=== PATIENT | male | born 1945 | race Caucasian/White ===

== ENCOUNTER → 2019-02-21 | Outpatient (CLI) | payer SELFPAY ==
[2019-02-21 19:28] LABS: BASOPHILS ABSOLUTE AUTO 0.03 K/mm3 (0.00-0.23); BASOPHILS PERCENT AUTO 1 % (0-2); EOSINOPHILS ABSOLUTE AUTO 0.25 K/mm3 (0.00-0.68); EOSINOPHILS PERCENT AUTO 5 % (0-6); Hematocrit 38.3 % (37.0-53.0); Hemoglobin 12.7 g/dL (13.5-17.5); IMMATURE GRAN ABSOLUTE AUTO 0.01 K/mm3 (0.00-0.10); IMMATURE GRAN PERCENT AUTO 0 % (0-1); LYMPHOCYTES ABSOLUTE AUTO 1.13 K/mm3 (0.84-5.20); LYMPHOCYTES PERCENT AUTO 22 % (21-46); MONOCYTES ABSOLUTE AUTO 0.31 K/mm3 (0.16-1.47); MONOCYTES PERCENT AUTO 6 % (4-13); Mean Corpuscular HGB 29.7 pg (26.0-34.0); Mean Corpuscular HGB Conc 33.2 g/dL (31.5-36.5); Mean Corpuscular Volume 90 fL (80-100); Mean Platelet Volume 10.7 fL (9.1-12.4); NEUTROPHILS ABSOLUTE AUTO 3.31 K/mm3 (1.96-9.15); NEUTROPHILS PERCENT AUTO 66 % (41-73); Platelet Count 112 K/mm3 (150-400); RDW Coefficient Variation 13.9 % (11.7-14.2); RDW Standard Deviation 45.8 fL (35.1-46.3); Red Blood Cell Count 4.27 M/mm3 (4.30-5.90); White Blood Cell Count 5.04 K/mm3 (4.00-11.30)
[2019-02-21 20:48] LABS: Alanine Aminotransfer (ALT/SGP 25 U/L (12-78); Albumin/Globulin Ratio 1.2 (0.8-1.8); Alk Phos 70 U/L (50-136); Anion Gap 4 mmol/L (6-16); Aspartate Aminotrans (AST/SGOT 14 U/L (12-37); Bilirubin, Total 0.9 mg/dL (0.1-1.0); Blood Urea Nitrogen 18 mg/dL (8-24); Bun/Creatinine Ratio 19.6 (12.0-20.0); CHOL/HDL RATIO 3.1; CO2, Blood 26 mmol/L (21-32); Calcium, Blood 9.1 mg/dL (8.5-10.1); Chloride, Blood 110 mmol/L (98-108); Cholesterol 78 mg/dL (50-200); Creatinine, Blood 0.92 mg/dL (0.60-1.20); Globulin, Blood 3.2 g/dL (2.2-4.0); Glomerular Filtration Rate >60 (60-); Glucose, Blood 160 mg/dL (70-99); HDL Cholesterol 25 mg/dL (>39); LDL/HDL RATIO 0.9; Low Density Lipoprotein Chol 22 mg/dL (0-110); Potassium, Blood 4.2 mmol/L (3.5-5.5); Sodium, Blood 140 mmol/L (136-145); Total Protein, Blood 7.2 g/dL (6.4-8.2); Triglycerides 153 mg/dL (30-160); Very Low Density Lipoprot Chol 30 mg/dL (6-32)
== END | disposition home or self-care (01) ==
LOC: LAB 18:39 → LAB SHORT 18:39
PROVIDERS: Nurse Practitioner Family
DX: E11.9 Type 2 diabetes mellitus without complications (principal); E78.5 Hyperlipidemia, unspecified
CPT/HCPCS: 80053; 80061; 85025

== ENCOUNTER → 2019-04-02 | Outpatient (CLI) | payer SELFPAY ==
[2019-04-02 19:27] LABS: BASOPHILS ABSOLUTE AUTO 0.06 K/mm3 (0.00-0.23); BASOPHILS PERCENT AUTO 1 % (0-2); EOSINOPHILS ABSOLUTE AUTO 0.44 K/mm3 (0.00-0.68); EOSINOPHILS PERCENT AUTO 6 % (0-6); Hematocrit 42.3 % (37.0-53.0); Hemoglobin 14.3 g/dL (13.5-17.5); IMMATURE GRAN ABSOLUTE AUTO 0.03 K/mm3 (0.00-0.10); IMMATURE GRAN PERCENT AUTO 0 % (0-1); LYMPHOCYTES PERCENT AUTO 23 % (21-46); MONOCYTES ABSOLUTE AUTO 0.47 K/mm3 (0.16-1.47); MONOCYTES PERCENT AUTO 6 % (4-13); Mean Corpuscular HGB 29.5 pg (26.0-34.0); Mean Corpuscular HGB Conc 33.8 g/dL (31.5-36.5); Mean Corpuscular Volume 87 fL (80-100); Mean Platelet Volume 10.1 fL (9.1-12.4); NEUTROPHILS ABSOLUTE AUTO 4.74 K/mm3 (1.96-9.15); NEUTROPHILS PERCENT AUTO 64 % (41-73); Platelet Count 106 K/mm3 (150-400); RDW Coefficient Variation 12.8 % (11.7-14.2); RDW Standard Deviation 40.3 fL (35.1-46.3); Red Blood Cell Count 4.84 M/mm3 (4.30-5.90); White Blood Cell Count 7.44 K/mm3 (4.00-11.30)
[2019-04-02 19:46] LABS: CHOL/HDL RATIO 5.4; Cholesterol 141 mg/dL (50-200); HDL Cholesterol 26 mg/dL (>39); LDL/HDL RATIO 1.6; Low Density Lipoprotein Chol 41 mg/dL (0-110); Triglycerides 372 mg/dL (30-160); Very Low Density Lipoprot Chol 74 mg/dL (6-32)
== END | disposition home or self-care (01) ==
LOC: LAB SHORT 18:01 → LAB 18:01
PROVIDERS: Nurse Practitioner Family
DX: E78.00 Pure hypercholesterolemia, unspecified (principal)
CPT/HCPCS: 80061; 85025

== ENCOUNTER → 2019-05-29 | Outpatient (CLI) | payer MEDICARE ==
[2019-05-29 17:17] LABS: Source, Urine Clean Catch
[2019-05-29 18:07] LABS: Bilirubin, Urine Neg (Neg); Blood, Urine 5+ (Neg); Glucose Qualitative, Urine Neg (Neg); Ketones, Urine 1+ (Neg); Leukocyte Esterase, Urine Neg (Neg); Nitrite, Urine Neg (Neg); Protein, Urine 2+ (Neg); Specific Gravity, Urine 1.015 (1.003-1.022); Urobilinogen, Urine NORM (Normal)
[2019-05-29 18:27] LABS: BASOPHILS ABSOLUTE AUTO 0.07 K/mm3 (0.00-0.23); BASOPHILS PERCENT AUTO 1 % (0-2); EOSINOPHILS ABSOLUTE AUTO 0.55 K/mm3 (0.00-0.68); EOSINOPHILS PERCENT AUTO 8 % (0-6); Hematocrit 39.4 % (37.0-53.0); Hemoglobin 13.5 g/dL (13.5-17.5); IMMATURE GRAN ABSOLUTE AUTO 0.02 K/mm3 (0.00-0.10); IMMATURE GRAN PERCENT AUTO 0 % (0-1); LYMPHOCYTES ABSOLUTE AUTO 1.31 K/mm3 (0.84-5.20); LYMPHOCYTES PERCENT AUTO 19 % (21-46); MONOCYTES ABSOLUTE AUTO 0.56 K/mm3 (0.16-1.47); MONOCYTES PERCENT AUTO 8 % (4-13); Mean Corpuscular HGB 29.5 pg (26.0-34.0); Mean Corpuscular HGB Conc 34.3 g/dL (31.5-36.5); Mean Corpuscular Volume 86 fL (80-100); Mean Platelet Volume 10.2 fL (9.1-12.4); NEUTROPHILS PERCENT AUTO 64 % (41-73); Platelet Count 123 K/mm3 (150-400); RDW Coefficient Variation 13.9 % (11.7-14.2); RDW Standard Deviation 43.1 fL (35.1-46.3); Red Blood Cell Count 4.58 M/mm3 (4.30-5.90); White Blood Cell Count 6.91 K/mm3 (4.00-11.30)
[2019-05-29 18:39] LABS: Appearance, Urine Clear (Clear); Color, Urine Yellow (P-Yellow)
[2019-05-29 18:40] LABS: Bacteria Mod /hpf; Squamous Epithelial Cells Rare /hpf (Few)
[2019-05-29 18:42] LABS: LDL Direct Measurement 61 mg/dL (0-130)
[2019-05-29 18:44] LABS: Microalb/Creat Ratio UR, Rand 137.879 mg/g (0.000-30.000)
[2019-05-29 19:46] LABS: Alanine Aminotransfer (ALT/SGP 24 U/L (12-78); Albumin/Globulin Ratio 1.1 (0.8-1.8); Alk Phos 69 U/L (50-136); Anion Gap 5 mmol/L (6-16); Aspartate Aminotrans (AST/SGOT 12 U/L (12-37); Bilirubin, Total 0.3 mg/dL (0.1-1.0); Blood Urea Nitrogen 22 mg/dL (8-24); Bun/Creatinine Ratio 22.8 (12.0-20.0); CHOL/HDL RATIO 5.4; CO2, Blood 26 mmol/L (21-32); Chloride, Blood 109 mmol/L (98-108); Cholesterol 124 mg/dL (50-200); Creatinine, Blood 0.96 mg/dL (0.60-1.20); Globulin, Blood 3.6 g/dL (2.2-4.0); Glomerular Filtration Rate >60 (60-); Glucose, Blood 160 mg/dL (70-99); HDL Cholesterol 23 mg/dL (>39); LDL/HDL RATIO 1.8; Low Density Lipoprotein Chol 42 mg/dL (0-110); Potassium, Blood 4.1 mmol/L (3.5-5.5); Sodium, Blood 140 mmol/L (136-145); Total Protein, Blood 7.6 g/dL (6.4-8.2); Triglycerides 294 mg/dL (30-160); Very Low Density Lipoprot Chol 58 mg/dL (6-32)
== END | disposition home or self-care (01) ==
LOC: LAB SHORT 16:56 → LAB 16:56
PROVIDERS: Nurse Practitioner Family
DX: E11.9 Type 2 diabetes mellitus without complications (principal); E78.00 Pure hypercholesterolemia, unspecified
CPT/HCPCS: 80053; 80061; 81001; 82043; 82570; 83036; 83721; 85025; 87086

== ENCOUNTER 2019-10-25 18:48 | Emergency (ER) | payer MEDICARE ==
[~2019-10-25] VITALS: Ht 180.3 cm; Wt 83.9 kg
[2019-10-25] MEDS ORDERED: Lisinopril2.5 MG (18:59)
[2019-10-25] MEDS ORDERED: TAMS.4ER (18:59)
[2019-10-25] MEDS ORDERED: Norco 5-325 Ta1 EACH (18:59)
[2019-10-25] MEDS ORDERED: ATOR20 (18:59)
[2019-10-25 20:41] LABS: BASOPHILS ABSOLUTE AUTO 0.04 K/mm3 (0.00-0.23); BASOPHILS PERCENT AUTO 1 % (0-2); EOSINOPHILS ABSOLUTE AUTO 0.19 K/mm3 (0.00-0.68); EOSINOPHILS PERCENT AUTO 3 % (0-6); Hemoglobin 7.9 g/dL (13.5-17.5); IMMATURE GRAN ABSOLUTE AUTO 0.04 K/mm3 (0.00-0.10); IMMATURE GRAN PERCENT AUTO 1 % (0-1); LYMPHOCYTES ABSOLUTE AUTO 1.09 K/mm3 (0.84-5.20); LYMPHOCYTES PERCENT AUTO 16 % (21-46); MONOCYTES ABSOLUTE AUTO 0.44 K/mm3 (0.16-1.47); MONOCYTES PERCENT AUTO 7 % (4-13); Mean Corpuscular HGB 28.6 pg (26.0-34.0); Mean Corpuscular HGB Conc 31.6 g/dL (31.5-36.5); Mean Corpuscular Volume 91 fL (80-100); Mean Platelet Volume 9.7 fL (9.1-12.4); NEUTROPHILS ABSOLUTE AUTO 4.94 K/mm3 (1.96-9.15); NEUTROPHILS PERCENT AUTO 73 % (41-73); Platelet Count 133 K/mm3 (150-400); RDW Coefficient Variation 17.8 % (11.7-14.2); RDW Standard Deviation 56.9 fL (35.1-46.3); Red Blood Cell Count 2.76 M/mm3 (4.30-5.90); White Blood Cell Count 6.74 K/mm3 (4.00-11.30)
[2019-10-25 20:57] LABS: Albumin, Blood 3.5 g/dL (3.4-5.0); Albumin/Globulin Ratio 0.9 (0.8-1.8); Bilirubin, Total 0.2 mg/dL (0.1-1.0); Bun/Creatinine Ratio 20.9 (12.0-20.0); Calcium, Blood 7.9 mg/dL (8.5-10.1); Creatinine, Blood 1.34 mg/dL (0.60-1.20); Globulin, Blood 3.7 g/dL (2.2-4.0); Potassium, Blood 4.2 mmol/L (3.5-5.5); Total Protein, Blood 7.2 g/dL (6.4-8.2)
[2019-10-25] MEDS ORDERED: ASCO500 PO (21:13)
[2019-10-25] MEDS ORDERED: IRON18 MG PO (21:13)
[2019-10-25 21:28] LABS: Source, Urine Voided
[2019-10-25 21:39] LABS: Appearance, Urine Turbid (Clear); Bilirubin, Urine Neg (Neg); Blood, Urine 5+ (Neg); Color, Urine Red (P-Yellow); Glucose Qualitative, Urine Neg (Neg); Ketones, Urine Neg (Neg); Leukocyte Esterase, Urine 2+ (Neg); Nitrite, Urine Neg (Neg); Protein, Urine 4+ (Neg); Urobilinogen, Urine NORM (Normal)
[2019-10-25 21:40] LABS: Bacteria Rare /hpf; Red Blood Cells, Urine TNTC /hpf (0-2); Squamous Epithelial Cells Not Seen /hpf (Few)
[2019-10-25 22:10] LABS: Troponin I 1.98 ng/mL (0.000-0.040)
== END 2019-10-26 01:05 | disposition short-term general hospital (02) ==
LOC: ER 18:48
PROVIDERS: Student in an Organized Health Care Education/Training Program
DX: D64.9 Anemia, unspecified (principal); R31.9 Hematuria, unspecified; R79.89 Other specified abnormal findings of blood chemistry; Z79.899 Other long term (current) drug therapy; Z87.891 Personal history of nicotine dependence
CPT/HCPCS: 36415; 36430; 76770; 80053; 81001; 84484; 85025; 86850; 86900; 86901; 86923; 87086; 93005; 93010; 99284-25; J7030; P9016; U0002

== ENCOUNTER → 2019-10-25 | Outpatient (CLI) | payer MEDICARE ==
[~2019-10-25] MED LIST: ASCO500 PO; ATOR20; IRON18 MG PO; Lisinopril2.5 MG; Norco 5-325 Ta1 EACH; TAMS.4ER
[2019-10-25 16:46] LABS: BASOPHILS ABSOLUTE AUTO 0.04 K/mm3 (0.00-0.23); BASOPHILS PERCENT AUTO 1 % (0-2); EOSINOPHILS ABSOLUTE AUTO 0.16 K/mm3 (0.00-0.68); EOSINOPHILS PERCENT AUTO 3 % (0-6); Hematocrit 23.5 % (37.0-53.0); Hemoglobin 7.4 g/dL (13.5-17.5); IMMATURE GRAN ABSOLUTE AUTO 0.02 K/mm3 (0.00-0.10); IMMATURE GRAN PERCENT AUTO 0 % (0-1); LYMPHOCYTES ABSOLUTE AUTO 0.97 K/mm3 (0.84-5.20); LYMPHOCYTES PERCENT AUTO 17 % (21-46); MONOCYTES ABSOLUTE AUTO 0.29 K/mm3 (0.16-1.47); MONOCYTES PERCENT AUTO 5 % (4-13); Mean Corpuscular HGB 28.2 pg (26.0-34.0); Mean Corpuscular HGB Conc 31.5 g/dL (31.5-36.5); Mean Corpuscular Volume 90 fL (80-100); Mean Platelet Volume 10.6 fL (9.1-12.4); NEUTROPHILS ABSOLUTE AUTO 4.34 K/mm3 (1.96-9.15); NEUTROPHILS PERCENT AUTO 75 % (41-73); Platelet Count 132 K/mm3 (150-400); RDW Coefficient Variation 17.3 % (11.7-14.2); RDW Standard Deviation 54.2 fL (35.1-46.3); Red Blood Cell Count 2.62 M/mm3 (4.30-5.90); White Blood Cell Count 5.82 K/mm3 (4.00-11.30)
== END ==
LOC: LAB SHORT 16:16 → LAB 16:16
PROVIDERS: Nurse Practitioner Family
DX: R42 Dizziness and giddiness (principal); R31.9 Hematuria, unspecified
CPT/HCPCS: 85025; 87086

== ENCOUNTER → 2019-11-26 | Outpatient (CLI) | payer MEDICARE ==
[~2019-11-26] MED LIST changes: +ACET325 PO; +AMPI250 PO; +AMPI500 PO; +ASPI81CH PO; +ATOR10 PO; -ATOR20; +Aspir 8181 MG PO; +Ativan1 MG PO; +FINA5 PO; +HYOS.125 PO; +IRON PO; -Lisinopril2.5 MG; +Lisinopril2.5 MG PO; +METF500 PO; +METO25ER PO; +Norco 5-325 Ta1 EACH PO; +OXYB5ER PO; +Percocet 5-3251 EACH PO; +Pyridium100 MG PO; -TAMS.4ER; +TAMS.4ER PO; +ZOFRAN4 MG; +ZOFRAN8 MG PO
[2019-11-26 16:35] LABS: Source, Urine Clean Catch
[2019-11-26 17:26] LABS: BASOPHILS ABSOLUTE AUTO 0.05 K/mm3 (0.00-0.23); BASOPHILS PERCENT AUTO 1 % (0-2); EOSINOPHILS ABSOLUTE AUTO 0.29 K/mm3 (0.00-0.68); EOSINOPHILS PERCENT AUTO 4 % (0-6); Hematocrit 30.9 % (37.0-53.0); Hemoglobin 9.3 g/dL (13.5-17.5); IMMATURE GRAN ABSOLUTE AUTO 0.03 K/mm3 (0.00-0.10); IMMATURE GRAN PERCENT AUTO 0 % (0-1); LYMPHOCYTES ABSOLUTE AUTO 0.84 K/mm3 (0.84-5.20); LYMPHOCYTES PERCENT AUTO 12 % (21-46); MONOCYTES ABSOLUTE AUTO 0.32 K/mm3 (0.16-1.47); MONOCYTES PERCENT AUTO 5 % (4-13); Mean Corpuscular HGB Conc 30.1 g/dL (31.5-36.5); Mean Corpuscular Volume 90 fL (80-100); Mean Platelet Volume 10.3 fL (9.1-12.4); NEUTROPHILS ABSOLUTE AUTO 5.46 K/mm3 (1.96-9.15); NEUTROPHILS PERCENT AUTO 78 % (41-73); Platelet Count 161 K/mm3 (150-400); RDW Coefficient Variation 14.9 % (11.7-14.2); RDW Standard Deviation 49.1 fL (35.1-46.3); Red Blood Cell Count 3.44 M/mm3 (4.30-5.90); White Blood Cell Count 6.99 K/mm3 (4.00-11.30)
[2019-11-26 17:28] LABS: Bilirubin, Urine Neg (Neg); Blood, Urine 5+ (Neg); Glucose Qualitative, Urine Neg (Neg); Ketones, Urine 1+ (Neg); Leukocyte Esterase, Urine 2+ (Neg); Nitrite, Urine Neg (Neg); Protein, Urine 4+ (Neg); Specific Gravity, Urine 1.015 (1.003-1.022); Urobilinogen, Urine NORM (Normal)
[2019-11-26 17:42] LABS: Alanine Aminotransfer (ALT/SGP 12 U/L (12-78); Albumin, Blood 3.6 g/dL (3.4-5.0); Alk Phos 72 U/L (50-136); Anion Gap 5 mmol/L (6-16); Aspartate Aminotrans (AST/SGOT 11 U/L (12-37); Bilirubin, Total 0.2 mg/dL (0.1-1.0); Blood Urea Nitrogen 29 mg/dL (8-24); Bun/Creatinine Ratio 25.7 (12.0-20.0); CO2, Blood 23 mmol/L (21-32); Calcium, Blood 8.3 mg/dL (8.5-10.1); Chloride, Blood 114 mmol/L (98-108); Creatinine, Blood 1.13 mg/dL (0.60-1.20); Globulin, Blood 3.5 g/dL (2.2-4.0); Glomerular Filtration Rate >60 (60-); Glucose, Blood 228 mg/dL (70-99); Sodium, Blood 142 mmol/L (136-145); Total Protein, Blood 7.1 g/dL (6.4-8.2)
[2019-11-26 18:02] LABS: Appearance, Urine Turbid (Clear); Color, Urine Red (P-Yellow)
[2019-11-26 18:03] LABS: Bacteria Many /hpf; Mucus Mod (0-Heavy); Red Blood Cells, Urine TNTC /hpf (0-2); Squamous Epithelial Cells Few /hpf (Few); White Blood Cells, Urine 50-100 /hpf (0-5)
== END ==
LOC: LAB SHORT 16:30 → LAB 16:30
PROVIDERS: Nurse Practitioner Family
DX: D50.0 Iron deficiency anemia secondary to blood loss (chronic) (principal); N17.9 Acute kidney failure, unspecified; E11.9 Type 2 diabetes mellitus without complications; R31.9 Hematuria, unspecified
CPT/HCPCS: 80053; 81001; 83036; 85025; 87086

== ENCOUNTER 2019-12-31 13:16 | Observation (INO) | payer OTHER, MEDICARE ==
[~2019-12-31] VITALS: Ht 180.3 cm; Wt 81.7 kg
[~2019-12-31 13:16] MED LIST changes: -ACET325 PO; -AMPI250 PO; -AMPI500 PO
[2019-12-31 14:41] LABS: Source, Urine Catheter
[2019-12-31 14:45] LABS: Bilirubin, Urine Neg (Neg); Blood, Urine 3+ (Neg); Glucose Qualitative, Urine Neg (Neg); Ketones, Urine Neg (Neg); Leukocyte Esterase, Urine 3+ (Neg); Nitrite, Urine Pos (Neg); Protein, Urine 3+ (Neg); Urobilinogen, Urine 1+ (Normal)
[2019-12-31 14:57] LABS: Appearance, Urine Cloudy (Clear); Color, Urine Amber (P-Yellow)
[2019-12-31 14:59] LABS: Bacteria Many /hpf; Squamous Epithelial Cells Few /hpf (Few); White Blood Cells, Urine TNTC /hpf (0-5)
[2019-12-31 16:10] LABS: Source, Urine Catheter
[2019-12-31 16:12] LABS: Bilirubin, Urine Neg (Neg); Blood, Urine 3+ (Neg); Glucose Qualitative, Urine Neg (Neg); Ketones, Urine Neg (Neg); Leukocyte Esterase, Urine 3+ (Neg); Nitrite, Urine Pos (Neg); Protein, Urine 3+ (Neg); Urobilinogen, Urine NORM (Normal)
[2019-12-31 16:18] LABS: Appearance, Urine Hazy (Clear); Color, Urine Yellow (P-Yellow)
[2019-12-31 16:19] LABS: Bacteria Many /hpf; Squamous Epithelial Cells Not Seen /hpf (Few); White Blood Cells, Urine TNTC /hpf (0-5)
[2019-12-31 17:31] LABS: Hematocrit 30.3 % (37.0-53.0); Hemoglobin 9.4 g/dL (13.5-17.5); Mean Corpuscular HGB 26.3 pg (26.0-34.0); Mean Corpuscular Volume 85 fL (80-100); Mean Platelet Volume 11.6 fL (9.1-12.4); RDW Coefficient Variation 13.8 % (11.7-14.2); Red Blood Cell Count 3.57 M/mm3 (4.30-5.90); White Blood Cell Count 1.12 K/mm3 (4.00-11.30)
[2019-12-31 17:35] LABS: Platelet Count 38 K/mm3 (150-400)
[2019-12-31 17:39] LABS: Albumin, Blood 3.6 g/dL (3.4-5.0); Anion Gap 8 mmol/L (6-16); Blood Urea Nitrogen 39 mg/dL (8-24); Bun/Creatinine Ratio 22.3 (12.0-20.0); CO2, Blood 22 mmol/L (21-32); Calcium, Blood 8.9 mg/dL (8.5-10.1); Chloride, Blood 106 mmol/L (98-108); Creatinine, Blood 1.75 mg/dL (0.60-1.20); Glomerular Filtration Rate 40 (60-); Glucose, Blood 178 mg/dL (70-99); Phosphorus, Blood 3.2 mg/dL (2.5-4.9); Potassium, Blood 4.5 mmol/L (3.5-5.5); Sodium, Blood 136 mmol/L (136-145)
[2019-12-31 17:54] LABS: BASOPHILS PERCENT MAN 0 % (0-2); EOSINOPHILS ABSOLUTE MAN 0.03 K/mm3 (0.00-0.68); EOSINOPHILS PERCENT MAN 3 % (0-6); LYMPHOCYTES ABSOLUTE MAN 0.53 K/mm3 (0.84-5.20); LYMPHOCYTES PERCENT MAN 48 % (21-46); MONOCYTES ABSOLUTE MAN 0.01 K/mm3 (0.16-1.47); MONOCYTES PERCENT MAN 1 % (4-13); NEUTROPHILS ABSOLUTE MAN 0.53 K/mm3 (1.96-9.15); SEG NEUTROPHILS PERCENT MAN 48 % (41-73); TOTAL CELLS COUNTED 100
--- NOTE | 2019-12-31 17:59 | NUR ---
Pt returned to ER. Severe abdominal pain and groin pain. Abdomen firm and taught, Minimal output from burgos. states he was bleeding and clotting before treatment. pt has flank pain. Narctic helped but not for long. Review with phsycian. increase pain medes acute abdomen work up and possible urology care and reanl consult to r/o peritonitis or obstruction. pt pale and guarding and grunting no bleeding noted passing lots of gas. no pain noted to legs. pt taking narcotics ant home and ditropan.
[2019-12-31 18:33] LABS: Albumin, Blood 3.6 g/dL (3.4-5.0); Albumin/Globulin Ratio 0.9 (0.8-1.8); Bilirubin, Direct 0.1 mg/dL (0.0-0.3); Bilirubin, Indirect 0.2 mg/dL (0.1-0.7); Bilirubin, Total 0.3 mg/dL (0.1-1.0); Globulin, Blood 4.2 g/dL (2.2-4.0); Total Protein, Blood 7.8 g/dL (6.4-8.2)
[2019-12-31] MEDS ORDERED: AMPI500 PO (18:55)
[2020-01-01 04:55] LABS: BASOPHILS PERCENT AUTO 0 % (0-2); Hematocrit 26.4 % (37.0-53.0); Hemoglobin 8.5 g/dL (13.5-17.5); Mean Corpuscular HGB 27.2 pg (26.0-34.0); Mean Corpuscular HGB Conc 32.2 g/dL (31.5-36.5); Mean Corpuscular Volume 85 fL (80-100); Mean Platelet Volume 9.1 fL (9.1-12.4); RDW Coefficient Variation 13.7 % (11.7-14.2); RDW Standard Deviation 42.3 fL (35.1-46.3); Red Blood Cell Count 3.12 M/mm3 (4.30-5.90); White Blood Cell Count 1.01 K/mm3 (4.00-11.30)
[2020-01-01 04:59] LABS: EOSINOPHILS ABSOLUTE AUTO 0.01 K/mm3 (0.00-0.68); EOSINOPHILS PERCENT AUTO 1 % (0-6); IMMATURE GRAN PERCENT AUTO 0 % (0-1); LYMPHOCYTES ABSOLUTE AUTO 0.24 K/mm3 (0.84-5.20); LYMPHOCYTES PERCENT AUTO 24 % (21-46); MONOCYTES ABSOLUTE AUTO 0.02 K/mm3 (0.16-1.47); MONOCYTES PERCENT AUTO 2 % (4-13); NEUTROPHILS ABSOLUTE AUTO 0.74 K/mm3 (1.96-9.15); NEUTROPHILS PERCENT AUTO 73 % (41-73)
[2020-01-01 05:00] LABS: Platelet Count 24 K/mm3 (150-400)
[2020-01-01 05:11] LABS: Albumin, Blood 2.8 g/dL (3.4-5.0); Albumin/Globulin Ratio 0.8 (0.8-1.8); Bilirubin, Total 0.3 mg/dL (0.1-1.0); Bun/Creatinine Ratio 17.9 (12.0-20.0); Calcium, Blood 8.1 mg/dL (8.5-10.1); Creatinine, Blood 1.79 mg/dL (0.60-1.20); Globulin, Blood 3.6 g/dL (2.2-4.0); Potassium, Blood 4.2 mmol/L (3.5-5.5); Total Protein, Blood 6.4 g/dL (6.4-8.2)
--- NOTE | 2020-01-01 05:45 | NUR ---
SHIFT SUMMARY- PT. NEW ADMIT FROM ED WITH RECENT DX OF BLADDER CA. A&O, FORGETFUL. PT. PLEASANT AND COOPERATIVE WITH CARE. PAINFUL DURING THE NIGHT. C/O LOWER ABD PAIN/BLADDER SPASMS. MEDICATED WITH PAIN MEDS PER EMAR AND PYRIDIUM WITH GOOD EFFECT. PT. SLEPT ON/OFF DURING THE NIGHT, NO APPARENT DISTRESS NOTED. BORJA CATHETER IN PLACE, APPEARANCE OF URINE WENT FROM ORANGE TO BRIGHT RED. HOSPITALIST DR. LEOS NOTIFIED, RECEIVED ORDER TO PERFORM BLADDER IRRIGATIONS AND CONT TO MONITOR. @0500- BLADDER IRRIATION DONE THIS AM, PT. TOLERATED WELL. SMALL AMOUNT OF CLOTS REMOVED. PT. REPOSITIONED IN BED FOR COMFORT. DENIED ANY NEEDS. IV FLUIDS INFUSING. CALL LIGHT WITHIN REACH, SIDE RAILS UPX2, AND BED ALARM ON FOR SAFETY. WILL CONT TO MONITOR.
[2020-01-01] MEDS ORDERED: ACET325 PO ×2 (08:32→08:33)
[2020-01-01] MEDS ORDERED: AMPI250 PO (08:33)
[2020-01-01] MEDS ORDERED: Percocet 5-3251 EACH PO (08:35)
--- NOTE | 2020-01-01 09:37 | NUR ---
Met with briefly before discharge. Pt to meet with oncology today will follow as outpatient.
--- NOTE | 2020-01-01 10:47 | NUR ---
DISCHARGE SUMMARY PT A&Ox3; CALM AND COOPERATIVE WITH CARE. PT UP IN ROOM WITH 1 PERSON ASSIST. PT REPORTS BLADDER SPASMS; CRAMPING AND SHARP PAINS; MEDICATED PER EMAR. PT DENIES CHEST PAIN, SOB, [place], DIZZINESS, AND NUMB/TINGLING. BORJA IN PLACE AND DRAINING ORANGE/RED WITH SMALL CLOTS; BORJA IRRIGATED PER ORDERS AND INPATIENT BAG REPLACED WITH LEG BAG FOR DISCHARGE. VSS. NO OTHER ACUTE CHANGES NOTED. PT EDUCATED ON DISCHARGE INSTRUCTIONS, FOLLOW UP APPOINTMENTS AND MEDICATIONS. PRESCRIPTIONS CALLED INTO [facility] PER PT REQUEST. PT LEFT ROOM VIA WHEELCHAIR AT 0915. PLANS TO GO STRIAGHT TO DR LUCIA OFFICE FOR APPOINTMENT.
[2020-01-06] MEDS ORDERED: AMOX500 (01:45)
[2020-01-06] MEDS ORDERED: Norco 5-325 Ta1 EACH PO (01:46)
== END 2020-01-01 09:15 | disposition home or self-care (01) ==
LOC: ER 13:16 → MEDS 13:17 → ER 18:00 → MEDS 20:18
PROVIDERS: Emergency Medicine; ADMIT Internal Medicine
DX: R10.30 Lower abdominal pain, unspecified (principal); N32.89 Other specified disorders of bladder; C67.9 Malignant neoplasm of bladder, unspecified; N39.0 Urinary tract infection, site not specified; G89.29 Other chronic pain; M54.9 Dorsalgia, unspecified; I10 Essential (primary) hypertension; Z79.82 Long term (current) use of aspirin; Z79.899 Other long term (current) drug therapy; Z87.891 Personal history of nicotine dependence
CPT/HCPCS: 36415; 51702; 51798; 74176; 80053; 80069; 80076; 81001; 82248; 82947; 83735; 85025; 87077; 87086; 87186; 96365-59; 96375-59; 96376-59; 99284-25; A9270-GY; J0696; J1170; J7030

== ENCOUNTER 2020-05-12 11:34 | Emergency (ER) | payer MEDICARE, OTHER ==
[~2020-05-12] VITALS: Ht 180.3 cm; Wt 76.2 kg
[~2020-05-12 11:34] MED LIST changes: +ACET325 PO; +AMOX500; +AMPI250 PO; +AMPI500 PO
[2020-05-12 12:18] LABS: BASOPHILS ABSOLUTE AUTO 0.03 K/mm3 (0.00-0.23); BASOPHILS PERCENT AUTO 0 % (0-2); EOSINOPHILS ABSOLUTE AUTO 0.04 K/mm3 (0.00-0.68); EOSINOPHILS PERCENT AUTO 0 % (0-6); Hematocrit 31.8 % (37.0-53.0); Hemoglobin 10.3 g/dL (13.5-17.5); IMMATURE GRAN ABSOLUTE AUTO 0.05 K/mm3 (0.00-0.10); IMMATURE GRAN PERCENT AUTO 1 % (0-1); LYMPHOCYTES ABSOLUTE AUTO 0.74 K/mm3 (0.84-5.20); LYMPHOCYTES PERCENT AUTO 7 % (21-46); MONOCYTES ABSOLUTE AUTO 0.92 K/mm3 (0.16-1.47); MONOCYTES PERCENT AUTO 9 % (4-13); Mean Corpuscular HGB 27.8 pg (26.0-34.0); Mean Corpuscular HGB Conc 32.4 g/dL (31.5-36.5); Mean Corpuscular Volume 86 fL (80-100); Mean Platelet Volume 9.5 fL (9.1-12.4); NEUTROPHILS ABSOLUTE AUTO 8.25 K/mm3 (1.96-9.15); NEUTROPHILS PERCENT AUTO 82 % (41-73); Platelet Count 140 K/mm3 (150-400); RDW Coefficient Variation 14.4 % (11.7-14.2); RDW Standard Deviation 45.4 fL (35.1-46.3); Red Blood Cell Count 3.71 M/mm3 (4.30-5.90); White Blood Cell Count 10.03 K/mm3 (4.00-11.30)
[2020-05-12 12:34] LABS: Albumin, Blood 3.2 g/dL (3.4-5.0); Albumin/Globulin Ratio 0.7 (0.8-1.8); Bilirubin, Total 0.4 mg/dL (0.1-1.0); Calcium, Blood 8.8 mg/dL (8.5-10.1); Creatinine, Blood 1.46 mg/dL (0.60-1.20); Globulin, Blood 4.8 g/dL (2.2-4.0); Potassium, Blood 4.6 mmol/L (3.5-5.5)
[2020-05-12 14:17] LABS: Source, Urine Clean Catch
[2020-05-12 14:21] LABS: Appearance, Urine Cloudy (Clear); Bilirubin, Urine Neg (Neg); Blood, Urine 5+ (Neg); Color, Urine Yellow (P-Yellow); Glucose Qualitative, Urine Neg (Neg); Ketones, Urine Neg (Neg); Leukocyte Esterase, Urine 3+ (Neg); Nitrite, Urine Neg (Neg); Protein, Urine 3+ (Neg); Urobilinogen, Urine NORM (Normal)
[2020-05-12 14:31] LABS: Red Blood Cells, Urine TNTC /hpf (0-2); White Blood Cells, Urine TNTC /hpf (0-5)
[2020-05-12 14:32] LABS: Bacteria Many /hpf; Squamous Epithelial Cells Not Seen /hpf (Few); Transitional Epithelial Cells Few /hpf (0-Rare)
[2020-05-12] MEDS ORDERED: CEPH500 PO (14:54)
== END 2020-05-12 15:26 | disposition home or self-care (01) ==
LOC: ER 11:34
PROVIDERS: Emergency Medicine
DX: N39.0 Urinary tract infection, site not specified (principal); Z87.891 Personal history of nicotine dependence
CPT/HCPCS: 71045; 80053; 81001; 85025; 87077; 87086; 87186; 99285-25; A9270

== ENCOUNTER 2020-05-24 05:11 | Emergency (ER) | payer MEDICARE, OTHER ==
[~2020-05-24] VITALS: Ht 180.3 cm; Wt 74.4 kg
[~2020-05-24 05:11] MED LIST changes: +CEPH500 PO; +HYDACE10B PO
[2020-05-24 06:08] LABS: BASOPHILS ABSOLUTE AUTO 0.03 K/mm3 (0.00-0.23); BASOPHILS PERCENT AUTO 0 % (0-2); EOSINOPHILS ABSOLUTE AUTO 0.33 K/mm3 (0.00-0.68); EOSINOPHILS PERCENT AUTO 3 % (0-6); Hematocrit 30.8 % (37.0-53.0); Hemoglobin 9.7 g/dL (13.5-17.5); IMMATURE GRAN ABSOLUTE AUTO 0.06 K/mm3 (0.00-0.10); IMMATURE GRAN PERCENT AUTO 1 % (0-1); LYMPHOCYTES ABSOLUTE AUTO 0.68 K/mm3 (0.84-5.20); LYMPHOCYTES PERCENT AUTO 6 % (21-46); MONOCYTES ABSOLUTE AUTO 0.59 K/mm3 (0.16-1.47); MONOCYTES PERCENT AUTO 6 % (4-13); Mean Corpuscular HGB 26.9 pg (26.0-34.0); Mean Corpuscular HGB Conc 31.5 g/dL (31.5-36.5); Mean Corpuscular Volume 85 fL (80-100); Mean Platelet Volume 8.8 fL (9.1-12.4); NEUTROPHILS ABSOLUTE AUTO 9.07 K/mm3 (1.96-9.15); NEUTROPHILS PERCENT AUTO 84 % (41-73); Platelet Count 163 K/mm3 (150-400); RDW Coefficient Variation 14.2 % (11.7-14.2); RDW Standard Deviation 44.4 fL (35.1-46.3); Red Blood Cell Count 3.61 M/mm3 (4.30-5.90); White Blood Cell Count 10.76 K/mm3 (4.00-11.30)
[2020-05-24 06:25] LABS: Albumin, Blood 3.1 g/dL (3.4-5.0); Albumin/Globulin Ratio 0.7 (0.8-1.8); Bilirubin, Total 0.3 mg/dL (0.1-1.0); Bun/Creatinine Ratio 26.1 (12.0-20.0); Calcium, Blood 8.8 mg/dL (8.5-10.1); Creatinine, Blood 1.53 mg/dL (0.60-1.20); Globulin, Blood 4.5 g/dL (2.2-4.0); Potassium, Blood 5.6 mmol/L (3.5-5.5); Total Protein, Blood 7.6 g/dL (6.4-8.2)
[2020-05-24 06:43] LABS: Source, Urine Urostomy Bag
[2020-05-24 06:50] LABS: Bilirubin, Urine Neg (Neg); Blood, Urine 5+ (Neg); Glucose Qualitative, Urine Neg (Neg); Ketones, Urine Neg (Neg); Leukocyte Esterase, Urine 3+ (Neg); Nitrite, Urine Neg (Neg); Protein, Urine 3+ (Neg); Specific Gravity, Urine 1.015 (1.003-1.022); Urobilinogen, Urine NORM (Normal)
[2020-05-24 06:58] LABS: Appearance, Urine Turbid (Clear); Color, Urine Pale Yellow (P-Yellow)
[2020-05-24 07:00] LABS: Bacteria Many /hpf; Squamous Epithelial Cells Not Seen /hpf (Few); White Blood Cells, Urine TNTC /hpf (0-5)
[2020-05-24] MEDS ORDERED: CEFP200 PO (07:24)
[2020-07-22] MEDS ORDERED: ATOR40TA PO (14:07)
[2020-07-22] MEDS ORDERED: HYOS.125 SL (14:08)
[2020-07-22] MEDS ORDERED: TAMS.4ER PO (14:08)
[2020-07-22] MEDS ORDERED: Oxybutynin Chlo10 MG PO (14:08)
== END 2020-05-24 07:50 | disposition home or self-care (01) ==
LOC: ER 05:11
PROVIDERS: Emergency Medicine
DX: R10.9 Unspecified abdominal pain (principal); Z90.6 Acquired absence of other parts of urinary tract; Z85.51 Personal history of malignant neoplasm of bladder; Z79.82 Long term (current) use of aspirin; Z79.899 Other long term (current) drug therapy; Z87.891 Personal history of nicotine dependence; Z87.442 Personal history of urinary calculi
CPT/HCPCS: 36415; 74176; 80053; 81001; 83690; 85025; 87077; 87086; 87186; 96374; 96375; 99284-25; J2405; J3010

== ENCOUNTER 2020-05-30 17:31 | Inpatient (IN) | payer MEDICARE, OTHER ==
[~2020-05-30] VITALS: Ht 180.3 cm; Wt 73.0 kg
[~2020-05-30 17:31] MED LIST changes: +CEFP200 PO
[2020-05-30 18:13] LABS: BASOPHILS ABSOLUTE AUTO 0.04 K/mm3 (0.00-0.23); BASOPHILS PERCENT AUTO 1 % (0-2); EOSINOPHILS ABSOLUTE AUTO 0.57 K/mm3 (0.00-0.68); EOSINOPHILS PERCENT AUTO 9 % (0-6); Hematocrit 34.1 % (37.0-53.0); Hemoglobin 10.2 g/dL (13.5-17.5); IMMATURE GRAN ABSOLUTE AUTO 0.05 K/mm3 (0.00-0.10); IMMATURE GRAN PERCENT AUTO 1 % (0-1); LYMPHOCYTES ABSOLUTE AUTO 1.19 K/mm3 (0.84-5.20); LYMPHOCYTES PERCENT AUTO 19 % (21-46); MONOCYTES ABSOLUTE AUTO 0.43 K/mm3 (0.16-1.47); MONOCYTES PERCENT AUTO 7 % (4-13); Mean Corpuscular HGB 27.1 pg (26.0-34.0); Mean Corpuscular HGB Conc 29.9 g/dL (31.5-36.5); Mean Corpuscular Volume 91 fL (80-100); Mean Platelet Volume 9.8 fL (9.1-12.4); NEUTROPHILS ABSOLUTE AUTO 4.12 K/mm3 (1.96-9.15); NEUTROPHILS PERCENT AUTO 64 % (41-73); Platelet Count 162 K/mm3 (150-400); RDW Coefficient Variation 14.3 % (11.7-14.2); RDW Standard Deviation 47.9 fL (35.1-46.3); Red Blood Cell Count 3.77 M/mm3 (4.30-5.90)
[2020-05-30 18:37] LABS: Albumin, Blood 2.9 g/dL (3.4-5.0); Albumin/Globulin Ratio 0.5 (0.8-1.8); Bilirubin, Total 0.2 mg/dL (0.1-1.0); Bun/Creatinine Ratio 46.9 (12.0-20.0); Calcium, Blood 9.3 mg/dL (8.5-10.1); Creatinine, Blood 1.45 mg/dL (0.60-1.20); Globulin, Blood 5.3 g/dL (2.2-4.0); Total Protein, Blood 8.2 g/dL (6.4-8.2)
[2020-05-30 18:55] LABS: Source, Urine Urostomy Bag
[2020-05-30 18:57] LABS: Appearance, Urine Clear (Clear); Bilirubin, Urine Neg (Neg); Blood, Urine 5+ (Neg); Color, Urine Yellow (P-Yellow); Glucose Qualitative, Urine Neg (Neg); Ketones, Urine Neg (Neg); Leukocyte Esterase, Urine 3+ (Neg); Nitrite, Urine Neg (Neg); Protein, Urine Neg (Neg); Urobilinogen, Urine NORM (Normal); pH, Urine 6.5 (5.0-8.0)
[2020-05-30 19:04] LABS: Bacteria Few /hpf; Red Blood Cells, Urine 25-50 /hpf (0-2); Squamous Epithelial Cells Not Seen /hpf (Few); White Blood Cells, Urine 25-50 /hpf (0-5)
[2020-05-30 19:05] LABS: Renal Epithelial Rare /hpf (0-Rare); Transitional Epithelial Cells Rare /hpf (0-Rare)
[2020-05-30 19:06] LABS: Oval Fat Bodies Rare /lpf
[2020-05-30 21:31] LABS: Influenza A, PCR NEGATIVE (NEGATIVE); Influenza B, PCR NEGATIVE (NEGATIVE); Resp Syncytial Virus, PCR NEGATIVE (NEGATIVE); SARS-Cov-2 (COVID-19) PCR, MMC NEGATIVE (NEGATIVE)
--- NOTE | 2020-05-30 23:02 | NUR ---
Admission: Patient was recieved via stretcher. Able to ambulate from stretcher to bed, SBA. Patient is oriented to room and call suazo. Reporting chronic back pain and requesting [place], not ordered at this time. Call placed to .
[2020-05-31 05:03] LABS: Hematocrit 29.9 % (37.0-53.0); Hemoglobin 9.1 g/dL (13.5-17.5)
[2020-05-31 05:21] LABS: Magnesium, Blood 1.7 mg/dL (1.6-2.4)
[2020-05-31 05:30] LABS: Albumin, Blood 2.5 g/dL (3.4-5.0); Anion Gap 6 mmol/L (6-16); Blood Urea Nitrogen 64 mg/dL (8-24); Bun/Creatinine Ratio 40.5 (12.0-20.0); CO2, Blood 20 mmol/L (21-32); Chloride, Blood 115 mmol/L (98-108); Creatinine, Blood 1.58 mg/dL (0.60-1.20); Glomerular Filtration Rate 45 (60-); Glucose, Blood 125 mg/dL (70-99); Phosphorus, Blood 4.4 mg/dL (2.5-4.9); Potassium, Blood 6.9 mmol/L (3.5-5.5); Sodium, Blood 141 mmol/L (136-145)
--- NOTE | 2020-05-31 05:50 | NUR ---
Critical potassium: Potassium is 6.9. Dr Meeks is notified and orders are obtained, see orders. No chnage is patient condition. Telemetry is NSR in the 70's.
--- NOTE | 2020-05-31 08:03 | NUR ---
SHIFT SUMMARY: PATIENT WAS GIVEN NORCO 2 TAB FOR CHRONIC BACK PAIN WITH GOOD EFFECT. TOLERATING CARDIAC DIET WELL. UP TO THE BATHROOM WITH SBA OF 1. PATIENT IS SLIGHTLY UNSTEADY. UROSTOMY HAS GOOD OUTPUT AMND PATIENT HAS HAD MULTIPLE LOOSE BM'S, LACTOLOSE WAS GIVEN IN ER.
[2020-05-31 14:32] LABS: Bun/Creatinine Ratio 41.9 (12.0-20.0); Calcium, Blood 9.2 mg/dL (8.5-10.1); Creatinine, Blood 1.48 mg/dL (0.60-1.20); Potassium, Blood 5.6 mmol/L (3.5-5.5)
--- NOTE | 2020-05-31 19:17 | NUR ---
SHIFT SUMMARY PT A/O X4; PLEASANT AND COOPERATIVE WITH CARE. ON ROOM AIR AND TELE. ADMITTED FOR HYPERKALEMIA WITH POTASSIUM LEVEL TRENDING DOWN. MEDICATED X1 FOR BACK PAIN. UROSTOMY CHANGED TODAY. 24 HOUR URINE COLLECTION IN PLACE. VSS; WILL REPORT TO OR NURSE MANAGER RN.
[2020-06-01 04:45] LABS: Hematocrit 29.6 % (37.0-53.0); Hemoglobin 9.2 g/dL (13.5-17.5)
[2020-06-01 05:09] LABS: CPK Creatine Kinase 22 U/L (39-308); Magnesium, Blood 1.5 mg/dL (1.6-2.4); Uric Acid, Blood 7.7 mg/dL (3.5-7.2)
[2020-06-01 05:12] LABS: Alanine Aminotransfer (ALT/SGP 29 U/L (12-78); Albumin, Blood 2.7 g/dL (3.4-5.0); Albumin/Globulin Ratio 0.6 (0.8-1.8); Alk Phos 79 U/L (50-136); Anion Gap 6 mmol/L (6-16); Aspartate Aminotrans (AST/SGOT 16 U/L (12-37); Bilirubin, Direct <0.1 mg/dL (0.0-0.3); Bilirubin, Indirect Unable to Calculate mg/dL (0.1-0.7); Bilirubin, Total 0.2 mg/dL (0.1-1.0); Blood Urea Nitrogen 59 mg/dL (8-24); CO2, Blood 22 mmol/L (21-32); Calcium, Blood 9.1 mg/dL (8.5-10.1); Chloride, Blood 109 mmol/L (98-108); Creatinine, Blood 1.44 mg/dL (0.60-1.20); Globulin, Blood 4.9 g/dL (2.2-4.0); Glomerular Filtration Rate 51 (60-); Glucose, Blood 145 mg/dL (70-99); Phosphorus, Blood 4.4 mg/dL (2.5-4.9); Potassium, Blood 6.2 mmol/L (3.5-5.5); Sodium, Blood 137 mmol/L (136-145); Total Protein, Blood 7.6 g/dL (6.4-8.2)
--- NOTE | 2020-06-01 06:20 | NUR ---
CRITICAL LAB: POTASSIUM IS CRITICAL AT 6.2. DR WOODS IS NOTIFIED AND ORDERS ARE OBTAINED, SEE ORDERS.
--- NOTE | 2020-06-01 06:33 | NUR ---
SHIFT SUMMARY: PATIENT HAS PERSISTANT NAUSEA. EMESIS OF 200 MLS OF BROWN FLUID WITH UNDIGESTED FOOD? NG PUT 500 ML OUT THIS SHIFT. REGLAN, ZOFRAN AND PHENERGAN ARE ALTERNATED WITH FAIT EFFECT PATIENT REPORTS ABD. DISCOMFORT BUT DENIES NEED OF PAIN MEDICATION. BS ARE PRESENT, NO BM OR FLATUS THIS SHIFT.
--- NOTE | 2020-06-01 06:46 | NUR ---
SHIFT SUMMARY: PATIENT IS A&OX4, REPORTING CHRONIC BACK PAIN INTERMITTENTLY. NORCO WAS GIVEN X1 WITH GOOD EFFCT. UROSTOMY IS PUTTING OUT LARGE AMOUNTS OF CLOUDY YELLOW URINE. PATIENT IS MOSTLY INDEPENDANT WITH APPLIANCE AND USED A BORJA DRAINAGE BAG DURING SLEEP. CRITICAL POTASSIUM OF 6.[address] WOODS. ORDERS WERE RECIEVED, SEE ORDERS, AND MEDICATIONS WERE GIVEN. PATIENT WILL HAVE A RECHECK OF POTASSIUM LEVEL AT 11:00. DR WOODS ORDERS THE RESULTS BE CALLED TO HIM BY 1200 PM.
[2020-06-01 11:21] LABS: Prostate Specific Antigen 0.055 ng/mL (0.000-4.000)
[2020-06-01 15:46] LABS: Bun/Creatinine Ratio 43.6 (12.0-20.0); Calcium, Blood 9.2 mg/dL (8.5-10.1); Creatinine, Blood 1.33 mg/dL (0.60-1.20); Potassium, Blood 5.1 mmol/L (3.5-5.5)
--- NOTE | 2020-06-01 19:46 | NUR ---
SHIFT SUMMARY PT A/O X4; PLEASANT AND COOPERATIVE WITH CARE. CRITICAL K+ THIS AM. K+ WNL UPON REDRAW. DR WOODS NOTIFIED. MEDICATED FOR PAIN X2 THIS SHIFT. PT SBA/IND IN THE ROOM. UROSTOMY BAG IN PLACE AND DRAINING YELLOW URINE. VSS; REPORT GIVEN TO WOOL WASHER RN.
[2020-06-02 05:13] LABS: BASOPHILS ABSOLUTE AUTO 0.04 K/mm3 (0.00-0.23); BASOPHILS PERCENT AUTO 1 % (0-2); EOSINOPHILS ABSOLUTE AUTO 0.56 K/mm3 (0.00-0.68); EOSINOPHILS PERCENT AUTO 10 % (0-6); Hematocrit 26.7 % (37.0-53.0); Hemoglobin 8.4 g/dL (13.5-17.5); IMMATURE GRAN ABSOLUTE AUTO 0.07 K/mm3 (0.00-0.10); IMMATURE GRAN PERCENT AUTO 1 % (0-1); LYMPHOCYTES ABSOLUTE AUTO 1.04 K/mm3 (0.84-5.20); LYMPHOCYTES PERCENT AUTO 19 % (21-46); MONOCYTES PERCENT AUTO 9 % (4-13); Mean Corpuscular HGB 27.5 pg (26.0-34.0); Mean Corpuscular HGB Conc 31.5 g/dL (31.5-36.5); Mean Corpuscular Volume 87 fL (80-100); Mean Platelet Volume 9.8 fL (9.1-12.4); NEUTROPHILS ABSOLUTE AUTO 3.18 K/mm3 (1.96-9.15); NEUTROPHILS PERCENT AUTO 59 % (41-73); Platelet Count 135 K/mm3 (150-400); RDW Coefficient Variation 13.9 % (11.7-14.2); RDW Standard Deviation 43.8 fL (35.1-46.3); Red Blood Cell Count 3.06 M/mm3 (4.30-5.90); White Blood Cell Count 5.39 K/mm3 (4.00-11.30)
[2020-06-02 05:33] LABS: Albumin, Blood 2.4 g/dL (3.4-5.0); Albumin/Globulin Ratio 0.5 (0.8-1.8); Bilirubin, Total 0.3 mg/dL (0.1-1.0); Bun/Creatinine Ratio 38.5 (12.0-20.0); Calcium, Blood 8.6 mg/dL (8.5-10.1); Creatinine, Blood 1.35 mg/dL (0.60-1.20); Globulin, Blood 4.5 g/dL (2.2-4.0); Magnesium, Blood 1.8 mg/dL (1.6-2.4); Phosphorus, Blood 3.9 mg/dL (2.5-4.9); Potassium, Blood 5.3 mmol/L (3.5-5.5); Total Protein, Blood 6.9 g/dL (6.4-8.2)
--- NOTE | 2020-06-02 05:56 | NUR ---
SHIFT SUMMARY: PATIENT IS A7OX4, REPORTING CHRONIC BACK PAIN 7-10, PRN NORCO, 2 TABS PRN IS EFFECTIVE. IVF OF D5 WITH BICARB IS INFUSING AT 50 ML/HR. UROSTOMY PUTS OUT A LARGE AMOUNT OF CLOUDY YELLOW URINE. POTASSIUM THIS AM IS 5.3, WNL.
[2020-06-02] MEDS ORDERED: COLACE100 MG PO (11:35)
[2020-06-02] MEDS ORDERED: LEVO750 PO (11:36)
[2020-06-02] MEDS ORDERED: SENN187 PO (11:40)
[2020-06-02] MEDS ORDERED: LOKELMA PO (11:45)
[2020-06-02] MEDS ORDERED: VISBIOME 112.51 EACH PO (11:47)
--- NOTE | 2020-06-02 14:02 | NUR ---
PT DISCHARGED FROM THE UNIT. IV REMOVED. DISCHARGE INSTRUCTIONS REVIEWED. MEDICATIONS FAXED TO [facility]. THEY DID NOT CARRY [place], SPOKE WITH DR. WOODS, HE INSTRUCTED ME TO HAVE THE PT STOP BY HIS OFFICE FOR SAMPLES. PT LEFT UNIT VIA WHEEL CHAIR. HIS WILL DRIVE HIM HOME
[2020-06-03 15:12] LABS: A/G RATIO 0.7 (0.7-1.7); ALBUMIN 2.7 g/dL (2.9-4.4); ALPHA-1-GLOBULIN 0.4 g/dL (0.0-0.4); ALPHA-2-GLOBULIN 1.3 g/dL (0.4-1.0); BETA GLOBULIN 0.9 g/dL (0.7-1.3); GAMMA GLOBULIN 1.3 g/dL (0.4-1.8); GLOBULIN, TOTAL 3.9 g/dL (2.2-3.9); IMMUNOGLOBULIN A, QN, SERUM 252 mg/dL (61-437); IMMUNOGLOBULIN G, QN, SERUM 1152 mg/dL (603-1613); IMMUNOGLOBULIN M, QN, SERUM 185 mg/dL (15-143); M-SPIKE Not Observed g/dL (Not Observed); PROTEIN, TOTAL, SERUM 6.6 g/dL (6.0-8.5)
[2020-06-04 08:10] LABS: ANTIGLOMERULAR BM AB 3 units (0-20)
[2020-06-04 11:11] LABS: M-SPIKE, % Not Observed % (Not Observed); PROTEIN,TOTAL,URINE 11.5 mg/dL (Not Estab.)
[2020-06-04 13:11] LABS: ANA DIRECT Negative (Negative); ANTIMYELOPEROXIDASE (MPO) ABS <9.0 U/mL (0.0-9.0); ANTIPROTEINASE 3 (PR-3) ABS <3.5 U/mL (0.0-3.5); ATYPICAL PANCA <1:20 titer (Neg:<1:20); CYTOPLASMIC (C-ANCA) <1:20 titer (Neg:<1:20); PERINUCLEAR (P-ANCA) <1:20 titer (Neg:<1:20)
[2020-07-22] MEDS ORDERED: ATOR40TA PO (14:07)
[2020-07-22] MEDS ORDERED: TAMS.4ER PO (14:08)
[2020-07-22] MEDS ORDERED: HYOS.125 SL (14:08)
[2020-07-22] MEDS ORDERED: Oxybutynin Chlo10 MG PO (14:08)
== END 2020-06-02 13:44 | disposition home or self-care (01) | DRG 690 ==
LOC: ER 17:31 → MEDS 17:32 → ENPENDDIS 06-02 11:02 → MEDS 06-02 13:44
PROVIDERS: Emergency Medicine; Internal Medicine Nephrology; Student in an Organized Health Care Education/Training Program; ADMIT Family Medicine
DX: N39.0 Urinary tract infection, site not specified (principal); N17.9 Acute kidney failure, unspecified; E87.2 Acidosis; E87.5 Hyperkalemia; N18.31 Chronic kidney disease, stage 3a; D63.1 Anemia in chronic kidney disease; E86.9 Volume depletion, unspecified; E88.09 Other disorders of plasma-protein metabolism, not elsewhere classified; Z20.822 Contact with and (suspected) exposure to COVID-19; B96.5 Pseudomonas (aeruginosa) (mallei) (pseudomallei) as the cause of diseases classified elsewhere; B95.2 Enterococcus as the cause of diseases classified elsewhere; G89.29 Other chronic pain; M54.5 Low back pain; Z93.6 Other artificial openings of urinary tract status; Z85.51 Personal history of malignant neoplasm of bladder; Z92.21 Personal history of antineoplastic chemotherapy; Z90.5 Acquired absence of kidney; Z87.891 Personal history of nicotine dependence; Z79.82 Long term (current) use of aspirin
CPT/HCPCS: 0241U; 36415; 74176; 76770; 80048; 80053; 80069; 81001; 81050; 82248; 82550; 82784; 82947; 83516; 83520; 83735; 84100; 84132; 84156; 84165; 84166; 84550; 85014; 85018; 85025; 86256; 86334; 86335; 87077; 87086; 87186; 93005; 93010; 96361; 96365; 96374; 96375; 99284-25; A9270; G0103; G0378; J0610; J0696; J0881; J1650; J1815; J1940; J3475; J7030; J7070

== ENCOUNTER 2020-06-27 17:27 | Emergency (ER) | payer MEDICARE, OTHER ==
[~2020-06-27] VITALS: Ht 180.3 cm; Wt 72.6 kg
[~2020-06-27 17:27] MED LIST changes: +COLACE100 MG PO; +LEVO750 PO; +LOKELMA PO; +SENN187 PO; +VISBIOME 112.51 EACH PO
[2020-07-22] MEDS ORDERED: ATOR40TA PO (14:07)
[2020-07-22] MEDS ORDERED: TAMS.4ER PO (14:08)
[2020-07-22] MEDS ORDERED: Oxybutynin Chlo10 MG PO (14:08)
[2020-07-22] MEDS ORDERED: HYOS.125 SL (14:08)
== END 2020-06-27 19:36 | disposition left against medical advice (07) ==
LOC: ER 17:27
DX: Z53.21 Procedure and treatment not carried out due to patient leaving prior to being seen by health care provider (principal)

== ENCOUNTER 2020-07-23 12:05 | Day surgery (SDC) | payer OTHER, MEDICARE ==
[~2020-07-23 12:05] MED LIST changes: +ATOR40TA PO; +HYOS.125 SL; +Oxybutynin Chlo10 MG PO
--- NOTE | 2020-07-23 14:53 | NUR ---
PATIENT RETURNED TO [facility] RO[facility] A&O. TOLERATED PROCEDURE WELL. DENIES PAIN. NEPHROSTOMY TUBE IN PLACE. BAG TO RIGHT ABDOMIN INTACT.
[2020-07-23] MEDS ORDERED: BICALUTAMIDE50 M1 PO (15:27)
[2020-07-23] MEDS ORDERED: CEPH250A PO (15:27)
--- NOTE | 2020-07-23 15:52 | NUR ---
OSTOMY BAG WITH RED TINGED DRAINAGE. DENIES DISCOMFORT. NEPH TUBE INTACT.
--- NOTE | 2020-07-23 17:25 | NUR ---
NEPH TUBE SITE WITH DRESSING D&I. INSTRUCTIONS GIVEN ON STOP COCK IF NEEDED TO OPEN IT. OSTOMY HAS FILLED ALMOST 1/2 FULL WITH RED TINGED URINE. PATIENT DRESSED BY SELF AND UP TO REST ROOM. IV SITE DCED WITH CATHETER INTACT. DENIES ANY DISCOMFORT. VERBALIZED UNDERSTANDING OF DISCHARGE INSTRUCTIONS AND PRECAUTIONS. PATIENT WILL CALL DR CLARK OFFICE TOMORROW. PATIENT TRANSFERRED VIA WHELL CHAIR TO CAR. DRIVING. NO FURTHER QUESTIONS.
== END 2020-07-23 22:46 | disposition home or self-care (01) ==
LOC: MHTC 12:05
DX: N13.9 Obstructive and reflux uropathy, unspecified (principal); Z93.6 Other artificial openings of urinary tract status; Z90.5 Acquired absence of kidney; I12.9 Hypertensive chronic kidney disease with stage 1 through stage 4 chronic kidney disease, or unspecified chronic kidney disease; E11.22 Type 2 diabetes mellitus with diabetic chronic kidney disease; N18.4 Chronic kidney disease, stage 4 (severe); I25.10 Atherosclerotic heart disease of native coronary artery without angina pectoris; E78.5 Hyperlipidemia, unspecified; N17.9 Acute kidney failure, unspecified; E88.09 Other disorders of plasma-protein metabolism, not elsewhere classified; Z86.73 Personal history of transient ischemic attack (TIA), and cerebral infarction without residual deficits; Z79.4 Long term (current) use of insulin; Z87.891 Personal history of nicotine dependence
CPT/HCPCS: 50693; 99152; 99153; C1729; C1769; C1887; C2617; J2250; J3010; J7030; J7040; Q9967

== ENCOUNTER 2020-07-25 09:36 | Emergency (ER) | payer MEDICARE, OTHER ==
[~2020-07-25] VITALS: Ht 180.3 cm; Wt 71.2 kg
[~2020-07-25 09:36] MED LIST changes: +BICALUTAMIDE50 M1 PO; +CEPH250A PO
[2020-07-25] MEDS ORDERED: LEVFLO500 PO (10:14)
[2020-07-25 11:06] LABS: BASOPHILS ABSOLUTE AUTO 0.02 K/mm3 (0.00-0.23); BASOPHILS PERCENT AUTO 0 % (0-2); EOSINOPHILS ABSOLUTE AUTO 0.04 K/mm3 (0.00-0.68); EOSINOPHILS PERCENT AUTO 1 % (0-6); Hematocrit 29.7 % (37.0-53.0); Hemoglobin 9.6 g/dL (13.5-17.5); IMMATURE GRAN ABSOLUTE AUTO 0.08 K/mm3 (0.00-0.10); IMMATURE GRAN PERCENT AUTO 1 % (0-1); LYMPHOCYTES ABSOLUTE AUTO 0.17 K/mm3 (0.84-5.20); LYMPHOCYTES PERCENT AUTO 2 % (21-46); MONOCYTES ABSOLUTE AUTO 0.51 K/mm3 (0.16-1.47); MONOCYTES PERCENT AUTO 6 % (4-13); Mean Corpuscular HGB 27.1 pg (26.0-34.0); Mean Corpuscular HGB Conc 32.3 g/dL (31.5-36.5); Mean Corpuscular Volume 84 fL (80-100); Mean Platelet Volume 9.3 fL (9.1-12.4); NEUTROPHILS ABSOLUTE AUTO 7.48 K/mm3 (1.96-9.15); NEUTROPHILS PERCENT AUTO 90 % (41-73); Platelet Count 85 K/mm3 (150-400); RDW Coefficient Variation 15.9 % (11.7-14.2); RDW Standard Deviation 48.5 fL (35.1-46.3); Red Blood Cell Count 3.54 M/mm3 (4.30-5.90)
[2020-07-25 11:10] LABS: Bun/Creatinine Ratio 24.4 (12.0-20.0); Calcium, Blood 8.8 mg/dL (8.5-10.1); Creatinine, Blood 2.21 mg/dL (0.60-1.20); Potassium, Blood 4.5 mmol/L (3.5-5.5)
== END 2020-07-25 14:14 | disposition home or self-care (01) ==
LOC: ER 09:36
PROVIDERS: Emergency Medicine
DX: N99.528 Other complication of incontinent external stoma of urinary tract (principal); Z79.01 Long term (current) use of anticoagulants; Z79.899 Other long term (current) drug therapy; Z87.891 Personal history of nicotine dependence
CPT/HCPCS: 36415; 76770; 80048; 85025; 99283-25; A9270; J7030

== ENCOUNTER 2020-07-30 16:33 | Emergency (ER) | payer OTHER, MEDICARE ==
[~2020-07-30] VITALS: Ht 180.3 cm; Wt 69.8 kg
[~2020-07-30 16:33] MED LIST changes: +LEVFLO500 PO
[2020-07-30 20:10] LABS: Calcium, Ionized (POC) 1.26 mmol/L (1.10-1.46); Chloride (POC) 109 mmol/L (98-108); Creatinine (POC) 1.7 mg/dL (0.8-1.3); Glucose (ISTAT POC) 109 mg/dL (70-99); Hemoglobin (POC) 10.9 g/dL (13.5-17.5); Potassium (POC) 4.2 mmol/L (3.5-5.5); Sodium (POC) 140 mmol/L (135-148); Total CO2 (POC) 20 mmol/L (21-32)
[2020-07-30 21:56] LABS: Influenza A, PCR NEGATIVE (NEGATIVE); Influenza B, PCR NEGATIVE (NEGATIVE); Resp Syncytial Virus, PCR NEGATIVE (NEGATIVE); SARS-Cov-2 (COVID-19) PCR, MMC NEGATIVE (NEGATIVE)
== END 2020-07-30 21:15 | disposition home or self-care (01) ==
LOC: ER 16:33
PROVIDERS: Emergency Medicine
DX: T83.123A Displacement of other urinary stents, initial encounter (principal); N13.4 Hydroureter; N13.30 Unspecified hydronephrosis; Z20.822 Contact with and (suspected) exposure to COVID-19; Z79.899 Other long term (current) drug therapy
CPT/HCPCS: 0241U; 76770; 80047; 85014; 99283-25

== ENCOUNTER 2020-08-08 22:27 | Emergency (ER) | payer OTHER, MEDICARE ==
[~2020-08-08] VITALS: Ht 180.3 cm; Wt 71.7 kg
[2020-08-08] MEDS ORDERED: HYDACE10B PO (22:53)
[2020-08-08] MEDS ORDERED: Keflex250 MG PO (22:57)
[2020-08-08] MEDS ORDERED: SODBIC650 PO (22:58)
== END 2020-08-09 00:20 | disposition short-term general hospital (02) ==
LOC: ER 22:27
DX: N28.89 Other specified disorders of kidney and ureter (principal); Z79.899 Other long term (current) drug therapy; Z87.442 Personal history of urinary calculi; Z87.891 Personal history of nicotine dependence
CPT/HCPCS: 99284

== ENCOUNTER 2020-08-14 04:18 | Emergency (ER) | payer OTHER, MEDICARE ==
[~2020-08-14] VITALS: Ht 180.3 cm; Wt 68.0 kg
[~2020-08-14 04:18] MED LIST changes: +Keflex250 MG PO; +SODBIC650 PO
== END 2020-08-14 05:16 | disposition home or self-care (01) ==
LOC: ER 04:18
DX: T83.092A Other mechanical complication of nephrostomy catheter, initial encounter (principal); Z79.899 Other long term (current) drug therapy; Z87.442 Personal history of urinary calculi; Z87.891 Personal history of nicotine dependence
CPT/HCPCS: 99282

== ENCOUNTER 2021-01-05 10:21 | Inpatient (IN) | payer OTHER, MEDICARE ==
[~2021-01-05] VITALS: Ht 180.3 cm; Wt 76.1 kg
[~2021-01-05 10:21] MED LIST changes: -ATOR40TA PO; -METO25ER PO
[2021-01-05 10:57] LABS: BASOPHILS ABSOLUTE AUTO 0.09 K/mm3 (0.00-0.23); BASOPHILS PERCENT AUTO 1 % (0-2); EOSINOPHILS ABSOLUTE AUTO 0.72 K/mm3 (0.00-0.68); EOSINOPHILS PERCENT AUTO 5 % (0-6); Hematocrit 22.5 % (37.0-53.0); Hemoglobin 6.6 g/dL (13.5-17.5); IMMATURE GRAN ABSOLUTE AUTO 0.49 K/mm3 (0.00-0.10); IMMATURE GRAN PERCENT AUTO 4 % (0-1); LYMPHOCYTES ABSOLUTE AUTO 1.65 K/mm3 (0.84-5.20); LYMPHOCYTES PERCENT AUTO 12 % (21-46); MONOCYTES ABSOLUTE AUTO 1.13 K/mm3 (0.16-1.47); MONOCYTES PERCENT AUTO 9 % (4-13); Mean Corpuscular HGB Conc 29.3 g/dL (31.5-36.5); Mean Corpuscular Volume 95 fL (80-100); Mean Platelet Volume 10.5 fL (9.1-12.4); NEUTROPHILS ABSOLUTE AUTO 9.26 K/mm3 (1.96-9.15); NEUTROPHILS PERCENT AUTO 69 % (41-73); NRBC ABSOLUTE 0.03 K/mm3 (0.00-0.02); NRBC Auto 0.2 /100 WBC (0.0-0.2); Platelet Count 184 K/mm3 (150-400); RDW Coefficient Variation 25.5 % (11.7-14.2); RDW Standard Deviation 84.2 fL (35.1-46.3); Red Blood Cell Count 2.36 M/mm3 (4.30-5.90); White Blood Cell Count 13.34 K/mm3 (4.00-11.30)
[2021-01-05 11:30] LABS: Albumin, Blood 3.5 g/dL (3.4-5.0); Bilirubin, Total 0.3 mg/dL (0.1-1.0); Bun/Creatinine Ratio 26.7 (12.0-20.0); Calcium, Blood 8.6 mg/dL (8.5-10.1); Creatinine, Blood 1.91 mg/dL (0.60-1.20); Globulin, Blood 3.5 g/dL (2.2-4.0); Potassium, Blood 4.4 mmol/L (3.5-5.5)
[2021-01-05 11:33] LABS: Troponin I 0.849 ng/mL (0.000-0.040)
[2021-01-05] MEDS ORDERED: MEGESTROL PO (13:16)
[2021-01-05] MEDS ORDERED: Aspir 8181 MG PO (13:29)
[2021-01-05] MEDS ORDERED: MORP30ER PO (13:35)
[2021-01-05] MEDS ORDERED: ATOR10 PO (13:53)
[2021-01-05] MEDS ORDERED: METO25ER PO (13:55)
[2021-01-05 16:14] LABS: SARS-Cov-2 (COVID-19) PCR, MMC NEGATIVE (NEGATIVE)
[2021-01-05 20:13] LABS: Hematocrit 18.9 % (37.0-53.0)
[2021-01-05 20:16] LABS: Hemoglobin 5.8 g/dL (13.5-17.5)
--- NOTE | 2021-01-05 20:35 | NUR ---
CRITICAL LAB 5.8 PATIENT RECEIVED 1 PRBC IN ER. H/H RECHECKED AND FOUND TO BE ABOVE. DR. PADILLA NOTIFED, WILL BE ADMINISTERING 2ND U PRBC TONIGHT AND RECHECK H/H IN ONE HOUR AFTER TRANSFUSION COMPLETE. RN TO GIVE ADDITIONAL 1 U PRBC IF LOWER THAN 7.0.
[2021-01-06 02:55] LABS: Hematocrit 20.8 % (37.0-53.0); Hemoglobin 6.6 g/dL (13.5-17.5)
--- NOTE | 2021-01-06 08:33 | NUR ---
Shift Summary New ED admit, patient arrived at 1845 via rney. Weak, required 1p mod assist to transfer from [facility] to bed. Patient received a total of 3 units PRBC (1 in ER and 2 on Medical). AM labs delayed to 0900 d/t last PRBC still infusing. Tele: Accelerated Junctional Rhythm with PAC's PVC's @ 70. Talkative, calls appropriately, A/Ox3.
[2021-01-06 09:49] LABS: BASOPHILS ABSOLUTE AUTO 0.02 K/mm3 (0.00-0.23); BASOPHILS PERCENT AUTO 0 % (0-2); EOSINOPHILS ABSOLUTE AUTO 0.32 K/mm3 (0.00-0.68); EOSINOPHILS PERCENT AUTO 6 % (0-6); Hematocrit 25.9 % (37.0-53.0); IMMATURE GRAN ABSOLUTE AUTO 0.14 K/mm3 (0.00-0.10); IMMATURE GRAN PERCENT AUTO 3 % (0-1); LYMPHOCYTES ABSOLUTE AUTO 0.57 K/mm3 (0.84-5.20); LYMPHOCYTES PERCENT AUTO 11 % (21-46); MONOCYTES ABSOLUTE AUTO 0.33 K/mm3 (0.16-1.47); MONOCYTES PERCENT AUTO 7 % (4-13); Mean Corpuscular HGB 28.2 pg (26.0-34.0); Mean Corpuscular HGB Conc 30.9 g/dL (31.5-36.5); Mean Corpuscular Volume 91 fL (80-100); Mean Platelet Volume 9.4 fL (9.1-12.4); NEUTROPHILS PERCENT AUTO 73 % (41-73); Platelet Count 81 K/mm3 (150-400); RDW Coefficient Variation 20.8 % (11.7-14.2); RDW Standard Deviation 65.5 fL (35.1-46.3); Red Blood Cell Count 2.84 M/mm3 (4.30-5.90); White Blood Cell Count 5.08 K/mm3 (4.00-11.30)
[2021-01-06 10:03] LABS: International Normalized Ratio 1.11; Prothrombin Time Results 11.9 Sec (9.7-11.5)
[2021-01-06 10:10] LABS: Albumin, Blood 2.9 g/dL (3.4-5.0); Bilirubin, Total 0.4 mg/dL (0.1-1.0); Bun/Creatinine Ratio 29.7 (12.0-20.0); Creatinine, Blood 1.55 mg/dL (0.60-1.20); Magnesium, Blood 1.7 mg/dL (1.6-2.4); Potassium, Blood 4.2 mmol/L (3.5-5.5); Total Protein, Blood 5.9 g/dL (6.4-8.2)
--- NOTE | 2021-01-06 19:30 | NUR ---
ASSUMED CARE RECEIVED REPORT FROM SUNIL PASTRANA. PT RESTING, IN NAD. BLOOD TRANSFUSION COMPLETE. NO ACUTE NEEDS ASSESSED AT THIS TIME. CALL LIGHT IN REACH.
--- NOTE | 2021-01-06 20:12 | NUR ---
PT ALERT AND ORIENNTED X4, RESTING IN BED AFTER DINNER AND PM CHUCKING MACHINE SET UP OPERATOR TOOL. PT MAKES NO COMPLAINTS OF CHEST PAIN AT THIS TIME. R HIP PAIN TREATED PER EMAR. STOOL SAMPLE STILL NEEDED AND PT TO BE NPO THIS EVENING. EDUCATION ASSISTANT AWARE.
[2021-01-06 20:38] LABS: Hematocrit 28.5 % (37.0-53.0); Hemoglobin 9.3 g/dL (13.5-17.5)
[2021-01-06 21:19] LABS: Percent Saturation 27.9 % (20.0-50.0)
[2021-01-07 05:02] LABS: Hematocrit 28.1 % (37.0-53.0); Mean Corpuscular HGB 28.8 pg (26.0-34.0); Mean Corpuscular Volume 90 fL (80-100); Mean Platelet Volume 9.6 fL (9.1-12.4); Platelet Count 77 K/mm3 (150-400); RDW Coefficient Variation 20.6 % (11.7-14.2); RDW Standard Deviation 63.3 fL (35.1-46.3); Red Blood Cell Count 3.13 M/mm3 (4.30-5.90); White Blood Cell Count 5.41 K/mm3 (4.00-11.30)
--- NOTE | 2021-01-07 07:15 | NUR ---
SHIFT SUMMARY PT RESTING, IN NAD. VS REVIEWED,WNL. NO ACUTE CONCERNS TO REPORT OVERNIGHT, APPEARED TO SLEEP WELL. GOOD URINE OUTPUT NOTED TO UROSTOMIES, PT DOES REPORT PAIN SURROUNDING THE SITE; MEDICATED PER EMAR WITH GOOD EFFECT. NO OTHER ACUTE CHANGES NOTED. CALL LIGHT, POSSESSIONS IN REACH, BED IN LOW AND LOCKED POSITION. IVF INFUSING ORDERED. REPORT GIVEN TO SUNIL PASTRANA.
--- NOTE | 2021-01-07 13:38 | NUR ---
INTO SDS ADMISSION TO UNIT STARTED VSS IV LEAKING NEED TO LRE START
--- NOTE | 2021-01-07 13:55 | NUR ---
WATCH PLACE IN ZIP LOCK BAG WITH NAME ON IT
--- NOTE | 2021-01-07 15:56 | NUR ---
01/07/21 1556 Darren Gutierrez See Anesthesia record PER DR COBIAN. O2 VIA N/C INTACT THROUGHOUT SEDATION/PROCEDURE. MONITOR INTACT WITH CONTINUOUS PULSE OXIMETRY AND INTERMITTENT BP. History, Chart, Medications and Allergies reviewed before start of procedure. Patient to ENDO 1. 3-LEAD EKG REVIEWED WITH PHYSICIAN PRIOR TO START OF PROCEDURE. Bite Block Placed.
--- NOTE | 2021-01-07 20:03 | NUR ---
PT REMAINS ALERT AND ORIENTED X4 MAKING NO COMPLAINTS AT THIS TIME. RENAL DIET IN THE MORNING ORDERED. 1 ASSIST WITH WALKER. WILL CONTINUE TO MONITOR.
[2021-01-08 04:59] LABS: Hematocrit 28.2 % (37.0-53.0); Mean Corpuscular HGB 28.9 pg (26.0-34.0); Mean Corpuscular HGB Conc 31.9 g/dL (31.5-36.5); Mean Corpuscular Volume 91 fL (80-100); Platelet Count 81 K/mm3 (150-400); RDW Coefficient Variation 20.4 % (11.7-14.2); RDW Standard Deviation 64.6 fL (35.1-46.3); Red Blood Cell Count 3.11 M/mm3 (4.30-5.90); White Blood Cell Count 4.42 K/mm3 (4.00-11.30)
[2021-01-08 05:21] LABS: Albumin, Blood 2.8 g/dL (3.4-5.0); Anion Gap 8 mmol/L (6-16); Blood Urea Nitrogen 38 mg/dL (8-24); Bun/Creatinine Ratio 24.2 (12.0-20.0); CO2, Blood 20 mmol/L (21-32); Calcium, Blood 8.3 mg/dL (8.5-10.1); Chloride, Blood 114 mmol/L (98-108); Creatinine, Blood 1.57 mg/dL (0.60-1.20); Glomerular Filtration Rate 43 (60-); Glucose, Blood 102 mg/dL (70-99); Potassium, Blood 4.9 mmol/L (3.5-5.5); Sodium, Blood 142 mmol/L (136-145)
--- NOTE | 2021-01-08 06:56 | NUR ---
SHIFT SUMMARY A/O, ABLE TO MAKE NEEDS KNOWN. COOPERATIVE WITH CARE. CALLS AND ANSWERS QUESTIONS APPROPRIATELY. C/O PAIN/DISCOMFORT TO LOWER ABDOMEN AND R FLANK RATED 8-9/10; MEDICATED PER EMAR. APPEARED TO REST MUCH OF THE NIGHT. NO ACUTE CHANGES NOTED. BED REMAINS IN LOWEST POSITION. CALL LIGHT AND BELONGINGS WITHIN REACH. REPORT GIVEN TO ONCOMING RN.
--- NOTE | 2021-01-08 09:29 | NUR ---
DR. GAMBINO REQUESTS ORDER FOR R SIDE ULTRASOUND OF NEPHROSTOMY SITE, UA, CHANGE DRESSING/BAG TO NEPHROSTOMY.
--- NOTE | 2021-01-08 11:51 | NUR ---
NEPHROSTOMY BAG AND DRESSING CHANGE COMPLETED. WAITING FOR ENOUGH URINE TO SEND SAMPLE.
[2021-01-08] MEDS ORDERED: ATOR80 PO (12:22)
[2021-01-08] MEDS ORDERED: NITR.4SL SL (12:23)
[2021-01-08] MEDS ORDERED: Isosorbide Mono30 MG PO (12:23)
[2021-01-08] MEDS ORDERED: OMEP20ER PO (12:24)
[2021-01-08] MEDS ORDERED: Lopressor 25 mg25 MG PO (12:27)
[2021-01-08 13:41] LABS: Source, Urine Urostomy Bag
[2021-01-08 13:49] LABS: Appearance, Urine Cloudy (Clear); Bilirubin, Urine Neg (Neg); Blood, Urine 4+ (Neg); Color, Urine Yellow (P-Yellow); Glucose Qualitative, Urine Neg (Neg); Ketones, Urine Neg (Neg); Leukocyte Esterase, Urine 3+ (Neg); Nitrite, Urine Pos (Neg); Protein, Urine 3+ (Neg); Specific Gravity, Urine 1.015 (1.003-1.022); Urobilinogen, Urine NORM (Normal)
[2021-01-08 14:03] LABS: Bacteria Mod /hpf; Squamous Epithelial Cells Rare /hpf (Few); White Blood Cells, Urine TNTC /hpf (0-5)
--- NOTE | 2021-01-08 14:50 | NUR ---
DISCHAGE SUMMARY PT DISCHARGED TO HOME. IV DC'D AND BELINGINGS RETURNED. DISCHARGE INSTRUCTIONS DISCUSSED WITH PATIENT BY CHARGE NURSE. ALL QUESTIONS ANSWERED. PT AGREES TO FOLLOW UP WITH PCP AND MID WIFE WITHIN 2 WEEKS.
[2021-01-15] MEDS ORDERED: ATORVASTATIN CA80 M1 PO (20:53)
== END 2021-01-08 14:18 | disposition home health service (06) | DRG 377 ==
LOC: ER 10:21 → ERHOLD 13:36 → MEDS 13:36
PROVIDERS: Emergency Medicine; Family Medicine; Internal Medicine; Internal Medicine Gastroenterology; Nurse Practitioner Acute Care; Student in an Organized Health Care Education/Training Program; ADMIT Family Medicine
PROC: 0DJ08ZZ Inspection of Upper Intestinal Tract, Via Natural or Artificial Opening Endoscopic (ICD-10-PCS; 2021-01-07)
PROC: 30233N1 Transfusion of Nonautologous Red Blood Cells into Peripheral Vein, Percutaneous Approach (ICD-10-PCS; principal; 2021-01-07 08:45)
DX: K25.4 Chronic or unspecified gastric ulcer with hemorrhage (principal); I21.A1 Myocardial infarction type 2; D62 Acute posthemorrhagic anemia; C78.00 Secondary malignant neoplasm of unspecified lung; C78.7 Secondary malignant neoplasm of liver and intrahepatic bile duct; K29.81 Duodenitis with bleeding; Z20.822 Contact with and (suspected) exposure to COVID-19; M54.5 Low back pain; D63.1 Anemia in chronic kidney disease; I35.0 Nonrheumatic aortic (valve) stenosis; N18.30 Chronic kidney disease, stage 3 unspecified; C67.9 Malignant neoplasm of bladder, unspecified; D69.6 Thrombocytopenia, unspecified; G89.4 Chronic pain syndrome; Z87.442 Personal history of urinary calculi; Z79.2 Long term (current) use of antibiotics; Z79.899 Other long term (current) drug therapy; Z90.79 Acquired absence of other genital organ(s); Z90.49 Acquired absence of other specified parts of digestive tract; Z98.890 Other specified postprocedural states; Z79.82 Long term (current) use of aspirin
CPT/HCPCS: 36415; 36430; 70450; 71046; 76705; 80053; 80069; 81001; 82607; 82728; 82746; 83036; 83540; 83550; 83735; 84484; 85014; 85018; 85025; 85027; 85610; 86850; 86900; 86901; 86923; 87077; 87086; 87186; 93005; 93010; 93308; 93321; 97116; 97161; 97166; 97535; 99285-25; A9270; C9113; J2704; J7030; J7050; P9016; U0004

== ENCOUNTER → 2021-01-13 | Outpatient (CLI) | payer OTHER, MEDICARE ==
[~2021-01-13] MED LIST changes: +ATOR80 PO; +ISOSORBIDE MONO30 MG PO; +Isosorbide Mono30 MG PO; +MEGESTROL PO; +METO25 PO; +METO25ER PO; +MIRALAX17 GM PO; +MORP30ER PO; +NITR.4SL SL; +Norco 5-325 MG PO; +OMEP20ER PO
== END | disposition home or self-care (01) ==
LOC: LAB SHORT 12:00 → LAB 12:00
DX: N30.91 Cystitis, unspecified with hematuria (principal)
CPT/HCPCS: 87077; 87086; 87186

== ENCOUNTER 2021-01-15 17:06 | Observation (INO) | payer OTHER, MEDICARE ==
[~2021-01-15] VITALS: Ht 180.3 cm; Wt 73.0 kg
[~2021-01-15 17:06] MED LIST changes: -ISOSORBIDE MONO30 MG PO; -MIRALAX17 GM PO; -Norco 5-325 MG PO
--- NOTE | 2021-01-15 17:32 | NUR ---
PATIENT ARRIVED TO [facility] ROOM VIA WHEEL CHAIR. DR MATUTE HERE TO DISCUSS PROCEDURE WITH PATIENT.
[2021-01-15 17:42] LABS: BASOPHILS ABSOLUTE AUTO 0.04 K/mm3 (0.00-0.23); BASOPHILS PERCENT AUTO 1 % (0-2); EOSINOPHILS ABSOLUTE AUTO 0.34 K/mm3 (0.00-0.68); EOSINOPHILS PERCENT AUTO 6 % (0-6); Hematocrit 19.9 % (37.0-53.0); Hemoglobin 6.3 g/dL (13.5-17.5); IMMATURE GRAN PERCENT AUTO 4 % (0-1); LYMPHOCYTES ABSOLUTE AUTO 0.64 K/mm3 (0.84-5.20); LYMPHOCYTES PERCENT AUTO 11 % (21-46); MONOCYTES PERCENT AUTO 9 % (4-13); Mean Corpuscular HGB 28.8 pg (26.0-34.0); Mean Corpuscular HGB Conc 31.7 g/dL (31.5-36.5); Mean Corpuscular Volume 91 fL (80-100); Mean Platelet Volume 10.4 fL (9.1-12.4); NEUTROPHILS ABSOLUTE AUTO 4.05 K/mm3 (1.96-9.15); NEUTROPHILS PERCENT AUTO 70 % (41-73); Platelet Count 111 K/mm3 (150-400); RDW Coefficient Variation 19.9 % (11.7-14.2); RDW Standard Deviation 64.8 fL (35.1-46.3); Red Blood Cell Count 2.19 M/mm3 (4.30-5.90); White Blood Cell Count 5.77 K/mm3 (4.00-11.30)
--- NOTE | 2021-01-15 18:22 | NUR ---
PATIENT RETURNED TO RECOVERY ROOM AFTER PROCEDURE. A&O. TUBE EXCHANGE SITE SOFT AND NONTENDER. DRESSING D&I.
[2021-01-15 18:31] LABS: Bun/Creatinine Ratio 21.9 (12.0-20.0); Calcium, Blood 7.9 mg/dL (8.5-10.1); Creatinine, Blood 2.15 mg/dL (0.60-1.20); Potassium, Blood 4.6 mmol/L (3.5-5.5)
[2021-01-15] MEDS ORDERED: ASPI81CH PO (20:52)
[2021-01-15] MEDS ORDERED: ATOR80 PO (20:53)
[2021-01-15] MEDS ORDERED: Norco 5-325 MG PO (20:55)
[2021-01-15] MEDS ORDERED: ISOSORBIDE MONO30 MG PO (20:56)
[2021-01-15] MEDS ORDERED: MORP30ER PO (20:57)
[2021-01-15] MEDS ORDERED: NITR.4SL SL (20:58)
[2021-01-15] MEDS ORDERED: OMEP20ER PO (20:59)
[2021-01-15 21:05] LABS: BASOPHILS ABSOLUTE AUTO 0.02 K/mm3 (0.00-0.23); BASOPHILS PERCENT AUTO 0 % (0-2); EOSINOPHILS ABSOLUTE AUTO 0.27 K/mm3 (0.00-0.68); EOSINOPHILS PERCENT AUTO 6 % (0-6); Hematocrit 18.8 % (37.0-53.0); IMMATURE GRAN ABSOLUTE AUTO 0.12 K/mm3 (0.00-0.10); IMMATURE GRAN PERCENT AUTO 3 % (0-1); LYMPHOCYTES ABSOLUTE AUTO 0.42 K/mm3 (0.84-5.20); LYMPHOCYTES PERCENT AUTO 9 % (21-46); MONOCYTES ABSOLUTE AUTO 0.31 K/mm3 (0.16-1.47); MONOCYTES PERCENT AUTO 7 % (4-13); Mean Corpuscular HGB 29.3 pg (26.0-34.0); Mean Corpuscular HGB Conc 31.9 g/dL (31.5-36.5); Mean Corpuscular Volume 92 fL (80-100); NEUTROPHILS ABSOLUTE AUTO 3.63 K/mm3 (1.96-9.15); NEUTROPHILS PERCENT AUTO 76 % (41-73); NRBC ABSOLUTE 0.02 K/mm3 (0.00-0.02); NRBC Auto 0.4 /100 WBC (0.0-0.2); Platelet Count 99 K/mm3 (150-400); RDW Coefficient Variation 19.7 % (11.7-14.2); Red Blood Cell Count 2.05 M/mm3 (4.30-5.90); White Blood Cell Count 4.77 K/mm3 (4.00-11.30)
[2021-01-15] MEDS ORDERED: MEGESTROL PO (21:08)
[2021-01-15 22:36] LABS: Percent Saturation 19.9 % (20.0-50.0)
[2021-01-16 05:29] LABS: Hematocrit 23.5 % (37.0-53.0); Hemoglobin 7.7 g/dL (13.5-17.5); Mean Corpuscular HGB 29.5 pg (26.0-34.0); Mean Corpuscular HGB Conc 32.8 g/dL (31.5-36.5); Mean Corpuscular Volume 90 fL (80-100); Mean Platelet Volume 9.4 fL (9.1-12.4); Platelet Count 75 K/mm3 (150-400); RDW Standard Deviation 57.8 fL (35.1-46.3); Red Blood Cell Count 2.61 M/mm3 (4.30-5.90); White Blood Cell Count 4.48 K/mm3 (4.00-11.30)
--- NOTE | 2021-01-16 05:34 | NUR ---
pATIENT IS ALERT AND ORIENTED X4. VS STABLE FOR PATIENT ON RA. NO COMPLAINTS OF CHEST PAIN OR SHORTNESS OF BREATH. GAVE PATIENT TWO UNITS OF BLOOD MY SHIFT ORDERED. NO COMPLAINTS OF CHEST PAIN OR SHORTNESS OF BREATH. ENCOURAGED PATIENT TO INCREASE ACTIVITY TOLERATED. aLL CARES COMPLETED AND MEDICATION GIVEN ORDRED ACCORDING TO NURSING JUDGEMENT. aLL UNFINISHED CARES ENDORSED TO ONCOMING rn.
[2021-01-16 06:05] LABS: BAND PERCENT MAN 9 % (0-8); BASOPHILS ABSOLUTE MAN 0.04 K/mm3 (0.00-0.23); BASOPHILS PERCENT MAN 1 % (0-2); EOSINOPHILS ABSOLUTE MAN 0.17 K/mm3 (0.00-0.68); EOSINOPHILS PERCENT MAN 4 % (0-6); LYMPHOCYTES PERCENT MAN 9 % (21-46); METAMYELOCYTE ABSOLUTE MAN 0.04 K/mm3 (0.00-0.00); METAMYELOCYTE PERCENT MAN 1 % (0-0); MONOCYTES ABSOLUTE MAN 0.22 K/mm3 (0.16-1.47); MONOCYTES PERCENT MAN 5 % (4-13); NEUTROPHILS ABSOLUTE MAN 3.58 K/mm3 (1.96-9.15); SEG NEUTROPHILS PERCENT MAN 71 % (41-73); TOTAL CELLS COUNTED 100
[2021-01-16 06:06] LABS: Albumin, Blood 2.5 g/dL (3.4-5.0); Albumin/Globulin Ratio 0.8 (0.8-1.8); Bilirubin, Total 0.4 mg/dL (0.1-1.0); Bun/Creatinine Ratio 23.4 (12.0-20.0); Calcium, Blood 7.9 mg/dL (8.5-10.1); Creatinine, Blood 1.84 mg/dL (0.60-1.20); Globulin, Blood 3.1 g/dL (2.2-4.0); Potassium, Blood 4.6 mmol/L (3.5-5.5); Total Protein, Blood 5.6 g/dL (6.4-8.2)
--- NOTE | 2021-01-16 17:09 | NUR ---
PT TRANSFERED TO [facility] VIA GURNY FROM FLOOR. History, Chart, Medications and Allergies reviewed before start of procedure. Lungs clear T/O to Auscultation. Patient confirms NPO status and agrees with scheduled surgery. Pre-Op teaching done. Pt verbalizes understanding.
--- NOTE | 2021-01-16 17:28 | NUR ---
01/16/21 1728 LISBET FOX History, Chart, Medications and Allergies reviewed before start of procedure. 3-LEAD EKG REVIEWED WITH PHYSICIAN PRIOR TO START OF PROCEDURE. O2 VIA POM INTACT THROUGHOUT SEDATION/PROCEDURE. MONITOR INTACT WITH CONTINUOUS PULSE OXIMETRY AND INTERMITTENT BP. PATIENT DETERMINED TO BE ASA APPROPRIATE FOR PROPOFOL SEDATION PRIOR TO START OF PROCEDURE BY DR. ALVAREZ.
--- NOTE | 2021-01-16 20:24 | NUR ---
SHIFT SUMMARY: PT A&O; CALM AND COOEPRATIVE WITH CARE. NO C/O PAIN THIS SHIFT. EGD THIS SHIFT (DR ALVAREZ); COLONOSCOPY PLANNED FOR 01/17; PT TO BE NPO AFTER BREAKFAST 01/17. REPORT GIVEN TO ONCOMING RN.
--- NOTE | 2021-01-17 06:51 | NUR ---
SHIFT SUMMARY PT IS A 75 Y/O MALE, ADMITTED FOR NEPHROSTOMY DISPLACEMENT AND POSSIBLE GI BLEED. HE IS A&O X 4, 1PA TO BATHROOM. HE WAS MEDICATED FOR BACK PAIN WITH PRN MS CONTIN AND HYDROCODONE. NO C/O NAUSEA OR SOB. PT IS ON PO GOLYTELY FOR LOWER GI SCOPE TODAY, PT ONLY DRANK APPROXIMATELY 600ML DURING THE NIGHT EVEN WITH ENCOURAGEMENT FROM THE RN. VITAL SIGNS STABLE. NO ACUTE CHANGES IN PT CONDITION NOTED DURING THE NIGHT. WILL CONTINUE TO MONITOR AND TREAT PER EMAR UNTIL HAND OFF TO DAY SHIFT RN.
[2021-01-17 08:04] LABS: Hematocrit 23.2 % (37.0-53.0); Hemoglobin 7.3 g/dL (13.5-17.5)
[2021-01-17 08:43] LABS: Bun/Creatinine Ratio 23.6 (12.0-20.0); Creatinine, Blood 1.44 mg/dL (0.60-1.20); Potassium, Blood 4.5 mmol/L (3.5-5.5)
--- NOTE | 2021-01-17 16:28 | NUR ---
01/17/21 1628 Dominique Vieira History, Chart, Medications and Allergies reviewed before start of procedure.PATIENT DETERMINED TO BE ASA APPROPRIATE FOR PROPOFOL SEDATION PRIOR TO START OF PROCEDURE BY .MONITOR INTACT WITH CONTINUOUS PULSE OXIMETRY AND INTERMITTENT BP.3-LEAD EKG REVIEWED WITH PHYSICIAN PRIOR TO START OF PROCEDURE.O2 VIA NRM INTACT THROUGHOUT SEDATION/PROCEDURE.
--- NOTE | 2021-01-17 18:37 | NUR ---
SHIFT SUMMARY PT IS UP IN BED ON RM AIR. HAS SOME PAIN IN SIDE AND CHRONIC LOWER BACK PAIN, MEDICATED PER JUL. HAD COLONOSCOPY TODAY @ 1600. FOUND LEFT SIDED COLITIS, PT BROUGHT BACK TO FLOOR AND PUT ON CLEAR LIQUIDS. TOLERATED THE SURGERY WELL. WILL CONTINUE TO MONITOR.
[2021-01-18] MEDS ORDERED: MIRALAX17 GM PO (02:45)
[2021-01-18 04:57] LABS: Hemoglobin 6.9 g/dL (13.5-17.5); Mean Corpuscular HGB 28.9 pg (26.0-34.0); Mean Corpuscular HGB Conc 31.4 g/dL (31.5-36.5); Mean Corpuscular Volume 92 fL (80-100); Mean Platelet Volume 10.4 fL (9.1-12.4); Platelet Count 79 K/mm3 (150-400); RDW Coefficient Variation 18.3 % (11.7-14.2); RDW Standard Deviation 60.8 fL (35.1-46.3); Red Blood Cell Count 2.39 M/mm3 (4.30-5.90); White Blood Cell Count 2.83 K/mm3 (4.00-11.30)
[2021-01-18 05:13] LABS: Bun/Creatinine Ratio 17.6 (12.0-20.0); Calcium, Blood 7.7 mg/dL (8.5-10.1); Creatinine, Blood 1.42 mg/dL (0.60-1.20); Potassium, Blood 4.3 mmol/L (3.5-5.5)
--- NOTE | 2021-01-18 05:36 | NUR ---
SHIFT SUMMARY PT IS A 75 Y/O MALE, ADMITTED FOR A NEPHROSTOMY DISPLACEMENT AND GI BLEED. HE IS 1 DAY POST COLONOSCOPY. NO BLOODY STOOLS NOTED. UROSTOMY IN PLACE ON R SIDE, DRAINING YELLOW URINE. HE WAS MEDICATED FOR BACK PAIN WITH PRN MS CONTIN AND HYDROCODONE. VITAL SIGNS STABLE. NO ACUTE CHANGES IN PT CONDITION NOTED. WILL CONTINUE TO MONITOR AND TREAT PER EMAR UNTIL HAND OFF TO DAY SHIFT RN.
[2021-01-18 16:00] LABS: Hematocrit 25.6 % (37.0-53.0); Hemoglobin 8.1 g/dL (13.5-17.5)
--- NOTE | 2021-01-18 18:14 | NUR ---
PT RECIEVED 1 UNIT PRBC TODAY. HEMOGLOBIN LEVELS TERNDING UP. PT IS HOPEFUL FOR DISCHARGE TOMORROW. NO BMS THIS SHIFT. PT DENIES STOMACH CRAMPING. WILL CONTUE TO MONITOR
--- NOTE | 2021-01-19 06:45 | NUR ---
SHIFT SUMMARY PT IS A 75 Y/O MALE, ADMITTED FOR A NEPHROSTOMY DISPLACEMENT AND GI BLEED. HE IS A&O X 3, FORGETFUL AT TIMES. 1PA TO THE BATHROOM. PT DID HAVE A DARK RED BLOODY BM AT START OF SHIFT, AND NO OTHER BMS NOTED. VITAL SIGNS STABLE. NO OTHER ACUTE CHANGES IN PT CONDITION NOTED. WILL CONTINUE TO MONITOR AND TREAT PER EMAR UNTIL HAND OFF TO DAY SHIFT RN.
--- NOTE | 2021-01-19 08:49 | NUR ---
DR DEL TORO ROUNDED, PATEINT AT EDGE OF BED EATNG BREAKFAST, NO SWALLOWING DIFFICULTY
[2021-01-19 09:00] LABS: Hematocrit 24.9 % (37.0-53.0); Hemoglobin 7.9 g/dL (13.5-17.5)
== END 2021-01-19 14:10 | disposition home or self-care (01) ==
LOC: MHTC 17:06 → MEDS 19:31 → ENPENDDIS 01-19 11:52 → MEDS 01-19 14:10
PROVIDERS: Internal Medicine; Internal Medicine Gastroenterology; ADMIT Hospitalist
PROC: 0DB68ZX Excision of Stomach, Via Natural or Artificial Opening Endoscopic, Diagnostic (ICD-10-PCS; principal; 2021-01-16 16:00)
PROC: 0DBG8ZX Excision of Left Large Intestine, Via Natural or Artificial Opening Endoscopic, Diagnostic (ICD-10-PCS; principal; 2021-01-16 16:00)
DX: D62 Acute posthemorrhagic anemia (principal); K44.9 Diaphragmatic hernia without obstruction or gangrene; K22.2 Esophageal obstruction; K31.9 Disease of stomach and duodenum, unspecified; K20.90 Esophagitis, unspecified without bleeding; Q43.8 Other specified congenital malformations of intestine; K52.9 Noninfective gastroenteritis and colitis, unspecified; K64.8 Other hemorrhoids; N13.30 Unspecified hydronephrosis; T83.022A Displacement of nephrostomy catheter, initial encounter; N17.9 Acute kidney failure, unspecified; C67.9 Malignant neoplasm of bladder, unspecified; C78.7 Secondary malignant neoplasm of liver and intrahepatic bile duct; C78.02 Secondary malignant neoplasm of left lung; C78.01 Secondary malignant neoplasm of right lung; C79.51 Secondary malignant neoplasm of bone; N18.30 Chronic kidney disease, stage 3 unspecified; E78.5 Hyperlipidemia, unspecified; G89.29 Other chronic pain; I25.2 Old myocardial infarction; Y83.8 Other surgical procedures as the cause of abnormal reaction of the patient, or of later complication, without mention of misadventure at the time of the procedure; Z87.440 Personal history of urinary (tract) infections; Z90.5 Acquired absence of kidney; Z79.82 Long term (current) use of aspirin; Z79.899 Other long term (current) drug therapy
CPT/HCPCS: 36415; 50435; 80048; 80053; 82728; 83540; 83550; 85014; 85018; 85025; 85027; 86850; 86900; 86901; 86923; 88305; 88342; 93005; 93010; 94762; 96365; 96366; 96375; 96376; 99152; 99153; A9270; C1729; C1769; C1887; C9113; G0378; J2704; J2916; J3010; J7050; J7120; P9016; Q9967

== ENCOUNTER 2021-02-06 19:53 | Inpatient (IN) | payer OTHER, MEDICARE ==
[~2021-02-06] VITALS: Ht 180.3 cm; Wt 75.5 kg
[~2021-02-06 19:53] MED LIST changes: +ISOSORBIDE MONO30 MG PO; +MIRALAX17 GM PO; +Norco 5-325 MG PO
[2021-02-06 20:39] LABS: BASOPHILS ABSOLUTE AUTO 0.03 K/mm3 (0.00-0.23); BASOPHILS PERCENT AUTO 1 % (0-2); EOSINOPHILS ABSOLUTE AUTO 0.19 K/mm3 (0.00-0.68); EOSINOPHILS PERCENT AUTO 3 % (0-6); Hematocrit 22.5 % (37.0-53.0); Hemoglobin 6.7 g/dL (13.5-17.5); IMMATURE GRAN ABSOLUTE AUTO 0.06 K/mm3 (0.00-0.10); IMMATURE GRAN PERCENT AUTO 1 % (0-1); LYMPHOCYTES ABSOLUTE AUTO 0.69 K/mm3 (0.84-5.20); LYMPHOCYTES PERCENT AUTO 12 % (21-46); MONOCYTES ABSOLUTE AUTO 0.21 K/mm3 (0.16-1.47); MONOCYTES PERCENT AUTO 4 % (4-13); Mean Corpuscular HGB 28.5 pg (26.0-34.0); Mean Corpuscular HGB Conc 29.8 g/dL (31.5-36.5); Mean Corpuscular Volume 96 fL (80-100); Mean Platelet Volume 10.1 fL (9.1-12.4); NEUTROPHILS ABSOLUTE AUTO 4.38 K/mm3 (1.96-9.15); NEUTROPHILS PERCENT AUTO 79 % (41-73); Platelet Count 166 K/mm3 (150-400); RDW Coefficient Variation 18.6 % (11.7-14.2); RDW Standard Deviation 64.7 fL (35.1-46.3); Red Blood Cell Count 2.35 M/mm3 (4.30-5.90); White Blood Cell Count 5.56 K/mm3 (4.00-11.30)
[2021-02-06 20:53] LABS: Albumin, Blood 2.6 g/dL (3.4-5.0); Albumin/Globulin Ratio 0.7 (0.8-1.8); Bilirubin, Total 0.2 mg/dL (0.1-1.0); Bun/Creatinine Ratio 20.7 (12.0-20.0); Creatinine, Blood 1.74 mg/dL (0.60-1.20); Globulin, Blood 3.6 g/dL (2.2-4.0); Potassium, Blood 4.6 mmol/L (3.5-5.5); Total Protein, Blood 6.2 g/dL (6.4-8.2)
[2021-02-06 23:32] LABS: International Normalized Ratio 1.19; Prothrombin Time Results 12.4 Sec (9.7-11.5)
[2021-02-07 01:00] LABS: SARS-Cov-2 (COVID-19) PCR, MMC NEGATIVE (NEGATIVE)
--- NOTE | 2021-02-07 05:30 | NUR ---
Pt AAOx3, admitted at approx 0300 for GI bleed. Pt receive 1 unit PRBC which started in the ED and finished shortly after he arrived to medical floor. VSS. Pt pale, calls appropriately and denies pain or any other discomforts. Plan: monitor H&H, tele and labs. CL diet no reds of purples.
[2021-02-07 07:19] LABS: Anion Gap 8 mmol/L (6-16); Blood Urea Nitrogen 36 mg/dL (8-24); Bun/Creatinine Ratio 23.1 (12.0-20.0); CO2, Blood 17 mmol/L (21-32); Calcium, Blood 7.7 mg/dL (8.5-10.1); Chloride, Blood 119 mmol/L (98-108); Creatinine, Blood 1.56 mg/dL (0.60-1.20); Glomerular Filtration Rate 43 (60-); Glucose, Blood 128 mg/dL (70-99); Magnesium, Blood 1.7 mg/dL (1.6-2.4); Potassium, Blood 4.8 mmol/L (3.5-5.5); Sodium, Blood 144 mmol/L (136-145); Troponin I <0.015 ng/mL (0.000-0.040)
[2021-02-07 07:25] LABS: Percent Saturation 19.7 % (20.0-50.0)
[2021-02-07 07:39] LABS: BASOPHILS ABSOLUTE AUTO 0.02 K/mm3 (0.00-0.23); BASOPHILS PERCENT AUTO 1 % (0-2); EOSINOPHILS ABSOLUTE AUTO 0.03 K/mm3 (0.00-0.68); EOSINOPHILS PERCENT AUTO 1 % (0-6); Hematocrit 21.1 % (37.0-53.0); Hemoglobin 6.6 g/dL (13.5-17.5); IMMATURE GRAN ABSOLUTE AUTO 0.03 K/mm3 (0.00-0.10); IMMATURE GRAN PERCENT AUTO 1 % (0-1); LYMPHOCYTES ABSOLUTE AUTO 0.39 K/mm3 (0.84-5.20); LYMPHOCYTES PERCENT AUTO 13 % (21-46); MONOCYTES ABSOLUTE AUTO 0.23 K/mm3 (0.16-1.47); MONOCYTES PERCENT AUTO 8 % (4-13); Mean Corpuscular HGB 28.7 pg (26.0-34.0); Mean Corpuscular HGB Conc 31.3 g/dL (31.5-36.5); Mean Corpuscular Volume 92 fL (80-100); Mean Platelet Volume 9.6 fL (9.1-12.4); NEUTROPHILS ABSOLUTE AUTO 2.29 K/mm3 (1.96-9.15); NEUTROPHILS PERCENT AUTO 77 % (41-73); Platelet Count 91 K/mm3 (150-400); RDW Coefficient Variation 19.6 % (11.7-14.2); RDW Standard Deviation 64.3 fL (35.1-46.3); White Blood Cell Count 2.99 K/mm3 (4.00-11.30)
--- NOTE | 2021-02-07 10:45 | NUR ---
PATIENT TRANSPORTED OFF OF UNIT PER NUCLEAR MEDICINE FOR BLOOD LOSS EXAM PATIENT A&OX4 NO S/S DISTRESS PRIOR TO OR AT TIME OF TRANSPORT
--- NOTE | 2021-02-07 17:40 | NUR ---
PATIENT A&OX4 REMAINS STABLE AT THIS TIME ABLE TO VERBALIZE NEEDS MEDICATED X1 THIS SHIFT FOR GENERALIZED PAIN PER PRN ODERS WITH EFFECTIVENESS REMAINS ON RA RESP EASY/EVEN/UNLABORED CLEAR LIQUID DIET MAINTAINED BLOOD TRANSFUSION IN PROGRESS AT THIS TIME ORDERED NO ADVERSE REACTIONS NO COMPLICATIONS NOTED WILL CONT TO MONITOR CALL LIGHT WITHIN REACH
[2021-02-07 19:07] LABS: Hematocrit 21.1 % (37.0-53.0); Hemoglobin 6.6 g/dL (13.5-17.5)
[2021-02-08 01:47] LABS: Hematocrit 20.8 % (37.0-53.0); Hemoglobin 6.5 g/dL (13.5-17.5)
--- NOTE | 2021-02-08 04:52 | NUR ---
Pt AAOx3, had some pain which was releived with prn pain meds. Pt had H&H drawn a midnight and needed to be redrawn at 0100. hgb wa 6.5, 3rd unit of PRBC hung. VSS. pt tolerated well. Prior to blood being hung, pt had a 5 beat run of VT. Pt stable, awake, amd denies any discomforts. Will continue to monitor. Plan: Monitor h&h, other labs, tele
[2021-02-08 07:25] LABS: Hematocrit 24.2 % (37.0-53.0); Hemoglobin 7.8 g/dL (13.5-17.5)
[2021-02-08 07:43] LABS: Bun/Creatinine Ratio 22.7 (12.0-20.0); Calcium, Blood 7.9 mg/dL (8.5-10.1); Creatinine, Blood 1.41 mg/dL (0.60-1.20); Potassium, Blood 4.2 mmol/L (3.5-5.5)
--- NOTE | 2021-02-08 08:51 | NUR ---
SPOKE TO DR. ALVAREZ: PT TO GET GOLYTELY NOW, NPO AT 1130 FOR COLONOSCOPY PROCEDURE. PT UPDATED WITH PLAN.
--- NOTE | 2021-02-08 11:59 | NUR ---
PT HAD FIRST BM POST GOLYTELY. BM DARK MAROOM LIQUID STOOL MIXED WITH TARRY BLACK STOOL. LARGE AMOUNT.
[2021-02-08 15:30] LABS: Hematocrit 24.7 % (37.0-53.0); Hemoglobin 7.8 g/dL (13.5-17.5)
--- NOTE | 2021-02-08 17:48 | NUR ---
[facility] ADMISSION STARTED. VSS
--- NOTE | 2021-02-08 18:07 | NUR ---
SHIFT SUMMARY: PT A/O X 3 W/ INTERMITTENT CONFUSION TODAY. STANDBY ASSIST TO BSC. PT CURRENTLY IN SURGERY FOR COLONOSCOPY. PT DID NOT TOLERATE GOLYTELY AND WAS GIVEN FLEET ENEMA PER DR. ALVAREZ REQUEST TODAY. PT BM'S DARK MAROON LIQUID. HGB MAINTAINED TODAY AT 7.8. PT HAS BEEN PLEASANT T/O THE DAY. HIS PAIN IS MANAGED WITH CURRENT REGIMEN. NO OTHER CONCERNS AT THIS TIME.
--- NOTE | 2021-02-08 18:34 | NUR ---
02/08/21 1834 Darren Gutierrez PATIENT DETERMINED TO BE ASA APPROPRIATE FOR PROPOFOL SEDATION PRIOR TO START OF PROCEDURE BY DR. ALVAREZ 3-LEAD EKG REVIEWED WITH PHYSICIAN PRIOR TO START OF PROCEDURE. Patient to ENDO 1. History, Chart, Medications and Allergies reviewed before start of procedure. MONITOR INTACT WITH CONTINUOUS PULSE OXIMETRY AND INTERMITTENT BP. O2 VIA N/C INTACT THROUGHOUT SEDATION/PROCEDURE.
[2021-02-08 21:04] LABS: Hematocrit 23.4 % (37.0-53.0); Hemoglobin 7.5 g/dL (13.5-17.5)
[2021-02-09 05:17] LABS: Hematocrit 21.8 % (37.0-53.0)
[2021-02-09 05:38] LABS: Bun/Creatinine Ratio 19.7 (12.0-20.0); Calcium, Blood 8.1 mg/dL (8.5-10.1); Creatinine, Blood 1.37 mg/dL (0.60-1.20); Potassium, Blood 4.3 mmol/L (3.5-5.5)
--- NOTE | 2021-02-09 05:38 | NUR ---
Pt had colonoscopy today, returned to floor at approx 1930. Pt tolerated the prodecre well. hgb drawn after he arrived, and was 7.5. H&h will be drawn evry 6 hours, and if it falls below 7, a 4th unit of PRBC may need to be transfused. Pt has alreay had 3 units prior to his procedure. Plan: Monitor labs, amd contiue to recover.
--- NOTE | 2021-02-09 10:03 | NUR ---
PT C/O SHARP STABBING CHEST PAIN. TELE CONSULTED AND PT IN ST AT 112. PT WAS UP AT TIME EMPTYING HIS URINE INTO URINAL WHEN ONSET OF CP BEGAN. PT GIVEN 1 DOSE OF NITRO AND PAIN RESOLVED. PT VITALS TAKEN. MEDICATIONS GIVEN PER JUL. DR. ALVAREZ IN ROOM AT TIME OF INCIDENT.
[2021-02-09 11:02] LABS: Hematocrit 22.7 % (37.0-53.0)
[2021-02-09 17:06] LABS: Hemoglobin 6.5 g/dL (13.5-17.5)
--- NOTE | 2021-02-09 19:24 | NUR ---
PT HAD LARGE LIQUID BM MAROON COLORED APPEAREDTO BE BLOOD. PT H&H 6.5. DR. CONWAY NOTIFIED OF CONCERNING AMOUNT OF BLOOD. DR. CONWAY REQUESTS WE CONTINUE ORDERS TO CHECK H&H AND INFUSE ONE UNIT PRBC'S IF HGB LESS THAN 7.0. REPORTED TO ONCOMING SUNIL ROQUE.
[2021-02-10 01:52] LABS: Hematocrit 20.2 % (37.0-53.0); Hemoglobin 6.5 g/dL (13.5-17.5)
--- NOTE | 2021-02-10 05:28 | NUR ---
Pt AAOx3, had another GIB, a 4th unit of blood was ordered and transfused. Hgb right after tansfused unit 6.5, will be drawm again at 0700, will continue to monitor. Pt medicated with prn pain meds. Plan: Continue to monitor H&H, pain control
[2021-02-10 08:55] LABS: Hematocrit 20.7 % (37.0-53.0); Hemoglobin 6.6 g/dL (13.5-17.5)
[2021-02-10 14:38] LABS: Hemoglobin 7.5 g/dL (13.5-17.5)
--- NOTE | 2021-02-10 14:43 | NUR ---
PT BLOOD TRANSFUSION COMPLETE. PT TOLERATED WELL. LS CLEAR POST TRANSFUSION, NO EDEMA IN BLE.
--- NOTE | 2021-02-10 19:26 | NUR ---
SHIFT SUMMARY: PT A/O X3 STANDBY ASSSIST. PT HAD 1 UNIT BLOOD TRANSFUSED TODAY FOR HGB LESS THAN 7. PT HGB 7.5 LAST CHECK. PT TOLERATED INFUSION WELL. PT CONTINUES TO HAVE REPORTS OF LOWER BACK PAIN AND IS MANAGED WITH CURRENT PAIN REGIMEN. 2 SMALL BM'S TODAY WERE BLACK TARRY IN APPEARANCE.
[2021-02-10 20:31] LABS: Hematocrit 23.2 % (37.0-53.0); Hemoglobin 7.5 g/dL (13.5-17.5)
--- NOTE | 2021-02-11 04:48 | NUR ---
Pt AAOx3, has pain in his abd which has been treated with prn meds. Pt hgb has sustained at 7.5, will continue to monitor. Plan: Continue POC. Pt to go to [facility] once bed opens up. Possibly plan another colonoscopy, no orders at this time, montior labs.
[2021-02-11 05:25] LABS: BASOPHILS PERCENT AUTO 0 % (0-2); EOSINOPHILS PERCENT AUTO 0 % (0-6); Hematocrit 19.4 % (37.0-53.0); Hemoglobin 6.3 g/dL (13.5-17.5); IMMATURE GRAN ABSOLUTE AUTO 0.05 K/mm3 (0.00-0.10); IMMATURE GRAN PERCENT AUTO 1 % (0-1); LYMPHOCYTES PERCENT AUTO 6 % (21-46); MONOCYTES ABSOLUTE AUTO 0.23 K/mm3 (0.16-1.47); MONOCYTES PERCENT AUTO 5 % (4-13); Mean Corpuscular HGB 29.7 pg (26.0-34.0); Mean Corpuscular HGB Conc 32.5 g/dL (31.5-36.5); Mean Corpuscular Volume 92 fL (80-100); Mean Platelet Volume 10.9 fL (9.1-12.4); NEUTROPHILS ABSOLUTE AUTO 4.26 K/mm3 (1.96-9.15); NEUTROPHILS PERCENT AUTO 88 % (41-73); Platelet Count 89 K/mm3 (150-400); RDW Coefficient Variation 18.3 % (11.7-14.2); RDW Standard Deviation 58.5 fL (35.1-46.3); Red Blood Cell Count 2.12 M/mm3 (4.30-5.90); White Blood Cell Count 4.84 K/mm3 (4.00-11.30)
[2021-02-11 06:36] LABS: Bun/Creatinine Ratio 27.1 (12.0-20.0); Creatinine, Blood 1.7 mg/dL (0.60-1.20); Potassium, Blood 5.3 mmol/L (3.5-5.5)
[2021-02-11 15:35] LABS: Bun/Creatinine Ratio 30.8 (12.0-20.0); Calcium, Blood 7.9 mg/dL (8.5-10.1); Creatinine, Blood 1.59 mg/dL (0.60-1.20); Potassium, Blood 5.8 mmol/L (3.5-5.5)
--- NOTE | 2021-02-11 16:31 | NUR ---
BROUGHT TO [facility] ADMISSION STARTED FOR PROCEDURE.
--- NOTE | 2021-02-11 17:39 | NUR ---
02/11/21 1739 Darren Gutierrez PATIENT DETERMINED TO BE ASA APPROPRIATE FOR PROPOFOL SEDATION PRIOR TO START OF PROCEDURE BY DR. ALVAREZ. 3-LEAD EKG REVIEWED WITH PHYSICIAN PRIOR TO START OF PROCEDURE. Patient to ENDO 1. History, Chart, Medications and Allergies reviewed before start of procedure. MONITOR INTACT WITH CONTINUOUS PULSE OXIMETRY AND INTERMITTENT BP. O2 VIA N/C INTACT THROUGHOUT SEDATION/PROCEDURE.
--- NOTE | 2021-02-11 19:19 | NUR ---
MOVED TO STEP TO CLEAN PATIENT UP BEFORE TRANSFERRING BACK TO UNIT. ENTIRE LINEN CHANGE DONE AND NW ATTENDS THEN TAKEN BACK TO ROOM 356 AND REPORT GIVEN TO JERAMY BARBER.
[2021-02-11 21:41] LABS: Hematocrit 25.2 % (37.0-53.0); Hemoglobin 8.2 g/dL (13.5-17.5)
--- NOTE | 2021-02-12 04:50 | NUR ---
PT IS A&OX4. LUNGS CLEAR IN ALL LOBES. PT C/O CHRONIC BACK PAIN. PRN MEDS ADMINISTERED. PT TOLERATED WELL. ADLS PROVIDED, SAFETY MEASURES IN PLACE. WILL CONTINUE TO MONITOR PATIENT FOR SAFETY.
[2021-02-12 05:58] LABS: Bun/Creatinine Ratio 30.3 (12.0-20.0); Calcium, Blood 7.9 mg/dL (8.5-10.1); Creatinine, Blood 1.55 mg/dL (0.60-1.20); Potassium, Blood 5.1 mmol/L (3.5-5.5)
[2021-02-12 16:54] LABS: Hematocrit 24.9 % (37.0-53.0); Hemoglobin 8.2 g/dL (13.5-17.5)
--- NOTE | 2021-02-12 18:46 | NUR ---
a+o, sitting up watching tv and entertaining the staff with stories, told PA that he was going to [facility] and is supposed to but is waiting for an open bed, call light in reach, rm air, saline locked, takes off things when it suits him, will continue to monitor and treat until share bsr with noc nurse
[2021-02-13 05:07] LABS: BASOPHILS PERCENT AUTO 0 % (0-2); EOSINOPHILS PERCENT AUTO 0 % (0-6); Hematocrit 23.5 % (37.0-53.0); Hemoglobin 7.7 g/dL (13.5-17.5); IMMATURE GRAN PERCENT AUTO 2 % (0-1); LYMPHOCYTES ABSOLUTE AUTO 0.31 K/mm3 (0.84-5.20); LYMPHOCYTES PERCENT AUTO 7 % (21-46); MONOCYTES PERCENT AUTO 4 % (4-13); Mean Corpuscular HGB 30.6 pg (26.0-34.0); Mean Corpuscular HGB Conc 32.8 g/dL (31.5-36.5); Mean Corpuscular Volume 93 fL (80-100); Mean Platelet Volume 9.8 fL (9.1-12.4); NEUTROPHILS ABSOLUTE AUTO 4.04 K/mm3 (1.96-9.15); NEUTROPHILS PERCENT AUTO 87 % (41-73); NRBC ABSOLUTE 0.02 K/mm3 (0.00-0.02); NRBC Auto 0.4 /100 WBC (0.0-0.2); Platelet Count 73 K/mm3 (150-400); RDW Coefficient Variation 17.2 % (11.7-14.2); RDW Standard Deviation 55.8 fL (35.1-46.3); Red Blood Cell Count 2.52 M/mm3 (4.30-5.90); White Blood Cell Count 4.65 K/mm3 (4.00-11.30)
[2021-02-13 05:24] LABS: Bun/Creatinine Ratio 31.3 (12.0-20.0); Calcium, Blood 7.9 mg/dL (8.5-10.1); Creatinine, Blood 1.5 mg/dL (0.60-1.20)
--- NOTE | 2021-02-13 06:06 | NUR ---
SHIFT SUMMARY PT IS A&OX3, FORGETFUL AT TIMES. PT IS COMPLIANT WITH MEDS. C/O PAIN IN LOWER NACK, PRN PAIN MEDICATION ADMINISTERED WITH GOOD EFFECTS. ADLS PROVIDED, SFETY MEASURES IN PLACE. WILL CONTINUE TO MONITOR.
[2021-02-13 14:11] LABS: Hematocrit 24.6 % (37.0-53.0)
--- NOTE | 2021-02-13 18:25 | NUR ---
SHIFT SUMMARY PT RESTING QUIETLY AT START OF SHIFT, BUT HAS BEEN AWAKE MOST OF THE DAY. VERY PLEASANT AND TALKATIVE. IN TO VISIT THIS AFTERNOON. UROSTOMY BAG CHANGED AFTER HERE TO ASSIST. DRSG TO R FLANK ALSO CHANGED AND STABLIZED. PT MEDICATED FOR C/O PAIN TO R BACK X2 THIS SHIFT. DR JARAMILLO IN TO SEE PT AND AGAIN LATER WHEN HERE TO DISCUSS PLAN OF CARE. PT WAS TO D/C TO [facility] FOR FURTHER TX, BUT NO TX AVAILABLE UNTIL NEXT WEEK. PT MAY D/C TO HOME TOMORROW AND HAVE OUTPT TX DONE, IF H&H REMAINS STABLE. DR JARAMILLO TO SEE PT AGAIN TOMORROW AFTER REVIEW OF AM LABS. PT HAS BEEN ABLE TO AMBULATE TO [facility] USING FWW AND 1P ASSIST. BED ALARM ON FOR SAFETY, IF PT FORGETS TO CALL. SITTING UP AND EATING DINNER AT THIS TIME. CALL LT IN REACH.
--- NOTE | 2021-02-13 20:30 | NUR ---
PT IS A PLEASANT OLDER GENTLEMAN. PT HAS A MEDIPORT, NOT ACCESSED TO RIGHT CHEST WALL. PT DENIES ANY COMPLAINTS OF HEADACHE, CHEST PAIN, SOB, NAUSEA, OR NUMBNESS AND TINGLING. PT REPORTS A HISTORY OF CANCER. TELE IN PLACE, NSR PER MANAGER OFFICE. BED ALARM ON FOR PT SAFETY. FLUIDS AT BEDSIDE. CALL LIGHT WITHIN REACH. MEDICATED PER EMAR.
--- NOTE | 2021-02-13 23:35 | NUR ---
PT IS NOT ON SANDOSTATIN - PROGRESS NOTES SAYS TO BE DC'D, PT ALSO NOT ON NORMAL SALINE SINCE 02/11. PT IS TOLERATING PO INTAKE.
[2021-02-14 05:00] LABS: BASOPHILS PERCENT AUTO 0 % (0-2); EOSINOPHILS ABSOLUTE AUTO 0.01 K/mm3 (0.00-0.68); EOSINOPHILS PERCENT AUTO 0 % (0-6); Hematocrit 23.7 % (37.0-53.0); Hemoglobin 7.8 g/dL (13.5-17.5); IMMATURE GRAN ABSOLUTE AUTO 0.19 K/mm3 (0.00-0.10); IMMATURE GRAN PERCENT AUTO 4 % (0-1); LYMPHOCYTES ABSOLUTE AUTO 0.41 K/mm3 (0.84-5.20); LYMPHOCYTES PERCENT AUTO 9 % (21-46); MONOCYTES ABSOLUTE AUTO 0.45 K/mm3 (0.16-1.47); MONOCYTES PERCENT AUTO 10 % (4-13); Mean Corpuscular HGB 30.4 pg (26.0-34.0); Mean Corpuscular HGB Conc 32.9 g/dL (31.5-36.5); Mean Corpuscular Volume 92 fL (80-100); Mean Platelet Volume 10.1 fL (9.1-12.4); NEUTROPHILS ABSOLUTE AUTO 3.51 K/mm3 (1.96-9.15); NEUTROPHILS PERCENT AUTO 77 % (41-73); NRBC ABSOLUTE 0.02 K/mm3 (0.00-0.02); NRBC Auto 0.4 /100 WBC (0.0-0.2); Platelet Count 71 K/mm3 (150-400); RDW Coefficient Variation 17.1 % (11.7-14.2); RDW Standard Deviation 55.4 fL (35.1-46.3); Red Blood Cell Count 2.57 M/mm3 (4.30-5.90); White Blood Cell Count 4.57 K/mm3 (4.00-11.30)
[2021-02-14 05:16] LABS: Bun/Creatinine Ratio 32.5 (12.0-20.0); Calcium, Blood 8.2 mg/dL (8.5-10.1); Creatinine, Blood 1.57 mg/dL (0.60-1.20); Potassium, Blood 4.5 mmol/L (3.5-5.5)
--- NOTE | 2021-02-14 06:39 | NUR ---
SHIFT SUMMARY - NO ACUTE CHANGES THROUGHOUT THIS SHIFT. PT RELAYS HISTORY OF CHRONIC PAIN - PT MEDICATED WITH MS CONTIN AND NORCO TONIGHT. PT HAS A NEPHROSTOMY, AND UROSTOMY. PT RELAYS HISTORY OF BACK INJURY. PT IS A PLEASANT, TALKATIVE OLDER GENTLEMAN. NO SIGNS OF BLEEDING LAST NOC. PT GIVEN PRUNE JUICE THIS AM, AND PT IS AWARE MIRALAX IS ON HIS PROFILE. PT RELAYS NO BM FOR 3 DAYS, AND RELAYS HIS NORMAL BOWEL HISTORY IS EVERY 1-3 DAYS AT HOME. CALL LIGHT WITHIN REACH. BED IN LOW POSITION. PO FLUIDS AT BEDSIDE.
--- NOTE | 2021-02-14 19:18 | NUR ---
Shift Summary, The patient is a/ox4 to person, place, time and event. He is pleasent and cooperative with care. He has been a 1 prsn standby assist to the bathroom and has been up in his chair this afternoon. The patient has pain in his back that comes and goes and sometimes increases with moving, the pain is controlled with medication per EMAR. The patient had a BM this morning but it was not seen by the patient or the nurse. He was instructed to keep the next BP so the nurse have visual for blood. The patient denied any chest pain or SOB and stated that he felt fine this shift. The patient had not acute changes this shift. He is currently lying in his bed resting.
[2021-02-15 04:43] LABS: BASOPHILS PERCENT AUTO 0 % (0-2); EOSINOPHILS ABSOLUTE AUTO 0.01 K/mm3 (0.00-0.68); EOSINOPHILS PERCENT AUTO 0 % (0-6); Hematocrit 25.2 % (37.0-53.0); Hemoglobin 8.2 g/dL (13.5-17.5); IMMATURE GRAN ABSOLUTE AUTO 0.17 K/mm3 (0.00-0.10); IMMATURE GRAN PERCENT AUTO 4 % (0-1); LYMPHOCYTES ABSOLUTE AUTO 0.37 K/mm3 (0.84-5.20); LYMPHOCYTES PERCENT AUTO 9 % (21-46); MONOCYTES PERCENT AUTO 9 % (4-13); Mean Corpuscular HGB 30.4 pg (26.0-34.0); Mean Corpuscular HGB Conc 32.5 g/dL (31.5-36.5); Mean Corpuscular Volume 93 fL (80-100); Mean Platelet Volume 10.3 fL (9.1-12.4); NEUTROPHILS ABSOLUTE AUTO 3.32 K/mm3 (1.96-9.15); NEUTROPHILS PERCENT AUTO 78 % (41-73); Platelet Count 65 K/mm3 (150-400); RDW Coefficient Variation 17.3 % (11.7-14.2); White Blood Cell Count 4.27 K/mm3 (4.00-11.30)
[2021-02-15 05:00] LABS: Bun/Creatinine Ratio 30.4 (12.0-20.0); Calcium, Blood 7.9 mg/dL (8.5-10.1); Creatinine, Blood 1.48 mg/dL (0.60-1.20)
--- NOTE | 2021-02-15 05:14 | NUR ---
SHIFT SUMMARY PT IS A&OX3. FORGETFUL AT TIMES. RESPIRATIONS EVEN AND UNLABORED. PT IS COMPLIANT WITH MEDS. PT C/O LOWER BACK PAIN. PRN PAIN MED ADMINISTERED WITH GOOD EFFECTS. ADLS PROVIDED, SAFETY MEASURES IN PLACE.
[2021-02-15] MEDS ORDERED: DOCU100 PO (14:11)
[2021-02-15] MEDS ORDERED: FERSU300 PO (14:12)
[2021-02-15] MEDS ORDERED: PRED20 PO (14:16)
[2021-02-15] MEDS ORDERED: SENN187 PO (14:17)
--- NOTE | 2021-02-15 15:37 | NUR ---
Discharge Summary, The patient is A/OX4 to person, place, time and event. The patient has a bright affact and is pleasent and cooperativ with care. The patient is on RA and denies any chest pain or SOB. 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 He had a BM this AM and it was black but no blood was seen. The Patient has no acute changes this shift and he was informed that he could be discharged and him and his would need to monitor him for any Gi bleeding. He was given written and verbal discharge instructions that talked about the GI bleeding and medications that he would be discharged with. The and the patient did not have any questions or concerns and the patient was escorted in a wheele chair to the front doors and helped into his vehical.
== END 2021-02-15 15:09 | disposition home or self-care (01) | DRG 393 ==
LOC: ER 19:53 → MEDS 02-07 01:06
PROVIDERS: Emergency Medicine; Family Medicine; Internal Medicine; Student in an Organized Health Care Education/Training Program; ADMIT Internal Medicine
PROC: 0DC68ZZ Extirpation of Matter from Stomach, Via Natural or Artificial Opening Endoscopic (ICD-10-PCS; 2021-02-09)
PROC: 0DC Gastrointestinal System, Extirpation (ICD-10-PCS; 2021-02-09)
PROC: 0W3P8ZZ Control Bleeding in Gastrointestinal Tract, Via Natural or Artificial Opening Endoscopic (ICD-10-PCS; 2021-02-09)
PROC: 30233N1 Transfusion of Nonautologous Red Blood Cells into Peripheral Vein, Percutaneous Approach (ICD-10-PCS; principal; 2021-02-10)
PROC: 0W3P8ZZ Control Bleeding in Gastrointestinal Tract, Via Natural or Artificial Opening Endoscopic (ICD-10-PCS; 2021-02-11)
PROC: 0DBB8ZX Excision of Ileum, Via Natural or Artificial Opening Endoscopic, Diagnostic (ICD-10-PCS; 2021-02-11)
DX: K63.3 Ulcer of intestine (principal); K31.811 Angiodysplasia of stomach and duodenum with bleeding; C78.7 Secondary malignant neoplasm of liver and intrahepatic bile duct; C78.02 Secondary malignant neoplasm of left lung; C78.01 Secondary malignant neoplasm of right lung; C79.51 Secondary malignant neoplasm of bone; F11.20 Opioid dependence, uncomplicated; D62 Acute posthemorrhagic anemia; K51.511 Left sided colitis with rectal bleeding; Z20.822 Contact with and (suspected) exposure to COVID-19; C67.9 Malignant neoplasm of bladder, unspecified; N18.30 Chronic kidney disease, stage 3 unspecified; K64.8 Other hemorrhoids; E78.5 Hyperlipidemia, unspecified; G89.29 Other chronic pain; I35.0 Nonrheumatic aortic (valve) stenosis; D63.1 Anemia in chronic kidney disease; M54.9 Dorsalgia, unspecified; Z98.890 Other specified postprocedural states; Z87.442 Personal history of urinary calculi; Z95.828 Presence of other vascular implants and grafts; Z90.5 Acquired absence of kidney; Z90.49 Acquired absence of other specified parts of digestive tract; Z90.79 Acquired absence of other genital organ(s); Z93.6 Other artificial openings of urinary tract status; Z92.3 Personal history of irradiation
CPT/HCPCS: 36415; 36416; 36430; 78278; 80048; 80053; 82272; 82728; 83540; 83550; 83605; 83735; 84484; 85014; 85018; 85025; 85610; 85730; 86850; 86900; 86901; 86923; 88305; 93005; 93010; 96374; 99285-25; A9270; A9560; C9113; J0171; J1610; J2354; J2405; J2704; J2920; J7030; J7040; J7050; J7512; P9016; U0004

== ENCOUNTER → 2021-02-23 | Outpatient (CLI) | payer MEDICARE, OTHER ==
[~2021-02-23] MED LIST changes: +DOCU100 PO; +FERSU300 PO; +PRED20 PO
== END | disposition home or self-care (01) ==
LOC: LAB SHORT 16:51
DX: Z43.6 Encounter for attention to other artificial openings of urinary tract (principal)
CPT/HCPCS: 87070; 87205

== ENCOUNTER 2021-03-04 18:59 | Inpatient (IN) | payer OTHER, MEDICARE ==
[~2021-03-04] VITALS: Ht 180.3 cm; Wt 74.4 kg
[2021-03-04 19:46] LABS: BASOPHILS ABSOLUTE AUTO 0.01 K/mm3 (0.00-0.23); BASOPHILS PERCENT AUTO 0 % (0-2); EOSINOPHILS ABSOLUTE AUTO 0.32 K/mm3 (0.00-0.68); EOSINOPHILS PERCENT AUTO 4 % (0-6); Hematocrit 18.3 % (37.0-53.0); IMMATURE GRAN ABSOLUTE AUTO 0.17 K/mm3 (0.00-0.10); IMMATURE GRAN PERCENT AUTO 2 % (0-1); LYMPHOCYTES ABSOLUTE AUTO 1.97 K/mm3 (0.84-5.20); LYMPHOCYTES PERCENT AUTO 22 % (21-46); MONOCYTES ABSOLUTE AUTO 0.64 K/mm3 (0.16-1.47); MONOCYTES PERCENT AUTO 7 % (4-13); Mean Corpuscular HGB 29.8 pg (26.0-34.0); Mean Corpuscular HGB Conc 27.9 g/dL (31.5-36.5); Mean Corpuscular Volume 107 fL (80-100); Mean Platelet Volume 10.5 fL (9.1-12.4); NEUTROPHILS ABSOLUTE AUTO 6.06 K/mm3 (1.96-9.15); NEUTROPHILS PERCENT AUTO 66 % (41-73); NRBC ABSOLUTE 0.05 K/mm3 (0.00-0.02); NRBC Auto 0.5 /100 WBC (0.0-0.2); Platelet Count 122 K/mm3 (150-400); RDW Coefficient Variation 20.7 % (11.7-14.2); RDW Standard Deviation 74.8 fL (35.1-46.3); Red Blood Cell Count 1.71 M/mm3 (4.30-5.90); White Blood Cell Count 9.17 K/mm3 (4.00-11.30)
[2021-03-04 19:48] LABS: Hemoglobin 5.1 g/dL (13.5-17.5)
[2021-03-04] MEDS ORDERED: Robaxin750 MG PO (19:52)
[2021-03-04] MEDS ORDERED: OXYC5 (19:54)
[2021-03-04] MEDS ORDERED: 1/2 NS 250ml250 ML (19:54)
[2021-03-04 20:04] LABS: Albumin, Blood 2.1 g/dL (3.4-5.0); Albumin/Globulin Ratio 0.7 (0.8-1.8); Bilirubin, Total 0.3 mg/dL (0.1-1.0); Bun/Creatinine Ratio 23.3 (12.0-20.0); Calcium, Blood 7.9 mg/dL (8.5-10.1); Creatinine, Blood 1.76 mg/dL (0.60-1.20); Potassium, Blood 4.1 mmol/L (3.5-5.5); Total Protein, Blood 5.1 g/dL (6.4-8.2)
[2021-03-04 21:34] LABS: International Normalized Ratio 1.11; Prothrombin Time Results 11.6 Sec (9.7-11.5)
[2021-03-05 06:19] LABS: BASOPHILS ABSOLUTE AUTO 0.03 K/mm3 (0.00-0.23); BASOPHILS PERCENT AUTO 0 % (0-2); EOSINOPHILS ABSOLUTE AUTO 0.11 K/mm3 (0.00-0.68); EOSINOPHILS PERCENT AUTO 2 % (0-6); Hematocrit 26.7 % (37.0-53.0); Hemoglobin 8.5 g/dL (13.5-17.5); IMMATURE GRAN ABSOLUTE AUTO 0.12 K/mm3 (0.00-0.10); IMMATURE GRAN PERCENT AUTO 2 % (0-1); LYMPHOCYTES ABSOLUTE AUTO 0.62 K/mm3 (0.84-5.20); LYMPHOCYTES PERCENT AUTO 8 % (21-46); MONOCYTES ABSOLUTE AUTO 0.43 K/mm3 (0.16-1.47); MONOCYTES PERCENT AUTO 6 % (4-13); Mean Corpuscular HGB 30.8 pg (26.0-34.0); Mean Corpuscular HGB Conc 31.8 g/dL (31.5-36.5); Mean Platelet Volume 10.6 fL (9.1-12.4); NEUTROPHILS ABSOLUTE AUTO 6.18 K/mm3 (1.96-9.15); NEUTROPHILS PERCENT AUTO 83 % (41-73); NRBC ABSOLUTE 0.03 K/mm3 (0.00-0.02); NRBC Auto 0.4 /100 WBC (0.0-0.2); Platelet Count 101 K/mm3 (150-400); RDW Coefficient Variation 17.9 % (11.7-14.2); RDW Standard Deviation 57.3 fL (35.1-46.3); Red Blood Cell Count 2.76 M/mm3 (4.30-5.90); White Blood Cell Count 7.49 K/mm3 (4.00-11.30)
[2021-03-05 06:21] LABS: Mean Corpuscular Volume 97 fL (80-100)
[2021-03-05 06:30] LABS: Albumin, Blood 2.1 g/dL (3.4-5.0); Albumin/Globulin Ratio 0.7 (0.8-1.8); Bilirubin, Total 1.1 mg/dL (0.1-1.0); Bun/Creatinine Ratio 21.3 (12.0-20.0); Calcium, Blood 7.8 mg/dL (8.5-10.1); Creatinine, Blood 1.64 mg/dL (0.60-1.20); Globulin, Blood 3.2 g/dL (2.2-4.0); Magnesium, Blood 1.8 mg/dL (1.6-2.4); Total Protein, Blood 5.3 g/dL (6.4-8.2)
--- NOTE | 2021-03-05 09:06 | NUR ---
CARE OF PT ASSUMED AT 0700. PT SLEEPING BUT AROUSES TO VOICE. C/O PAIN 8/ TO LOWER ABD, FLANK, AND LOWER BACK. PT STATES THIS IS HIS NORMAL PAIN. UROSTOMY TO RLQ, NEPHROSTOMY TUBE TO R FLANK. CLEAR YELLOW URINE TO NEPH TUBE, SEDIMENT TO UROSTOMY. ON ASSESSMENT PT IN SVT RATE 140-150 PER EKG. BP DID TREND DOWN W MAP >65. LOPRESSOR HELD. PT HYPOXIC THIS AM W SATS 85% ON 6L N/C. PT HAS DRY NON-PRODUCTIVE COUGH. RT NOTIFIED, PT PLACED ON 10L HIGH LOLI. DR LEE CALLED THIS AM AND UPDATED. STAT CHEST XRAY ORDERED. LR INCREASED TO 200CC/HR. STAT COVID TEST COMPLETED AND SENT. PT MEDICATED WITH 50MCG FENT W/O EFFECT. PT AWAKE NOW W C/O PAIN 8-01/16. HEART RATE HAS LOWERED TO 110-116. BP SATBLE W MAP >65.
[2021-03-05 09:45] LABS: SARS-Cov-2 (COVID-19) PCR, MMC NEGATIVE (NEGATIVE)
--- NOTE | 2021-03-05 10:33 | NUR ---
DR LEE CALLED PT CONT TO EXPERIENCE SOB W SATS HIGH 80'S LOW 90 ON 10L VIA HIGH LOLI. LASIX 10MG IV ORDERED AND GIVEN. PT CONT TO C/O PAIN 12/16, FENT 12.5MCG GIVEN PER ORDERS. MEDIPORT ACCESSED, BLOOD DRAWN. LACTIC AND PROCAL ORDERED AND SENT. 7 BEAT RUN OF [place] NOTED. DR LEE AT BEDSIDE TO SEE PT.
--- NOTE | 2021-03-05 11:22 | NUR ---
LACTIC ACID 4.2, PT CONT TO BE SOB, SATS 88-93%. PT RESTLESS AND IN PAIN 8/10. PT STATES HE DOES NOT FEEL GOOD. DR LEE CALLED W UPDATE. PT DID MAKE 350CC URINE. CRITICAL CARE CONSULT ORDERED. ADDITIONAL 10MG LASIX ORDERED. STAT TROPONIN ORDERED. FLUIDS AT 200CC/HR PER DR LEE.
[2021-03-05 11:30] LABS: Hematocrit 25.3 % (37.0-53.0); Hemoglobin 8.1 g/dL (13.5-17.5)
--- NOTE | 2021-03-05 11:32 | NUR ---
DR CASTILLO CONSULTED AND GIVEN FULL UPDATE. FLUIDS STOPPED PER DR CASTILLO. BIPAP PLACED 12/6 50% FIO2.
--- NOTE | 2021-03-05 12:20 | NUR ---
TROPONIN 30.3, DR CASTILLO NOTIFIED AND AT BEDSIDE. STAT EKG ORDERED.
--- NOTE | 2021-03-05 13:05 | NUR ---
DR ENNIS CONSULTED AND AT BEDSIDE. DR ENNIS UPDATED BOTH PT AND PT'S WHOM IS AT BEDSIDE. LEVOPHED STARTED AT 3MCG, RAISING BP PRIOR TO LASIX. ECHO TO BE COMPLETED TODAY. DILAUDID TO BE GIVEN FOR PAIN.
--- NOTE | 2021-03-05 13:24 | NUR ---
LEVOPHED INCREASED TO 14MCG, MAP 87. DILAUDID AND LASIX GIVEN. DR CASTILLO CHANGED BIPAP SETTINGS 5/5, 30%.
--- NOTE | 2021-03-05 14:18 | NUR ---
DR ENNIS ORDERED 2 UNITS PRBC'S, DR CASTILLO NOTIFIED. DILJEREMIAHID WORKING WELL FOR PAIN.
--- NOTE | 2021-03-05 14:57 | NUR ---
[address] CASTILLO AT BEDSIDE SPEAKING W PT'S .
--- NOTE | 2021-03-05 16:23 | NUR ---
PT SOMEHWAT SOB AGAIN WITH FREQUENT DRY COUGH. FAINT CRACKLES TO LLL (CLEAR PRIOR TO BLOOD INFUSION) DR CASTILLO NOTIFIED, LASIX 40MG ORDERD AND GIVEN. PT CONT TO MAKE GOOD/ADEQUATE U/O. ECHO COMPLETE. DILAUDID GIVEN FOR 9/10 GENERALIZED PAIN.
--- NOTE | 2021-03-05 16:45 | NUR ---
DR LUCIA OFFICE CALLED AND REQUESTED HOSPITALIST CELL PHONE, DR LUCIA TO CALL DR LEE.
[2021-03-05 17:08] LABS: Calcium, Blood 7.7 mg/dL (8.5-10.1); Creatinine, Blood 1.6 mg/dL (0.60-1.20); Magnesium, Blood 1.6 mg/dL (1.6-2.4); Phosphorus, Blood 4.1 mg/dL (2.5-4.9); Potassium, Blood 4.3 mmol/L (3.5-5.5)
[2021-03-05 17:30] LABS: Troponin I 43.5 ng/mL (0.000-0.040)
[2021-03-05 18:52] LABS: Hematocrit 28.4 % (37.0-53.0); Hemoglobin 9.2 g/dL (13.5-17.5)
--- NOTE | 2021-03-05 19:00 | NUR ---
PATIENT REPORT RECEIVED FROM [facility] PATIENT AAOX4 ST NOTED IN THE MONITOR BIPAP 12/11/30% SKIN INTACT WILL CONTINUE TO MONITOR
[2021-03-06 05:43] LABS: BASOPHILS ABSOLUTE AUTO 0.01 K/mm3 (0.00-0.23); BASOPHILS PERCENT AUTO 0 % (0-2); EOSINOPHILS ABSOLUTE AUTO 0.06 K/mm3 (0.00-0.68); EOSINOPHILS PERCENT AUTO 1 % (0-6); Hematocrit 25.7 % (37.0-53.0); Hemoglobin 8.2 g/dL (13.5-17.5); IMMATURE GRAN ABSOLUTE AUTO 0.07 K/mm3 (0.00-0.10); IMMATURE GRAN PERCENT AUTO 1 % (0-1); LYMPHOCYTES PERCENT AUTO 9 % (21-46); MONOCYTES ABSOLUTE AUTO 0.51 K/mm3 (0.16-1.47); MONOCYTES PERCENT AUTO 7 % (4-13); Mean Corpuscular HGB 29.3 pg (26.0-34.0); Mean Corpuscular HGB Conc 31.9 g/dL (31.5-36.5); Mean Platelet Volume 10.3 fL (9.1-12.4); NEUTROPHILS ABSOLUTE AUTO 6.24 K/mm3 (1.96-9.15); NEUTROPHILS PERCENT AUTO 82 % (41-73); NRBC ABSOLUTE 0.02 K/mm3 (0.00-0.02); NRBC Auto 0.3 /100 WBC (0.0-0.2); Platelet Count 109 K/mm3 (150-400); RDW Coefficient Variation 19.1 % (11.7-14.2); RDW Standard Deviation 58.4 fL (35.1-46.3); White Blood Cell Count 7.59 K/mm3 (4.00-11.30)
[2021-03-06 05:45] LABS: Mean Corpuscular Volume 92 fL (80-100)
[2021-03-06 06:17] LABS: Albumin/Globulin Ratio 0.6 (0.8-1.8); Bilirubin, Total 0.7 mg/dL (0.1-1.0); Bun/Creatinine Ratio 19.7 (12.0-20.0); Calcium, Blood 7.8 mg/dL (8.5-10.1); Creatinine, Blood 1.73 mg/dL (0.60-1.20); Globulin, Blood 3.2 g/dL (2.2-4.0); Magnesium, Blood 1.5 mg/dL (1.6-2.4); Phosphorus, Blood 3.4 mg/dL (2.5-4.9); Potassium, Blood 4.3 mmol/L (3.5-5.5); Total Protein, Blood 5.2 g/dL (6.4-8.2)
--- NOTE | 2021-03-06 10:32 | NUR ---
IV IN LFA INFUULTRATED SO REMOVED. IV STARTED SAME FOREARM WITHOUT INCIDENT. FLUSHED AND CURRENTLY BEING USED FOR ANTIBIOTICS..
--- NOTE | 2021-03-06 12:31 | NUR ---
PATIENT TATTOO AND BODY ARTIST LIGHT ASKING TO USE TOILET, PT. PLACED ON BED MILLER WHILE NOTING PT HAD BM, MED. SIZE, LOOSE AND BLOODY. DARK IN COLOR AND ODOROUS. MD. ALMODOVAR NOTIFIED. WILL CONT. TO MONITOR
[2021-03-06 16:18] LABS: Hematocrit 22.6 % (37.0-53.0); Hemoglobin 7.3 g/dL (13.5-17.5)
--- NOTE | 2021-03-06 19:17 | NUR ---
PATIENT REPORT RECEIVED FROM [facility] PATIENT AAOX4 ST NOTED IN THE MONITOR NC 3 L SKIN INTACT WILL TO CONTINUED TO MONITOR
[2021-03-07 05:33] LABS: Hematocrit 24.3 % (37.0-53.0); Hemoglobin 7.8 g/dL (13.5-17.5); Mean Corpuscular HGB 29.2 pg (26.0-34.0); Mean Corpuscular HGB Conc 32.1 g/dL (31.5-36.5); Mean Corpuscular Volume 91 fL (80-100); Mean Platelet Volume 10.3 fL (9.1-12.4); Platelet Count 63 K/mm3 (150-400); RDW Coefficient Variation 18.5 % (11.7-14.2); RDW Standard Deviation 58.4 fL (35.1-46.3); Red Blood Cell Count 2.67 M/mm3 (4.30-5.90); White Blood Cell Count 5.58 K/mm3 (4.00-11.30)
[2021-03-07 05:54] LABS: Albumin, Blood 1.9 g/dL (3.4-5.0); Albumin/Globulin Ratio 0.6 (0.8-1.8); Bilirubin, Total 0.6 mg/dL (0.1-1.0); Calcium, Blood 8.1 mg/dL (8.5-10.1); Creatinine, Blood 1.43 mg/dL (0.60-1.20); Globulin, Blood 3.2 g/dL (2.2-4.0); Magnesium, Blood 1.8 mg/dL (1.6-2.4); Phosphorus, Blood 2.9 mg/dL (2.5-4.9); Potassium, Blood 3.9 mmol/L (3.5-5.5); Total Protein, Blood 5.1 g/dL (6.4-8.2)
[2021-03-07 05:58] LABS: BAND PERCENT MAN 9 % (0-8); BASOPHILS PERCENT MAN 0 % (0-2); EOSINOPHILS ABSOLUTE MAN 0.05 K/mm3 (0.00-0.68); EOSINOPHILS PERCENT MAN 1 % (0-6); LYMPHOCYTES ABSOLUTE MAN 0.22 K/mm3 (0.84-5.20); LYMPHOCYTES PERCENT MAN 4 % (21-46); MONOCYTES ABSOLUTE MAN 0.11 K/mm3 (0.16-1.47); MONOCYTES PERCENT MAN 2 % (4-13); NEUTROPHILS ABSOLUTE MAN 5.18 K/mm3 (1.96-9.15); SEG NEUTROPHILS PERCENT MAN 84 % (41-73); TOTAL CELLS COUNTED 100
[2021-03-07 08:22] LABS: Hematocrit 22.4 % (37.0-53.0); Hemoglobin 7.1 g/dL (13.5-17.5)
--- NOTE | 2021-03-07 08:25 | NUR ---
ASSUMED CARE OF PT FROM NIGHT SUNIL MURRAY. PT ASSESSMENT PERFORMED STATED IN CHART. PT AOX4, IN NO DISTRESS AND PLESANT. PT HAD A GOOD NIGHT, ONE BM BLOODY, CONT ON PRESSORS LEVO AT 6, VASO OFF, MAPS IN THE 70
[2021-03-07 13:32] LABS: Hematocrit 20.7 % (37.0-53.0); Hemoglobin 6.5 g/dL (13.5-17.5)
--- NOTE | 2021-03-07 18:28 | NUR ---
pt want limited treatment all medical care but no life support. Dsicussed with Dr Dumont and zac completed.
--- NOTE | 2021-03-07 19:00 | NUR ---
PATIENT REPORT RECEIVED FROM SIMEON LAMAR RN PATIENT AAOX4 NSR NOTED IN THE MONITOR ROOM AIR SKIN INTACT WILL TO CONTINUE TO MONITOR
[2021-03-07 20:37] LABS: Hemoglobin 7.1 g/dL (13.5-17.5)
[2021-03-08 03:13] LABS: BASOPHILS ABSOLUTE AUTO 0.01 K/mm3 (0.00-0.23); BASOPHILS PERCENT AUTO 0 % (0-2); EOSINOPHILS ABSOLUTE AUTO 0.12 K/mm3 (0.00-0.68); EOSINOPHILS PERCENT AUTO 2 % (0-6); Hematocrit 26.2 % (37.0-53.0); Hemoglobin 8.6 g/dL (13.5-17.5); IMMATURE GRAN ABSOLUTE AUTO 0.03 K/mm3 (0.00-0.10); IMMATURE GRAN PERCENT AUTO 1 % (0-1); LYMPHOCYTES PERCENT AUTO 8 % (21-46); MONOCYTES PERCENT AUTO 5 % (4-13); Mean Corpuscular HGB 29.2 pg (26.0-34.0); Mean Corpuscular HGB Conc 32.8 g/dL (31.5-36.5); Mean Corpuscular Volume 89 fL (80-100); Mean Platelet Volume 10.3 fL (9.1-12.4); NEUTROPHILS PERCENT AUTO 85 % (41-73); Platelet Count 64 K/mm3 (150-400); RDW Coefficient Variation 17.9 % (11.7-14.2); Red Blood Cell Count 2.95 M/mm3 (4.30-5.90); White Blood Cell Count 6.56 K/mm3 (4.00-11.30)
[2021-03-08 03:42] LABS: Albumin, Blood 1.8 g/dL (3.4-5.0); Albumin/Globulin Ratio 0.6 (0.8-1.8); Bilirubin, Total 0.4 mg/dL (0.1-1.0); Bun/Creatinine Ratio 16.9 (12.0-20.0); Calcium, Blood 7.7 mg/dL (8.5-10.1); Creatinine, Blood 1.36 mg/dL (0.60-1.20); Magnesium, Blood 1.7 mg/dL (1.6-2.4); Phosphorus, Blood 3.5 mg/dL (2.5-4.9); Potassium, Blood 3.7 mmol/L (3.5-5.5); Total Protein, Blood 4.8 g/dL (6.4-8.2)
[2021-03-08 03:45] LABS: Troponin I 5.25 ng/mL (0.000-0.040)
--- NOTE | 2021-03-08 09:50 | NUR ---
ASSUMED PT CARE, PT A/OX4, ON RA, VSS, LEVO TITRATING DOWN. PT GIVEN ANALGESIA FOR PAIN. ASSISTED TO REPOSITION. EATING CL BREAKFAST. PT IN GOOD SPIRITS, BY TO TALK WITH PT REGARDING POC. PT WILL EITHER TRANSFER TO [facility] FOR FURTHER GI MANAGEMENT, OR HOME WITH HOSPICE. H/H STABLE THIS AM.
--- NOTE | 2021-03-08 16:44 | NUR ---
family at bedside visiting with pt. He looks so happy!
--- NOTE | 2021-03-08 18:13 | NUR ---
SHIFT SUMMARY PT A/OX4, IN GOOD SPIRITS THROUGHOUT SHIFT. PT GIVEN NORCO PRN X2, DILAUDID PRN X2 FOR CHRONIC PAIN; EFFECTIVE FOR PAIN MANAGEMENT. LEVO ON SB AT END OF SHIFT WITH MAPS GREATER THAN 65. AFEBRILE. H/H STABLE. PT ON RA THROUGHOUT SHIFT, LUNGS CLEAR, SATS 92% AND GREATER. EATING 100% OF CL DIET. GOOD UO THROUGH NEPHROSTOMY. 1 PASTY STOOL, TARRY. PT MOVES INDEPENDENT IN BED, ASSIST GIVEN NEEDED. FAMILY AT BEDSIDE TO VISIT. PER MD, [facility] HAS NO BEDS AVAILABLE FOR FURTHER GI WORKUP. PLAN TO DC HOME ON HOSPICE.
--- NOTE | 2021-03-08 20:42 | NUR ---
ASSUMED CARE REPORT RECEIVED FROM DAY SHIFT RN. PT RESTING IN BED, AAOX4, PLEASANT. PT IN SR, BP NORMOTENSIVE. PAIN HAS CHRONIC PAIN, PRN MEDICATION PROVIDED, RIGHT UROSTOMY AND RIGHT NEPHROSTOMY TUBE IN PLACE AND DRAINING. SEE SHIFT ASSESSMENT. WILL CONTINUE TO MONITOR.
[2021-03-09 04:41] LABS: BASOPHILS ABSOLUTE AUTO 0.01 K/mm3 (0.00-0.23); BASOPHILS PERCENT AUTO 0 % (0-2); EOSINOPHILS ABSOLUTE AUTO 0.19 K/mm3 (0.00-0.68); EOSINOPHILS PERCENT AUTO 4 % (0-6); Hematocrit 25.7 % (37.0-53.0); Hemoglobin 8.2 g/dL (13.5-17.5); IMMATURE GRAN ABSOLUTE AUTO 0.03 K/mm3 (0.00-0.10); IMMATURE GRAN PERCENT AUTO 1 % (0-1); LYMPHOCYTES ABSOLUTE AUTO 0.45 K/mm3 (0.84-5.20); LYMPHOCYTES PERCENT AUTO 10 % (21-46); MONOCYTES ABSOLUTE AUTO 0.21 K/mm3 (0.16-1.47); MONOCYTES PERCENT AUTO 5 % (4-13); Mean Corpuscular HGB 28.9 pg (26.0-34.0); Mean Corpuscular HGB Conc 31.9 g/dL (31.5-36.5); Mean Corpuscular Volume 91 fL (80-100); Mean Platelet Volume 10.3 fL (9.1-12.4); NEUTROPHILS PERCENT AUTO 81 % (41-73); Platelet Count 51 K/mm3 (150-400); RDW Coefficient Variation 18.8 % (11.7-14.2); RDW Standard Deviation 57.4 fL (35.1-46.3); Red Blood Cell Count 2.84 M/mm3 (4.30-5.90); White Blood Cell Count 4.59 K/mm3 (4.00-11.30)
[2021-03-09 04:54] LABS: Albumin, Blood 1.8 g/dL (3.4-5.0); Albumin/Globulin Ratio 0.6 (0.8-1.8); Bilirubin, Total 0.4 mg/dL (0.1-1.0); Bun/Creatinine Ratio 13.9 (12.0-20.0); Creatinine, Blood 1.37 mg/dL (0.60-1.20); Magnesium, Blood 1.6 mg/dL (1.6-2.4); Phosphorus, Blood 3.7 mg/dL (2.5-4.9); Potassium, Blood 3.7 mmol/L (3.5-5.5); Total Protein, Blood 4.8 g/dL (6.4-8.2)
--- NOTE | 2021-03-09 06:03 | NUR ---
SHIFT SUMMARY NO ACUTE EVENTS OVERNIGHT. PT RESTING IN BED, AAOX4, PLEASANT. DID COMPLAIN FO LOWER BACK PAIN A FEW TIMES DURING THE SHIFT, PRN PAIN ADMINSTRATION GIVEN. LEVOPHED REMAINED OFF FOR THIS SHIFT. MAP>65. RLQ UROSTOMY AND RIGHT NEPHROSTOMY IN PLACE AND DRAINING WITH NO ISSUES. NO ACUTE DISTRESS NOTED. WILL CONTINUE TO MONITOR. REPORT TO BE GIVEN TO DAY SHIFT RN.
--- NOTE | 2021-03-09 09:08 | NUR ---
ASSUMED PT CARE THIS MORNING. PT OFF LEVO SINCE YESTERDAY NELLY. PT A/OX4, IN GOOD SPIRITS, C/O OF INCREASED BACK PAIN, GIVEN DILAUID IV. VSS, AFEBRILE. R NEPHROSTOMY WITH GOOD UO, CLEAR YELLOW. R UROSTOMY DRAINING SMALL AMOUNT. PT DENIES ANY NEEDS THIS AM. H/H STABLE 8.2/25.7.
--- NOTE | 2021-03-09 10:55 | NUR ---
ONCOLOGY , MD JARAMILLO, AND MD OSCAR IN TO SEE PT. NEW ORDERS OBTAINED TO TRANSFER TO MEDICAL FLOOR WITH TELE.
--- NOTE | 2021-03-09 12:41 | NUR ---
Family contact for goals of care conversation with , [phone] EMR reviewed and Case conference done in ICU this am with pt's bedside RN, Dr Chavez, relief charge nurse, Transit Operations Supervisor, pharmacisit. Pt is now off pressors and being transferred to medical floor status. Oncology has visited along with other providers this am. I spoke with pt's , Dahiana, re: their goals of care, wishes and plans. They are still hopeful for eval at [facility] for GI bleeding issue. states the plan has been discussed for a Cardiac Stent due to HI caused "by lack of oxygen from GI bleed". We discussed the frequent complications of his disease and medical care overlapping different body systems. She states the pt and family are not interested in hospice at this time. "We want him to live". We discussed that Hospice does not hasten pt's or mean that he wants to . is awaiting a call from Dr Mcdaniel to ask further questions as she states they are also "gun shy about considering any further treatment" for pt's recurrent metastatic cancer as he has had complicatins side effects a number of times over the past two years of trialing different modalities, most recently immunosupressive therapy, per . Comfort Care orders cancelled and visitor policy of one visitor per day reviewed with Dahiana, who verbalized understanding. Emotional support and listening offered. I gave Dahiana our contact information & invited her to call if wanting to review current status, options available and family/pt's goals or questions in the future after discussing with their providers. was appropriately tearful at times during the conversation regarding her 's very complex medical conditions and stressors. Pt's RN updated on all of the above.
--- NOTE | 2021-03-09 18:48 | NUR ---
SHIFT SUMMARY PT A/OX4, VSS WITH MAPS 65 AND GREATER. PT GIVEN NORCO X2, DILAUDID X1, FENT X2 FOR PAIN. PT HAS BEEN DOWNGRADED TO MED TELE STATUS. R NEPHROSTOMY AND R UROSTOMY INTACT AND DRAINING.
[2021-03-10 05:12] LABS: BASOPHILS ABSOLUTE AUTO 0.01 K/mm3 (0.00-0.23); BASOPHILS PERCENT AUTO 0 % (0-2); EOSINOPHILS ABSOLUTE AUTO 0.24 K/mm3 (0.00-0.68); EOSINOPHILS PERCENT AUTO 4 % (0-6); Hemoglobin 8.1 g/dL (13.5-17.5); IMMATURE GRAN ABSOLUTE AUTO 0.03 K/mm3 (0.00-0.10); IMMATURE GRAN PERCENT AUTO 1 % (0-1); LYMPHOCYTES ABSOLUTE AUTO 0.48 K/mm3 (0.84-5.20); LYMPHOCYTES PERCENT AUTO 9 % (21-46); MONOCYTES ABSOLUTE AUTO 0.18 K/mm3 (0.16-1.47); MONOCYTES PERCENT AUTO 3 % (4-13); Mean Corpuscular HGB 29.3 pg (26.0-34.0); Mean Corpuscular HGB Conc 32.4 g/dL (31.5-36.5); Mean Corpuscular Volume 91 fL (80-100); Mean Platelet Volume 10.7 fL (9.1-12.4); NEUTROPHILS ABSOLUTE AUTO 4.48 K/mm3 (1.96-9.15); NEUTROPHILS PERCENT AUTO 83 % (41-73); Platelet Count 56 K/mm3 (150-400); RDW Coefficient Variation 18.8 % (11.7-14.2); RDW Standard Deviation 58.6 fL (35.1-46.3); Red Blood Cell Count 2.76 M/mm3 (4.30-5.90); White Blood Cell Count 5.42 K/mm3 (4.00-11.30)
[2021-03-10 05:31] LABS: Anion Gap 7 mmol/L (6-16); Blood Urea Nitrogen 17 mg/dL (8-24); Bun/Creatinine Ratio 12.6 (12.0-20.0); CO2, Blood 21 mmol/L (21-32); Chloride, Blood 117 mmol/L (98-108); Creatinine, Blood 1.35 mg/dL (0.60-1.20); Glomerular Filtration Rate 51 (60-); Glucose, Blood 115 mg/dL (70-99); Phosphorus, Blood 2.7 mg/dL (2.5-4.9); Potassium, Blood 3.5 mmol/L (3.5-5.5); Sodium, Blood 145 mmol/L (136-145)
[2021-03-10] MEDS ORDERED: ATOR40TA PO (11:45)
[2021-03-10] MEDS ORDERED: MIDO5 PO (12:01)
[2021-03-10] MEDS ORDERED: AZO CRANBERRY PO (12:18)
--- NOTE | 2021-03-10 15:02 | NUR ---
PATIENT DISCHARGED TO HOME. AND SON AT BEDSIDE FOR DISCHARGE. MEDICATION RECONCILIATION EXPLAINED TO PT AND . MED ORDERS, DICHARE INSTRUCTIONS AND AND EDUCATION PAPERWORK PROVIDED. ALL BELONGINGS SENT WITH PATIENT. PORT DEACCESSED AND PIV REMOVED.
== END 2021-03-10 15:00 | disposition home or self-care (01) | DRG 393 ==
LOC: ER 18:59 → ICUW 19:00 → ICUE 19:00
PROVIDERS: Family Medicine; Internal Medicine Cardiovascular Disease; Internal Medicine Critical Care Medicine; Physician Assistant; ADMIT Internal Medicine
PROC: 30233N1 Transfusion of Nonautologous Red Blood Cells into Peripheral Vein, Percutaneous Approach (ICD-10-PCS; principal; 2021-03-04)
PROC: 3E02340 Introduction of Influenza Vaccine into Muscle, Percutaneous Approach (ICD-10-PCS; 2021-03-04)
PROC: 3E033XZ Introduction of Vasopressor into Peripheral Vein, Percutaneous Approach (ICD-10-PCS; 2021-03-05)
PROC: 5A0935A Assistance with Respiratory Ventilation, Less than 24 Consecutive Hours, High Flow/Velocity Cannula (ICD-10-PCS; 2021-03-06)
PROC: 5A09457 Assistance with Respiratory Ventilation, 24-96 Consecutive Hours, Continuous Positive Airway Pressure (ICD-10-PCS; 2021-03-07)
DX: K52.1 Toxic gastroenteritis and colitis (principal); I21.4 Non-ST elevation (NSTEMI) myocardial infarction; R57.8 Other shock; R57.0 Cardiogenic shock; J96.01 Acute respiratory failure with hypoxia; D62 Acute posthemorrhagic anemia; T86.19 Other complication of kidney transplant; E87.2 Acidosis; J81.1 Chronic pulmonary edema; C78.7 Secondary malignant neoplasm of liver and intrahepatic bile duct; C78.02 Secondary malignant neoplasm of left lung; C78.01 Secondary malignant neoplasm of right lung; C79.51 Secondary malignant neoplasm of bone; Z20.822 Contact with and (suspected) exposure to COVID-19; Z23 Encounter for immunization; Z51.5 Encounter for palliative care; Z66 Do not resuscitate; E86.1 Hypovolemia; I35.0 Nonrheumatic aortic (valve) stenosis; E78.5 Hyperlipidemia, unspecified; N18.30 Chronic kidney disease, stage 3 unspecified; I48.91 Unspecified atrial fibrillation; Z79.899 Other long term (current) drug therapy; D69.6 Thrombocytopenia, unspecified; C67.9 Malignant neoplasm of bladder, unspecified; T45.1X5A Adverse effect of antineoplastic and immunosuppressive drugs, initial encounter
CPT/HCPCS: 36415; 36430; 71045; 74174; 80048; 80053; 80069; 82272; 82947; 83605; 83735; 83880; 84100; 84145; 84484; 85014; 85018; 85025; 85610; 85730; 86850; 86900; 86901; 86923; 90686; 93005; 93010; 93308; 93321; 96374; 96375; 96376; 99285-25; A9270; C9113; J1170; J1642; J1815; J1940; J2405; J2543; J3010; J3370; J3475; J7030; J7050; J7060; J7120; J7512; P9016; P9046; Q9967; U0004

== ENCOUNTER 2021-03-12 14:48 | Inpatient (IN) | payer OTHER ==
[~2021-03-12] VITALS: Ht 182.9 cm; Wt 74.9 kg
[~2021-03-12 14:48] MED LIST changes: +1/2 NS 250ml250 ML; +ATOR40TA PO; +AZO CRANBERRY PO; +MIDO5 PO; +OXYC5; +Robaxin750 MG PO
[2021-03-12 15:26] LABS: BASOPHILS ABSOLUTE AUTO 0.01 K/mm3 (0.00-0.23); BASOPHILS PERCENT AUTO 0 % (0-2); EOSINOPHILS ABSOLUTE AUTO 0.12 K/mm3 (0.00-0.68); EOSINOPHILS PERCENT AUTO 2 % (0-6); Hematocrit 26.8 % (37.0-53.0); Hemoglobin 8.2 g/dL (13.5-17.5); IMMATURE GRAN ABSOLUTE AUTO 0.03 K/mm3 (0.00-0.10); IMMATURE GRAN PERCENT AUTO 1 % (0-1); LYMPHOCYTES ABSOLUTE AUTO 0.37 K/mm3 (0.84-5.20); LYMPHOCYTES PERCENT AUTO 7 % (21-46); MONOCYTES ABSOLUTE AUTO 0.21 K/mm3 (0.16-1.47); MONOCYTES PERCENT AUTO 4 % (4-13); Mean Corpuscular HGB 28.7 pg (26.0-34.0); Mean Corpuscular HGB Conc 30.6 g/dL (31.5-36.5); Mean Corpuscular Volume 94 fL (80-100); Mean Platelet Volume 10.5 fL (9.1-12.4); NEUTROPHILS ABSOLUTE AUTO 4.65 K/mm3 (1.96-9.15); NEUTROPHILS PERCENT AUTO 86 % (41-73); Platelet Count 97 K/mm3 (150-400); RDW Coefficient Variation 18.2 % (11.7-14.2); RDW Standard Deviation 61.4 fL (35.1-46.3); Red Blood Cell Count 2.86 M/mm3 (4.30-5.90); White Blood Cell Count 5.39 K/mm3 (4.00-11.30)
[2021-03-12 15:57] LABS: Albumin, Blood 2.1 g/dL (3.4-5.0); Albumin/Globulin Ratio 0.6 (0.8-1.8); Bilirubin, Total 0.4 mg/dL (0.1-1.0); Calcium, Blood 7.9 mg/dL (8.5-10.1); Creatinine, Blood 1.38 mg/dL (0.60-1.20); Globulin, Blood 3.5 g/dL (2.2-4.0); Potassium, Blood 3.7 mmol/L (3.5-5.5); Total Protein, Blood 5.6 g/dL (6.4-8.2)
[2021-03-12 21:07] LABS: Hematocrit 22.7 % (37.0-53.0)
[2021-03-13 05:25] LABS: Hematocrit 21.9 % (37.0-53.0); Hemoglobin 6.8 g/dL (13.5-17.5); Mean Corpuscular HGB 28.8 pg (26.0-34.0); Mean Corpuscular HGB Conc 31.1 g/dL (31.5-36.5); Mean Corpuscular Volume 93 fL (80-100); Mean Platelet Volume 11.6 fL (9.1-12.4); Platelet Count 64 K/mm3 (150-400); RDW Standard Deviation 60.2 fL (35.1-46.3); Red Blood Cell Count 2.36 M/mm3 (4.30-5.90); White Blood Cell Count 2.69 K/mm3 (4.00-11.30)
[2021-03-13 06:01] LABS: Bun/Creatinine Ratio 15.1 (12.0-20.0); Creatinine, Blood 1.26 mg/dL (0.60-1.20); Potassium, Blood 4.1 mmol/L (3.5-5.5)
--- NOTE | 2021-03-13 06:20 | NUR ---
VSS, PT AOX4, ABLE TO VERBALIZE NEEDS. COMPLAINTS OF BACK PAIN, PRN MED GIVEN. AM LABS SHOW HGB OF 6.8L. MD NOTIFIED BY CROP AND SOIL SCIENTIST TAMARA. ORDER ENTERED FOR 1 UNIT PRBC. NEPHROSTOMY PATENT WITH CLEAR YELLOW URINE. NO OTHER ISSUES NOTED
[2021-03-13 14:27] LABS: Hematocrit 23.9 % (37.0-53.0); Hemoglobin 7.5 g/dL (13.5-17.5)
--- NOTE | 2021-03-13 17:31 | NUR ---
SHIFT SUMMARY PATIENT IS ALERT AND ORIENTATED X4. PATIENT IS ABLE TO VERBALIZE NEEDS. PATIENT RECEIVED 1 UNIT OF PACKED RBC. HGB WAS 6.8 BEFORE RBC AND MIGUEL TO 7.5 HGB AFTERWARDS. PATIENT HAS COMPLAINED OF BACK PAIN OF WHICH WAS MEDICATED PER EMAR. VITAL SIGNS REVIEWED. NO ACUTE EVENTS THIS SHIFT. WILL MONITOR UNTIL SHIFT CHANGE.
--- NOTE | 2021-03-14 04:47 | NUR ---
VVS. C/O OF PAIN, PRN MEDICATION GIVEN. NEPHROSOTMY IS PATENT WITH CLEAR YELLOW URINE.NO OUTPUT FROM UROSTOMY. NO BM'S THIS SHIFT. NO ACTIVE BLEEDING NOTED.AM HGB RESULTS NOT YET AVAILABLE. NO NEW ISSUES NOTED. WILL CONTINUE TO MONITOR UNTIL REPORT IS PROVIDED TO DAY NURSE
[2021-03-14 05:41] LABS: BASOPHILS ABSOLUTE AUTO 0.01 K/mm3 (0.00-0.23); BASOPHILS PERCENT AUTO 0 % (0-2); EOSINOPHILS ABSOLUTE AUTO 0.09 K/mm3 (0.00-0.68); EOSINOPHILS PERCENT AUTO 3 % (0-6); Hematocrit 23.6 % (37.0-53.0); Hemoglobin 7.4 g/dL (13.5-17.5); IMMATURE GRAN ABSOLUTE AUTO 0.03 K/mm3 (0.00-0.10); IMMATURE GRAN PERCENT AUTO 1 % (0-1); LYMPHOCYTES ABSOLUTE AUTO 0.47 K/mm3 (0.84-5.20); LYMPHOCYTES PERCENT AUTO 13 % (21-46); MONOCYTES ABSOLUTE AUTO 0.17 K/mm3 (0.16-1.47); MONOCYTES PERCENT AUTO 5 % (4-13); Mean Corpuscular HGB 28.4 pg (26.0-34.0); Mean Corpuscular HGB Conc 31.4 g/dL (31.5-36.5); Mean Corpuscular Volume 90 fL (80-100); Mean Platelet Volume 10.9 fL (9.1-12.4); NEUTROPHILS ABSOLUTE AUTO 2.77 K/mm3 (1.96-9.15); NEUTROPHILS PERCENT AUTO 78 % (41-73); Platelet Count 70 K/mm3 (150-400); RDW Standard Deviation 58.5 fL (35.1-46.3); Red Blood Cell Count 2.61 M/mm3 (4.30-5.90); White Blood Cell Count 3.54 K/mm3 (4.00-11.30)
[2021-03-14 05:57] LABS: Albumin, Blood 1.8 g/dL (3.4-5.0); Anion Gap 8 mmol/L (6-16); Blood Urea Nitrogen 29 mg/dL (8-24); Bun/Creatinine Ratio 24.2 (12.0-20.0); CO2, Blood 20 mmol/L (21-32); Chloride, Blood 113 mmol/L (98-108); Glomerular Filtration Rate 59 (60-); Glucose, Blood 125 mg/dL (70-99); Magnesium, Blood 1.6 mg/dL (1.6-2.4); Potassium, Blood 4.1 mmol/L (3.5-5.5); Sodium, Blood 141 mmol/L (136-145)
--- NOTE | 2021-03-14 14:59 | NUR ---
DISCHARGE NOTE PATIENT WAS DISCHARGED THIS SHIFT AT 1215 WITH VIA WHEELCHAIR. PATIENT AND WERE GIVEN DISCHARGE INSTRUCTIONS. PATIENT HAD BELONGINGS WITH THEM AT TIME OF DISCHARGE. VITAL SIGNS STABLE.
== END 2021-03-14 12:23 | disposition home or self-care (01) | DRG 378 ==
LOC: ER 14:48 → MEDS 14:49
PROVIDERS: Internal Medicine; Physician Assistant; ADMIT Internal Medicine
DX: K62.5 Hemorrhage of anus and rectum (principal); D62 Acute posthemorrhagic anemia; C78.02 Secondary malignant neoplasm of left lung; C78.01 Secondary malignant neoplasm of right lung; C79.51 Secondary malignant neoplasm of bone; C78.7 Secondary malignant neoplasm of liver and intrahepatic bile duct; D69.6 Thrombocytopenia, unspecified; K52.9 Noninfective gastroenteritis and colitis, unspecified; C67.9 Malignant neoplasm of bladder, unspecified; I35.0 Nonrheumatic aortic (valve) stenosis; N18.30 Chronic kidney disease, stage 3 unspecified; D63.8 Anemia in other chronic diseases classified elsewhere; E78.5 Hyperlipidemia, unspecified; I95.89 Other hypotension; Z66 Do not resuscitate; Z87.440 Personal history of urinary (tract) infections; Z87.891 Personal history of nicotine dependence; Z90.5 Acquired absence of kidney; Z79.899 Other long term (current) drug therapy; Z79.891 Long term (current) use of opiate analgesic; Z79.52 Long term (current) use of systemic steroids; Z93.6 Other artificial openings of urinary tract status
CPT/HCPCS: 36415; 36430; 74174; 80048; 80053; 80069; 83735; 85014; 85018; 85025; 85027; 86850; 86900; 86901; 86923; 99285; A9270; G0378; J7512; P9016; Q9967

== ENCOUNTER 2021-03-19 15:44 | Inpatient (IN) | payer OTHER ==
[~2021-03-19] VITALS: Ht 180.3 cm; Wt 64.9 kg
[~2021-03-19 15:44] MED LIST changes: -ATOR40TA PO; -FERSU300 PO; -MIDO5 PO; -OXYC5; -PRED20 PO; -Robaxin750 MG PO
[2021-03-19 16:27] LABS: BASOPHILS ABSOLUTE AUTO 0.01 K/mm3 (0.00-0.23); BASOPHILS PERCENT AUTO 0 % (0-2); EOSINOPHILS ABSOLUTE AUTO 0.02 K/mm3 (0.00-0.68); EOSINOPHILS PERCENT AUTO 0 % (0-6); Hematocrit 19.5 % (37.0-53.0); IMMATURE GRAN ABSOLUTE AUTO 0.09 K/mm3 (0.00-0.10); IMMATURE GRAN PERCENT AUTO 1 % (0-1); LYMPHOCYTES ABSOLUTE AUTO 0.37 K/mm3 (0.84-5.20); LYMPHOCYTES PERCENT AUTO 6 % (21-46); MONOCYTES ABSOLUTE AUTO 0.22 K/mm3 (0.16-1.47); MONOCYTES PERCENT AUTO 3 % (4-13); Mean Corpuscular HGB 28.2 pg (26.0-34.0); Mean Corpuscular HGB Conc 29.2 g/dL (31.5-36.5); Mean Corpuscular Volume 97 fL (80-100); Mean Platelet Volume 10.5 fL (9.1-12.4); NEUTROPHILS ABSOLUTE AUTO 5.74 K/mm3 (1.96-9.15); NEUTROPHILS PERCENT AUTO 89 % (41-73); NRBC ABSOLUTE 0.02 K/mm3 (0.00-0.02); NRBC Auto 0.3 /100 WBC (0.0-0.2); Platelet Count 158 K/mm3 (150-400); RDW Coefficient Variation 19.6 % (11.7-14.2); RDW Standard Deviation 67.2 fL (35.1-46.3); Red Blood Cell Count 2.02 M/mm3 (4.30-5.90); White Blood Cell Count 6.45 K/mm3 (4.00-11.30)
[2021-03-19 16:33] LABS: Hemoglobin 5.7 g/dL (13.5-17.5)
[2021-03-19 16:59] LABS: International Normalized Ratio 1.11; Prothrombin Time Results 11.6 Sec (9.7-11.5)
[2021-03-19 17:01] LABS: Albumin, Blood 2.1 g/dL (3.4-5.0); Albumin/Globulin Ratio 0.7 (0.8-1.8); Bilirubin, Total 0.3 mg/dL (0.1-1.0); Bun/Creatinine Ratio 19.6 (12.0-20.0); Calcium, Blood 8.1 mg/dL (8.5-10.1); Creatinine, Blood 1.68 mg/dL (0.60-1.20); Globulin, Blood 3.1 g/dL (2.2-4.0); Potassium, Blood 4.7 mmol/L (3.5-5.5); Total Protein, Blood 5.2 g/dL (6.4-8.2); Troponin I 0.189 ng/mL (0.000-0.040)
[2021-03-19] MEDS ORDERED: ATOR40TA PO (21:11)
[2021-03-19] MEDS ORDERED: FERSU300 PO (21:12)
[2021-03-19] MEDS ORDERED: MIDODRINE HCL10 M1 PO (21:14)
[2021-03-19] MEDS ORDERED: MORP30ER PO (21:15)
[2021-03-19] MEDS ORDERED: OMEP20ER PO (21:16)
[2021-03-19] MEDS ORDERED: OXYC1L PO (21:19)
[2021-03-19] MEDS ORDERED: Robaxin750 MG PO (21:21)
[2021-03-19] MEDS ORDERED: Prednisone10 MG PO (21:33)
[2021-03-19] MEDS ORDERED: PROCRIT40000 UNIT SC (21:36)
[2021-03-19] MEDS ORDERED: PANT40 PO (21:37)
[2021-03-19] MEDS ORDERED: CALCIUM 600 +1 EA11 PO (21:39)
[2021-03-20 01:34] LABS: SARS-Cov-2 (COVID-19) PCR, MMC NEGATIVE (NEGATIVE)
--- NOTE | 2021-03-20 04:00 | NUR ---
STATE'S ATTORNEY SUMMARY/ADMISSION PATIENT WAS BROUGHT FROM THE ED. HE IS ALERT AND ORIENTED. SKIN ASSESSMENT DONE BUT PATIENT HAS NO PRESSURE INJURY. PATIENT WAS MADE COMFORTABLE IN THE ROOM. HE HAD HIS PAIN CONTROLLED WITH PRN MED. COMFORT MEASURES IN [place]. WILL CONTINUE TO MONITOR HIM. VITALS ARE STABLE TOO.
[2021-03-20 05:13] LABS: BASOPHILS ABSOLUTE AUTO 0.02 K/mm3 (0.00-0.23); BASOPHILS PERCENT AUTO 1 % (0-2); EOSINOPHILS ABSOLUTE AUTO 0.07 K/mm3 (0.00-0.68); EOSINOPHILS PERCENT AUTO 2 % (0-6); Hematocrit 25.7 % (37.0-53.0); Hemoglobin 8.3 g/dL (13.5-17.5); IMMATURE GRAN ABSOLUTE AUTO 0.08 K/mm3 (0.00-0.10); IMMATURE GRAN PERCENT AUTO 2 % (0-1); LYMPHOCYTES ABSOLUTE AUTO 0.57 K/mm3 (0.84-5.20); LYMPHOCYTES PERCENT AUTO 17 % (21-46); MONOCYTES ABSOLUTE AUTO 0.31 K/mm3 (0.16-1.47); MONOCYTES PERCENT AUTO 9 % (4-13); Mean Corpuscular HGB 29.1 pg (26.0-34.0); Mean Corpuscular HGB Conc 32.3 g/dL (31.5-36.5); Mean Platelet Volume 10.6 fL (9.1-12.4); NEUTROPHILS ABSOLUTE AUTO 2.35 K/mm3 (1.96-9.15); NEUTROPHILS PERCENT AUTO 69 % (41-73); Platelet Count 105 K/mm3 (150-400); RDW Coefficient Variation 17.4 % (11.7-14.2); RDW Standard Deviation 53.7 fL (35.1-46.3); Red Blood Cell Count 2.85 M/mm3 (4.30-5.90)
[2021-03-20 05:14] LABS: Mean Corpuscular Volume 90 fL (80-100)
[2021-03-20 05:41] LABS: Albumin, Blood 2.1 g/dL (3.4-5.0); Albumin/Globulin Ratio 0.8 (0.8-1.8); Bilirubin, Total 0.6 mg/dL (0.1-1.0); Bun/Creatinine Ratio 21.5 (12.0-20.0); Creatinine, Blood 1.58 mg/dL (0.60-1.20); Globulin, Blood 2.8 g/dL (2.2-4.0); Potassium, Blood 4.8 mmol/L (3.5-5.5); Total Protein, Blood 4.9 g/dL (6.4-8.2)
--- NOTE | 2021-03-20 14:10 | NUR ---
CALLED DR BEE- PT MEDIPORT WAS ACCESSED, PER PT AND FAMILY REPORT, IN THE ED BY SUNIL MCCARTHY. NO ORDERS FOUND IN CHART. OK TO MAINTAIN MEDIPORT ACCESS FOR LAB DRAWS AND IV INFUSIONS IF NEEDED PER DR ORDER. WILL PLACE THE ORDER IN THE PT CHART. PT HAS AN ACCEPTING DR AT [facility] STILL AWAITING BED AVAILABILITY.
[2021-03-20 14:34] LABS: BASOPHILS ABSOLUTE AUTO 0.02 K/mm3 (0.00-0.23); BASOPHILS PERCENT AUTO 1 % (0-2); EOSINOPHILS PERCENT AUTO 3 % (0-6); Hematocrit 26.7 % (37.0-53.0); Hemoglobin 8.5 g/dL (13.5-17.5); IMMATURE GRAN ABSOLUTE AUTO 0.06 K/mm3 (0.00-0.10); IMMATURE GRAN PERCENT AUTO 2 % (0-1); LYMPHOCYTES ABSOLUTE AUTO 0.55 K/mm3 (0.84-5.20); LYMPHOCYTES PERCENT AUTO 15 % (21-46); MONOCYTES ABSOLUTE AUTO 0.35 K/mm3 (0.16-1.47); MONOCYTES PERCENT AUTO 10 % (4-13); Mean Corpuscular HGB 29.2 pg (26.0-34.0); Mean Corpuscular HGB Conc 31.8 g/dL (31.5-36.5); Mean Corpuscular Volume 92 fL (80-100); Mean Platelet Volume 10.5 fL (9.1-12.4); NEUTROPHILS ABSOLUTE AUTO 2.61 K/mm3 (1.96-9.15); NEUTROPHILS PERCENT AUTO 71 % (41-73); Platelet Count 145 K/mm3 (150-400); RDW Coefficient Variation 18.1 % (11.7-14.2); RDW Standard Deviation 58.2 fL (35.1-46.3); Red Blood Cell Count 2.91 M/mm3 (4.30-5.90); White Blood Cell Count 3.69 K/mm3 (4.00-11.30)
--- NOTE | 2021-03-20 15:49 | NUR ---
PT HAD A LARGE INCONTINENT, MAROON COLORED STOOL, VS STABLE NO C/O INCREASED PAIN FROM PREVIOUS. PT STILL AWAITING BED PLACEMENT AT [facility]. PT IN BED VISITING WITH HIS AT THIS TIME WILL CTM. THIS IS THE SECOND LARGE LOOSE STOOL OF THE DAY THE FIRST WAS BLACK, THIS ONE WAS MORE MAROON COLORED. IV SANDOSTATIN INFUSING, IV PROTONIX ORDERED BID. DRESSING FOR NEPHROSTOMY SOILED AND CHANGED, PLACED MEPILEX OVER PT TAIL BONE SOME REDNESS NOTED IN THE AREA.
--- NOTE | 2021-03-20 18:25 | NUR ---
RECIEVED A CALL FROM [facility] FOR AN UPDATE ON PT CONDITION. UPDATE PROVIDED. NO BED AVAILABLE YET, POSSIBLY LATER THIS WEEKEND. WILL PASS ON TO NIGHT RN.
--- NOTE | 2021-03-20 18:33 | NUR ---
SHIFT SUMMARY- PT ALERT AND ORIENTED, 1PA WITH CHANGES, PT HAS NEPHROSTOMY AND UROSTOMY AND HAS BEEN INCONTINENT OF LARGE LOOSE MAROON COLORED STOOLS. HGB HAS STAYED STABLE T/O THE SHIFT AND VITALS ARE HOLDING STEADY AT THIS TIME. PT HAS BEEN PAINFUL T/O THE SHIFT, MEDICATED WITH IV FENTANYL, WELL OXYCODONE, MS CONTIN AND METHOCARBAMOL. WILL PASS ON TO NIGHT STAFF TO TRY TO STAY ON TOP OFF THE PAIN, HE DOES NOT CALL TO ASK FOR PAIN MEDICATION, STAFF HAVE TO ASK HIM ON CARE ROUNDING. PT STILL AWAITING A BED AT [facility]. PER REPORT FROM THE NURSE THERE THE WAIT WILL BE QUITE LONG, MAYBE THE END OF THE WEEKEND. PT IN BED, CALL LIGHT IN REACH, NO S&S OF DISTRESS NOTED, WILL CTM AND PASS ON TO NIGHT RN.
[2021-03-21 05:44] LABS: Hematocrit 22.8 % (37.0-53.0); Hemoglobin 7.1 g/dL (13.5-17.5)
--- NOTE | 2021-03-21 06:37 | NUR ---
patient extremely painful throughout the night needing all avalable pain medication as they could be administered. hgb dropped this morning from 8.5 yesterday after 2 units PRBC to 7.1 today. MD informed and since patient is not hypotensive or tachycardic he wants to just continue observation at this time.
--- NOTE | 2021-03-21 12:50 | NUR ---
Pt seen by Palliative Care multiple times during past hospital stays. Last hospital stay advanced care planning and education on disease process by PC SUNIL Ugarte with Pt and spouse. Supportive visit this afternoon. Pt resting in bed and reports 8/10 pain in his lower abdoomen. He reports current regimen manages his pain most of the time. Offered therapeutic listening as Pt reports plan for transfer to [facility]. Continued therapeutic listening and answered questions. Reviewed current plan of care with Pt. Pt reports no other concerns at this time. Spoke with SUNIL Monzon who is covering for Primary RN. Reported Pt's pain. Palliative Care will remain available.
[2021-03-21 13:25] LABS: Hemoglobin 7.1 g/dL (13.5-17.5)
--- NOTE | 2021-03-21 18:27 | NUR ---
SHIFT SUMMARY: NO ACUTE EVENTS. GAVE TELEPHONE UPDATE ON PT'S CONDITION TO RN AT [facility], NO BED ASSIGNMENT YET. NO EVENTS ON TELEMETRY. NO BM TODAY, H/H STABLE. C/O 8/10 PAIN IN LOWER BACK AND LOWER ABDOMEN; MEDICATED PER EMAR WITH INADEQUATE RELIEF. NO OUTPUT FROM UROSTOMY, BUT R NEPHROSTOMY OUTPUT ADEQUATE. TOLERATING CLEAR LIQ DIET. SANDOSTATIN INFUSING AT 25 ML/HR. MAY BENEFIT FROM INCREASE IN OXYCODONE TO 10 MG OR LOW DOSE FENTANYL PATCH.
--- NOTE | 2021-03-22 02:56 | NUR ---
HEARING AID SPECIALIST SUMMARY PATIENT HAD A FAIR SHIFT. HE IS STILL HAVING SOME PAIN, OF WHICH HE HAD HIS PAIN MED, SEE EMAR. NO ISSUES OVER NIGHT. HIS VITALS ARE STABLE. WILL CONTINUE TO MONITOR PATIENT.
[2021-03-22 05:06] LABS: Hematocrit 21.4 % (37.0-53.0); Hemoglobin 6.7 g/dL (13.5-17.5); Mean Corpuscular HGB 28.9 pg (26.0-34.0); Mean Corpuscular HGB Conc 31.3 g/dL (31.5-36.5); Mean Corpuscular Volume 92 fL (80-100); Mean Platelet Volume 10.1 fL (9.1-12.4); Platelet Count 103 K/mm3 (150-400); RDW Coefficient Variation 17.9 % (11.7-14.2); RDW Standard Deviation 57.3 fL (35.1-46.3); Red Blood Cell Count 2.32 M/mm3 (4.30-5.90); White Blood Cell Count 3.64 K/mm3 (4.00-11.30)
--- NOTE | 2021-03-22 07:41 | NUR ---
REFRIGERATOR TESTER REPORTED BP 89/42 AFTER MEASURING TWICE, HR 74 PER TELEMETRY. H/H THIS MORNING 6.7. HAD NO BM O/N PER NOC RN REPORT. CALL MADE TO DR. LONG, NO ANSWER, LEFT VM FOR HIM TO CALL BACK.
[2021-03-22 15:53] LABS: Hematocrit 24.3 % (37.0-53.0); Hemoglobin 7.7 g/dL (13.5-17.5)
--- NOTE | 2021-03-22 17:16 | NUR ---
GAVE TELEPHONE UPDATE ON PT'S CONDITION TO RN AT [facility]. BED ASSIGMENT STILL PENDING.
--- NOTE | 2021-03-22 18:15 | NUR ---
SHIFT SUMMARY: H/H 6.11/26 THIS MORNING; PER NOC RN REPORT NO BM OR SIGNS OF BLEEDING O/N. ONE UNIT PRBC'S TRANSFUSED, WITH RESULTING H/H 7.11/29; PT TOLERATED WELL. C/O CONTINUOUS PAIN IN LOW BACK AND LOW ABDOMEN; MEDICATED PER EMAR WITH IMPROVED RELIEF AFTER OXYCODONE INCREASED TO 10 MG. NO EVENTS ON TELEMETRY, SR 70'S. BP'S CONTINUE TO BE SOFT 90-100/50'S. UROSTOMY HAD OUTPUT TODAY. NO BM THIS SHIFT; POSSIBILITY OF CONSTIPATION R/T OPIOIDS. TOLERATING CL LIQ DIET. AWAITING BED AT [facility].
--- NOTE | 2021-03-23 04:52 | NUR ---
CORONARY CARE UNIT NURSE SUMMARY NO ACUTE CHANGES THIS SHIFT. PT AAOX3 AND PLEASANT. BED ALARM ON FOR SAFETY PT CAN BE FORGETFUL AT TIMES. PT HAS NOT HAD BM THIS SHIFT AND NO MELENA OR OTHER SIGNS OF BLEEDING NOTED. CLEAR YELLOW URINE DRAINING WELL INTO NEPHROSTOMY BAG. MEDICATED FOR PAIN TWICE PER EMAR. RECIEVED CALL FROM NURSE AT [facility] WANTING AN UPDATE ON PT STATUS, HOPING FOR A BED TO OPEN UP LATER TODAY. VSS, WILL CONTINUE TO MONITOR.
[2021-03-23 05:12] LABS: BASOPHILS ABSOLUTE AUTO 0.03 K/mm3 (0.00-0.23); BASOPHILS PERCENT AUTO 1 % (0-2); EOSINOPHILS ABSOLUTE AUTO 0.15 K/mm3 (0.00-0.68); EOSINOPHILS PERCENT AUTO 4 % (0-6); Hematocrit 24.8 % (37.0-53.0); Hemoglobin 7.8 g/dL (13.5-17.5); IMMATURE GRAN ABSOLUTE AUTO 0.04 K/mm3 (0.00-0.10); IMMATURE GRAN PERCENT AUTO 1 % (0-1); LYMPHOCYTES ABSOLUTE AUTO 0.51 K/mm3 (0.84-5.20); LYMPHOCYTES PERCENT AUTO 14 % (21-46); MONOCYTES ABSOLUTE AUTO 0.37 K/mm3 (0.16-1.47); MONOCYTES PERCENT AUTO 11 % (4-13); Mean Corpuscular HGB 29.1 pg (26.0-34.0); Mean Corpuscular HGB Conc 31.5 g/dL (31.5-36.5); Mean Corpuscular Volume 93 fL (80-100); Mean Platelet Volume 10.5 fL (9.1-12.4); NEUTROPHILS ABSOLUTE AUTO 2.44 K/mm3 (1.96-9.15); NEUTROPHILS PERCENT AUTO 69 % (41-73); Platelet Count 117 K/mm3 (150-400); RDW Coefficient Variation 17.3 % (11.7-14.2); RDW Standard Deviation 56.5 fL (35.1-46.3); Red Blood Cell Count 2.68 M/mm3 (4.30-5.90); White Blood Cell Count 3.54 K/mm3 (4.00-11.30)
[2021-03-23 06:15] LABS: Bun/Creatinine Ratio 13.8 (12.0-20.0); Calcium, Blood 7.5 mg/dL (8.5-10.1); Creatinine, Blood 1.3 mg/dL (0.60-1.20); Potassium, Blood 4.3 mmol/L (3.5-5.5)
--- NOTE | 2021-03-23 19:01 | NUR ---
PATIENT HAD UNEVENTFUL DAY. NO WORD FROM [facility] ABOUT TRANSFER. PATIENTS HBG IS 7.8 PATIENT HAS PLEASANT AFFECT AND IS COOPERATIVE WITH CARE. HE REMAINS ON LIQUID DIET. HE DOES HAVE EPISODES OF CONFUSION NOTED DURING DAY HOWEVER IS EASILY REORIENTED TO TIME AND PLACE AND EVENT. SPOUSE VISITS HIM THE LATE AFTERNOON AND SHE IS CONCERNED ABOUT PATIENT NOT HAVING A BM FOR A FEW DAYS. DR. STEVE TOLD HECTORTENT EARLIER THAT SHE WILL RIGHT FOR FOR BOWEL CARE IF HE WANTS. PATIENT REFUSES AND SAYS HE WILL LET RN KNOW IN THE AM. URINE NOTED TO COLLECT IN UROSTOMY BAG AND NEPROSTOMY BAG THROUGHOUT THE DAY. NORMAL COLOR AND CLEAR NO SEDAMENT NOTED. HAND OFF TO PRIMARY RN AT SHIFT CHANGE.
--- NOTE | 2021-03-24 05:31 | NUR ---
CONSERVATION SCIENTIST SUMMARY NO ACUTE CHANGES. CONTINUES ON SANDOSTATIN DRIP. MEDICATED FOR PAIN X2 PER EMAR. RECIEVED CALL FROM [facility] REQUESTING UPDATE ON PT STATUS BUT STILL NO BED AVAILABLE AT THIS TIME. VSS, WILL CONTINUE TO MONITOR.
[2021-03-24 05:35] LABS: BASOPHILS ABSOLUTE AUTO 0.02 K/mm3 (0.00-0.23); BASOPHILS PERCENT AUTO 1 % (0-2); EOSINOPHILS ABSOLUTE AUTO 0.13 K/mm3 (0.00-0.68); EOSINOPHILS PERCENT AUTO 3 % (0-6); Hemoglobin 7.5 g/dL (13.5-17.5); IMMATURE GRAN ABSOLUTE AUTO 0.04 K/mm3 (0.00-0.10); IMMATURE GRAN PERCENT AUTO 1 % (0-1); LYMPHOCYTES ABSOLUTE AUTO 0.41 K/mm3 (0.84-5.20); LYMPHOCYTES PERCENT AUTO 10 % (21-46); MONOCYTES ABSOLUTE AUTO 0.34 K/mm3 (0.16-1.47); MONOCYTES PERCENT AUTO 8 % (4-13); Mean Corpuscular HGB 28.8 pg (26.0-34.0); Mean Corpuscular HGB Conc 31.3 g/dL (31.5-36.5); Mean Corpuscular Volume 92 fL (80-100); Mean Platelet Volume 10.5 fL (9.1-12.4); NEUTROPHILS ABSOLUTE AUTO 3.28 K/mm3 (1.96-9.15); NEUTROPHILS PERCENT AUTO 78 % (41-73); Platelet Count 109 K/mm3 (150-400); RDW Coefficient Variation 17.3 % (11.7-14.2); RDW Standard Deviation 56.4 fL (35.1-46.3); White Blood Cell Count 4.22 K/mm3 (4.00-11.30)
[2021-03-24 05:57] LABS: Calcium, Blood 7.5 mg/dL (8.5-10.1); Creatinine, Blood 1.21 mg/dL (0.60-1.20); Potassium, Blood 4.2 mmol/L (3.5-5.5)
--- NOTE | 2021-03-25 02:08 | NUR ---
SPOKE WITH KRISS FROM [facility] FOR AN UPDATE. STILL NO BEDS YET, WILL INFORM MD'S OF UPDATE.
[2021-03-25 05:15] LABS: Hematocrit 23.2 % (37.0-53.0); Hemoglobin 7.1 g/dL (13.5-17.5)
[2021-03-25 06:04] LABS: Calcium, Blood 7.3 mg/dL (8.5-10.1); Creatinine, Blood 1.25 mg/dL (0.60-1.20); Potassium, Blood 3.9 mmol/L (3.5-5.5)
[2021-03-25 14:17] LABS: Hematocrit 24.1 % (37.0-53.0); Hemoglobin 7.4 g/dL (13.5-17.5)
--- NOTE | 2021-03-25 16:36 | NUR ---
SUMM- PT ALERT AND ORIENTED TO SELF, PLACE AND TIME, CIRCUMSTANCES. THIS AM WAS JOVIAL AND ALERT, TOLERATING FOOD AND FLUID. H/H LOW, RECHECKED 1400 HGB REMIANS 7.4, NO TRANSFUSIONS ORDERED TODAY. BP LOW, TAKING MIDODRINE TO KEEP BP UP. CONT ON OCTREOTIDE DRIP AND NS DRIP. NO STOOL TODAY. NEPHROSTOMY TUBE DRAINING MED YELLOW URINE. WAS PULLED BY PT 03/24, PLAN FOR DR RIDDLE TO REINSERT TOMORROW 03/26. SO PT WILL BE ABLE TO EAT DINNER AND BE NPO AFTER MIDNIGHT. UROSTOMY BAG WAS LEAKING, CHANGED BAG TODAY. PAIN HARD TO CONTROL THIS AM, MEDICATED WITH MAX PAIN MEDS. PT FINALLY APPEARED COMFORTABLE AROUND 1400, AND NAPPED. BECAME A BIT MORE WITHDRAWN AND QUIET THIS AFTERNOON. AT BEDSIDE DURING VISITING HOURS, INVOLVED IN CARE. MARIAM FROM [facility] [place] RN, STATING STILL NO BED. THE # FOR [facility] [place] RN IS [phone] SHOULD PT'S ACUITY CHANGE AND PT COULD BE PUR ON HIGHER PRIORITY FOR [place].
[2021-03-26 03:25] LABS: BASOPHILS ABSOLUTE AUTO 0.02 K/mm3 (0.00-0.23); BASOPHILS PERCENT AUTO 0 % (0-2); EOSINOPHILS ABSOLUTE AUTO 0.09 K/mm3 (0.00-0.68); EOSINOPHILS PERCENT AUTO 2 % (0-6); Hematocrit 22.8 % (37.0-53.0); IMMATURE GRAN ABSOLUTE AUTO 0.04 K/mm3 (0.00-0.10); IMMATURE GRAN PERCENT AUTO 1 % (0-1); LYMPHOCYTES ABSOLUTE AUTO 0.48 K/mm3 (0.84-5.20); LYMPHOCYTES PERCENT AUTO 9 % (21-46); MONOCYTES ABSOLUTE AUTO 0.61 K/mm3 (0.16-1.47); MONOCYTES PERCENT AUTO 11 % (4-13); Mean Corpuscular HGB 28.8 pg (26.0-34.0); Mean Corpuscular HGB Conc 30.7 g/dL (31.5-36.5); Mean Corpuscular Volume 94 fL (80-100); Mean Platelet Volume 10.7 fL (9.1-12.4); NEUTROPHILS ABSOLUTE AUTO 4.23 K/mm3 (1.96-9.15); NEUTROPHILS PERCENT AUTO 77 % (41-73); Platelet Count 137 K/mm3 (150-400); RDW Coefficient Variation 17.4 % (11.7-14.2); RDW Standard Deviation 59.3 fL (35.1-46.3); Red Blood Cell Count 2.43 M/mm3 (4.30-5.90); White Blood Cell Count 5.47 K/mm3 (4.00-11.30)
[2021-03-26 03:53] LABS: Bun/Creatinine Ratio 16.1 (12.0-20.0); Calcium, Blood 6.9 mg/dL (8.5-10.1); Creatinine, Blood 1.37 mg/dL (0.60-1.20); Potassium, Blood 3.6 mmol/L (3.5-5.5)
--- NOTE | 2021-03-26 04:00 | NUR ---
FALL PT ATTEMPTED TO GET TO RESTROOM UNASSISTED. FOUND ON BATHROOM FLOOR. PT PULLED OUT NEPHROSTOMY AND DEACCESSED METAPORT WHEN GETTING OUT OF BED. METAPORT REACCESSED. DR. LEOS NOTIFIED. SEE POST FALL ASSESSMENT.
--- NOTE | 2021-03-26 06:37 | NUR ---
SHIFT SUMMARY [facility] CONTACTED BY SVP GROUP DIRECTOR. CONFIRMATION THAT PT WOULD NOT BE TRANSFERING THIS EVENING AND THAT PT NEEDED TO BE REEVALUATED MY MD TODAY. PT HAS BEEN NPO SINCE MIDNIGHT FOR REINSERTION OF NEPHROSTOMY. PT ATTEMPTED TO GET OUT OF BED THIS EVENING AND HAD A FALL. PULLED HIS NEPHROSTOMY OUT AND DEACCESSED HIS METAPORT. METAPORT REACCESSED. SEE POST FALL ASSESSMENT. SANDOSTATIN DRIP AND NS RUNNING CONTINUOUSLY THROUGHOUT THE NIGHT. TELEMETRY SR 80'S THROUGH MOST OF THE NIGHT. TACHYCARDIC FOR A SHORT PERIOD OF TIME FOLLOWING THE FALL. PT REPORTING SACRAL AND BACK PAIN. MEDICATED PER EMAR. VITAL SIGNS STABLE. WILL CONTINUE TO MONITOR.
--- NOTE | 2021-03-26 08:00 | NUR ---
PT PLEASANT COOP A/O X2 AT MAX. CONFUSED. LIKES TO JOKE SOME. ABLET O TELL ME AGE, , WIFES NAME, AT HOSP. NOT SURE WHERE. STATES FROM [facility] [place], PEDIATRIC RN. UNABLE TO TELL ME WHY IN [place]. UNABLE TO TELL ME DATE, MONTH, YR, OR , DID STATES HAS 2 CHILDREN, NAMED OKAY. SLOW DELAY TO BRING THOUGHTS FORWARD. H/R REG, CRAIG NOTED. PER TELE NSR AT 80 TO OCC 120'S. LUNGS CLEAR, RESP EASY, UNLABORED. ON R.A. BT X4 LST BM TARRY, BLACK PER NITE RN LAST NITE. VOIDS UROSTOMY. YELLOW FLUID IN BAG. PT PULLED NEPHROSTOMY LST SHIFT. STATES IS ON LEFT, NO VELARDE. IS ON RT. GAUZE IN PLACE. +1 BLE EDEMA. PULSES 2/2. COCCYX PRESSURE ULCER. BED IN LOW POSITION, CALL LITE IN REACH. BED ALARM ON FOR SAFETY
--- NOTE | 2021-03-26 10:15 | NUR ---
TELE CALLED, HAD 10 BEAT RUN SVT. ABOUT 128 RATE. PT RESTING IN BED, ASYMPTOMATIC. CALLED DR GERARD. NO NEW ORDERS.
--- NOTE | 2021-03-26 15:25 | NUR ---
1430 H/CENTER CALLED. PT NOT TO SURG. OKAY TO EAT.
--- NOTE | 2021-03-26 16:16 | NUR ---
SPOKE TO IN ROOM. SHE STATES HIS IS DEFINATELY LESS AWAKE THAN NORMAL. HE ONLY TAKES MS CONTIN DAILY AT BEDTIME. ALSO ONLY TAKES OXYCONTIN 5-10 MG AT HOME. DISCUSSED WITH . SANDRA OKAYED REDUCE MEDS . DONE.
[2021-03-26 16:20] LABS: Hemoglobin 6.9 g/dL (13.5-17.5)
--- NOTE | 2021-03-26 18:29 | NUR ---
PT PLEASANT TODAY. A LITTLE MORE AWAKE THIS AFT. DISCUSSED THIS WITH . SHE STATES MS CONTIN ONLY AT NITE NEEDED. THIS SEEMS TO MAKE HIM CONFUSED. ALSO STATES GIVES ONLY 5 - 10 MG OXY NEEDED. DISCUSSED WITH , ADJUSTMENTS MADE TO GIVE MS CONTIN AT PM, NOT BID, AND OXY AT 5-10 MG NOT FLAT 10. PT STATES SHOULD BE BETTER. WILL DISCUSS WITH MINDA RN TO CONSIDER HOLDING MS CONTIN TONITE IF CAN AND SEE IF COGNITION IMPROVES. DR MATUTE IN TO SEE RE NEPHROSTOMY TUBE. HE STATES NO REPLACE. NO OTHER CONCERNS NOTED TODAY. BED INL OW POSITION, CALL LITE IN REACH, BED ALARM ON FOR SAFETY
[2021-03-27 04:50] LABS: BASOPHILS ABSOLUTE AUTO 0.01 K/mm3 (0.00-0.23); BASOPHILS PERCENT AUTO 0 % (0-2); EOSINOPHILS ABSOLUTE AUTO 0.02 K/mm3 (0.00-0.68); EOSINOPHILS PERCENT AUTO 1 % (0-6); IMMATURE GRAN ABSOLUTE AUTO 0.02 K/mm3 (0.00-0.10); IMMATURE GRAN PERCENT AUTO 1 % (0-1); LYMPHOCYTES ABSOLUTE AUTO 0.25 K/mm3 (0.84-5.20); LYMPHOCYTES PERCENT AUTO 11 % (21-46); MONOCYTES ABSOLUTE AUTO 0.27 K/mm3 (0.16-1.47); MONOCYTES PERCENT AUTO 11 % (4-13); Mean Corpuscular HGB 28.9 pg (26.0-34.0); Mean Corpuscular HGB Conc 30.7 g/dL (31.5-36.5); Mean Corpuscular Volume 94 fL (80-100); Mean Platelet Volume 9.9 fL (9.1-12.4); NEUTROPHILS ABSOLUTE AUTO 1.79 K/mm3 (1.96-9.15); NEUTROPHILS PERCENT AUTO 76 % (41-73); Platelet Count 100 K/mm3 (150-400); RDW Coefficient Variation 17.2 % (11.7-14.2); RDW Standard Deviation 58.4 fL (35.1-46.3); Red Blood Cell Count 1.87 M/mm3 (4.30-5.90); White Blood Cell Count 2.36 K/mm3 (4.00-11.30)
[2021-03-27 04:57] LABS: Hematocrit 17.6 % (37.0-53.0); Hemoglobin 5.4 g/dL (13.5-17.5)
[2021-03-27 05:16] LABS: Bun/Creatinine Ratio 15.7 (12.0-20.0); Creatinine, Blood 1.4 mg/dL (0.60-1.20); Potassium, Blood 3.6 mmol/L (3.5-5.5)
--- NOTE | 2021-03-27 05:58 | NUR ---
COMMUNITY COORDINATOR FOR HIGH [employer]CHO[employer] SUMMARY PT MENTATION IMPROVED A BIT THIS AM. PT MORE TALKATIVE AND ORIENTED BUT STILL A BIT OFF COMPARED TO A FEW DAYS AGO. NO MELENA NOTED THIS SHIFT. PT HGB THIS AM 5.4. RECIEVED ORDER TO INFUSE [address] LEOS. VSS, WILL CONTINUE TO MONITOR.
--- NOTE | 2021-03-27 07:22 | NUR ---
BLOOD VITALS: 0706 LUNG SOUNDS CHARTED CLEAR, SHOULD HAVE BEEN CRACKLES. PRESENT IN BOTH BASES.
--- NOTE | 2021-03-27 10:23 | NUR ---
CALLED DR Loki BAXTER LOW BP. BLOOD FINISHED. TELE STATES NSR AT 74. MANUAL BP 85/40 MAP 55. ORDRES FOR 500 BOLUS OF NS AND WILL ORDER ANOTHER UNIT PRBC
--- NOTE | 2021-03-27 11:41 | NUR ---
UPDATED DR ON BP AND STATUS, NO NEW ORDERS
--- NOTE | 2021-03-27 13:10 | NUR ---
UPDATED DR ON BP. NO NEW ORDRES.
[2021-03-27 16:07] LABS: Hematocrit 30.2 % (37.0-53.0); Hemoglobin 9.6 g/dL (13.5-17.5)
--- NOTE | 2021-03-27 17:08 | NUR ---
PT PLEASANT COOP MORE ALERT THIS NELLY. TO ROOM. PT HAD 2 U PRBC TODAY. 500 BOLUS . BP DOWN TO MED 70'S/ BACK UP TO 1 TEENS NOW. PT COLOR SOME BETTER. STILL WAITING ON BED AT [facility]. ASKED DR Manjarrez TO CONTACT AGAIN FOR ASSISTANCE. H/H BETTER AFTER BLOOD. PT STILL HAVING BLACK TARRY STOOL. NO OTHER CONCERNS NOTED TODAY. BED INLOW POSITION, CALL LITE IN REACH, BED ALARM ON FOR SAFETY
--- NOTE | 2021-03-28 04:16 | NUR ---
Michael slept through most of the night. He did request HS pain medication, and as it was too soon for Roxycodone, he did receive MS Contin. He is alert, Oriented and cooperative with care. Sandostatin continues to run at 25ml/hr. No further stools. He complained of tailbone pain which was secondary to an injury many years ago. No other changes noted
[2021-03-28 05:10] LABS: BASOPHILS ABSOLUTE AUTO 0.01 K/mm3 (0.00-0.23); BASOPHILS PERCENT AUTO 0 % (0-2); EOSINOPHILS ABSOLUTE AUTO 0.05 K/mm3 (0.00-0.68); EOSINOPHILS PERCENT AUTO 2 % (0-6); Hematocrit 28.8 % (37.0-53.0); Hemoglobin 9.2 g/dL (13.5-17.5); IMMATURE GRAN ABSOLUTE AUTO 0.05 K/mm3 (0.00-0.10); IMMATURE GRAN PERCENT AUTO 2 % (0-1); LYMPHOCYTES ABSOLUTE AUTO 0.45 K/mm3 (0.84-5.20); LYMPHOCYTES PERCENT AUTO 14 % (21-46); MONOCYTES ABSOLUTE AUTO 0.37 K/mm3 (0.16-1.47); MONOCYTES PERCENT AUTO 12 % (4-13); Mean Corpuscular HGB 29.5 pg (26.0-34.0); Mean Corpuscular HGB Conc 31.9 g/dL (31.5-36.5); Mean Corpuscular Volume 92 fL (80-100); Mean Platelet Volume 10.6 fL (9.1-12.4); NEUTROPHILS ABSOLUTE AUTO 2.25 K/mm3 (1.96-9.15); NEUTROPHILS PERCENT AUTO 71 % (41-73); Platelet Count 114 K/mm3 (150-400); RDW Coefficient Variation 17.1 % (11.7-14.2); Red Blood Cell Count 3.12 M/mm3 (4.30-5.90); White Blood Cell Count 3.18 K/mm3 (4.00-11.30)
--- NOTE | 2021-03-28 05:41 | NUR ---
spoke with SUNIL Acuna from [facility] regarding Michael status and any changes, Still awaiting a bed at [facility].
[2021-03-28 05:58] LABS: Albumin, Blood 1.3 g/dL (3.4-5.0); Anion Gap 7 mmol/L (6-16); Blood Urea Nitrogen 18 mg/dL (8-24); Bun/Creatinine Ratio 13.4 (12.0-20.0); CO2, Blood 16 mmol/L (21-32); Calcium, Blood 6.9 mg/dL (8.5-10.1); Chloride, Blood 124 mmol/L (98-108); Creatinine, Blood 1.34 mg/dL (0.60-1.20); Glomerular Filtration Rate 52 (60-); Glucose, Blood 188 mg/dL (70-99); Phosphorus, Blood 2.1 mg/dL (2.5-4.9); Potassium, Blood 3.6 mmol/L (3.5-5.5); Sodium, Blood 147 mmol/L (136-145)
--- NOTE | 2021-03-28 17:42 | NUR ---
SHIFT SUMMARY PATIENT IS ALERT AND ORIENTED X4, PLEASANT AND COOPERATIVE WITH CARE. PATIENT'S PAIN HAS BEEN CONTROLLED PER THE MAR AND REPOSITIONING THIS SHIFT. PATIENT'S SPOUSE EXPRESSED THE NEED TO HOLD THE PATIENT'S MORPHINE. THE SPOUSE IS HOPEFUL THE PATIENT WILL BE MORE ORIENTED BY MORNING. THIS NURSE WILL PASS ON THE PLAN TO ONCOMING NURSE AT SHIFT CHANGE. VITAL SIGNS STABLE, PATIENT IS EATING DINNER WITH SPOUSE AT BEDSIDE.
[2021-03-29 08:55] LABS: Hematocrit 32.5 % (37.0-53.0); Hemoglobin 10.5 g/dL (13.5-17.5)
[2021-03-29 10:40] LABS: Hematocrit 27.2 % (37.0-53.0); Hemoglobin 8.7 g/dL (13.5-17.5)
--- NOTE | 2021-03-29 18:40 | NUR ---
SHIFT SUMMARY: PT A/O X4, ONE PERSON ASSIST. PLEASANT AND COOPERATIVE. PT CONTINUES TO HAVE PAIN IN TAILBONE. EXCORIATION NOTED TO AREA. LIDOCAINE PATCH APPLIED AND PT REPORTS INCREASED COMFORT FROM PATCH. PT HAD SMEAR TODAY WHICH WAS BLACK AND TARRY APPEARING. HGB GREATER THAN 7 TODAY.
--- NOTE | 2021-03-30 03:01 | NUR ---
CALL RECEIVED FROM SUNIL QUINTERO IN THE TRANSFER CENTER AT [facility]. THEY WILL HAVE A BED AVAILABLE LATER THIS MORNING (DOUBLE ROOM) FOR [facility] PENDING NEGATIVE COVID PCR. PATIENT WAS INFORMED OF NEWS, COVID TEST COMPLETED. AWAITING RESULTS
[2021-03-30 03:29] LABS: Influenza A, PCR NEGATIVE (NEGATIVE); Influenza B, PCR NEGATIVE (NEGATIVE); Resp Syncytial Virus, PCR NEGATIVE (NEGATIVE)
[2021-03-30 03:31] LABS: SARS-Cov-2 (COVID-19) PCR, MMC POSITIVE (NEGATIVE)
[2021-03-30 05:29] LABS: Hematocrit 28.1 % (37.0-53.0); Hemoglobin 8.9 g/dL (13.5-17.5)
--- NOTE | 2021-03-30 05:59 | NUR ---
SEDA APPEARED TO BE SLIGHTLY MORE COMFORTABLE OVERNIGHT, AND EVEN ALLOWED NURSING STAFF TO REPOSITION BETWEEN MEDICATION TIMES. COVID SWAB CAME BACK POSITIVE, AND PATIENT WAS QUITE DISAPPOINTED THAT HE WOULD NOT BE GOING TO [facility] THIS MORNING. THIS RN PROVIDED EMOTIONAL SUPPORT, AND ALSO LET THE PATIENT KNOW THAT [facility], UPON HEARING THE NEWS, SAID HE WASN'T "OUT OF THE PROGRAM". HE WAS JUST GOING TO NEED TO BE IN A PRIVATE ROOM. HGB/HCT THIS MORNING WAS 8.9/28.1 WHICH WAS A SLIGHT IMPROVEMENT FROM YESTERDAYS LAB
--- NOTE | 2021-03-30 08:16 | NUR ---
PT JOEY NOTIFIED OF POSITIVE COVID TEST. HAS BEEN COMING IN TO VISIT DAILY. EDUCATED JOEY ON NEED FOR TESTING. SHE DENIES HAVING ANY COVID SYMPTOMS. SHE REPORTS SHE WILL GO AND GET A COVID TEST. [facility]EY [facility]FOR[facility]EPT AT THIS TIME [facility] THE AVAILABLE BED BEING DOUBLE OCCUPANCY AND NOW AWAITING SINGLE USE ROOM. JOEY ARAUJO.
--- NOTE | 2021-03-30 18:55 | NUR ---
SHIFT SUMMARY: PT A/O X 2-3 INTERMITTENT CONFUSION, PLEASANT AND COOPERATIVE. PT HAS HAD DIFFICULT TIME WITH PAIN CONTROL TODAY, IT IS MOSTLY WHEN REPOSITIONING HE WINCES AND CRIES OUT WITH PAIN IN LOWER BACK. PT HAD 2 + PITTING EDEMA TO BLE EXTREMITIES TODAY BUT RESOLVED BY AFTERNOON. PT GIVEN FENTANYL 2 DOSES. PT HAD SMALL BLACK TARRY BM TODAY. COVID RESULTS FAXED TO [facility] PER REQUEST FROM HERMAN AT [phone]. DIET CHANGED TO FULL LIQUIDS PT UNABLE TO TOLERATE FINGER FOODS BUT WOULD REQUEST SOUP/BROTHS. CHANGED TO FULL LIQUID DIET. GOOD URINE OUTPUT TODAY.
--- NOTE | 2021-03-31 00:12 | NUR ---
Updated PT's Dahiana on POC related to covid 19 positive & bed that was available at [facility] was a double bed so await single room for covid positive status.
--- NOTE | 2021-03-31 04:01 | NUR ---
report to RN [facility] on PT with metastatic cancer, Covid 19, & urostomy, UTI , chronic anemia, chronic pain & acute pain, encephalopathy. Pending transfer to [facility] when bed available. DNR status.
[2021-03-31 05:55] LABS: Hematocrit 27.8 % (37.0-53.0); Hemoglobin 8.9 g/dL (13.5-17.5)
--- NOTE | 2021-03-31 17:55 | NUR ---
Alert and oriented x2 with some confusion this morning , however he improved as the day progress. Vital signs are stable. One person assist with adls and two persons extensive assist with bed mobility and repositioning . Received a call from [facility] and the Nurse reported that there is no bed at this time but will let patient know when there is one. Continue on sandostatin 500 mcg at 25 ml/hr , no adverse effects. Had black stool . c/o coccyx pain , lidocaine and oxycodone 10 mg po was given and it was effective. Continue to be COVID-19 isolation. Call light within reach. Continue to monitor.
[2021-04-01 05:08] LABS: Hematocrit 26.4 % (37.0-53.0); Hemoglobin 8.4 g/dL (13.5-17.5)
--- NOTE | 2021-04-01 06:21 | NUR ---
PT continues on sandostatin gtt for GI bleed. no s/sx of active gi bleed. PT less painful did not use prn pain med. appetite poor supplement offered. Skincare to excoriated coccyx area. updated this AM
--- NOTE | 2021-04-01 19:23 | NUR ---
Alert and oriented x3 , able to make needs known. c/o generalized pain, oxycodone 10 mg was given and it was effective. Vital signs are stable. One person assist with ADLS. Worked with PT/OT for strengthen and eudurance. No words from [place] about the bed . Continue to monitor.
--- NOTE | 2021-04-02 03:23 | NUR ---
updated [facility] at 0200 on PT condition. 0 bed currently available. PT pleasant & cooperative has worked with PT/ OT yesterday & was able to amb to bathroom with assist , room air no fevers covid 19 positive no cough or co acute distress. Pain well controlled on current meds. Has mediport accessed & drws well for labs. supportive.
[2021-04-02 06:15] LABS: Hematocrit 25.7 % (37.0-53.0); Hemoglobin 8.2 g/dL (13.5-17.5)
--- NOTE | 2021-04-02 19:44 | NUR ---
Alert and oriented x2, forgetful and at times confused. c/o coccyx pain oxycodone 10 mg po was given and it was effective. lidocaine was apply. vital signs are stable . Sandostatin infusing at 25 ml/hr. Urostomy site CDI.up and sat the bed side. Bed in low position and call light within reach. Continue to continue to monitor.
--- NOTE | 2021-04-03 05:18 | NUR ---
PATIENT HAD NO ACUTE CHANGES, NO DARK COLORED STOOL. PATIENT ONLY COMPLAINED OF LOW BACK PAIN AND PAIN MEDS WHERE GIVEN. H&H IS 8.2 AND 25.7.
[2021-04-03 05:32] LABS: Hematocrit 26.7 % (37.0-53.0); Hemoglobin 8.3 g/dL (13.5-17.5)
--- NOTE | 2021-04-03 19:28 | NUR ---
Alert and oriented 1-2 with forgetfullness. Had non-injury fall this afternoon. patient is neurological at baseline. Able to follow command and extraocular movement intact. Vital signs are stable . [facility] reported no bed available at this time. Continue on SANDOSTATIN IV for GI bleed. Oxygen and tylenol were given for pain management , it was effective. Had BM two times . Urostomy bag in place. Bed alarm and call light within reach.Continue to monitor.
--- NOTE | 2021-04-03 20:54 | NUR ---
AWAKE AT HS, IVF OF SANDOSTATIN INFUSING AT 25 ML/HR. VERBAL RESPONSE TO QUESTIONS ASKED, BUT UNSURE OF SOME ANSWERS. HOB REMAINS ELEVATED AT 40 - 45 DEGREES FOR COMFORT. TOLERATES HS MEDS WITH APPLESAUCE. DENIED BEING ABLE TO SWALLOW, BUT WAS ABLE TO SWALLOW WITHOUT DIFFICULTIES. CALL LIGHT IN REACH. ISOLATION PRECAUTIONS MAINTAINED
--- NOTE | 2021-04-04 04:26 | NUR ---
"JOAQUIN" FROM [facility] CALLED FOR "UPDATE". UPDATE GIVEN, JOAQUIN VOICED THEY WOULD GET BACK WITH US WHEN BED AVAILABLE.
--- NOTE | 2021-04-04 05:22 | NUR ---
SHIFT SUMMARY PT GETTING IV SANDOSTATIN. HYPERTENSIVEM BUT ALERT . WAITING FOR A BED TO BE OPEN AT [facility]. [facility] CALLED EARLY THIS AM TO GET AN UPDATE. PT RECEIVING PAIN MEDICATION PER EMAR. NOT ON TELE. PT ON ROOM AIR. CALL LIGHT WITHIN REACH AND [
--- NOTE | 2021-04-04 05:25 | NUR ---
NUCLEAR UNIT OPERATOR SUMMARY AWAKE AT INTERVALS. SANDOSTATIN CONTINUES TO INFUSE AT 25 ML/HR ORDERED FOR GI BLEED. NO NOTED BLOODY STOOL THIS SHIFT. CALL FOR UPDATE FROM [facility] RECEIVED EARLIER, STILL WAITING FOR BED. ISOLATION PRECAUTIONS MAINTAINED. CALL LIGHT IN REACH. REPOSITIONED INTERMITTENTLY FOR COMFORT AND SKIN MAINTENANCE.
[2021-04-04 06:31] LABS: Hematocrit 26.5 % (37.0-53.0); Hemoglobin 8.2 g/dL (13.5-17.5)
--- NOTE | 2021-04-04 18:23 | NUR ---
SHIFT SUMMARY PATIENT MEDICATED PER EMAR FOR PAIN. PATIENT DENIES NAUSEA AND SHORTNESS OF BREATH. PATIENT CONFUSED THIS MORNING, BUT BY MID AFTERNOON, SHOWED NO SIGNS OF CONFUSION. PATIENT IS A 2 PERSON TRANSFER. UROSTOMY PATENT AND DRAINING TO GRAVITY. PATIENT IS EATING AND DRINKING WELL. WAITING ON BED AVAILIBILTY AT [facility]. PATIENT IS PLEASANT AND COOPERATIVE WITH CARE.
--- NOTE | 2021-04-05 05:38 | NUR ---
INBOUND CALL CENTER REPRESENTATIVE SUMMARY AWAKE AT INTERVALS THROUGH SHIFT, VOICED PAIN OF ABD/BACK ONCE AND RECEIVED ANALGSIC. SEE MAR FOR DETAILS. INCONT OF STOOL X 1, NO REPORTED BLOOD IN STOOL. TOLERATING PO MEDS WITH APPLESAUCE. VERBAL RESPONSE APPROPRIATE TO QUESTIONS ASKED, BUT CONTINUES TO SHOW SOME CONFUSION. CALL LIGHT IN REACH. ISOLATION PRECAUTIONS CONTINUE.
[2021-04-05 05:56] LABS: Hematocrit 26.6 % (37.0-53.0); Hemoglobin 8.2 g/dL (13.5-17.5); Mean Corpuscular HGB 28.3 pg (26.0-34.0); Mean Corpuscular HGB Conc 30.8 g/dL (31.5-36.5); Mean Corpuscular Volume 92 fL (80-100); Mean Platelet Volume 12.1 fL (9.1-12.4); Platelet Count 132 K/mm3 (150-400); RDW Coefficient Variation 17.2 % (11.7-14.2); RDW Standard Deviation 57.1 fL (35.1-46.3); White Blood Cell Count 3.41 K/mm3 (4.00-11.30)
[2021-04-05 06:23] LABS: Albumin, Blood 1.2 g/dL (3.4-5.0); Anion Gap 7 mmol/L (6-16); Blood Urea Nitrogen 15 mg/dL (8-24); CO2, Blood 18 mmol/L (21-32); Calcium, Blood 6.9 mg/dL (8.5-10.1); Chloride, Blood 124 mmol/L (98-108); Creatinine, Blood 1.25 mg/dL (0.60-1.20); Glomerular Filtration Rate 56 (60-); Glucose, Blood 125 mg/dL (70-99); Phosphorus, Blood 2.2 mg/dL (2.5-4.9); Potassium, Blood 3.3 mmol/L (3.5-5.5); Sodium, Blood 149 mmol/L (136-145)
--- NOTE | 2021-04-05 17:59 | NUR ---
SHIFT SUMMARY PATIENT MEDICATED FOR PAIN PER EMAR. PATIENT STILL REPORTS PAIN. LIDOCAINE PATCHES APPLIED. PATIENT IS A 2 PERSON ASSIST TO TRANSFER AND TURN. STILL WAITING ON BED AT [facility]. PER DR. ESTRADA, PATIENT MIGHT BE ABLE TO GET PROCEDURE QUICKER IF IT IS OUTPATIENT. TALKED ABOUT DISCHARGING TO SNF. PATIENT HAS POOR PO INTAKE. PATIENT VISITED THIS AFTERNOON. PATIENT IS PLEASANT AND COOPERATIVE WITH CARE.
[2021-04-06 05:48] LABS: Hematocrit 26.6 % (37.0-53.0); Hemoglobin 8.1 g/dL (13.5-17.5)
--- NOTE | 2021-04-06 06:24 | NUR ---
PT RESTING IN BED THIS SHIFT, ALERT AND OPRIENTED X4 WITH MILD CONFUSION. ABD AND BACK PAIN TREATED PER EMAR. PT STATES HE FEELS DEPRESSED AND TIRED OF HURTING. PT COMFORTED WITH THERAPUTIC COMMUNICATION. SPOKE WITH PT ON THE PHONE AND THAT SEEMED TO HELP. PT CONTINUES TO BE RELUCTANT TO POSITION CHANGES, EDUCATED ON PRESSURE ULCER RISK. BED IN LOW POSITION AND CALL LIGHT WITHIN REACH. STAFF WILL CONT TO MONITOR.
[2021-04-06 11:02] LABS: Influenza A, PCR NEGATIVE (NEGATIVE); Influenza B, PCR NEGATIVE (NEGATIVE); Resp Syncytial Virus, PCR NEGATIVE (NEGATIVE)
[2021-04-06 11:11] LABS: SARS-Cov-2 (COVID-19) PCR, MMC POSITIVE (NEGATIVE)
--- NOTE | 2021-04-06 16:19 | NUR ---
SHIFT SUMMARY PATIENT MEDICATED PER EMAR FOR PAIN. PATIENT DENIES NAUSEA AND SHORTNESS OF BREATH. PATIENT IS A 2 PERSON TRANSFER TO [facility]. UROSTOMY IS PATENT AND DRAINING TO GRAVITY. PATIENT SWABBED FOR COVID19 THIS SHIFT. PATIENT VISITED IN AFTERNOON. PATIENT WORKED WITH OT TODAY. PATIENT IS EATING AND DRINKING POORLY. PATIENT IS PLEASANT AND COOPERATIVE WITH CARE.
--- NOTE | 2021-04-07 04:48 | NUR ---
CELL OPERATION SUPERVISOR SUMMARY AWAKE AT INTERVALS THIS SHIFT. VOICED PAIN OF BACK AND HIP AROUND MIDNIGHT. MED APPEARED EFFECTIVE HE SEEMED TO REST QUIETLY AFTER. CALL LIGHT IN REACH. ISOLATION PRECAUTIONS MAINTAINED. HOB REMAINS AT ABOUT 45 DEGREES FOR RESP COMFORT. MEDIPORT FLUSHED. NO REPORTED RECTAL BLEEDING. WILL CONTINUE TO MONITOR
[2021-04-07 06:06] LABS: Hematocrit 25.6 % (37.0-53.0); Hemoglobin 7.8 g/dL (13.5-17.5)
[2021-04-07] MEDS ORDERED: BENZ100A PO (15:38)
[2021-04-07] MEDS ORDERED: ACET325 PO (15:38)
[2021-04-07] MEDS ORDERED: ONDA4 PO (15:40)
[2021-04-07] MEDS ORDERED: LIDOCAINE1 EAC1 TOP (15:40)
[2021-04-07] MEDS ORDERED: SENN187 PO (15:41)
--- NOTE | 2021-04-07 18:23 | NUR ---
DAY SHIFT SUMMARY PLEASANTLY CONFUSED 75 YR OLD MALE, FRAGILE SKIN WITH MEPELIX TO SACRUM. 2 ASSIST WITH WALKER AND GAIT BELT. TAKES MEDS ONE AT A TIME WITH JUICE. CAME TO VISIT WITH PT TODAY. TALK OF DISCHARGING TO [facility]. UROSTOMY WITH BAG IN PLACE. CALL LIGHT WITHIN REACH.
--- NOTE | 2021-04-08 03:38 | NUR ---
SHOCK ABSORPTION FLOOR LAYER SUMMARY HAS BEEN RESTING QUIETLY WITH FEW INTERRUPTIONS SINCE HS. DENIED LOSS OF FEELING. MOVES ALL EXTREMITIES. TOLERATING SCHEDULED ANALGESICS AND MEDS WELL WITH THIN LIQUIDS. UROSTOMY DRAINING. ISOLATION PRECAUTIONS MAINTAINED. CALL LIGHT IN REACH.
--- NOTE | 2021-04-08 15:10 | NUR ---
DISCHARGE DISCHARGE TO [facility] UNIT. AT BEDSIDE. IV REMOVED AND MEDIPORT DEACCESSED WITHOUT ISSUE. BELONGINGS WITH PATIENT. DISCHARGE PACKET AND HARD COPY PRESCRIPTIONS WITH STATISTICAL TYPIST. TRANSPORTED VIA WHEELCHAIR TRANSPORT. REPORT CALLED TO [facility] NURSE.
== END 2021-04-08 15:20 | DRG 393 ==
LOC: ER 15:44 → ERHOLD 21:06 → MEDS 21:06
PROVIDERS: Family Medicine; Hospitalist; Internal Medicine; Physician Assistant; ADMIT Internal Medicine
PROC: 30233N1 Transfusion of Nonautologous Red Blood Cells into Peripheral Vein, Percutaneous Approach (ICD-10-PCS; principal; 2021-03-19)
PROC: 8E0ZXY6 Isolation (ICD-10-PCS; 2021-03-30)
PROC: XW033G6 Introduction of REGN-COV2 Monoclonal Antibody into Peripheral Vein, Percutaneous Approach, New Technology Group 6 (ICD-10-PCS; 2021-04-04)
DX: K52.1 Toxic gastroenteritis and colitis (principal); I21.4 Non-ST elevation (NSTEMI) myocardial infarction; G92.8 Other toxic encephalopathy; U07.1 COVID-19; K92.2 Gastrointestinal hemorrhage, unspecified; C78.00 Secondary malignant neoplasm of unspecified lung; C78.7 Secondary malignant neoplasm of liver and intrahepatic bile duct; C79.51 Secondary malignant neoplasm of bone; D62 Acute posthemorrhagic anemia; Z23 Encounter for immunization; T50.Z95A Adverse effect of other vaccines and biological substances, initial encounter; C67.9 Malignant neoplasm of bladder, unspecified; I35.0 Nonrheumatic aortic (valve) stenosis; N18.30 Chronic kidney disease, stage 3 unspecified; M54.50 Low back pain, unspecified; G89.29 Other chronic pain; I25.2 Old myocardial infarction; Z90.49 Acquired absence of other specified parts of digestive tract; Z93.6 Other artificial openings of urinary tract status; Z90.5 Acquired absence of kidney; Z87.891 Personal history of nicotine dependence; Z87.440 Personal history of urinary (tract) infections; Z79.899 Other long term (current) drug therapy
CPT/HCPCS: 0241U; 36415; 36430; 76705; 80048; 80053; 80069; 82272; 83605; 84484; 85014; 85018; 85025; 85027; 85610; 85730; 86850; 86900; 86901; 86923; 93005; 93010; 94760; 96374; 96375; 97110; 97110-CQ; 97116; 97162; 97166; 97530; 97530-CQ; 97535; 99285-25; A9270; C9113; J1170; J1642; J2354; J2405; J3010; J7030; J7040; J7050; P9016; Q0243; Q5106; U0004

== ENCOUNTER → 2021-05-18 | Outpatient (CLI) | payer MEDICARE, OTHER ==
[~2021-05-18] MED LIST changes: +ATOR40TA PO; +BENZ100A PO; +CALCIUM 600 +1 EA11 PO; +FERSU300 PO; +LIDOCAINE1 EAC1 TOP; +MIDODRINE HCL10 M1 PO; +ONDA4 PO; +OXYC1L PO; +PANT40 PO; +PROCRIT40000 UNIT SC; +Prednisone10 MG PO; +Robaxin750 MG PO
[2021-05-18 17:33] LABS: Hematocrit 23.3 % (37.0-53.0); Hemoglobin 6.9 g/dL (13.5-17.5)
== END | disposition home or self-care (01) ==
LOC: LAB SHORT 16:09
PROVIDERS: Nurse Practitioner Family
DX: D50.0 Iron deficiency anemia secondary to blood loss (chronic) (principal)
CPT/HCPCS: 85014; 85018

== ENCOUNTER 2021-05-19 09:34 | Inpatient (IN) | payer OTHER, MEDICARE ==
[~2021-05-19] VITALS: Ht 180.3 cm; Wt 69.2 kg
[2021-05-19 10:19] LABS: BASOPHILS ABSOLUTE AUTO 0.03 K/mm3 (0.00-0.23); BASOPHILS PERCENT AUTO 1 % (0-2); EOSINOPHILS ABSOLUTE AUTO 0.09 K/mm3 (0.00-0.68); EOSINOPHILS PERCENT AUTO 2 % (0-6); Hematocrit 22.1 % (37.0-53.0); Hemoglobin 6.5 g/dL (13.5-17.5); IMMATURE GRAN ABSOLUTE AUTO 0.04 K/mm3 (0.00-0.10); IMMATURE GRAN PERCENT AUTO 1 % (0-1); LYMPHOCYTES ABSOLUTE AUTO 0.39 K/mm3 (0.84-5.20); LYMPHOCYTES PERCENT AUTO 7 % (21-46); MONOCYTES ABSOLUTE AUTO 0.39 K/mm3 (0.16-1.47); MONOCYTES PERCENT AUTO 7 % (4-13); Mean Corpuscular HGB 26.6 pg (26.0-34.0); Mean Corpuscular HGB Conc 29.4 g/dL (31.5-36.5); Mean Corpuscular Volume 91 fL (80-100); Mean Platelet Volume 9.8 fL (9.1-12.4); NEUTROPHILS ABSOLUTE AUTO 4.77 K/mm3 (1.96-9.15); NEUTROPHILS PERCENT AUTO 84 % (41-73); Platelet Count 153 K/mm3 (150-400); RDW Coefficient Variation 16.4 % (11.7-14.2); RDW Standard Deviation 53.9 fL (35.1-46.3); Red Blood Cell Count 2.44 M/mm3 (4.30-5.90); White Blood Cell Count 5.71 K/mm3 (4.00-11.30)
[2021-05-19 10:41] LABS: Influenza A, PCR NEGATIVE (NEGATIVE); Influenza B, PCR NEGATIVE (NEGATIVE); Resp Syncytial Virus, PCR NEGATIVE (NEGATIVE); SARS-Cov-2 (COVID-19) PCR, MMC NEGATIVE (NEGATIVE)
[2021-05-19 10:41] LABS: Alanine Aminotransfer (ALT/SGP 16 U/L (12-78); Albumin, Blood 2.6 g/dL (3.4-5.0); Albumin/Globulin Ratio 0.7 (0.8-1.8); Alk Phos 61 U/L (50-136); Anion Gap 9 mmol/L (6-16); Aspartate Aminotrans (AST/SGOT 11 U/L (12-37); Bilirubin, Direct <0.1 mg/dL (0.0-0.3); Bilirubin, Indirect Unable to Calculate mg/dL (0.1-0.7); Bilirubin, Total 0.5 mg/dL (0.1-1.0); Blood Urea Nitrogen 29 mg/dL (8-24); Bun/Creatinine Ratio 21.8 (12.0-20.0); CO2, Blood 20 mmol/L (21-32); Calcium, Blood 8.7 mg/dL (8.5-10.1); Chloride, Blood 112 mmol/L (98-108); Creatinine, Blood 1.33 mg/dL (0.60-1.20); Globulin, Blood 3.7 g/dL (2.2-4.0); Glomerular Filtration Rate 52 (60-); Glucose, Blood 161 mg/dL (70-99); Magnesium, Blood 1.5 mg/dL (1.6-2.4); Potassium, Blood 3.9 mmol/L (3.5-5.5); Sodium, Blood 141 mmol/L (136-145); Total Protein, Blood 6.3 g/dL (6.4-8.2); Troponin I <0.015 ng/mL (0.000-0.040)
[2021-05-19 10:50] LABS: International Normalized Ratio 1.08; Prothrombin Time Results 11.3 Sec (9.7-11.5)
[2021-05-19 19:02] LABS: Hematocrit 24.3 % (37.0-53.0); Hemoglobin 7.8 g/dL (13.5-17.5)
[2021-05-19 23:23] LABS: Hematocrit 22.6 % (37.0-53.0)
--- NOTE | 2021-05-20 04:00 | NUR ---
PATIENT WAS ALERT AND ORIENTED X4, STABLE VITAL SIGNS, NO ACUTE CHANGES. PATIENT COMPLAINED OF BACK PAIN AND WAS TREATED FOR IT.PATIENT DID NO SLEEP MUCH AT NIGHT. CALL LIGHT WITH IN REACH AND BED DOWN TO THE LOWEST POSITION. WILL CONTINUE TO MONITOR UNTIL HAND OFF.
[2021-05-20 04:55] LABS: Hematocrit 22.3 % (37.0-53.0); Hemoglobin 6.9 g/dL (13.5-17.5); Mean Corpuscular HGB 28.3 pg (26.0-34.0); Mean Corpuscular HGB Conc 30.9 g/dL (31.5-36.5); Mean Corpuscular Volume 91 fL (80-100); Mean Platelet Volume 10.3 fL (9.1-12.4); Platelet Count 121 K/mm3 (150-400); RDW Coefficient Variation 15.9 % (11.7-14.2); RDW Standard Deviation 52.4 fL (35.1-46.3); Red Blood Cell Count 2.44 M/mm3 (4.30-5.90); White Blood Cell Count 4.05 K/mm3 (4.00-11.30)
[2021-05-20 05:34] LABS: Bun/Creatinine Ratio 25.8 (12.0-20.0); Calcium, Blood 7.8 mg/dL (8.5-10.1); Creatinine, Blood 1.24 mg/dL (0.60-1.20); Potassium, Blood 3.9 mmol/L (3.5-5.5)
[2021-05-20 14:14] LABS: Hematocrit 25.6 % (37.0-53.0); Hemoglobin 8.2 g/dL (13.5-17.5)
--- NOTE | 2021-05-20 19:06 | NUR ---
PT ALERT AAOX4 ABLE TO MAKE NEEDS KNOWN. PT RECEIVED ONE UNIT OF BLOOD THIS A.M. INFUSED IN THE RIGHT IV ACCESS. NO REACTION NOTED, TOLERATED WELL. PT COMPLIANT TO MEDICATION REGIMEN. CONTINUED TO MONITOR V/S, PT REMAINS STABLE. UROSTOMY BAG CHANGED AND SITE CLEANED BY PT'S SPOUSE. MEDICATED FOR PAIN NEEDED WITH EFFECTIVE OUTCOME. BED IN LOWEST POSITION, CALL LIGHT IN REACH.
[2021-05-20 22:09] LABS: Hematocrit 25.1 % (37.0-53.0); Hemoglobin 8.1 g/dL (13.5-17.5)
--- NOTE | 2021-05-21 04:29 | NUR ---
PATIENT WAS ALERT AND ORIENTED X4, STABLE VITAL SIGNS, NO ACUTE CHANGES. PATIENT SLEPT MOST OF THE NIGHT.PATINET COMPLAINED OF PAIN AND WAS TREATED FOR IT. CALL LIGHT WITH IN REACH AND BED DOWN TO THE LOWEST POSITION. WILL CONTINUE UNTIL TO MONITOR UNTIL HAND OFF.
[2021-05-21 06:31] LABS: Hematocrit 27.7 % (37.0-53.0); Hemoglobin 8.7 g/dL (13.5-17.5); Mean Corpuscular HGB 28.3 pg (26.0-34.0); Mean Corpuscular HGB Conc 31.4 g/dL (31.5-36.5); Mean Corpuscular Volume 90 fL (80-100); Mean Platelet Volume 10.3 fL (9.1-12.4); Platelet Count 138 K/mm3 (150-400); RDW Coefficient Variation 16.7 % (11.7-14.2); RDW Standard Deviation 54.1 fL (35.1-46.3); Red Blood Cell Count 3.07 M/mm3 (4.30-5.90); White Blood Cell Count 5.58 K/mm3 (4.00-11.30)
[2021-05-21 06:49] LABS: Anion Gap 5 mmol/L (6-16); Blood Urea Nitrogen 25 mg/dL (8-24); Bun/Creatinine Ratio 22.9 (12.0-20.0); CO2, Blood 24 mmol/L (21-32); Calcium, Blood 8.3 mg/dL (8.5-10.1); Chloride, Blood 111 mmol/L (98-108); Creatinine, Blood 1.09 mg/dL (0.60-1.20); Glomerular Filtration Rate >60 (60-); Glucose, Blood 118 mg/dL (70-99); Potassium, Blood 4.9 mmol/L (3.5-5.5); Sodium, Blood 140 mmol/L (136-145)
--- NOTE | 2021-05-21 18:34 | NUR ---
PT AAOX4 ABLE TO BASURTO NEEDS KNOWN. MEDICATED FOP PAIN NEEDED. UROSTOMY CLEAR, NO REDNESS NOTED,STOMA PINK WITH DRAINAGE BAG INTACT. BED IN ,OWEST POSITION. CALL LIGHT IN REACH.
--- NOTE | 2021-05-22 00:17 | NUR ---
PHYSICIAN COMMUNICATION CONTACTED KILN FURNITURE SAW TENDER PHYSICIAN, DR PENALOZA, TO NOTIFY HER THAT THE PATIENT'S HEART RATE IS SUSTAINING IN THE 150'S AND THAT HIS BLOOD PRESSURE WAS 99/69. DR PENALOZA ORDERED A STAT H+H AND A 500 ML BOLUS OF NORMAL SALINE.
[2021-05-22 00:52] LABS: Hematocrit 25.7 % (37.0-53.0)
--- NOTE | 2021-05-22 03:02 | NUR ---
PHYSICIAN COMMUNICATION CONTACTED DR PENALOZA AT 0240 TO NOTIFY HER THAT THE PATIENT'S HEART RATE HAD BEEN SUSTAINING IN THE 160'S BUT WAS CURRENTLY SUSTAINING IN THE 120'S PER TELE. REPORTED THE PATIENT'S VITAL SIGNS WELL. DR PENALOZA ORDERED AN EKG, MAGNESIUM LEVELS DRAWN AND A HEMEGLOBIN SIX HOURS AFTER THE LAST ONE WAS DRAWN. CALLED DR PENALOZA BACK TO RELAY THE RESULTS OF THE EKG AND TO ASK IF THE PATIENT COULD HAVE SOMETHING ORDERED TO REDUCE HIS FEVER. DR PENALOZA SAID SHE WOULD INPUT ORDERS.
[2021-05-22 06:03] LABS: Source, Urine Clean Catch
[2021-05-22 06:17] LABS: Bilirubin, Urine Neg (Neg); Blood, Urine 3+ (Neg); Glucose Qualitative, Urine Neg (Neg); Ketones, Urine Neg (Neg); Leukocyte Esterase, Urine 3+ (Neg); Nitrite, Urine Neg (Neg); Protein, Urine 2+ (Neg); Urobilinogen, Urine NORM (Normal)
[2021-05-22 06:25] LABS: Hematocrit 23.4 % (37.0-53.0); Hemoglobin 7.2 g/dL (13.5-17.5)
[2021-05-22 06:30] LABS: Appearance, Urine Turbid (Clear); Color, Urine Yellow (P-Yellow)
[2021-05-22 06:33] LABS: Squamous Epithelial Cells Few /hpf (Few); White Blood Cells, Urine 50-100 /hpf (0-5)
[2021-05-22 06:34] LABS: Bacteria Mod /hpf; Mucus Light (0-Heavy)
--- NOTE | 2021-05-22 06:37 | NUR ---
SHIFT SUMMARY PATIENT IS AWAKE AND ALERT THIS MORNING. WAS MEDICATED PER EMAR FOR PAIN. HAD NO COMPLAINTS OF SHORTNESS OF BREATH. BED IN LOWEST POSITION WITH WHEELS LOCKED. CALL LIGHT WITHIN REACH. REPORT GIVEN TO ONCOMING RN.
[2021-05-22 10:32] LABS: Hematocrit 23.6 % (37.0-53.0); Hemoglobin 7.3 g/dL (13.5-17.5)
--- NOTE | 2021-05-22 18:17 | NUR ---
PATIENT AAOX4, ABLE TO MAKE NEEDS KNOWN. PT COMPLAINT WITH MEDICATION REGIMEN, IV ABT GIVEN, CONTINUES ON IVF's. PT C/O PAIN TO LOWER BACK MEDICATED PER ORDER, EFFECTIVE OUTCOME. PT SPOUE MENTIONED THAT PT'S SPOUSE IS AWARE OF [facility]. BED IN LOWEST POSITION. CALL LIGHT IN REACH.
[2021-05-22 18:51] LABS: Influenza A, PCR Negative (NEGATIVE); Influenza B, PCR Negative (NEGATIVE); Resp Syncytial Virus, PCR Negative (NEGATIVE); SARS-Cov-2 (COVID-19) PCR, MMC Negative (NEGATIVE)
[2021-05-22 19:24] LABS: Hematocrit 21.3 % (37.0-53.0); Hemoglobin 6.4 g/dL (13.5-17.5)
--- NOTE | 2021-05-22 22:40 | NUR ---
LAB IN ROOM FOR KALI AND CROSS. STATES THAT SEDA IS HAVING CHEST PAIN AND IS SCARED. SEDA REPORTS PAIN MID STERNUM, 8/10 SHARP, PRESSURE. TELE REPORTS WITH IN LAST FEW MINUTES HR INCREASED TO 140'S AND SUSTAINING. SOME ST DEPRESSION IN LEADS V1, V2, AND AVR. PATIENT IS AFIB/FLUTTER. ECG COMPLETED. SINUS TACH, WITH ST ABNORMALITY. BP ELEVATED 147/102. SATS 100%. DR. BRAXTON INFORMED. ORDER FOR 1 X LOPRESSER NOW.
--- NOTE | 2021-05-22 23:19 | NUR ---
TELE INFORMED OF LOPRESSOR PUSH. 2 MINUTES AFTER ADMINISTRATION RATE DECREASED TO THE 90'S. BUT NOW IT IS BACK UP TO 130'S. PATIENT REPORTED CHEST PAIN RESOLVING. WILL CONTINUE TO MONITOR RATE AND CHANGES.
[2021-05-23 05:06] LABS: Hematocrit 23.7 % (37.0-53.0); Hemoglobin 7.5 g/dL (13.5-17.5); Mean Corpuscular HGB 29.2 pg (26.0-34.0); Mean Corpuscular HGB Conc 31.6 g/dL (31.5-36.5); Mean Corpuscular Volume 92 fL (80-100); Platelet Count 110 K/mm3 (150-400); RDW Coefficient Variation 15.5 % (11.7-14.2); RDW Standard Deviation 51.6 fL (35.1-46.3); Red Blood Cell Count 2.57 M/mm3 (4.30-5.90)
[2021-05-23 05:42] LABS: Bun/Creatinine Ratio 26.1 (12.0-20.0); Calcium, Blood 7.9 mg/dL (8.5-10.1); Creatinine, Blood 1.34 mg/dL (0.60-1.20); Potassium, Blood 4.9 mmol/L (3.5-5.5)
--- NOTE | 2021-05-23 07:56 | NUR ---
SHIFT SUMMARY: AOX3, COOPERATIVE. FATIQUE, CHRONIC PAIN, BEDRIDDEN. PALE, REPORTS BEING COLD ALL THE TIME. H/H CAME BACK LOW AT 6.4 AND 21.3. WAS NOTIFIED. 1 UNIT OF PRBC GIVEN. H/H NOW 7.5/23.7. PRIOR TO BLOOD TRANSFUSION HE STARTED TO HAVE CHEST PAIN, HR WAS UP TO 149 PER TELE. ECG PERFORMED AND WAS ABNORMAL SINUS TACH WITH SOME ST ABNORMALITY. CHEST PAIN WAS 8/10 MID STERNUM. MD ANTHONY, 5MG OF IV LOPRESSOR WAS GIVEN. HR GAME DOWN TO 90'S BUT WITH IN MINUTES WAS BACK TO 130'S. HR HAS BEEN AVERAGING BETWEEN 110-140'S ALL NIGHT WITH BLOOD PRESSURES DROPPING LOW 83/54. GAVE HIM ANOTHER DOSE OF LOPRESSOR THIS MORNING AND HIS BLOOD PRESSURE WENT FROM 110/72 TO 80/54 NO BM NOTED THIS SHIFT, NO SIGNS OF BLEEDING. DRESSING TO COCCYX REMAINED CDI, UROSTOMY APPLIANCE INTACT, GOOD OUTPUT. REPORT GIVEN DAYSHIFT SUNIL.
--- NOTE | 2021-05-23 18:49 | NUR ---
75 YR OLD MALE PT. POSSIBILITY OF TRANSFER TOMORROW. VISIT FROM TODAY DURING VISITING HOURS. 1 UNIT OF PRBC THIS SHIFT. C/O OF BACK PAIN, MEDICATED PER EMAR. A/O. PT CALLS APPROPRIATELY, CALL LIGHT WITHIN REACH OF PT. AWARE OF PT VITALS, LOW BP WITH HIGH HR. TELE MONITOR STATED AN EPISODE OF AFIB AT 133 HR THIS AFTERNOON, PT THEN FELL BACK INTO SR. AWARE.
[2021-05-24 04:59] LABS: Hematocrit 24.6 % (37.0-53.0); Hemoglobin 7.9 g/dL (13.5-17.5); Mean Corpuscular HGB 29.2 pg (26.0-34.0); Mean Corpuscular HGB Conc 32.1 g/dL (31.5-36.5); Mean Corpuscular Volume 91 fL (80-100); Mean Platelet Volume 11.1 fL (9.1-12.4); Platelet Count 101 K/mm3 (150-400); RDW Coefficient Variation 16.5 % (11.7-14.2); RDW Standard Deviation 53.8 fL (35.1-46.3); Red Blood Cell Count 2.71 M/mm3 (4.30-5.90)
--- NOTE | 2021-05-24 05:20 | NUR ---
SHIFT SUMMARY NO ACUTE CHANGES TO REPORT THIS SHIFT. PT WAS FINISHING SECOND UNIT OF BLOOD WHEN I CAME ONTO SHIFT. PT TOLERATED TRANSFUSION WELL. HGB REMAIN STABLE OVERNIGHT AND IS 7.9 UP FROM LAST LAB DRAW. PT MEDICATED FOR CHRONIC PAIN PER EMAR. PT HAS RESTED OFF AND ON T/O THE SHIFT WITHOUT ACUTE CHANGES. NO CHANGES ON TELE. POSSIBLE COBRA TRANSFER TODAY. PT A/OX4, PLESANT AND COOPERATIVE WITH CARE. BED IN LOWEST POSITION, CALL LIGHT WITHIN REACH.
[2021-05-24 06:08] LABS: Bun/Creatinine Ratio 26.6 (12.0-20.0); Calcium, Blood 7.7 mg/dL (8.5-10.1); Creatinine, Blood 1.24 mg/dL (0.60-1.20); Potassium, Blood 4.1 mmol/L (3.5-5.5); Thyroid Stimulating Hormone 0.392 uIU/mL (0.360-4.800)
--- NOTE | 2021-05-24 17:13 | NUR ---
DAY SHIFT SUMMARY 75 YR OLD PT IN FOR GI BLEED. WAITING BED AVAILABLITY FOR [facility] STATES THEIR SW SHOULD BE IN TOUCH WITH US FOR PLACEMENT ON TUESDAY. A/O X3, SOME CONFUSION. CHRONIC BACK PAIN. UROSTOMY TO BORJA INTACT/PATENT DRAINING BY GRAVITY. PT ABLE TO AMBULATE TO BATHROOM FOR BM. STANDBY ASSIST WITH FRONT WHEEL WALKER. SACRAL ULCER DRESSED WITH MEPILEX. ON TELE. TELE REPORTED A 12 BEAT RUN OF V-TACH AT 145 HR. CURRENTLY TELE REPORTS SR AT 89. CALL LIGHT WITHIN REACH OF PT, ABLE TO CALL APPROPRIATELY. PT ON RA, MEDS TAKEN WHOLE WITH WATER. NO ACUTE CHANGES THIS SHIFT.
--- NOTE | 2021-05-25 04:52 | NUR ---
SHIFT SUMMARY NO ACUTE CHANGES TO REPORT THIS SHIFT, PT HAS RESTED T/O THE SHIFT. PT STILL AWAITING TRANSFER TO [facility] FOR CAPSULE ENDOSCOPY AD BALLON PROCEDURE FOR RECURRENT GI BLEEDS. BP STABLE AND NO ACUTE CHANGES ON TELE. PT AMBULATES TO THE BATHROOM WITH 1 PA USING FWW. PT HAD A BM THIS SHIFT. STOOL WAS MAROON COLORED. BORJA IN PLACE PATENT AND DRAINING. BED IN LOWEST POSITION, CALL LIGHT WITHIN REACH.
--- NOTE | 2021-05-25 06:34 | NUR ---
LABS NO ROUTINE LABS WERE ORDERED FOR PT THIS AM. CALLED DR. PENALOZA TO NOTIFY, RECEIVED ORDER FOR CBC AND RENAL PANEL.
[2021-05-25 07:17] LABS: BASOPHILS ABSOLUTE AUTO 0.01 K/mm3 (0.00-0.23); BASOPHILS PERCENT AUTO 0 % (0-2); EOSINOPHILS ABSOLUTE AUTO 0.08 K/mm3 (0.00-0.68); EOSINOPHILS PERCENT AUTO 2 % (0-6); Hematocrit 24.3 % (37.0-53.0); Hemoglobin 7.7 g/dL (13.5-17.5); IMMATURE GRAN ABSOLUTE AUTO 0.02 K/mm3 (0.00-0.10); IMMATURE GRAN PERCENT AUTO 1 % (0-1); LYMPHOCYTES ABSOLUTE AUTO 0.32 K/mm3 (0.84-5.20); LYMPHOCYTES PERCENT AUTO 9 % (21-46); MONOCYTES ABSOLUTE AUTO 0.17 K/mm3 (0.16-1.47); MONOCYTES PERCENT AUTO 5 % (4-13); Mean Corpuscular HGB 28.9 pg (26.0-34.0); Mean Corpuscular HGB Conc 31.7 g/dL (31.5-36.5); Mean Corpuscular Volume 91 fL (80-100); Mean Platelet Volume 10.9 fL (9.1-12.4); NEUTROPHILS ABSOLUTE AUTO 2.88 K/mm3 (1.96-9.15); NEUTROPHILS PERCENT AUTO 83 % (41-73); Platelet Count 108 K/mm3 (150-400); RDW Coefficient Variation 16.3 % (11.7-14.2); RDW Standard Deviation 54.4 fL (35.1-46.3); Red Blood Cell Count 2.66 M/mm3 (4.30-5.90); White Blood Cell Count 3.48 K/mm3 (4.00-11.30)
[2021-05-25 07:56] LABS: Albumin, Blood 1.9 g/dL (3.4-5.0); Anion Gap 4 mmol/L (6-16); Blood Urea Nitrogen 21 mg/dL (8-24); Bun/Creatinine Ratio 19.1 (12.0-20.0); CO2, Blood 23 mmol/L (21-32); Calcium, Blood 7.6 mg/dL (8.5-10.1); Chloride, Blood 113 mmol/L (98-108); Glomerular Filtration Rate >60 (60-); Glucose, Blood 158 mg/dL (70-99); Phosphorus, Blood 2.4 mg/dL (2.5-4.9); Potassium, Blood 4.1 mmol/L (3.5-5.5); Sodium, Blood 140 mmol/L (136-145)
--- NOTE | 2021-05-25 15:56 | NUR ---
DISCHARGE PT WAS DISCHARGED BY BY NEETA ARRIAZA @ 1400 ALL INFO HANDED OVER TO DOMESTIC HELPER, CARSON FOLLOWING BEHIND IN CARE. PREPORT GIVEN TO SUNIL CUEVAS AT THE [facility] IN [place].
== END 2021-05-25 13:50 | DRG 393 ==
LOC: ER 09:34 → MEDS 15:16 → ERHOLD 15:16 → MEDS 18:08
PROVIDERS: Family Medicine; Internal Medicine; Nurse Practitioner Acute Care; Student in an Organized Health Care Education/Training Program; ADMIT Internal Medicine
PROC: 30233N1 Transfusion of Nonautologous Red Blood Cells into Peripheral Vein, Percutaneous Approach (ICD-10-PCS; principal; 2021-05-19)
DX: K52.1 Toxic gastroenteritis and colitis (principal); J18.9 Pneumonia, unspecified organism; D62 Acute posthemorrhagic anemia; I48.92 Unspecified atrial flutter; I47.2 Ventricular tachycardia; I13.0 Hypertensive heart and chronic kidney disease with heart failure and stage 1 through stage 4 chronic kidney disease, or unspecified chronic kidney disease; I50.42 Chronic combined systolic (congestive) and diastolic (congestive) heart failure; C78.7 Secondary malignant neoplasm of liver and intrahepatic bile duct; C78.02 Secondary malignant neoplasm of left lung; C78.01 Secondary malignant neoplasm of right lung; C79.51 Secondary malignant neoplasm of bone; N39.0 Urinary tract infection, site not specified; I95.89 Other hypotension; G89.4 Chronic pain syndrome; I35.0 Nonrheumatic aortic (valve) stenosis; E78.5 Hyperlipidemia, unspecified; N18.30 Chronic kidney disease, stage 3 unspecified; C67.9 Malignant neoplasm of bladder, unspecified; B96.20 Unspecified Escherichia coli [E. coli] as the cause of diseases classified elsewhere; E83.39 Other disorders of phosphorus metabolism; M54.89 Other dorsalgia; I25.2 Old myocardial infarction; Z87.440 Personal history of urinary (tract) infections; Z90.5 Acquired absence of kidney; Z98.890 Other specified postprocedural states; Z95.828 Presence of other vascular implants and grafts; Z90.49 Acquired absence of other specified parts of digestive tract; Z90.79 Acquired absence of other genital organ(s); Z79.899 Other long term (current) drug therapy
CPT/HCPCS: 0241U; 36415; 71045; 71046; 74177; 80048; 80069; 80076; 81001; 83605; 83690; 83735; 84145; 84443; 84484; 85014; 85018; 85025; 85027; 85610; 85730; 86850; 86900; 86901; 86923; 87040; 87077; 87086; 87186; 93005; 93010; 94760; 99285-25; A9270; J0696; J1940; J3475; J7030; J7040; J7060; J7512; P9016; Q9967

== ENCOUNTER → 2021-06-03 | Outpatient (CLI) | payer OTHER ==
[2021-06-04 08:11] LABS: BASOS 1 % (Not Estab.); EOS 3 % (Not Estab.); EOS (ABSOLUTE) 0.2 x10E3/uL (0.0-0.4); HEMATOCRIT 25.2 % (37.5-51.0); HEMOGLOBIN 7.7 g/dL (13.0-17.7); IMMATURE GRANS (ABS) 0.1 x10E3/uL (0.0-0.1); IMMATURE GRANULOCYTES 1 % (Not Estab.); LYMPHS 14 % (Not Estab.); MCH 26.7 pg (26.6-33.0); MCHC 30.6 g/dL (31.5-35.7); MCV 88 fL (79-97); MONOCYTES 6 % (Not Estab.); MONOCYTES(ABSOLUTE) 0.4 x10E3/uL (0.1-0.9); NEUTROPHILS 75 % (Not Estab.); NEUTROPHILS (ABSOLUTE) 5.5 x10E3/uL (1.4-7.0); PLATELETS 233 x10E3/uL (150-450); RBC 2.88 x10E6/uL (4.14-5.80); RDW 15.3 % (11.6-15.4); WBC 7.3 x10E3/uL (3.4-10.8)
== END | disposition home or self-care (01) ==
LOC: LAB SHORT 09:20
PROVIDERS: Nurse Practitioner Family
DX: D50.0 Iron deficiency anemia secondary to blood loss (chronic) (principal); K92.2 Gastrointestinal hemorrhage, unspecified
CPT/HCPCS: 85025

== ENCOUNTER 2021-06-06 03:57 | Day surgery (SDC) | payer OTHER, MEDICARE ==
[~2021-06-06 03:57] MED LIST changes: -FERSU300 PO
[2021-06-06] MEDS ORDERED: FERSU300 PO (08:25)
[2021-06-06 10:35] LABS: Hematocrit 25.4 % (37.0-53.0)
== END 2021-06-06 16:10 | disposition home or self-care (01) ==
LOC: ATC 03:57
PROVIDERS: Internal Medicine Nephrology
DX: I12.9 Hypertensive chronic kidney disease with stage 1 through stage 4 chronic kidney disease, or unspecified chronic kidney disease (principal); N18.31 Chronic kidney disease, stage 3a; D63.1 Anemia in chronic kidney disease; N25.81 Secondary hyperparathyroidism of renal origin; E11.22 Type 2 diabetes mellitus with diabetic chronic kidney disease; E11.21 Type 2 diabetes mellitus with diabetic nephropathy
CPT/HCPCS: 85014; 85018; 86850; 86900; 86901; 86923; J1642; J1940; J7050; P9016

== ENCOUNTER 2021-06-06 20:12 | Emergency (ER) | payer OTHER, MEDICARE ==
[~2021-06-06] VITALS: Ht 180.3 cm; Wt 69.8 kg
[~2021-06-06 20:12] MED LIST changes: +FERSU300 PO
[2021-06-06 21:00] LABS: BASOPHILS ABSOLUTE AUTO 0.01 K/mm3 (0.00-0.23); BASOPHILS PERCENT AUTO 0 % (0-2); EOSINOPHILS ABSOLUTE AUTO 0.02 K/mm3 (0.00-0.68); EOSINOPHILS PERCENT AUTO 0 % (0-6); Hematocrit 27.8 % (37.0-53.0); Hemoglobin 9.1 g/dL (13.5-17.5); IMMATURE GRAN ABSOLUTE AUTO 0.04 K/mm3 (0.00-0.10); IMMATURE GRAN PERCENT AUTO 1 % (0-1); LYMPHOCYTES ABSOLUTE AUTO 0.35 K/mm3 (0.84-5.20); LYMPHOCYTES PERCENT AUTO 5 % (21-46); MONOCYTES ABSOLUTE AUTO 0.54 K/mm3 (0.16-1.47); MONOCYTES PERCENT AUTO 7 % (4-13); Mean Corpuscular HGB 29.4 pg (26.0-34.0); Mean Corpuscular HGB Conc 32.7 g/dL (31.5-36.5); Mean Corpuscular Volume 90 fL (80-100); Mean Platelet Volume 9.9 fL (9.1-12.4); NEUTROPHILS ABSOLUTE AUTO 6.59 K/mm3 (1.96-9.15); NEUTROPHILS PERCENT AUTO 87 % (41-73); Platelet Count 139 K/mm3 (150-400); RDW Standard Deviation 53.5 fL (35.1-46.3); Red Blood Cell Count 3.09 M/mm3 (4.30-5.90); White Blood Cell Count 7.55 K/mm3 (4.00-11.30)
[2021-06-06 21:21] LABS: Albumin, Blood 2.5 g/dL (3.4-5.0); Albumin/Globulin Ratio 0.8 (0.8-1.8); Bilirubin, Total 0.8 mg/dL (0.1-1.0); Bun/Creatinine Ratio 17.9 (12.0-20.0); Calcium, Blood 7.7 mg/dL (8.5-10.1); Creatinine, Blood 1.62 mg/dL (0.60-1.20); Globulin, Blood 3.1 g/dL (2.2-4.0); Potassium, Blood 4.1 mmol/L (3.5-5.5); Total Protein, Blood 5.6 g/dL (6.4-8.2)
== END 2021-06-06 23:08 | disposition home or self-care (01) ==
LOC: ER 20:12
PROVIDERS: Emergency Medicine
DX: K92.2 Gastrointestinal hemorrhage, unspecified (principal); I25.2 Old myocardial infarction; Z79.899 Other long term (current) drug therapy; N18.30 Chronic kidney disease, stage 3 unspecified; D63.1 Anemia in chronic kidney disease; E78.5 Hyperlipidemia, unspecified; Z87.891 Personal history of nicotine dependence
CPT/HCPCS: 80053; 85025; 86850; 86900; 86901; 93005; 93010; 99285-25; J1642

== ENCOUNTER 2021-06-10 01:49 | Day surgery (SDC) | payer OTHER | END 2021-06-11 02:38 | disposition home or self-care (01) | LOC: WOUND 01:49 | DX: K52.0 Gastroenteritis and colitis due to radiation (principal); L59.8 Other specified disorders of the skin and subcutaneous tissue related to radiation; N30.40 Irradiation cystitis without hematuria; Y84.2 Radiological procedure and radiotherapy as the cause of abnormal reaction of the patient, or of later complication, without mention of misadventure at the time of the procedure; Z87.891 Personal history of nicotine dependence | CPT/HCPCS: G0463 ==

== ENCOUNTER 2021-06-16 09:48 | Observation (INO) | payer OTHER ==
[~2021-06-16] VITALS: Ht 172.7 cm; Wt 65.8 kg
[2021-06-16 10:48] LABS: BASOPHILS ABSOLUTE AUTO 0.02 K/mm3 (0.00-0.23); BASOPHILS PERCENT AUTO 0 % (0-2); EOSINOPHILS ABSOLUTE AUTO 0.11 K/mm3 (0.00-0.68); EOSINOPHILS PERCENT AUTO 1 % (0-6); Hematocrit 20.3 % (37.0-53.0); IMMATURE GRAN ABSOLUTE AUTO 0.18 K/mm3 (0.00-0.10); IMMATURE GRAN PERCENT AUTO 2 % (0-1); LYMPHOCYTES ABSOLUTE AUTO 1.26 K/mm3 (0.84-5.20); LYMPHOCYTES PERCENT AUTO 10 % (21-46); MONOCYTES ABSOLUTE AUTO 0.67 K/mm3 (0.16-1.47); MONOCYTES PERCENT AUTO 5 % (4-13); Mean Corpuscular HGB 27.5 pg (26.0-34.0); Mean Corpuscular HGB Conc 29.6 g/dL (31.5-36.5); Mean Corpuscular Volume 93 fL (80-100); NEUTROPHILS ABSOLUTE AUTO 10.16 K/mm3 (1.96-9.15); NEUTROPHILS PERCENT AUTO 82 % (41-73); NRBC ABSOLUTE 0.02 K/mm3 (0.00-0.02); NRBC Auto 0.2 /100 WBC (0.0-0.2); Platelet Count 269 K/mm3 (150-400); RDW Coefficient Variation 17.6 % (11.7-14.2); RDW Standard Deviation 58.5 fL (35.1-46.3); Red Blood Cell Count 2.18 M/mm3 (4.30-5.90)
[2021-06-16 11:12] LABS: Albumin, Blood 2.5 g/dL (3.4-5.0); Albumin/Globulin Ratio 0.6 (0.8-1.8); Bilirubin, Total 0.4 mg/dL (0.1-1.0); Bun/Creatinine Ratio 20.8 (12.0-20.0); Calcium, Blood 7.8 mg/dL (8.5-10.1); Creatinine, Blood 1.54 mg/dL (0.60-1.20); Globulin, Blood 3.9 g/dL (2.2-4.0); Potassium, Blood 3.9 mmol/L (3.5-5.5); Total Protein, Blood 6.4 g/dL (6.4-8.2)
--- NOTE | 2021-06-16 18:49 | NUR ---
Patient was transferred to medical unit [id number] at 1620. His diagnosis was acute/chronic anemia. One unit of blood was given in ER and this RN gave 2nd unit of blood on the unit. He was alert and orient, affect was pleasant and mood was congruent. He was given Oxycodone and Robaxin prn for pain and spasms He had no other requests at this time
--- NOTE | 2021-06-16 20:12 | NUR ---
BLOOD UNIT BLOOD & SALINE FLUSH FINISHED @1999. VSS. WILL MONITOR PT.
[2021-06-16 21:19] LABS: Hematocrit 22.3 % (37.0-53.0); Hemoglobin 7.2 g/dL (13.5-17.5)
[2021-06-16 23:26] LABS: Source, Urine Urostomy Bag
[2021-06-16 23:28] LABS: Bilirubin, Urine Neg (Neg); Blood, Urine 2+ (Neg); Glucose Qualitative, Urine Neg (Neg); Ketones, Urine Neg (Neg); Leukocyte Esterase, Urine 3+ (Neg); Nitrite, Urine Pos (Neg); Protein, Urine 1+ (Neg); Urobilinogen, Urine NORM (Normal)
[2021-06-16 23:44] LABS: Appearance, Urine Hazy (Clear); Color, Urine Yellow (P-Yellow)
[2021-06-16 23:52] LABS: White Blood Cells, Urine 50-100 /hpf (0-5)
[2021-06-16 23:53] LABS: Bacteria Many /hpf; Squamous Epithelial Cells Not Seen /hpf (Few)
--- NOTE | 2021-06-17 04:36 | NUR ---
SHIFT SUMMARY AOX4. VSS. TELE NSR @78. AT 2120 PT HAD 28 BEAT RUN SVT & THEN CONVERTED BACK TO NSR, INFORMED DR LEOS. RECIEVED 1 U BLOOD LAST NIGHT, HGB RECHECK @7.2. NO S/SX OF BLEEDING THIS SHIFT. REPORTS 8/10 PAIN IN BACK & TAILBONE FROM CANCER & TAILBONE REMOVAL, MEDICATED 1X c 5MG OXYCODONE & 750MG ROBOXIN, ALONG c REPOSITIONED. PT ABLE TO REST. UROSTOMY RLQ HAS CLOUDY YELLOW URINE c MIN SEDIMENT, UA SENT TO LAB. CALL LIGHT IN REACH & PT ABLE TO VLADISLAV NEEDS KNOWN, WCTM.
[2021-06-17 09:34] LABS: Hematocrit 23.9 % (37.0-53.0); Hemoglobin 7.4 g/dL (13.5-17.5)
[2021-06-17] MEDS ORDERED: CEPH500 PO ×2 (11:31)
[2021-06-17] MEDS ORDERED: VISBIOME 112.51 EACH PO ×2 (11:31)
[2021-06-17] MEDS ORDERED: ATOR10 PO ×2 (11:39)
--- NOTE | 2021-06-17 13:09 | NUR ---
DISCHARGE SUMMARY PT DISCHARGED HOME, ALL DISCHARGE INFO GONE OVER AND MEDICATIONS DISCUSSED. MEDIPORT DEACCESSED AND HEP LOCKED. PT TAKEN DOWN TO WOUND CARE FOR APPOINMENT IMMEDIATELY POST DISCHARGE.
== END 2021-06-17 12:24 | disposition home or self-care (01) ==
LOC: ER 09:48 → ERHOLD 09:49 → MEDS 09:49
PROVIDERS: Internal Medicine; Nurse Practitioner Acute Care; Physician Assistant; ADMIT Internal Medicine
DX: D62 Acute posthemorrhagic anemia (principal); K52.1 Toxic gastroenteritis and colitis; T45.1X5A Adverse effect of antineoplastic and immunosuppressive drugs, initial encounter; K92.1 Melena; N18.30 Chronic kidney disease, stage 3 unspecified; C61 Malignant neoplasm of prostate; C67.9 Malignant neoplasm of bladder, unspecified; E78.5 Hyperlipidemia, unspecified; I25.2 Old myocardial infarction; I95.89 Other hypotension; D72.829 Elevated white blood cell count, unspecified; I48.0 Paroxysmal atrial fibrillation; I35.0 Nonrheumatic aortic (valve) stenosis; Z90.5 Acquired absence of kidney; Z23 Encounter for immunization
CPT/HCPCS: 36430; 71045; 80053; 81001; 84484; 85014; 85018; 85025; 86850; 86900; 86901; 86923; 87086; 90686; 93005; 93010; 96374; 96375; 96376; 99285-25; A9270; C9113; G0008; G0378; J1642; J7030; J7512; P9016

== ENCOUNTER 2021-06-17 00:40 | Day surgery (SDC) | payer OTHER ==
[2021-06-17] MEDS ORDERED: CEPH500 PO (11:31)
[2021-06-17] MEDS ORDERED: VISBIOME 112.51 EACH PO (11:31)
[2021-06-17] MEDS ORDERED: ATOR10 PO (11:39)
== END 2021-06-17 23:37 | disposition home or self-care (01) ==
LOC: HBO 00:40
DX: L59.8 Other specified disorders of the skin and subcutaneous tissue related to radiation (principal); Y84.2 Radiological procedure and radiotherapy as the cause of abnormal reaction of the patient, or of later complication, without mention of misadventure at the time of the procedure; N30.40 Irradiation cystitis without hematuria; K52.0 Gastroenteritis and colitis due to radiation; N18.6 End stage renal disease
CPT/HCPCS: G0277

== ENCOUNTER 2021-06-18 03:50 | Day surgery (SDC) | payer OTHER | END 2021-06-18 22:59 | disposition home or self-care (01) | LOC: HBO 03:50 | DX: L59.8 Other specified disorders of the skin and subcutaneous tissue related to radiation (principal); N30.40 Irradiation cystitis without hematuria; K52.0 Gastroenteritis and colitis due to radiation; Y84.2 Radiological procedure and radiotherapy as the cause of abnormal reaction of the patient, or of later complication, without mention of misadventure at the time of the procedure | CPT/HCPCS: G0277 ==

== ENCOUNTER 2021-06-19 02:03 | Day surgery (SDC) | payer OTHER | END 2021-06-19 12:00 | disposition home or self-care (01) | LOC: HBO 02:03 | DX: L59.8 Other specified disorders of the skin and subcutaneous tissue related to radiation (principal); N30.40 Irradiation cystitis without hematuria; K52.0 Gastroenteritis and colitis due to radiation; Y84.2 Radiological procedure and radiotherapy as the cause of abnormal reaction of the patient, or of later complication, without mention of misadventure at the time of the procedure | CPT/HCPCS: G0277 ==

== ENCOUNTER 2021-06-22 02:05 | Day surgery (SDC) | payer OTHER | END 2021-06-22 23:18 | disposition home or self-care (01) | LOC: HBO 02:05 | DX: L59.8 Other specified disorders of the skin and subcutaneous tissue related to radiation (principal); N30.40 Irradiation cystitis without hematuria; K52.0 Gastroenteritis and colitis due to radiation; Y84.2 Radiological procedure and radiotherapy as the cause of abnormal reaction of the patient, or of later complication, without mention of misadventure at the time of the procedure | CPT/HCPCS: G0277 ==

== ENCOUNTER 2021-06-23 04:09 | Day surgery (SDC) | payer OTHER | END 2021-06-23 22:45 | disposition home or self-care (01) | LOC: HBO 04:09 | DX: L59.8 Other specified disorders of the skin and subcutaneous tissue related to radiation (principal); N30.40 Irradiation cystitis without hematuria; K52.0 Gastroenteritis and colitis due to radiation; Y84.2 Radiological procedure and radiotherapy as the cause of abnormal reaction of the patient, or of later complication, without mention of misadventure at the time of the procedure | CPT/HCPCS: G0277 ==

== ENCOUNTER → 2021-06-23 | Outpatient (CLI) | payer OTHER ==
[2021-06-23 17:59] LABS: Hematocrit 28.3 % (37.0-53.0); Hemoglobin 8.4 g/dL (13.5-17.5)
== END | disposition home or self-care (01) ==
LOC: LAB SHORT 14:40
PROVIDERS: Nurse Practitioner Family
DX: D50.0 Iron deficiency anemia secondary to blood loss (chronic) (principal)
CPT/HCPCS: 85014; 85018

== ENCOUNTER 2021-06-24 00:09 | Day surgery (SDC) | payer OTHER | END 2021-06-24 23:25 | disposition home or self-care (01) | LOC: HBO 00:09 | DX: L59.8 Other specified disorders of the skin and subcutaneous tissue related to radiation (principal); N30.40 Irradiation cystitis without hematuria; K52.0 Gastroenteritis and colitis due to radiation; Y84.2 Radiological procedure and radiotherapy as the cause of abnormal reaction of the patient, or of later complication, without mention of misadventure at the time of the procedure | CPT/HCPCS: G0277 ==

== ENCOUNTER 2021-06-25 02:09 | Day surgery (SDC) | payer OTHER | END 2021-06-25 22:58 | disposition home or self-care (01) | LOC: HBO 02:09 | DX: L59.8 Other specified disorders of the skin and subcutaneous tissue related to radiation (principal); N30.40 Irradiation cystitis without hematuria; K52.0 Gastroenteritis and colitis due to radiation | CPT/HCPCS: G0277 ==

== ENCOUNTER 2021-06-26 02:57 | Day surgery (SDC) | payer OTHER | END 2021-06-26 23:17 | disposition home or self-care (01) | LOC: HBO 02:57 | DX: L59.8 Other specified disorders of the skin and subcutaneous tissue related to radiation (principal); N30.40 Irradiation cystitis without hematuria; K52.0 Gastroenteritis and colitis due to radiation | CPT/HCPCS: G0277 ==

== ENCOUNTER 2021-06-29 01:34 | Day surgery (SDC) | payer OTHER | END 2021-06-29 23:41 | disposition home or self-care (01) | LOC: HBO 01:34 | DX: L59.8 Other specified disorders of the skin and subcutaneous tissue related to radiation (principal); N30.40 Irradiation cystitis without hematuria; K52.0 Gastroenteritis and colitis due to radiation; Y84.2 Radiological procedure and radiotherapy as the cause of abnormal reaction of the patient, or of later complication, without mention of misadventure at the time of the procedure | CPT/HCPCS: G0277 ==

== ENCOUNTER 2021-07-01 00:20 | Day surgery (SDC) | payer OTHER | END 2021-07-01 22:53 | disposition home or self-care (01) | LOC: HBO 00:20 | DX: L59.8 Other specified disorders of the skin and subcutaneous tissue related to radiation (principal); Y84.2 Radiological procedure and radiotherapy as the cause of abnormal reaction of the patient, or of later complication, without mention of misadventure at the time of the procedure; N30.40 Irradiation cystitis without hematuria; K52.0 Gastroenteritis and colitis due to radiation | CPT/HCPCS: G0277 ==

== ENCOUNTER 2021-07-02 09:38 | Emergency (ER) | payer OTHER ==
[~2021-07-02] VITALS: Ht 180.3 cm; Wt 68.0 kg
[2021-07-02 11:20] LABS: BASOPHILS ABSOLUTE AUTO 0.03 K/mm3 (0.00-0.23); BASOPHILS PERCENT AUTO 1 % (0-2); EOSINOPHILS ABSOLUTE AUTO 0.06 K/mm3 (0.00-0.68); EOSINOPHILS PERCENT AUTO 1 % (0-6); Hematocrit 20.2 % (37.0-53.0); Hemoglobin 6.1 g/dL (13.5-17.5); IMMATURE GRAN ABSOLUTE AUTO 0.03 K/mm3 (0.00-0.10); IMMATURE GRAN PERCENT AUTO 1 % (0-1); LYMPHOCYTES ABSOLUTE AUTO 0.34 K/mm3 (0.84-5.20); LYMPHOCYTES PERCENT AUTO 7 % (21-46); MONOCYTES ABSOLUTE AUTO 0.46 K/mm3 (0.16-1.47); MONOCYTES PERCENT AUTO 10 % (4-13); Mean Corpuscular HGB 28.9 pg (26.0-34.0); Mean Corpuscular HGB Conc 30.2 g/dL (31.5-36.5); Mean Corpuscular Volume 96 fL (80-100); Mean Platelet Volume 10.7 fL (9.1-12.4); NEUTROPHILS ABSOLUTE AUTO 3.89 K/mm3 (1.96-9.15); NEUTROPHILS PERCENT AUTO 81 % (41-73); Platelet Count 114 K/mm3 (150-400); RDW Coefficient Variation 20.1 % (11.7-14.2); RDW Standard Deviation 69.9 fL (35.1-46.3); Red Blood Cell Count 2.11 M/mm3 (4.30-5.90); White Blood Cell Count 4.81 K/mm3 (4.00-11.30)
[2021-07-02 11:40] LABS: Albumin, Blood 2.4 g/dL (3.4-5.0); Albumin/Globulin Ratio 0.8 (0.8-1.8); Bilirubin, Total 0.4 mg/dL (0.1-1.0); Bun/Creatinine Ratio 26.7 (12.0-20.0); Calcium, Blood 8.1 mg/dL (8.5-10.1); Creatinine, Blood 1.35 mg/dL (0.60-1.20); Globulin, Blood 3.2 g/dL (2.2-4.0); Potassium, Blood 4.4 mmol/L (3.5-5.5); Total Protein, Blood 5.6 g/dL (6.4-8.2)
== END 2021-07-02 12:55 | disposition other institution (70) ==
LOC: ER 09:38
PROVIDERS: Emergency Medicine
DX: D64.9 Anemia, unspecified (principal); N18.30 Chronic kidney disease, stage 3 unspecified; Z79.2 Long term (current) use of antibiotics; Z79.899 Other long term (current) drug therapy; Z87.891 Personal history of nicotine dependence; Z85.51 Personal history of malignant neoplasm of bladder; Z85.46 Personal history of malignant neoplasm of prostate
CPT/HCPCS: 71045; 80053; 83690; 84484; 85025; 93005; 93010; 99285-25

== ENCOUNTER 2021-07-02 13:05 | Day surgery (SDC) | payer MEDICARE, OTHER | END 2021-07-02 16:25 | disposition home or self-care (01) | LOC: ATC 13:05 | DX: D64.9 Anemia, unspecified (principal); I12.9 Hypertensive chronic kidney disease with stage 1 through stage 4 chronic kidney disease, or unspecified chronic kidney disease; E11.22 Type 2 diabetes mellitus with diabetic chronic kidney disease; N18.31 Chronic kidney disease, stage 3a; N25.81 Secondary hyperparathyroidism of renal origin; E83.30 Disorder of phosphorus metabolism, unspecified; E55.9 Vitamin D deficiency, unspecified | CPT/HCPCS: 36430; 86850; 86900; 86901; 86923; P9016 ==

== ENCOUNTER 2021-07-06 10:45 | Day surgery (SDC) | payer MEDICARE, OTHER | END 2021-07-06 16:35 | disposition home or self-care (01) | LOC: ATC 10:45 | DX: D64.9 Anemia, unspecified (principal); K92.2 Gastrointestinal hemorrhage, unspecified | CPT/HCPCS: 86850; 86900; 86901; 86923; J1642; J7050; P9016 ==

== ENCOUNTER 2021-07-07 00:32 | Day surgery (SDC) | payer OTHER, MEDICARE | END 2021-07-07 23:03 | disposition home or self-care (01) | LOC: HBO 00:32 | DX: L59.8 Other specified disorders of the skin and subcutaneous tissue related to radiation (principal); N30.40 Irradiation cystitis without hematuria; K52.0 Gastroenteritis and colitis due to radiation; Y84.2 Radiological procedure and radiotherapy as the cause of abnormal reaction of the patient, or of later complication, without mention of misadventure at the time of the procedure | CPT/HCPCS: G0277 ==

== ENCOUNTER → 2021-07-07 | Outpatient (CLI) | payer OTHER, MEDICARE ==
[2021-07-07 19:37] LABS: IMMATURE RETIC FRACTION 31.8 % (2.3-16.0); RETIC HGB EQUIVALENT 22.5 pg (28.20-36.60); RETICULOCYTE ABSOLUTE 0.1511 M/mm3 (0.0200-0.1100); RETICULOCYTE COUNT PERCENT 5.68 % (0.50-2.50)
== END | disposition home or self-care (01) ==
LOC: LAB SHORT 14:04
PROVIDERS: Internal Medicine Hematology & Oncology
DX: E53.8 Deficiency of other specified B group vitamins (principal); D50.9 Iron deficiency anemia, unspecified
CPT/HCPCS: 82607; 82746; 85045

== ENCOUNTER 2021-07-08 01:49 | Day surgery (SDC) | payer OTHER, MEDICARE | END 2021-07-08 23:26 | disposition home or self-care (01) | LOC: HBO 01:49 | DX: L59.8 Other specified disorders of the skin and subcutaneous tissue related to radiation (principal); N30.40 Irradiation cystitis without hematuria; K52.0 Gastroenteritis and colitis due to radiation; Y84.2 Radiological procedure and radiotherapy as the cause of abnormal reaction of the patient, or of later complication, without mention of misadventure at the time of the procedure | CPT/HCPCS: G0277 ==

== ENCOUNTER 2021-07-09 00:21 | Day surgery (SDC) | payer OTHER, MEDICARE | END 2021-07-09 23:37 | disposition home or self-care (01) | LOC: HBO 00:21 | DX: L59.8 Other specified disorders of the skin and subcutaneous tissue related to radiation (principal); N30.40 Irradiation cystitis without hematuria; K52.0 Gastroenteritis and colitis due to radiation | CPT/HCPCS: G0277 ==

== ENCOUNTER 2021-07-10 01:11 | Day surgery (SDC) | payer OTHER, MEDICARE | END 2021-07-10 23:04 | disposition home or self-care (01) | LOC: HBO 01:11 | DX: L59.8 Other specified disorders of the skin and subcutaneous tissue related to radiation (principal); N30.40 Irradiation cystitis without hematuria; K52.0 Gastroenteritis and colitis due to radiation; Y84.2 Radiological procedure and radiotherapy as the cause of abnormal reaction of the patient, or of later complication, without mention of misadventure at the time of the procedure | CPT/HCPCS: G0277 ==

== ENCOUNTER 2021-07-13 05:49 | Day surgery (SDC) | payer OTHER, MEDICARE | END 2021-07-13 23:31 | disposition home or self-care (01) | LOC: HBO 05:49 | DX: L59.8 Other specified disorders of the skin and subcutaneous tissue related to radiation (principal); Y84.2 Radiological procedure and radiotherapy as the cause of abnormal reaction of the patient, or of later complication, without mention of misadventure at the time of the procedure; N30.40 Irradiation cystitis without hematuria; K52.0 Gastroenteritis and colitis due to radiation | CPT/HCPCS: G0277 ==

== ENCOUNTER 2021-07-14 05:58 | Day surgery (SDC) | payer OTHER, MEDICARE | END 2021-07-14 23:59 | disposition home or self-care (01) | LOC: HBO 05:58 | DX: L59.8 Other specified disorders of the skin and subcutaneous tissue related to radiation (principal); Y84.2 Radiological procedure and radiotherapy as the cause of abnormal reaction of the patient, or of later complication, without mention of misadventure at the time of the procedure; N30.40 Irradiation cystitis without hematuria; K52.0 Gastroenteritis and colitis due to radiation | CPT/HCPCS: G0277 ==

== ENCOUNTER 2021-07-15 03:29 | Day surgery (SDC) | payer OTHER, MEDICARE | END 2021-07-15 23:05 | disposition home or self-care (01) | LOC: HBO 03:29 | DX: L59.8 Other specified disorders of the skin and subcutaneous tissue related to radiation (principal); N30.40 Irradiation cystitis without hematuria; K52.0 Gastroenteritis and colitis due to radiation; Y84.2 Radiological procedure and radiotherapy as the cause of abnormal reaction of the patient, or of later complication, without mention of misadventure at the time of the procedure | CPT/HCPCS: G0277 ==

== ENCOUNTER 2021-07-15 03:43 | Day surgery (SDC) | payer OTHER, MEDICARE | END 2021-07-15 23:06 | disposition home or self-care (01) | LOC: WOUND 03:43 | DX: L59.8 Other specified disorders of the skin and subcutaneous tissue related to radiation (principal); Y84.2 Radiological procedure and radiotherapy as the cause of abnormal reaction of the patient, or of later complication, without mention of misadventure at the time of the procedure; N30.40 Irradiation cystitis without hematuria; K52.0 Gastroenteritis and colitis due to radiation | CPT/HCPCS: G0463 ==

== ENCOUNTER 2021-07-16 00:25 | Day surgery (SDC) | payer OTHER, MEDICARE | END 2021-07-16 23:20 | disposition home or self-care (01) | LOC: HBO 00:25 | DX: L59.8 Other specified disorders of the skin and subcutaneous tissue related to radiation (principal); N30.40 Irradiation cystitis without hematuria; K52.0 Gastroenteritis and colitis due to radiation; Y84.2 Radiological procedure and radiotherapy as the cause of abnormal reaction of the patient, or of later complication, without mention of misadventure at the time of the procedure | CPT/HCPCS: G0277 ==

== ENCOUNTER 2021-07-17 00:37 | Day surgery (SDC) | payer OTHER, MEDICARE | END 2021-07-17 23:59 | disposition home or self-care (01) | LOC: HBO 00:37 | DX: L59.8 Other specified disorders of the skin and subcutaneous tissue related to radiation (principal); N30.40 Irradiation cystitis without hematuria; K52.0 Gastroenteritis and colitis due to radiation; Y84.2 Radiological procedure and radiotherapy as the cause of abnormal reaction of the patient, or of later complication, without mention of misadventure at the time of the procedure | CPT/HCPCS: G0277 ==

== ENCOUNTER 2021-07-20 02:19 | Day surgery (SDC) | payer OTHER, MEDICARE | END 2021-07-20 22:47 | disposition home or self-care (01) | LOC: HBO 02:19 | DX: L59.8 Other specified disorders of the skin and subcutaneous tissue related to radiation (principal); N30.40 Irradiation cystitis without hematuria; K52.0 Gastroenteritis and colitis due to radiation; Y84.2 Radiological procedure and radiotherapy as the cause of abnormal reaction of the patient, or of later complication, without mention of misadventure at the time of the procedure | CPT/HCPCS: G0277 ==

== ENCOUNTER 2021-07-22 01:04 | Day surgery (SDC) | payer OTHER ==
[~2021-07-22 01:04] MED LIST changes: +Methocarbamol500 MG PO; -Robaxin750 MG PO
[2021-07-23] MEDS ORDERED: METO25ER PO (11:39)
[2021-07-23] MEDS ORDERED: MECL25 PO (11:40)
[2021-07-23] MEDS ORDERED: NITR.4SL SL (11:40)
[2021-07-23] MEDS ORDERED: NORTHERA100 MG PO (11:58)
[2021-11-25] MEDS ORDERED: PANT20 PO (14:29)
[2021-12-05] MEDS ORDERED: CEFD300 PO (22:12)
[2022-01-04] MEDS ORDERED: PANT40 PO (15:50)
== END 2021-07-22 23:22 | disposition home or self-care (01) ==
LOC: HBO 01:04
DX: L59.8 Other specified disorders of the skin and subcutaneous tissue related to radiation (principal); N30.40 Irradiation cystitis without hematuria; K52.0 Gastroenteritis and colitis due to radiation; Y84.2 Radiological procedure and radiotherapy as the cause of abnormal reaction of the patient, or of later complication, without mention of misadventure at the time of the procedure
CPT/HCPCS: G0277

== ENCOUNTER 2021-07-23 09:57 | Inpatient (IN) | payer OTHER ==
[~2021-07-23] VITALS: Ht 180.3 cm; Wt 85.7 kg
[~2021-07-23 09:57] MED LIST changes: -Methocarbamol500 MG PO; +Robaxin750 MG PO
[2021-07-23 10:53] LABS: Albumin, Blood 2.2 g/dL (3.4-5.0); Albumin/Globulin Ratio 0.6 (0.8-1.8); Bilirubin, Total 0.4 mg/dL (0.1-1.0); Bun/Creatinine Ratio 19.5 (12.0-20.0); Calcium, Blood 8.1 mg/dL (8.5-10.1); Creatinine, Blood 1.64 mg/dL (0.60-1.20); Globulin, Blood 3.7 g/dL (2.2-4.0); Potassium, Blood 4.9 mmol/L (3.5-5.5); Total Protein, Blood 5.9 g/dL (6.4-8.2)
[2021-07-23 11:17] LABS: BASOPHILS ABSOLUTE AUTO 0.04 K/mm3 (0.00-0.23); BASOPHILS PERCENT AUTO 1 % (0-2); EOSINOPHILS ABSOLUTE AUTO 0.11 K/mm3 (0.00-0.68); EOSINOPHILS PERCENT AUTO 2 % (0-6); IMMATURE GRAN ABSOLUTE AUTO 0.08 K/mm3 (0.00-0.10); IMMATURE GRAN PERCENT AUTO 1 % (0-1); LYMPHOCYTES ABSOLUTE AUTO 0.43 K/mm3 (0.84-5.20); LYMPHOCYTES PERCENT AUTO 7 % (21-46); MONOCYTES ABSOLUTE AUTO 0.48 K/mm3 (0.16-1.47); MONOCYTES PERCENT AUTO 7 % (4-13); Mean Corpuscular HGB 26.9 pg (26.0-34.0); Mean Corpuscular HGB Conc 28.7 g/dL (31.5-36.5); Mean Corpuscular Volume 94 fL (80-100); Mean Platelet Volume 10.7 fL (9.1-12.4); NEUTROPHILS PERCENT AUTO 83 % (41-73); Platelet Count 211 K/mm3 (150-400); RDW Coefficient Variation 17.7 % (11.7-14.2); RDW Standard Deviation 58.6 fL (35.1-46.3); Red Blood Cell Count 1.86 M/mm3 (4.30-5.90); White Blood Cell Count 6.64 K/mm3 (4.00-11.30)
[2021-07-23 11:20] LABS: Hematocrit 17.4 % (37.0-53.0)
[2021-07-23] MEDS ORDERED: METO25ER PO (11:39)
[2021-07-23] MEDS ORDERED: NITR.4SL SL (11:40)
[2021-07-23] MEDS ORDERED: MECL25 PO (11:40)
[2021-07-23] MEDS ORDERED: NORTHERA100 MG PO (11:58)
--- NOTE | 2021-07-23 13:56 | NUR ---
Telephone report received from Donato Martinez RN in ED. Anticipate arrival of pt to PCU 17 once the room is finished being cleaned.
[2021-07-23 14:38] LABS: Source, Urine Urostomy Bag
[2021-07-23 14:50] LABS: Appearance, Urine Turbid (Clear); Bilirubin, Urine Neg (Neg); Blood, Urine 3+ (Neg); Glucose Qualitative, Urine Neg (Neg); Ketones, Urine Neg (Neg); Leukocyte Esterase, Urine 3+ (Neg); Nitrite, Urine Neg (Neg); Protein, Urine 2+ (Neg); Specific Gravity, Urine 1.015 (1.003-1.022); Urobilinogen, Urine NORM (Normal)
[2021-07-23 14:52] LABS: Color, Urine Pale Yellow (P-Yellow)
--- NOTE | 2021-07-23 14:57 | NUR ---
ARRIVED to [facility], Dahiana accompanying pt. Blood transfusion in progress. PT was able to stand and pivot with assistance from the stretcher to the bed. Alert, oriented, pleasantly conversant, appropriate in conversation. NO needs or concerns voiced at this time.
[2021-07-23 15:08] LABS: White Blood Cells, Urine TNTC /hpf (0-5)
[2021-07-23 15:10] LABS: Amorphous Light (0-Heavy); Bacteria Many /hpf; Red Blood Cells, Urine 0-2 /hpf (0-2); Squamous Epithelial Cells Not Seen /hpf (Few)
--- NOTE | 2021-07-23 15:28 | NUR ---
Heart rate noted 130 bpm, with PVCs, noted sinus tachycardia on bedside monitoring tech. Blood pressure is stable. Just started 2nd unit of PBCs at this time. Pt denies any symptoms of dizzyness, or chest pain, nor dysnpea. STates having pain in his 'tailbone and back" which are chronic for him. Eggcrate mattress put on bed to decrease his discomfort.
--- NOTE | 2021-07-23 16:36 | NUR ---
Pt's heart rate after atrial tachycardia 129-133 bpm lasting about 20-30 minutes then resolved to normal sinus rhythm 90 bpm with occasional premature ventricular contractions. Blood pressure is stable, however low at times, consistent with the trend noted before admission while pt was still in the ED. 2nd unit of blood transfusion still in progress.
--- NOTE | 2021-07-23 17:49 | NUR ---
Call to Dr. Fermin as pt states he would like to be a DNR status. Also received orders to access mediport and for lactic recheck after IV fluids are completed.
[2021-07-23 20:00] LABS: Hemoglobin 6.5 g/dL (13.5-17.5)
--- NOTE | 2021-07-23 20:19 | NUR ---
PT UPDATE UPON ASSESSMENT, PT HAD LOW BP. SENT SCHEDULED H&H TO LAB. RESULTED WITH 6.5/21.0. CALL PLACED TO MD PADILLA. MD PADILLA WITH ORDERS FOR MIDODRINE, SEE EMAR AND 1 UNIT PRBC.
[2021-07-24 04:51] LABS: Hematocrit 24.2 % (37.0-53.0); Hemoglobin 7.6 g/dL (13.5-17.5); Mean Corpuscular HGB 28.6 pg (26.0-34.0); Mean Corpuscular HGB Conc 31.4 g/dL (31.5-36.5); Mean Corpuscular Volume 91 fL (80-100); Mean Platelet Volume 11.6 fL (9.1-12.4); Platelet Count 171 K/mm3 (150-400); RDW Coefficient Variation 16.1 % (11.7-14.2); RDW Standard Deviation 52.4 fL (35.1-46.3); Red Blood Cell Count 2.66 M/mm3 (4.30-5.90); White Blood Cell Count 5.56 K/mm3 (4.00-11.30)
[2021-07-24 05:11] LABS: Albumin, Blood 1.9 g/dL (3.4-5.0); Anion Gap 6 mmol/L (6-16); Blood Urea Nitrogen 28 mg/dL (8-24); CO2, Blood 22 mmol/L (21-32); Calcium, Blood 7.9 mg/dL (8.5-10.1); Chloride, Blood 112 mmol/L (98-108); Creatinine, Blood 1.47 mg/dL (0.60-1.20); Glomerular Filtration Rate 46 (60-); Glucose, Blood 123 mg/dL (70-99); Phosphorus, Blood 3.6 mg/dL (2.5-4.9); Potassium, Blood 4.7 mmol/L (3.5-5.5); Sodium, Blood 140 mmol/L (136-145)
--- NOTE | 2021-07-24 05:53 | NUR ---
SHIFT SUMMARY PT A&OX4. SP02>92% ON RA. TELEMETRY SHOWS AFIB, HR 80'S-130'S. BP SOFT. PT HAD 1 UNIT PRBC INFUSED THIS SHIFT. UROSTOMY DRAINING TO GRAVITY. NO BM THIS SHIFT. PT C/O OF TAILBONE PAIN. MEDICATED PER EMAR X1 THIS SHIFT. PT SUPER PLEASANT BUT STATES HE IS READY TO GO HOME. LR INFUSED THIS SHIFT PER EMAR. CALL LIGHT IN REACH.
--- NOTE | 2021-07-24 08:21 | NUR ---
Jeffrey is quite painful this morning. States that he held off asking for pain medication when he woke up painful around 3 am. Medicated for pain this morning. Call to Dahiana to ask her to bring in the pt's [facility] home medication for administration while hospitalized. Vital signs are stable, sinus rhythm 88 bpm per telemetry noted. Blood pressure 106 systolic this morning. No dyspnea, no shortness of breath at rest.
[2021-07-24 11:35] LABS: IMMATURE RETIC FRACTION 30.3 % (2.3-16.0); RETIC HGB EQUIVALENT 21.4 pg (28.20-36.60); RETICULOCYTE COUNT PERCENT 3.5 % (0.50-2.50)
[2021-07-24 13:07] LABS: Hematocrit 24.6 % (37.0-53.0); Hemoglobin 7.6 g/dL (13.5-17.5)
--- NOTE | 2021-07-24 14:32 | NUR ---
Pt. is awake and in bed. Spouse is present. Pt is unsettled by ocassional visceral pain, and the desire to be home. Pt. has ability to reposition himself. Facilitate a life review and devlop rapport. Listen empathetically. With permission pray for pt. Pt. displays evidence of renewed hope. Pt. and spouse bothe verbalize gratitude for the spiritual care visit.
--- NOTE | 2021-07-24 14:53 | NUR ---
Dr. Brumfield here to see the patient.
--- NOTE | 2021-07-24 18:16 | NUR ---
Jeffrey has been alert, oriented, cooperative and cheerful. He c/o pain this morning twice and was given oxycodone for the pain. Stated he had some relief, but has not been completely pain free. States he regularly takes oxycodone at home for chronic pain. The pain is in his 'tailbone'. Allevyn pad dressing in place for protection against shearing, and eggcrate mattress is also present for relief. He has not had a good appetite for some time, and this continues. No bowel movements today. Output on the urostomy bag has been clear yellow. Encouraging po fluids as well. Dietary consultation requested. Hgb and Hct noted stable this afternoon. Blood pressure noted labile. Home medication Jcarlos was brought by his , and been administered per orders. He denies any dizzyness or lightheadedness. States that his blood pressure is usually around 90 systolic. Pt has had only a very rare dry cough, and denies any dyspnea. No supplemental oxygen needs.
--- NOTE | 2021-07-24 19:40 | NUR ---
CARE ASSUMPTION: RECEIVED REPORT FROM MAR CYR RN. PATIENT WAS ASLEEP IN ROOM WITH CALL LIGHT IN REACH. FLOW SHEET IN CHART.
[2021-07-24 21:32] LABS: Hematocrit 25.8 % (37.0-53.0); Hemoglobin 8.2 g/dL (13.5-17.5)
--- NOTE | 2021-07-25 06:34 | NUR ---
SHIFT SUMMARY: PATIENT DENIES SOB AND CHEST PAIN, COMPLAINS OF TAILBONE PAIN BUT ALSO PREFERS ONLY RIGHT HIP PROPPED. ABLE TO SHIFT SELF IN BED FROM SIDE TO SIDE. USES CALL LIGHT APPROPRIATELY, PLEASANT AND COOPERATIVE WITH CARE, AND VERY CHATTY. HAD A RUN OF ASYMPTOMATIC VTACH JUST BEFORE MIDNIGHT. VSS. WILL CONTINUE TO MONITOR AND REPORT TO ONCOMING RN.
--- NOTE | 2021-07-25 08:10 | NUR ---
Pt was asleep when I entered the room. Noted sinus rhythm 80 bpm by prison keeper. Awakened easily, alert and oriented. Spontaneous atrial tachycardia while at rest , 129-133 bpm and associated hypotension 83/52. After just 5-10 minutes, spontaneously resolution to sinus rhythm and blood pressure improved to 101/70. Pt denies any associated symptoms. Ambulatory to the bathroom with walker, denies any dizzyness except for mild dizzyness which he states he has "all the time". Able to walk quite briskly to commode, and had a brown formed bowel movement. Ambulatory to the bed for breakfast. Medicated for pain 12/16 in his sacral area. Cheerful and pleasantly conversant.
--- NOTE | 2021-07-25 08:30 | NUR ---
Jeffrey states that many years ago he had fractured his "tailbone" and it was surgically repaired. States that for many years he no longer had pain in that area, but that it returned about 1 1/2 months ago, and has been very painful. He complains frequently throughout the past 3 days of pain in his tailbone and is getting oxycodone often for that pain, which he also takes at home. Also c/o feeling really tired. Appetite also not good, but he is drinking milk and ensure. Encouraged him to drink liquids. Had a brown, formed bowel movement this morning after walking into bathroom with standby assistance.
--- NOTE | 2021-07-25 09:38 | NUR ---
Rounded with Dr Oakes at this time.
--- NOTE | 2021-07-25 10:33 | NUR ---
Dr. Marquis Danielle rounding on the pt at this time.
--- NOTE | 2021-07-25 12:06 | NUR ---
PWERGLIDE SITE WNL, NON-RESISTANT NS FLUSH, BUT WILL NOT DRAW BLOOD. [facility] ACCESSED FOR BLOOD DRAW AT THIS TIME. PT TOLERATED WELL.
[2021-07-25 12:20] LABS: Hematocrit 27.3 % (37.0-53.0); Hemoglobin 8.4 g/dL (13.5-17.5)
[2021-07-25 12:41] LABS: Percent Saturation 9.6 % (20.0-50.0)
--- NOTE | 2021-07-25 13:35 | NUR ---
Pt was incontinent of a large, loose soft BM; scant amount of red noted in the stool, mostly brown in color, however. Pt assisted with hygeine care by PCT.
--- NOTE | 2021-07-25 17:47 | NUR ---
Jeffrey has been pleasant, cheerful and conversant throughout the shift. He has not had a better appetite, but has been drinking some ensure drink today. Urine output good via urostomy. Also had 2 brown bowel movements, the second one with scant bright red blood bu otherwise normal in color. Mediport was accesses for blood draw and heparin locked per orders. Dahiana was here visiting the pt for several hours today. They both express appreciation for the care that they have experienced while Jeffrey is here.
[2021-07-26 04:42] LABS: Alanine Aminotransfer (ALT/SGP 9 U/L (12-78); Albumin, Blood 1.8 g/dL (3.4-5.0); Albumin/Globulin Ratio 0.6 (0.8-1.8); Alk Phos 69 U/L (50-136); Anion Gap 6 mmol/L (6-16); Aspartate Aminotrans (AST/SGOT 11 U/L (12-37); Bilirubin, Total 0.3 mg/dL (0.1-1.0); Blood Urea Nitrogen 20 mg/dL (8-24); Bun/Creatinine Ratio 17.2 (12.0-20.0); CO2, Blood 23 mmol/L (21-32); Calcium, Blood 8.1 mg/dL (8.5-10.1); Chloride, Blood 112 mmol/L (98-108); Creatinine, Blood 1.16 mg/dL (0.60-1.20); Globulin, Blood 3.2 g/dL (2.2-4.0); Glomerular Filtration Rate >60 (60-); Glucose, Blood 118 mg/dL (70-99); Potassium, Blood 4.4 mmol/L (3.5-5.5); Sodium, Blood 141 mmol/L (136-145)
--- NOTE | 2021-07-26 05:47 | NUR ---
SHIFT SUMMARY PATIENT ALERT AND ORIENTED x4. VSS WITH SOFT BPs AT TIMES. PATIENT REMAINS ON RA WITH O2 SAT >90%. DENIES CHEST PAIN OR SHORTNESS OF BREATH. PATIENT ABLE TO TURN SELF IN BED INDEPENDENTLY. UROSTOMY DRAINING, ADEQUATE URINE OUTPUT. ONLY COMPLAINT WAS FROM CHRONIC BACK/"TAILBONE" PAIN, MEDICATED PER EMAR. OFFERED COLD/HEAT THERAPY BUT PATIENT DELINED. NO OTHER ACUTE CHANGES THIS SHIFT, WILL REPORT TO DAY SHIFT RN.
[2021-07-26] MEDS ORDERED: MIRALAX11910 PO (17:01)
[2021-07-26] MEDS ORDERED: VISBIOME 112.51 EACH PO (17:02)
[2021-07-26] MEDS ORDERED: SULTRIDS PO (17:03)
[2021-07-26] MEDS ORDERED: Vitamin D1000 UNI1 PO (17:03)
--- NOTE | 2021-07-26 17:32 | NUR ---
UPDATE PT ALERT AND ORIENTED. ORTHOSTATIC BP DONE THIS AFTERNOON ORDERED BY PROVIDER AND RESULTS GIVEN TO PROVIDER. PT WALKED WITH SBA AND WALKER TO THE DOORWAY OF ROOM AND BACK. DR. BARCENAS NOTIFIED OF HOW PT DID WALKING. ORDERS FOR DC PROVIDED. PT GIVEN DC INSTRUCTIONS AND EDUCATED ON MEDICATIONS. ALL QUESTIONS ANSWERED. PORT DEACESSED PER PROTOCOL WITH NO COMPLICATIONS. POWERGLIDE REMOVED AND INTACT. PT TAKEN OUT BY HERMILO
== END 2021-07-26 17:40 | disposition home or self-care (01) | DRG 871 ==
LOC: ER 09:57 → PCU 14:32
PROVIDERS: Emergency Medicine; Family Medicine; Internal Medicine; ADMIT Internal Medicine
PROC: 30233N1 Transfusion of Nonautologous Red Blood Cells into Peripheral Vein, Percutaneous Approach (ICD-10-PCS; principal; 2021-07-23)
PROC: 3E03329 Introduction of Other Anti-infective into Peripheral Vein, Percutaneous Approach (ICD-10-PCS; 2021-07-23)
DX: A41.9 Sepsis, unspecified organism (principal); J18.9 Pneumonia, unspecified organism; R65.21 Severe sepsis with septic shock; K92.2 Gastrointestinal hemorrhage, unspecified; D62 Acute posthemorrhagic anemia; I50.42 Chronic combined systolic (congestive) and diastolic (congestive) heart failure; T83.512A Infection and inflammatory reaction due to nephrostomy catheter, initial encounter; Z53.29 Procedure and treatment not carried out because of patient's decision for other reasons; I95.89 Other hypotension; Z66 Do not resuscitate; I35.0 Nonrheumatic aortic (valve) stenosis; E11.22 Type 2 diabetes mellitus with diabetic chronic kidney disease; I48.0 Paroxysmal atrial fibrillation; E78.5 Hyperlipidemia, unspecified; N18.30 Chronic kidney disease, stage 3 unspecified; G89.29 Other chronic pain; M54.9 Dorsalgia, unspecified; I25.2 Old myocardial infarction; Z86.16 Personal history of COVID-19; Z85.51 Personal history of malignant neoplasm of bladder; Z85.05 Personal history of malignant neoplasm of liver; Z85.118 Personal history of other malignant neoplasm of bronchus and lung; Z92.25 Personal history of immunosuppression therapy; Z90.5 Acquired absence of kidney; Z90.49 Acquired absence of other specified parts of digestive tract; Z87.440 Personal history of urinary (tract) infections; Z98.890 Other specified postprocedural states; Z92.21 Personal history of antineoplastic chemotherapy; Z90.6 Acquired absence of other parts of urinary tract; Z79.899 Other long term (current) drug therapy; Y83.1 Surgical operation with implant of artificial internal device as the cause of abnormal reaction of the patient, or of later complication, without mention of misadventure at the time of the procedure
CPT/HCPCS: 36415; 36430; 71045; 80053; 80069; 81001; 82728; 83010; 83540; 83550; 83605; 83615; 84145; 85014; 85018; 85025; 85027; 85045; 86850; 86900; 86901; 86923; 87040; 87086; 93005; 93010; 96365; 96375; 99285-25; A9270; J0456; J0696; J1642; J2916; J7030; J7050; J7120; P9016

== ENCOUNTER 2021-07-28 02:01 | Day surgery (SDC) | payer OTHER ==
[~2021-07-28 02:01] MED LIST changes: +MECL25 PO; +MIRALAX11910 PO; +NORTHERA100 MG PO; +SULTRIDS PO; +Vitamin D1000 UNI1 PO
== END 2021-07-28 23:43 | disposition home or self-care (01) ==
LOC: HBO 02:01
DX: L59.8 Other specified disorders of the skin and subcutaneous tissue related to radiation (principal); N30.40 Irradiation cystitis without hematuria; K52.0 Gastroenteritis and colitis due to radiation; Y84.2 Radiological procedure and radiotherapy as the cause of abnormal reaction of the patient, or of later complication, without mention of misadventure at the time of the procedure
CPT/HCPCS: G0277

== ENCOUNTER 2021-07-31 08:44 | Day surgery (SDC) | payer MEDICARE, OTHER ==
[2021-07-31] MEDS ORDERED: SULTRIDS PO (10:54)
[2021-07-31 11:13] LABS: Hematocrit 27.9 % (37.0-53.0); Hemoglobin 8.4 g/dL (13.5-17.5)
[2021-07-31 12:34] LABS: Albumin, Blood 2.2 g/dL (3.4-5.0); Anion Gap 7 mmol/L (6-16); Blood Urea Nitrogen 20 mg/dL (8-24); Bun/Creatinine Ratio 13.3 (12.0-20.0); CO2, Blood 23 mmol/L (21-32); Calcium, Blood 8.1 mg/dL (8.5-10.1); Chloride, Blood 110 mmol/L (98-108); Glomerular Filtration Rate 45 (60-); Glucose, Blood 182 mg/dL (70-99); Phosphorus, Blood 3.5 mg/dL (2.5-4.9); Potassium, Blood 4.8 mmol/L (3.5-5.5); Sodium, Blood 140 mmol/L (136-145)
--- NOTE | 2021-07-31 15:27 | NUR ---
LATE ENTRY PATIENT CAME IN FOR LAB DRAW VIA MEDIPORT. PATIENT REPORTS FEELING VERY TIRED. HIS JOEY SAYS HE LOST "A LOT OF BLOOD" THIS MORNING. BP SYSTOLIC 89 WITH HR IN 110'S. TYPE AND HOLD DRAWN IN CASE PATIENT NEEDS BLOOD TRANSFUSION. HE WAS IN ATABLE CONDITION UPON DISCHARGE. HE WAS GOING TO SEE HIS PCP SHORTLY AFTER HIS LAB DRAW. LEFT MEDIPORT ACCESSED IN CASE HIS PCP WANTED A BLOOD TRANSFUSION TODAY. PATIENT TO COME BACK FOR DEACCESS. NOTIFIED PCP OFFICE OF PATIENT PRESENTATION AND VITALS. NO NEW ORDERS NOTED AT THAT TIME
== END 2021-07-31 15:47 | disposition home or self-care (01) ==
LOC: ATC 08:44
PROVIDERS: Internal Medicine Nephrology
DX: N18.30 Chronic kidney disease, stage 3 unspecified (principal); D62 Acute posthemorrhagic anemia; D63.1 Anemia in chronic kidney disease
CPT/HCPCS: 80069; 85014; 85018; J1642

== ENCOUNTER 2021-08-03 02:05 | Day surgery (SDC) | payer OTHER | END 2021-08-03 23:36 | disposition home or self-care (01) | LOC: HBO 02:05 | DX: L59.8 Other specified disorders of the skin and subcutaneous tissue related to radiation (principal); N30.40 Irradiation cystitis without hematuria; K52.0 Gastroenteritis and colitis due to radiation; Y84.2 Radiological procedure and radiotherapy as the cause of abnormal reaction of the patient, or of later complication, without mention of misadventure at the time of the procedure | CPT/HCPCS: G0277 ==

== ENCOUNTER 2021-08-05 00:24 | Day surgery (SDC) | payer OTHER | END 2021-08-05 23:09 | disposition home or self-care (01) | LOC: HBO 00:24 | DX: L59.8 Other specified disorders of the skin and subcutaneous tissue related to radiation (principal); N30.40 Irradiation cystitis without hematuria; K52.0 Gastroenteritis and colitis due to radiation; Y84.2 Radiological procedure and radiotherapy as the cause of abnormal reaction of the patient, or of later complication, without mention of misadventure at the time of the procedure | CPT/HCPCS: G0277 ==

== ENCOUNTER 2021-08-06 09:15 | Emergency (ER) | payer OTHER ==
[~2021-08-06] VITALS: Ht 180.3 cm; Wt 68.5 kg
[2021-08-06 10:30] LABS: Calcium, Ionized (POC) 1.24 mmol/L (1.10-1.46); Chloride (POC) 106 mmol/L (98-108); Creatinine (POC) 1.6 mg/dL (0.8-1.3); Glucose (ISTAT POC) 162 mg/dL (70-99); Hemoglobin (POC) 7.8 g/dL (13.5-17.5); Potassium (POC) 4.5 mmol/L (3.5-5.5); Sodium (POC) 138 mmol/L (135-148); Total CO2 (POC) 22 mmol/L (21-32)
== END 2021-08-06 17:47 | disposition home or self-care (01) ==
LOC: ER 09:15
PROVIDERS: Emergency Medicine
DX: R55 Syncope and collapse (principal); D63.1 Anemia in chronic kidney disease; N18.30 Chronic kidney disease, stage 3 unspecified; E78.5 Hyperlipidemia, unspecified; I95.9 Hypotension, unspecified; I25.2 Old myocardial infarction; Z79.899 Other long term (current) drug therapy
CPT/HCPCS: 36430; 80047; 85014; 86850; 86900; 86901; 86923; 93005; 93010; 99284-25; A9270; J7030; P9016

== ENCOUNTER 2021-08-07 01:23 | Day surgery (SDC) | payer OTHER | END 2021-08-07 23:39 | disposition home or self-care (01) | LOC: HBO 01:23 | DX: L59.8 Other specified disorders of the skin and subcutaneous tissue related to radiation (principal); N30.40 Irradiation cystitis without hematuria; K52.0 Gastroenteritis and colitis due to radiation; Y84.2 Radiological procedure and radiotherapy as the cause of abnormal reaction of the patient, or of later complication, without mention of misadventure at the time of the procedure | CPT/HCPCS: G0277 ==

== ENCOUNTER 2021-08-11 08:00 | Day surgery (SDC) | payer OTHER, MEDICARE ==
[2021-08-11] MEDS ORDERED: MACRODANTIN50 M1 PO (14:30)
[2021-08-11] MEDS ORDERED: EPOGEN2000 UNIT/ INJ (14:31)
== END 2021-08-11 23:59 | disposition home or self-care (01) ==
LOC: HBO 08:00
DX: L59.8 Other specified disorders of the skin and subcutaneous tissue related to radiation (principal); N30.40 Irradiation cystitis without hematuria; K52.0 Gastroenteritis and colitis due to radiation; Y84.2 Radiological procedure and radiotherapy as the cause of abnormal reaction of the patient, or of later complication, without mention of misadventure at the time of the procedure
CPT/HCPCS: G0277

== ENCOUNTER 2021-08-12 01:31 | Day surgery (SDC) | payer OTHER, MEDICARE ==
[~2021-08-12 01:31] MED LIST changes: +EPOGEN2000 UNIT/ INJ; +MACRODANTIN50 M1 PO
== END 2021-08-12 23:23 | disposition home or self-care (01) ==
LOC: HBO 01:31
DX: L59.8 Other specified disorders of the skin and subcutaneous tissue related to radiation (principal); N30.40 Irradiation cystitis without hematuria; K52.0 Gastroenteritis and colitis due to radiation; Y84.2 Radiological procedure and radiotherapy as the cause of abnormal reaction of the patient, or of later complication, without mention of misadventure at the time of the procedure
CPT/HCPCS: G0277

== ENCOUNTER 2021-08-13 01:00 | Day surgery (SDC) | payer OTHER, MEDICARE | END 2021-08-13 22:56 | disposition home or self-care (01) | LOC: HBO 01:00 | DX: L59.8 Other specified disorders of the skin and subcutaneous tissue related to radiation (principal); N30.40 Irradiation cystitis without hematuria; K52.0 Gastroenteritis and colitis due to radiation; Y84.2 Radiological procedure and radiotherapy as the cause of abnormal reaction of the patient, or of later complication, without mention of misadventure at the time of the procedure | CPT/HCPCS: G0277 ==

== ENCOUNTER 2021-08-14 00:22 | Day surgery (SDC) | payer OTHER, MEDICARE | END 2021-08-14 23:19 | disposition home or self-care (01) | LOC: WOUND 00:22 | DX: L59.8 Other specified disorders of the skin and subcutaneous tissue related to radiation (principal); N30.40 Irradiation cystitis without hematuria; K52.0 Gastroenteritis and colitis due to radiation | CPT/HCPCS: G0463 ==

== ENCOUNTER 2021-08-21 02:31 | Day surgery (SDC) | payer OTHER, MEDICARE | END 2021-08-21 23:24 | disposition home or self-care (01) | LOC: WOUND 02:31 | DX: L59.8 Other specified disorders of the skin and subcutaneous tissue related to radiation (principal); N30.40 Irradiation cystitis without hematuria; K52.0 Gastroenteritis and colitis due to radiation; Y84.2 Radiological procedure and radiotherapy as the cause of abnormal reaction of the patient, or of later complication, without mention of misadventure at the time of the procedure | CPT/HCPCS: G0463 ==

== ENCOUNTER 2021-08-24 01:26 | Day surgery (SDC) | payer OTHER, MEDICARE | END 2021-08-24 22:54 | disposition home or self-care (01) | LOC: HBO 01:26 | DX: L59.8 Other specified disorders of the skin and subcutaneous tissue related to radiation (principal); N30.40 Irradiation cystitis without hematuria; K52.0 Gastroenteritis and colitis due to radiation; Y84.2 Radiological procedure and radiotherapy as the cause of abnormal reaction of the patient, or of later complication, without mention of misadventure at the time of the procedure | CPT/HCPCS: G0277 ==

== ENCOUNTER 2021-08-25 12:43 | Inpatient (IN) | payer OTHER ==
[~2021-08-25] VITALS: Ht 180.3 cm; Wt 72.0 kg
[2021-08-25 13:37] LABS: BASOPHILS ABSOLUTE AUTO 0.02 K/mm3 (0.00-0.23); BASOPHILS PERCENT AUTO 0 % (0-2); EOSINOPHILS ABSOLUTE AUTO 0.15 K/mm3 (0.00-0.68); EOSINOPHILS PERCENT AUTO 3 % (0-6); IMMATURE GRAN ABSOLUTE AUTO 0.04 K/mm3 (0.00-0.10); IMMATURE GRAN PERCENT AUTO 1 % (0-1); LYMPHOCYTES ABSOLUTE AUTO 0.46 K/mm3 (0.84-5.20); LYMPHOCYTES PERCENT AUTO 8 % (21-46); MONOCYTES PERCENT AUTO 5 % (4-13); Mean Corpuscular HGB 29.3 pg (26.0-34.0); Mean Corpuscular HGB Conc 29.3 g/dL (31.5-36.5); Mean Corpuscular Volume 100 fL (80-100); Mean Platelet Volume 10.3 fL (9.1-12.4); NEUTROPHILS ABSOLUTE AUTO 5.08 K/mm3 (1.96-9.15); NEUTROPHILS PERCENT AUTO 84 % (41-73); Platelet Count 143 K/mm3 (150-400); RDW Coefficient Variation 21.6 % (11.7-14.2); RDW Standard Deviation 76.2 fL (35.1-46.3); Red Blood Cell Count 1.57 M/mm3 (4.30-5.90); White Blood Cell Count 6.05 K/mm3 (4.00-11.30)
[2021-08-25 13:48] LABS: Albumin, Blood 2.1 g/dL (3.4-5.0); Albumin/Globulin Ratio 0.7 (0.8-1.8); Bilirubin, Total 0.3 mg/dL (0.1-1.0); Bun/Creatinine Ratio 17.5 (12.0-20.0); Calcium, Blood 7.5 mg/dL (8.5-10.1); Creatinine, Blood 1.54 mg/dL (0.60-1.20); Globulin, Blood 3.2 g/dL (2.2-4.0); Potassium, Blood 4.5 mmol/L (3.5-5.5); Total Protein, Blood 5.3 g/dL (6.4-8.2)
[2021-08-25 13:49] LABS: Hematocrit 15.7 % (37.0-53.0); Hemoglobin 4.6 g/dL (13.5-17.5)
[2021-08-25 13:52] LABS: International Normalized Ratio 1.19; Prothrombin Time Results 12.4 Sec (9.7-11.5)
--- NOTE | 2021-08-25 18:25 | NUR ---
ADMIT PT ARRIVED TO ICU 8 VIA ER BED. PT IS AWAKE, ALERT, AND ORIENTED. PT FOLLOWS DIRECTIONS APPROPRIATELY. PT MOVED TO ICU BED, PT ASSISTS WITH TURNING. PT COMPLAINS OF PAIN TO LOWERBACK, PT MED PER EMAR. VITAL SIGNS STABLE. PT ON ROOM AIR. MEDIPORT TO RIGHT UPPER CHEST ACCESSED IN ER. LR STARTED AT 125 ML/HR. PT APPEARS PALE THROUGHOUT. SKIN OVERALL C/D/I. UROSTOMY TO RLQ IN PLACE WITH CLEAR YELLOW URINE OUTPUT NOTED. ATTENDS IN PLACE, NO BM AT THIS TIME. SPOUSE AT BEDSIDE. WILL CONTINUE TO MONITOR AND REPORT OFF TO ONCOMING RN.
--- NOTE | 2021-08-25 21:25 | NUR ---
DR RAMOS CALLED FOR ORDERS FOR MEDICATION FOR CHRONIC BACK PAIN. ORDERS RECEIVED.
[2021-08-25 21:39] LABS: Hematocrit 20.5 % (37.0-53.0); Hemoglobin 6.5 g/dL (13.5-17.5)
--- NOTE | 2021-08-25 22:00 | NUR ---
HGB 6.[address] RAMOS. WILL TRANSFUSE 1 UNIT PRBC'S.
[2021-08-26 01:32] LABS: Hematocrit 22.9 % (37.0-53.0); Hemoglobin 7.1 g/dL (13.5-17.5)
--- NOTE | 2021-08-26 01:48 | NUR ---
DR REYNOLDS AT BEDSIDE FOR CONSULT
--- NOTE | 2021-08-26 04:46 | NUR ---
DR LEOS IS CALLED DUE TO CHANGE IN HR FROM 90-120'S. PT DENIES CP, SOB, OR OTHER SYMPTOMS. HE WAS ASLEEP WHEN THIS STARTED. BP 90/58, AFEBRILE, NO NEW EVIDENCE OF BLEEDING. NO NEW ORDERS RECEIVED, WILL CHECK LABS AT 0530.
[2021-08-26 05:50] LABS: Hematocrit 22.6 % (37.0-53.0); Mean Corpuscular HGB 28.6 pg (26.0-34.0); Mean Platelet Volume 10.1 fL (9.1-12.4); Platelet Count 112 K/mm3 (150-400); RDW Standard Deviation 60.1 fL (35.1-46.3); Red Blood Cell Count 2.45 M/mm3 (4.30-5.90); White Blood Cell Count 4.39 K/mm3 (4.00-11.30)
[2021-08-26 05:56] LABS: Mean Corpuscular Volume 92 fL (80-100)
[2021-08-26 06:07] LABS: Albumin/Globulin Ratio 0.7 (0.8-1.8); Bilirubin, Total 0.5 mg/dL (0.1-1.0); Bun/Creatinine Ratio 14.7 (12.0-20.0); Calcium, Blood 7.3 mg/dL (8.5-10.1); Creatinine, Blood 1.56 mg/dL (0.60-1.20); Potassium, Blood 4.5 mmol/L (3.5-5.5)
--- NOTE | 2021-08-26 06:08 | NUR ---
PT REMAINS AOX4. NO EVEIDENCE OF BLEEDING SEEN. PT REPORTS THAT HE HAD 2 BLACK STOOLS YESTERDAY DURING THE DAY. HE IS IN A BRIEF DUE TO INCONTINENCE OF STOOL. HE HAS GOOD UO FROM UROSTOMY. HR WENT FROM SR AT [address] AT 120'S AND REMAINS THERE. NO NEW ORDERS FROM MD. AM LABS PENDING. WILL TRANSFUSE IF HGB <7. WILL CONTINUE TO MONITOR AND REPORT TO ONCOMING SHIFT.
--- NOTE | 2021-08-26 07:15 | NUR ---
Assumed care of pt at 0700. Report received from Monika BARBER. Pt A&O x 4. Answers questions, follows commands, verbalizes needs. Pleasant and cooperative with care. Tachycardic, regular rhythm, rate 120s. Resembles atrial flutter, however no flutter waves are visible. BP stable. Pt on room air. SpO2 90% or greater.
[2021-08-26 11:31] LABS: Hematocrit 23.5 % (37.0-53.0); Hemoglobin 7.4 g/dL (13.5-17.5)
--- NOTE | 2021-08-26 13:44 | NUR ---
Pt had an extra large bowel movement, it was brown and without signs of bleeding.
--- NOTE | 2021-08-26 15:26 | NUR ---
Spoke with Primary RN Ignacio and discussed case. Pt resting in bed upon arrival. Accompanied by certified nursing assistant instructor Lee Ann. Pt reports tolerable pain of 3/10 in his lower back and lower abdomen. Pt denies dyspnea and anxiety at this time. Pt's spouse at bedside. Reviewed plan of care. Engaged in threapeutic discussion regarding code status and current POLST on file. Confirmed with Pt and spouse wishes are the same as on the POLST. POLST is DNR and Limited Treatment. Pt confirms he does not want CPR and does not want to intubation. No other concerns reported at this time. Spoke with Dr Bustamante and relayed Pt's wishes. Placed DNR order in [facility] per V/O from Dr Bustamante. Palliative Care will remain available.
--- NOTE | 2021-08-26 17:45 | NUR ---
SUMMARY Neuro: Pt A&O x 4. Answers questions. Follows commands. Verbalizes needs. Pleasant and cooperative with care. Musculoskeletal: Pt did not get OOB today. Pt got tachycardic and dizzy with change from supine to fowlers today. Pt able to assist with repositioning without difficulty. Respiratory: Lungs clear t/o. Pt on room air. Cardiac: Low/normal, stable, blood pressures. Spontaneously converts between atrial flutter and sinus rhtyhm. Has 20-30 PVCs per minute regardless of rhythm. GI: Tolerating regular diet well. One large BM this shift, brown. Dr Marlow aware. : Excellent urine output through urostomy Skin: Unchanged from initial assessment. [place] foam dressing applied to sacrum for protection Psychosocial: WNL. Pt had several visitors today. Telephone report given to Jen BARBER. Pt to transfer to room PCU 5. Patient, chart and belonings transferred accompanied by FRANCINE Montgomery.
--- NOTE | 2021-08-26 17:50 | NUR ---
Telephone report received from Shilpa James RN. Anticipate pt arrival to PCU 5 shortly.
--- NOTE | 2021-08-26 18:20 | NUR ---
Pt Jeffrey arrived from ICU in bed, slid over to PCU bed with lift sheet. He is alert, oriented and pleasantly conversant. Vital signs are stable. Dahiana is at the bedside. LR infusing at TKO through the mediport on the left chest wall. Peripheral IV Left antecubital space is intact.
[2021-08-27 03:51] LABS: BASOPHILS ABSOLUTE AUTO 0.03 K/mm3 (0.00-0.23); BASOPHILS PERCENT AUTO 1 % (0-2); EOSINOPHILS PERCENT AUTO 6 % (0-6); Hematocrit 26.7 % (37.0-53.0); Hemoglobin 8.1 g/dL (13.5-17.5); IMMATURE GRAN ABSOLUTE AUTO 0.02 K/mm3 (0.00-0.10); IMMATURE GRAN PERCENT AUTO 0 % (0-1); LYMPHOCYTES ABSOLUTE AUTO 0.51 K/mm3 (0.84-5.20); LYMPHOCYTES PERCENT AUTO 11 % (21-46); MONOCYTES ABSOLUTE AUTO 0.32 K/mm3 (0.16-1.47); MONOCYTES PERCENT AUTO 7 % (4-13); Mean Corpuscular HGB 28.5 pg (26.0-34.0); Mean Corpuscular HGB Conc 30.3 g/dL (31.5-36.5); Mean Corpuscular Volume 94 fL (80-100); Mean Platelet Volume 10.6 fL (9.1-12.4); NEUTROPHILS ABSOLUTE AUTO 3.63 K/mm3 (1.96-9.15); NEUTROPHILS PERCENT AUTO 76 % (41-73); Platelet Count 130 K/mm3 (150-400); RDW Coefficient Variation 19.9 % (11.7-14.2); RDW Standard Deviation 64.2 fL (35.1-46.3); Red Blood Cell Count 2.84 M/mm3 (4.30-5.90); White Blood Cell Count 4.81 K/mm3 (4.00-11.30)
[2021-08-27 04:08] LABS: Bun/Creatinine Ratio 15.7 (12.0-20.0); Calcium, Blood 7.8 mg/dL (8.5-10.1); Creatinine, Blood 1.4 mg/dL (0.60-1.20); Potassium, Blood 4.7 mmol/L (3.5-5.5)
--- NOTE | 2021-08-27 06:05 | NUR ---
SHIFT SUMMARY ASSUMED CARE OF PT AT 1900. PT IS A/OX4. HEART SOUNDS REGULAR, TELE SHOWS SINUS/ SINUS TACH. BP REMAINED SOFT BUT PT IS ASYMTOMATIC. LUNG SOUNDS DIMINISHED. PT HAS A UROSTOMY DRAINING CLEAER YELLOW URINE. PT C/O PAIN IN HIS COCCYX, AND WAS MEDICATED PER EMAR. PT HAD NO ACUTE EVENTS, PT SLEPT T/O THE NIGHT AND AWOKE EARLY THIS AM.
--- NOTE | 2021-08-27 13:40 | NUR ---
DISCHARGE NO ACUTE EVENTS THIS SHIFT, VSS. PT ALERT AND ORIENTED, NO SIGNS OF ACUTE DISTRESS. ON ROOM AIR, TOLERATING WELL. MEDIPORT DEACCESSED WITH HEPARIN FLUSH. PT AND PATIENT'S SPOUSE PROVIDED WITH DISCHARGE INFORMATION REGARDING MEDICATIONS AND FOLLOW UP PLANS. QUESTIONS ANSWERED TO SATISFACTION, LEFT VIA WHEELCHAIR TO PERSONAL VEHICLE.
== END 2021-08-27 13:41 | disposition home or self-care (01) | DRG 394 ==
LOC: ER 12:43 → ICUW 17:07 → ICUE 17:07 → PCU 08-26 17:59
PROVIDERS: Internal Medicine; Student in an Organized Health Care Education/Training Program; ADMIT Internal Medicine
PROC: 30233N1 Transfusion of Nonautologous Red Blood Cells into Peripheral Vein, Percutaneous Approach (ICD-10-PCS; principal; 2021-08-25)
DX: K52.0 Gastroenteritis and colitis due to radiation (principal); D62 Acute posthemorrhagic anemia; E87.2 Acidosis; N17.9 Acute kidney failure, unspecified; I24.8 Other forms of acute ischemic heart disease; I95.9 Hypotension, unspecified; T50.Z95A Adverse effect of other vaccines and biological substances, initial encounter; D69.6 Thrombocytopenia, unspecified; I48.0 Paroxysmal atrial fibrillation; R63.4 Abnormal weight loss; G89.29 Other chronic pain; M54.9 Dorsalgia, unspecified; I35.0 Nonrheumatic aortic (valve) stenosis; E78.5 Hyperlipidemia, unspecified; N18.30 Chronic kidney disease, stage 3 unspecified; Z92.3 Personal history of irradiation; Z87.440 Personal history of urinary (tract) infections; Z85.118 Personal history of other malignant neoplasm of bronchus and lung; Z79.899 Other long term (current) drug therapy; Z85.51 Personal history of malignant neoplasm of bladder; Z85.05 Personal history of malignant neoplasm of liver; Z87.891 Personal history of nicotine dependence; Z98.890 Other specified postprocedural states; Z90.49 Acquired absence of other specified parts of digestive tract; Z90.5 Acquired absence of kidney; I25.2 Old myocardial infarction; Z68.21 Body mass index [BMI] 21.0-21.9, adult
CPT/HCPCS: 36415; 36430; 74174; 80048; 80053; 82272; 83605; 84484; 85014; 85018; 85025; 85027; 85610; 85730; 86850; 86900; 86901; 86920; 86923; 93005; 93010; 96374; 99285-25; A9270; C9113; J1642; J2916; J7030; J7040; J7120; P9016; P9035; Q9967

== ENCOUNTER 2021-08-31 14:33 | Day surgery (SDC) | payer MEDICARE, OTHER ==
[2021-08-31 15:56] LABS: Hematocrit 27.8 % (37.0-53.0); Hemoglobin 8.4 g/dL (13.5-17.5)
== END 2021-08-31 15:34 | disposition home or self-care (01) ==
LOC: ATC 14:33
PROVIDERS: Nurse Practitioner
DX: D50.0 Iron deficiency anemia secondary to blood loss (chronic) (principal); E11.9 Type 2 diabetes mellitus without complications; Z86.16 Personal history of COVID-19; Z87.891 Personal history of nicotine dependence; M54.50 Low back pain, unspecified; G89.29 Other chronic pain
CPT/HCPCS: 36591; 85014; 85018; J1642

== ENCOUNTER 2021-09-05 09:15 | Observation (INO) | payer OTHER ==
[~2021-09-05] VITALS: Ht 180.3 cm; Wt 72.6 kg
[2021-09-05 09:55] LABS: BASOPHILS ABSOLUTE AUTO 0.03 K/mm3 (0.00-0.23); BASOPHILS PERCENT AUTO 1 % (0-2); EOSINOPHILS ABSOLUTE AUTO 0.18 K/mm3 (0.00-0.68); EOSINOPHILS PERCENT AUTO 5 % (0-6); Hematocrit 21.9 % (37.0-53.0); Hemoglobin 6.4 g/dL (13.5-17.5); IMMATURE GRAN ABSOLUTE AUTO 0.01 K/mm3 (0.00-0.10); IMMATURE GRAN PERCENT AUTO 0 % (0-1); LYMPHOCYTES ABSOLUTE AUTO 0.41 K/mm3 (0.84-5.20); LYMPHOCYTES PERCENT AUTO 12 % (21-46); MONOCYTES PERCENT AUTO 9 % (4-13); Mean Corpuscular HGB 29.2 pg (26.0-34.0); Mean Corpuscular HGB Conc 29.2 g/dL (31.5-36.5); Mean Corpuscular Volume 100 fL (80-100); NEUTROPHILS ABSOLUTE AUTO 2.61 K/mm3 (1.96-9.15); NEUTROPHILS PERCENT AUTO 74 % (41-73); Platelet Count 121 K/mm3 (150-400); RDW Coefficient Variation 18.6 % (11.7-14.2); Red Blood Cell Count 2.19 M/mm3 (4.30-5.90); White Blood Cell Count 3.54 K/mm3 (4.00-11.30)
[2021-09-05 10:05] LABS: Albumin/Globulin Ratio 0.7 (0.8-1.8); Bilirubin, Total 0.3 mg/dL (0.1-1.0); Bun/Creatinine Ratio 13.5 (12.0-20.0); Calcium, Blood 7.7 mg/dL (8.5-10.1); Creatinine, Blood 1.41 mg/dL (0.60-1.20); Potassium, Blood 4.5 mmol/L (3.5-5.5)
[2021-09-05] MEDS ORDERED: OXYC1L PO (17:38)
[2021-09-05] MEDS ORDERED: METO25 PO (17:40)
--- NOTE | 2021-09-05 18:17 | NUR ---
Patient arrived via gurney from ER, he is alert and oriented and good historian. He was able to transfer to ICU 14 bed via sliding over. He arrived with 2nd [place] PRBC infuisng and just started third PRBC. Patient has mediport to chest and blood is infusing to that. Patient has urosotomy to tp RLQ and is draining into night bag. He has maroon smears at rectum and no current stool. Admission has been done. He has been mad PCU status while here. He is on Ra and sats 100%. He is aifb 120's. He is on full liq diet until am.
[2021-09-05 20:07] LABS: Hematocrit 29.1 % (37.0-53.0); Hemoglobin 9.4 g/dL (13.5-17.5)
[2021-09-06 02:20] LABS: BASOPHILS ABSOLUTE AUTO 0.03 K/mm3 (0.00-0.23); BASOPHILS PERCENT AUTO 1 % (0-2); EOSINOPHILS ABSOLUTE AUTO 0.19 K/mm3 (0.00-0.68); EOSINOPHILS PERCENT AUTO 5 % (0-6); Hematocrit 27.9 % (37.0-53.0); IMMATURE GRAN ABSOLUTE AUTO 0.02 K/mm3 (0.00-0.10); IMMATURE GRAN PERCENT AUTO 1 % (0-1); LYMPHOCYTES ABSOLUTE AUTO 0.42 K/mm3 (0.84-5.20); LYMPHOCYTES PERCENT AUTO 12 % (21-46); MONOCYTES ABSOLUTE AUTO 0.34 K/mm3 (0.16-1.47); MONOCYTES PERCENT AUTO 10 % (4-13); Mean Corpuscular HGB 29.9 pg (26.0-34.0); Mean Corpuscular HGB Conc 32.3 g/dL (31.5-36.5); Mean Platelet Volume 9.9 fL (9.1-12.4); NEUTROPHILS ABSOLUTE AUTO 2.53 K/mm3 (1.96-9.15); NEUTROPHILS PERCENT AUTO 72 % (41-73); Platelet Count 92 K/mm3 (150-400); RDW Coefficient Variation 17.9 % (11.7-14.2); RDW Standard Deviation 58.7 fL (35.1-46.3); Red Blood Cell Count 3.01 M/mm3 (4.30-5.90); White Blood Cell Count 3.53 K/mm3 (4.00-11.30)
[2021-09-06 02:27] LABS: Anion Gap 4 mmol/L (6-16); Blood Urea Nitrogen 22 mg/dL (8-24); Bun/Creatinine Ratio 18.8 (12.0-20.0); CO2, Blood 23 mmol/L (21-32); Calcium, Blood 7.3 mg/dL (8.5-10.1); Chloride, Blood 115 mmol/L (98-108); Creatinine, Blood 1.17 mg/dL (0.60-1.20); Glomerular Filtration Rate >60 (60-); Glucose, Blood 174 mg/dL (70-99); Potassium, Blood 4.2 mmol/L (3.5-5.5); Sodium, Blood 142 mmol/L (136-145)
[2021-09-06 02:31] LABS: Mean Corpuscular Volume 93 fL (80-100)
--- NOTE | 2021-09-06 08:00 | NUR ---
patient is awake in bed at change of shift reporrt. He is alert and oriented and ask questions appropriatley. He is on RA and sats 99%, and is independent in bed with positioning for comfort. He has mediport to RU chest and has been flushed and SL'd. He has urostomy to RLQ and has clear output. is at bedside. Communicated with Dr De Guzman and she is coming to discharge.
[2021-09-06 09:20] LABS: Hematocrit 30.6 % (37.0-53.0); Hemoglobin 9.6 g/dL (13.5-17.5)
[2021-09-06] MEDS ORDERED: OMEP20ER PO (10:23)
--- NOTE | 2021-09-06 10:26 | NUR ---
Hgb has increased from 9.0 to 9.6 and D pretti has been by and spoke with family. He is being discharged and to get H&H in two days and follow up with PCP and gastro. is assisting with getting dressed and will take out in wheel chair. Mediport was de accessed and dressing placed by CN. He was given written discharge instructions and returned understanding.
== END 2021-09-06 11:16 | disposition home or self-care (01) ==
LOC: ER 09:15 → PCU 15:34 → ICUW 17:16
PROVIDERS: Emergency Medicine; ADMIT Family Medicine
DX: K92.1 Melena (principal); D62 Acute posthemorrhagic anemia; N18.30 Chronic kidney disease, stage 3 unspecified; D61.818 Other pancytopenia; E78.5 Hyperlipidemia, unspecified; K21.9 Gastro-esophageal reflux disease without esophagitis; I25.2 Old myocardial infarction; I95.9 Hypotension, unspecified; D69.6 Thrombocytopenia, unspecified; Z85.51 Personal history of malignant neoplasm of bladder; Z85.05 Personal history of malignant neoplasm of liver; Z85.118 Personal history of other malignant neoplasm of bronchus and lung; Z85.89 Personal history of malignant neoplasm of other organs and systems; Z92.25 Personal history of immunosuppression therapy; Z87.440 Personal history of urinary (tract) infections; Z87.891 Personal history of nicotine dependence; Z85.46 Personal history of malignant neoplasm of prostate
CPT/HCPCS: 36415; 36430; 80048; 80053; 85014; 85018; 85025; 86850; 86900; 86901; 86923; A9270; J1642; J7030; P9016

== ENCOUNTER 2021-09-07 08:00 | Day surgery (SDC) | payer OTHER, MEDICARE | END 2021-09-07 23:59 | disposition home or self-care (01) | LOC: WOUND 08:00 | DX: L59.8 Other specified disorders of the skin and subcutaneous tissue related to radiation (principal); N30.40 Irradiation cystitis without hematuria; K52.0 Gastroenteritis and colitis due to radiation | CPT/HCPCS: G0463 ==

== ENCOUNTER → 2021-09-08 | Outpatient (CLI) | payer OTHER, MEDICARE ==
[2021-09-08 18:16] LABS: Hematocrit 36.8 % (37.0-53.0); Hemoglobin 11.2 g/dL (13.5-17.5)
== END | disposition home or self-care (01) ==
LOC: LAB SHORT 10:10
PROVIDERS: Family Medicine
DX: K92.89 Other specified diseases of the digestive system (principal)
CPT/HCPCS: 85014; 85018; 86850; 86900; 86901

== ENCOUNTER 2021-09-28 14:06 | Observation (INO) | payer OTHER ==
[~2021-09-28] VITALS: Ht 180.3 cm; Wt 71.7 kg
[~2021-09-28 14:06] MED LIST changes: +Methocarbamol500 MG PO; -Robaxin750 MG PO
[2021-09-28 14:44] LABS: BASOPHILS ABSOLUTE AUTO 0.03 K/mm3 (0.00-0.23); BASOPHILS PERCENT AUTO 1 % (0-2); EOSINOPHILS ABSOLUTE AUTO 0.18 K/mm3 (0.00-0.68); EOSINOPHILS PERCENT AUTO 3 % (0-6); Hematocrit 24.9 % (37.0-53.0); Hemoglobin 7.6 g/dL (13.5-17.5); IMMATURE GRAN ABSOLUTE AUTO 0.03 K/mm3 (0.00-0.10); IMMATURE GRAN PERCENT AUTO 1 % (0-1); LYMPHOCYTES ABSOLUTE AUTO 0.72 K/mm3 (0.84-5.20); LYMPHOCYTES PERCENT AUTO 13 % (21-46); MONOCYTES ABSOLUTE AUTO 0.33 K/mm3 (0.16-1.47); MONOCYTES PERCENT AUTO 6 % (4-13); Mean Corpuscular HGB 30.8 pg (26.0-34.0); Mean Corpuscular HGB Conc 30.5 g/dL (31.5-36.5); Mean Corpuscular Volume 101 fL (80-100); Mean Platelet Volume 10.1 fL (9.1-12.4); NEUTROPHILS ABSOLUTE AUTO 4.42 K/mm3 (1.96-9.15); NEUTROPHILS PERCENT AUTO 77 % (41-73); Platelet Count 155 K/mm3 (150-400); RDW Standard Deviation 69.4 fL (35.1-46.3); Red Blood Cell Count 2.47 M/mm3 (4.30-5.90); White Blood Cell Count 5.71 K/mm3 (4.00-11.30)
[2021-09-28 15:04] LABS: Albumin, Blood 2.5 g/dL (3.4-5.0); Albumin/Globulin Ratio 0.7 (0.8-1.8); Bilirubin, Total 0.3 mg/dL (0.1-1.0); Bun/Creatinine Ratio 16.8 (12.0-20.0); Calcium, Blood 7.8 mg/dL (8.5-10.1); Creatinine, Blood 1.49 mg/dL (0.60-1.20); Globulin, Blood 3.4 g/dL (2.2-4.0); Potassium, Blood 3.7 mmol/L (3.5-5.5); Total Protein, Blood 5.9 g/dL (6.4-8.2)
--- NOTE | 2021-09-28 18:34 | NUR ---
pt arrived to 331 via gurney from ED. report obtained, he was able to stand and transfer himself with one person assist with mild dizziness, a/ox3, pleasant and cooperative with care, follows commands well, denies pain except his chronic stuff, lungs are clear a bit dim in bases, on r/a, no cough noted, hrr, murmur noted, no edema noted, ppp+2, cap refill <3sec, vs stable, afebrile, iv site to lac, infusing prbc and ns at this time, btx4, abd flat soft notender, urostomy to rlq draining, yellow urine, skin pale, c/w/d, hans, jimmie, oriented to room layout and call system, call light in reach.
[2021-09-28 19:24] LABS: Hematocrit 24.7 % (37.0-53.0); Hemoglobin 7.4 g/dL (13.5-17.5)
[2021-09-28] MEDS ORDERED: MACRODANTIN50 M1 PO (19:24)
[2021-09-28] MEDS ORDERED: MECL25 PO (19:33)
[2021-09-28] MEDS ORDERED: MIRALAX17 GM PO (19:34)
[2021-09-28] MEDS ORDERED: CALCIUM 600 +1 EA11 PO (22:50)
[2021-09-28 23:43] LABS: Hematocrit 27.1 % (37.0-53.0); Hemoglobin 8.4 g/dL (13.5-17.5)
--- NOTE | 2021-09-29 04:31 | NUR ---
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 Transfused 2 units PRBC 1st in ER & second completed on floor. H & H up about 1 point. Full code status, VSS except per tele monitor he has momentary tachycardia up to 140's. Tolerated blood transfusion without problem. PT has failed neurostim for pain present x 20 years failed about 5 years ago. . He has urostomy patent drains good amt of cloudy yellow urine. no current S/sx of GI bleed ongoing with reported tear. 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 Medicated for chronic pain with mild helpful effect. PT declined Kpad. Rj clear liquid diet advance to GI soft this AM.
[2021-09-29 05:49] LABS: BASOPHILS ABSOLUTE AUTO 0.02 K/mm3 (0.00-0.23); BASOPHILS PERCENT AUTO 1 % (0-2); EOSINOPHILS ABSOLUTE AUTO 0.16 K/mm3 (0.00-0.68); EOSINOPHILS PERCENT AUTO 5 % (0-6); Hematocrit 25.1 % (37.0-53.0); Hemoglobin 7.8 g/dL (13.5-17.5); IMMATURE GRAN ABSOLUTE AUTO 0.02 K/mm3 (0.00-0.10); IMMATURE GRAN PERCENT AUTO 1 % (0-1); LYMPHOCYTES PERCENT AUTO 13 % (21-46); MONOCYTES ABSOLUTE AUTO 0.27 K/mm3 (0.16-1.47); MONOCYTES PERCENT AUTO 9 % (4-13); Mean Corpuscular HGB 29.8 pg (26.0-34.0); Mean Corpuscular HGB Conc 31.1 g/dL (31.5-36.5); Mean Platelet Volume 10.2 fL (9.1-12.4); NEUTROPHILS ABSOLUTE AUTO 2.23 K/mm3 (1.96-9.15); NEUTROPHILS PERCENT AUTO 72 % (41-73); Platelet Count 85 K/mm3 (150-400); RDW Coefficient Variation 19.1 % (11.7-14.2); RDW Standard Deviation 65.4 fL (35.1-46.3); Red Blood Cell Count 2.62 M/mm3 (4.30-5.90)
[2021-09-29 05:59] LABS: Albumin, Blood 2.1 g/dL (3.4-5.0); Albumin/Globulin Ratio 0.7 (0.8-1.8); Bilirubin, Total 0.5 mg/dL (0.1-1.0); Bun/Creatinine Ratio 15.4 (12.0-20.0); Calcium, Blood 7.4 mg/dL (8.5-10.1); Creatinine, Blood 1.3 mg/dL (0.60-1.20); Globulin, Blood 2.9 g/dL (2.2-4.0); Potassium, Blood 3.2 mmol/L (3.5-5.5)
[2021-09-29 06:06] LABS: Mean Corpuscular Volume 96 fL (80-100)
[2021-09-29 12:46] LABS: Hematocrit 27.6 % (37.0-53.0); Hemoglobin 8.3 g/dL (13.5-17.5)
[2021-09-29 14:23] LABS: Anion Gap 8 mmol/L (6-16); Blood Urea Nitrogen 18 mg/dL (8-24); Bun/Creatinine Ratio 15.5 (12.0-20.0); CO2, Blood 19 mmol/L (21-32); Calcium, Blood 7.5 mg/dL (8.5-10.1); Chloride, Blood 117 mmol/L (98-108); Creatinine, Blood 1.16 mg/dL (0.60-1.20); Glomerular Filtration Rate 64 (60-); Glucose, Blood 146 mg/dL (70-99); Phosphorus, Blood 1.8 mg/dL (2.5-4.9); Potassium, Blood 4.4 mmol/L (3.5-5.5); Sodium, Blood 144 mmol/L (136-145)
--- NOTE | 2021-09-29 17:12 | NUR ---
SHIFT SUMMARY PATIENT IS ALERT AND ORIENTED X4. PATIENT HAS BEEN PLEASENT AND COOPERATIVE WITH CARE. PATIENT HAS HAD NO INSTANCES OF NAUSEA, SOB OR VOMITTING THIS SHIFT. PATIENT REPORTS CHRONIC BACK PAIN, MEDICATED PER EMAR. NO ACUTE EVENTS THIS SHIFT. VITAL SIGNS REVIEWED. PATIENT WHEELED OUT BY CHUTE WORKER AND ACCOMPANIED BY .
== END 2021-09-29 17:17 | disposition home or self-care (01) ==
LOC: ER 14:06 → MEDS 16:53 → ER 16:53 → MEDS 18:30
PROVIDERS: Physician Assistant; Student in an Organized Health Care Education/Training Program; ADMIT Internal Medicine
DX: K52.0 Gastroenteritis and colitis due to radiation (principal); K62.5 Hemorrhage of anus and rectum; D62 Acute posthemorrhagic anemia; I25.2 Old myocardial infarction; E78.5 Hyperlipidemia, unspecified; Z90.49 Acquired absence of other specified parts of digestive tract; I48.91 Unspecified atrial fibrillation; N18.31 Chronic kidney disease, stage 3a; R94.31 Abnormal electrocardiogram [ECG] [EKG]; C67.9 Malignant neoplasm of bladder, unspecified; Z93.6 Other artificial openings of urinary tract status
CPT/HCPCS: 36415; 36430; 80053; 80069; 84484; 85014; 85018; 85025; 86850; 86900; 86901; 86923; 93005; 93010; 96365; 96366; 99285-25; A9270; G0378; J3480; J7030; J7120; P9016

== ENCOUNTER 2021-10-01 09:03 | Emergency (ER) | payer OTHER ==
[~2021-10-01] VITALS: Ht 188 cm; Wt 73.5 kg
[2021-10-01 09:40] LABS: BASOPHILS ABSOLUTE AUTO 0.02 K/mm3 (0.00-0.23); BASOPHILS PERCENT AUTO 1 % (0-2); EOSINOPHILS ABSOLUTE AUTO 0.18 K/mm3 (0.00-0.68); EOSINOPHILS PERCENT AUTO 5 % (0-6); Hematocrit 23.7 % (37.0-53.0); Hemoglobin 7.2 g/dL (13.5-17.5); IMMATURE GRAN ABSOLUTE AUTO 0.01 K/mm3 (0.00-0.10); IMMATURE GRAN PERCENT AUTO 0 % (0-1); LYMPHOCYTES ABSOLUTE AUTO 0.49 K/mm3 (0.84-5.20); LYMPHOCYTES PERCENT AUTO 14 % (21-46); MONOCYTES ABSOLUTE AUTO 0.26 K/mm3 (0.16-1.47); MONOCYTES PERCENT AUTO 7 % (4-13); Mean Corpuscular HGB 29.9 pg (26.0-34.0); Mean Corpuscular HGB Conc 30.4 g/dL (31.5-36.5); Mean Corpuscular Volume 98 fL (80-100); Mean Platelet Volume 10.6 fL (9.1-12.4); NEUTROPHILS ABSOLUTE AUTO 2.56 K/mm3 (1.96-9.15); NEUTROPHILS PERCENT AUTO 73 % (41-73); Platelet Count 100 K/mm3 (150-400); RDW Coefficient Variation 18.9 % (11.7-14.2); RDW Standard Deviation 66.9 fL (35.1-46.3); Red Blood Cell Count 2.41 M/mm3 (4.30-5.90); White Blood Cell Count 3.52 K/mm3 (4.00-11.30)
== END 2021-10-01 14:27 | disposition home or self-care (01) ==
LOC: ER 09:03
PROVIDERS: Emergency Medicine
DX: K92.2 Gastrointestinal hemorrhage, unspecified (principal); Z87.891 Personal history of nicotine dependence; Z79.899 Other long term (current) drug therapy; Z79.891 Long term (current) use of opiate analgesic
CPT/HCPCS: 36430; 85025; 86850; 86900; 86901; 86923; 93005; 93010; 99285-25; J1642; J7030; P9016

== ENCOUNTER 2021-10-10 06:12 | Observation (INO) | payer OTHER ==
[~2021-10-10] VITALS: Ht 180.3 cm; Wt 71.5 kg
[2021-10-10 06:53] LABS: BASOPHILS ABSOLUTE AUTO 0.02 K/mm3 (0.00-0.23); BASOPHILS PERCENT AUTO 0 % (0-2); EOSINOPHILS ABSOLUTE AUTO 0.13 K/mm3 (0.00-0.68); EOSINOPHILS PERCENT AUTO 3 % (0-6); Hematocrit 21.8 % (37.0-53.0); Hemoglobin 6.7 g/dL (13.5-17.5); IMMATURE GRAN ABSOLUTE AUTO 0.01 K/mm3 (0.00-0.10); IMMATURE GRAN PERCENT AUTO 0 % (0-1); LYMPHOCYTES ABSOLUTE AUTO 0.49 K/mm3 (0.84-5.20); LYMPHOCYTES PERCENT AUTO 11 % (21-46); MONOCYTES ABSOLUTE AUTO 0.33 K/mm3 (0.16-1.47); MONOCYTES PERCENT AUTO 7 % (4-13); Mean Corpuscular HGB 30.6 pg (26.0-34.0); Mean Corpuscular HGB Conc 30.7 g/dL (31.5-36.5); Mean Corpuscular Volume 100 fL (80-100); Mean Platelet Volume 9.9 fL (9.1-12.4); NEUTROPHILS ABSOLUTE AUTO 3.59 K/mm3 (1.96-9.15); NEUTROPHILS PERCENT AUTO 79 % (41-73); Platelet Count 118 K/mm3 (150-400); RDW Coefficient Variation 18.1 % (11.7-14.2); RDW Standard Deviation 65.5 fL (35.1-46.3); Red Blood Cell Count 2.19 M/mm3 (4.30-5.90); White Blood Cell Count 4.57 K/mm3 (4.00-11.30)
[2021-10-10 07:09] LABS: Calcium, Blood 7.5 mg/dL (8.5-10.1); Creatinine, Blood 1.62 mg/dL (0.60-1.20); Potassium, Blood 4.1 mmol/L (3.5-5.5)
[2021-10-10 15:01] LABS: Hematocrit 25.3 % (37.0-53.0); Hemoglobin 7.9 g/dL (13.5-17.5)
--- NOTE | 2021-10-10 17:31 | NUR ---
SHIFT SUMMARY PT ARRIVED TO UNIT AT 0954 FROM ED. PT A&O, FOLLOWS COMMANDS, WEAKNESS UPON ABULATION, ADVISED TO CALL PRIOR TO AMBULATIONI. PT ORIENTED TO ROOM AND POC. PT RECEIVED 2 UNITS PRBC'S FOR HGB OF 6.7, REDRAW POST TRANSFUSION 7.9. AT APPROX 1725 NOTIFIED BY [employer] THAT PT HAD 24 BEATS OF VTACH. PT ASYMPTOMATIC, HR ST 110-120'S. DR RAMOS NOTIFIED, STAT MAG LEVEL ORDERED. WILL CONTINUE TO MONITOR
[2021-10-11 04:43] LABS: Hematocrit 24.3 % (37.0-53.0); Hemoglobin 7.5 g/dL (13.5-17.5); Mean Corpuscular HGB 29.6 pg (26.0-34.0); Mean Corpuscular HGB Conc 30.9 g/dL (31.5-36.5); Mean Corpuscular Volume 96 fL (80-100); Mean Platelet Volume 9.9 fL (9.1-12.4); Platelet Count 85 K/mm3 (150-400); RDW Coefficient Variation 18.6 % (11.7-14.2); RDW Standard Deviation 64.3 fL (35.1-46.3); Red Blood Cell Count 2.53 M/mm3 (4.30-5.90); White Blood Cell Count 3.25 K/mm3 (4.00-11.30)
[2021-10-11 05:10] LABS: Bun/Creatinine Ratio 17.4 (12.0-20.0); Calcium, Blood 7.7 mg/dL (8.5-10.1); Creatinine, Blood 1.32 mg/dL (0.60-1.20)
--- NOTE | 2021-10-11 05:34 | NUR ---
PT IS A/O STANDBY ASSIST TO BATHROOM WITH FWW. UROSTOMY DRAINING TO DRAINAGE BAG. PT MEDICATED FOR BACK PAIN THIS SHIFT. TELE MONITOR. MAGNESIUM IV GIVEN X1 THIS SHIFT.
[2021-10-11 10:04] LABS: Magnesium, Blood 1.7 mg/dL (1.6-2.4); Percent Saturation 30.2 % (20.0-50.0); Phosphorus, Blood 2.9 mg/dL (2.5-4.9)
--- NOTE | 2021-10-11 17:15 | NUR ---
PT RECEIVED I UNIT PRBC THIS SHIFT. MEDICATED FOR CHRONIC BACK PAIN WITH ADEQUATE RELIEF. PT HAD SMEAR OF BLOODY OUTPUT RECTALLY ON TOILET TISSUE AND HAD 1 DARK BLOODY STOOL WHICH PT STATES IS HIS BASELINE.
[2021-10-12 05:01] LABS: Hematocrit 27.2 % (37.0-53.0); Hemoglobin 8.3 g/dL (13.5-17.5); Mean Corpuscular HGB 29.5 pg (26.0-34.0); Mean Corpuscular HGB Conc 30.5 g/dL (31.5-36.5); Mean Corpuscular Volume 97 fL (80-100); Mean Platelet Volume 10.2 fL (9.1-12.4); Platelet Count 89 K/mm3 (150-400); RDW Coefficient Variation 17.7 % (11.7-14.2); RDW Standard Deviation 60.6 fL (35.1-46.3); Red Blood Cell Count 2.81 M/mm3 (4.30-5.90); White Blood Cell Count 3.36 K/mm3 (4.00-11.30)
--- NOTE | 2021-10-12 05:42 | NUR ---
PT A/O, MEDICATED FOR BACK PAIN. PT HAD A BLOODY STOOL THIS SHIFT. WILL MONITOR LABS, RECIEVED BLOOD YESTERDAY. UROSTOMY DRAINING TO BORJA BAG. STANDBY ASSIST WITH FWW TO RESTROOM.
[2021-10-12 05:51] LABS: Creatinine, Blood 1.31 mg/dL (0.60-1.20); Potassium, Blood 4.3 mmol/L (3.5-5.5)
[2021-10-12 15:34] LABS: Hematocrit 33.6 % (37.0-53.0); Hemoglobin 10.2 g/dL (13.5-17.5)
--- NOTE | 2021-10-12 16:50 | NUR ---
DISCHARGE MEDICATIONS, FOLLOWUP, AND INSTRUCTIONS GIVEN TO PATIENT AND FAMILY. PATIENT VOICED COMPLETE UNDERSTANDING AND HAS NO QUESTIONS AT THIS TIME. IV REMOVED WITH CATHETER TIP INTACT. PATIENTS MEDICATION SENT HOME WITH SPOUSE. PATIENT TO WHEELCHAIR AND WHEELED DOWNSTAIRS BY STAFF.
--- NOTE | 2021-10-12 17:28 | NUR ---
REVIEWED ALL ASSESSMENTS AND NOTES BY VIOLET BARBER AND JOSE.
== END 2021-10-12 17:19 | disposition home or self-care (01) ==
LOC: ER 06:12 → MEDS 06:13
PROVIDERS: Student in an Organized Health Care Education/Training Program; ADMIT Internal Medicine
DX: D62 Acute posthemorrhagic anemia (principal); K92.2 Gastrointestinal hemorrhage, unspecified; N17.9 Acute kidney failure, unspecified; I25.2 Old myocardial infarction; E78.5 Hyperlipidemia, unspecified; N18.30 Chronic kidney disease, stage 3 unspecified; Z87.891 Personal history of nicotine dependence; Z79.899 Other long term (current) drug therapy; Z85.46 Personal history of malignant neoplasm of prostate
CPT/HCPCS: 36415; 36430; 80048; 82728; 83540; 83550; 83735; 84100; 85014; 85018; 85025; 85027; 86850; 86900; 86901; 86923; 96360; 99285-25; A9270; J3475; J7030; P9016

== ENCOUNTER → 2021-10-22 | Outpatient (CLI) | payer OTHER ==
[2021-10-22 17:10] LABS: Hematocrit 28.8 % (37.0-53.0); Hemoglobin 8.6 g/dL (13.5-17.5)
== END | disposition home or self-care (01) ==
LOC: LAB 11:50 → LAB SHORT 11:50
PROVIDERS: Family Medicine
DX: K92.89 Other specified diseases of the digestive system (principal)
CPT/HCPCS: 85014; 85018

== ENCOUNTER 2021-10-23 10:13 | Day surgery (SDC) | payer MEDICARE, OTHER ==
[2021-10-23 13:07] LABS: Hematocrit 26.8 % (37.0-53.0); Hemoglobin 8.2 g/dL (13.5-17.5)
== END 2021-10-23 17:45 | disposition home or self-care (01) ==
LOC: ATC 10:13
PROVIDERS: Family Medicine
DX: K92.89 Other specified diseases of the digestive system (principal); D50.0 Iron deficiency anemia secondary to blood loss (chronic)
CPT/HCPCS: 36415; 36430; 85014; 85018; 86850; 86900; 86901; 86923; J1642; J7040; P9016

== ENCOUNTER 2021-10-30 11:34 | Day surgery (SDC) | payer MEDICARE, OTHER ==
--- NOTE | 2021-10-30 14:17 | NUR ---
NURSE NOTE PATIENTS ADMITTING VITALS ARE: TIME: 1150 88/58 100% ROOM AIR 74 PULSE 15 RESPIRATIONS.
--- NOTE | 2021-10-30 19:39 | NUR ---
ASSUMED CARE AT 1900. PT RECEIVING TRANSFUSION, PT A&OX4, VSS AND AMBULATORY. CALL LIGHT WITHIN REACH, BED LOW AND LOCKED.
--- NOTE | 2021-10-30 20:20 | NUR ---
TRANSFUSTION COMPLETE. PT VSS, NO COMPLAINTS. AMBULATES FREELY TO THE DOOR WITH SPOUSE.
== END 2021-10-30 20:30 | disposition home or self-care (01) ==
LOC: TRN 11:34 → LAB 11:34 → SURS 11:35 → LAB 20:30
DX: K92.2 Gastrointestinal hemorrhage, unspecified (principal); K52.0 Gastroenteritis and colitis due to radiation; N18.30 Chronic kidney disease, stage 3 unspecified; Z85.51 Personal history of malignant neoplasm of bladder; Z85.46 Personal history of malignant neoplasm of prostate; Y84.2 Radiological procedure and radiotherapy as the cause of abnormal reaction of the patient, or of later complication, without mention of misadventure at the time of the procedure
CPT/HCPCS: 36415; 36430; 86850; 86900; 86901; 86923; J7040; P9016

== ENCOUNTER → 2021-11-03 | Outpatient (CLI) | payer MEDICARE, OTHER ==
[2021-11-03 17:29] LABS: Hematocrit 36.8 % (37.0-53.0); Hemoglobin 11.4 g/dL (13.5-17.5)
== END | disposition home or self-care (01) ==
LOC: LAB SHORT 11:30 → LAB 11:30
PROVIDERS: Family Medicine
DX: K92.89 Other specified diseases of the digestive system (principal)
CPT/HCPCS: 85014; 85018

== ENCOUNTER 2021-11-11 11:09 | Day surgery (SDC) | payer MEDICARE, OTHER ==
[2021-11-10 12:51] LABS: Hematocrit 24.3 % (37.0-53.0); Hemoglobin 7.5 g/dL (13.5-17.5)
[2021-11-25] MEDS ORDERED: PANT20 PO (14:29)
[2021-12-05] MEDS ORDERED: CEFD300 PO (22:12)
[2022-01-04] MEDS ORDERED: PANT40 PO (15:50)
== END 2021-11-11 17:05 | disposition home or self-care (01) ==
LOC: ATC 11:09 → EDSTATUS 13:30 → ATC 17:05
PROVIDERS: Family Medicine
DX: K52.0 Gastroenteritis and colitis due to radiation (principal); C67.9 Malignant neoplasm of bladder, unspecified; C78.7 Secondary malignant neoplasm of liver and intrahepatic bile duct; C78.00 Secondary malignant neoplasm of unspecified lung; C79.51 Secondary malignant neoplasm of bone; I25.2 Old myocardial infarction; E78.5 Hyperlipidemia, unspecified; N18.30 Chronic kidney disease, stage 3 unspecified; Z87.891 Personal history of nicotine dependence; Y84.2 Radiological procedure and radiotherapy as the cause of abnormal reaction of the patient, or of later complication, without mention of misadventure at the time of the procedure; Y82.8 Other medical devices associated with adverse incidents; Z85.46 Personal history of malignant neoplasm of prostate
CPT/HCPCS: 36415; 36430; 85014; 85018; 86850; 86900; 86901; 86923; J1642; J7040; P9016

== ENCOUNTER 2021-11-19 00:49 | Day surgery (SDC) | payer MEDICARE, OTHER ==
[2021-11-17 10:08] LABS: Hematocrit 27.3 % (37.0-53.0); Hemoglobin 8.3 g/dL (13.5-17.5)
[2021-11-25] MEDS ORDERED: PANT20 PO (14:29)
[2021-12-05] MEDS ORDERED: CEFD300 PO (22:12)
[2022-01-04] MEDS ORDERED: PANT40 PO (15:50)
== END 2021-11-19 10:50 | disposition home or self-care (01) ==
LOC: ATC 00:49 → EDSTATUS 07:30 → ATC 10:50
PROVIDERS: Family Medicine
DX: K92.89 Other specified diseases of the digestive system (principal); D50.0 Iron deficiency anemia secondary to blood loss (chronic)
CPT/HCPCS: 36415; 36430; 85014; 85018; 86850; 86900; 86901; 86923; J1642; J7040; P9016

== ENCOUNTER 2021-11-25 02:23 | Day surgery (SDC) | payer MEDICARE, OTHER ==
[2021-11-24 12:20] LABS: Hematocrit 23.9 % (37.0-53.0); Hemoglobin 7.1 g/dL (13.5-17.5)
[2021-11-25] MEDS ORDERED: PANT20 (14:29)
--- NOTE | 2021-11-25 14:47 | NUR ---
PT DID NOT COME TO HIS JOSE MIGUEL APPOINTMENT TODAY. HE IS CURRENTLY IN THE ER.
[2021-12-05] MEDS ORDERED: CEFD300 PO (22:12)
== END 2021-11-25 23:56 | disposition home or self-care (01) ==
LOC: ATC 02:23 → EDSTATUS 14:00 → ATC 23:56
PROVIDERS: Family Medicine
DX: D50.0 Iron deficiency anemia secondary to blood loss (chronic) (principal); K92.89 Other specified diseases of the digestive system; K52.0 Gastroenteritis and colitis due to radiation; Y84.2 Radiological procedure and radiotherapy as the cause of abnormal reaction of the patient, or of later complication, without mention of misadventure at the time of the procedure; I48.91 Unspecified atrial fibrillation; N18.30 Chronic kidney disease, stage 3 unspecified; E78.5 Hyperlipidemia, unspecified; C67.9 Malignant neoplasm of bladder, unspecified; C78.7 Secondary malignant neoplasm of liver and intrahepatic bile duct; C78.00 Secondary malignant neoplasm of unspecified lung; C79.51 Secondary malignant neoplasm of bone; Z79.899 Other long term (current) drug therapy; Z87.891 Personal history of nicotine dependence
CPT/HCPCS: 36415; 36430; 80053; 84484; 85014; 85018; 85025; 86850; 86900; 86901; 86923; 93005; 93010; 99285-25; A9270; J1642; J7030; P9016

== ENCOUNTER → 2021-12-05 | Emergency (ER) | payer MEDICARE, OTHER ==
[~2021-12-05] VITALS: Ht 180.3 cm; Wt 71.2 kg
[~2021-12-05] MED LIST changes: +CEFD300 PO; +PANT20
[2021-12-05 19:23] LABS: BASOPHILS ABSOLUTE AUTO 0.02 K/mm3 (0.00-0.23); BASOPHILS PERCENT AUTO 1 % (0-2); EOSINOPHILS PERCENT AUTO 5 % (0-6); Hematocrit 20.3 % (37.0-53.0); Hemoglobin 6.1 g/dL (13.5-17.5); IMMATURE GRAN ABSOLUTE AUTO 0.02 K/mm3 (0.00-0.10); IMMATURE GRAN PERCENT AUTO 1 % (0-1); LYMPHOCYTES ABSOLUTE AUTO 0.58 K/mm3 (0.84-5.20); LYMPHOCYTES PERCENT AUTO 13 % (21-46); MONOCYTES ABSOLUTE AUTO 0.31 K/mm3 (0.16-1.47); MONOCYTES PERCENT AUTO 7 % (4-13); Mean Corpuscular HGB 29.6 pg (26.0-34.0); Mean Corpuscular Volume 99 fL (80-100); NEUTROPHILS ABSOLUTE AUTO 3.27 K/mm3 (1.96-9.15); NEUTROPHILS PERCENT AUTO 74 % (41-73); Platelet Count 115 K/mm3 (150-400); RDW Standard Deviation 73.7 fL (35.1-46.3); Red Blood Cell Count 2.06 M/mm3 (4.30-5.90)
[2021-12-05 19:38] LABS: Albumin, Blood 2.2 g/dL (3.4-5.0); Albumin/Globulin Ratio 0.7 (0.8-1.8); Bilirubin, Total 0.4 mg/dL (0.1-1.0); Bun/Creatinine Ratio 18.4 (12.0-20.0); Calcium, Blood 7.9 mg/dL (8.5-10.1); Creatinine, Blood 1.47 mg/dL (0.60-1.20); Potassium, Blood 4.3 mmol/L (3.5-5.5); Total Protein, Blood 5.2 g/dL (6.4-8.2)
[2021-12-05 19:56] LABS: Source, Urine Urostomy Bag
[2021-12-05 20:02] LABS: Bilirubin, Urine Neg (Neg); Blood, Urine 5+ (Neg); Glucose Qualitative, Urine Neg (Neg); Ketones, Urine 1+ (Neg); Leukocyte Esterase, Urine 3+ (Neg); Nitrite, Urine Pos (Neg); Protein, Urine 3+ (Neg); Specific Gravity, Urine 1.015 (1.003-1.022); Urobilinogen, Urine 1+ (Normal)
[2021-12-05 20:15] LABS: Appearance, Urine Turbid (Clear); Color, Urine Red (P-Yellow)
[2021-12-05 20:16] LABS: Red Blood Cells, Urine TNTC /hpf (0-2); White Blood Cells, Urine 50-100 /hpf (0-5)
[2021-12-05 20:17] LABS: Bacteria Mod /hpf; Squamous Epithelial Cells Not Seen /hpf (Few)
== END ==
LOC: ER 18:17
PROVIDERS: Physician Assistant
DX: D64.9 Anemia, unspecified (principal); N39.0 Urinary tract infection, site not specified; K92.2 Gastrointestinal hemorrhage, unspecified; K62.7 Radiation proctitis; N18.30 Chronic kidney disease, stage 3 unspecified; E78.5 Hyperlipidemia, unspecified; Z93.6 Other artificial openings of urinary tract status; Z79.899 Other long term (current) drug therapy; Z93.2 Ileostomy status
CPT/HCPCS: 74177; 80053; 81001; 85025; 86850; 86900; 86901; 86923; 93005; 93010; J0696; J1642; J7030; P9016; Q9967

== ENCOUNTER 2021-12-07 11:38 | Day surgery (SDC) | payer MEDICARE, OTHER | END 2021-12-07 17:16 | disposition home or self-care (01) | LOC: ATC 11:38 → EDSTATUS 12:15 → ATC 17:16 | DX: D50.0 Iron deficiency anemia secondary to blood loss (chronic) (principal) | CPT/HCPCS: 86850; 86900; 86901; 86923; J1642; J7040; P9016 ==

== ENCOUNTER 2021-12-18 01:35 | Day surgery (SDC) | payer MEDICARE, OTHER ==
[2021-12-17 14:04] LABS: BASOPHILS ABSOLUTE AUTO 0.02 K/mm3 (0.00-0.23); BASOPHILS PERCENT AUTO 1 % (0-2); EOSINOPHILS ABSOLUTE AUTO 0.15 K/mm3 (0.00-0.68); EOSINOPHILS PERCENT AUTO 4 % (0-6); Hematocrit 25.2 % (37.0-53.0); Hemoglobin 7.7 g/dL (13.5-17.5); IMMATURE GRAN ABSOLUTE AUTO 0.03 K/mm3 (0.00-0.10); IMMATURE GRAN PERCENT AUTO 1 % (0-1); LYMPHOCYTES ABSOLUTE AUTO 0.57 K/mm3 (0.84-5.20); LYMPHOCYTES PERCENT AUTO 14 % (21-46); MONOCYTES ABSOLUTE AUTO 0.28 K/mm3 (0.16-1.47); MONOCYTES PERCENT AUTO 7 % (4-13); Mean Corpuscular HGB Conc 30.6 g/dL (31.5-36.5); Mean Corpuscular Volume 98 fL (80-100); Mean Platelet Volume 10.1 fL (9.1-12.4); NEUTROPHILS ABSOLUTE AUTO 2.98 K/mm3 (1.96-9.15); NEUTROPHILS PERCENT AUTO 74 % (41-73); Platelet Count 125 K/mm3 (150-400); RDW Coefficient Variation 19.9 % (11.7-14.2); Red Blood Cell Count 2.57 M/mm3 (4.30-5.90); White Blood Cell Count 4.03 K/mm3 (4.00-11.30)
== END 2021-12-18 18:35 | disposition home or self-care (01) ==
LOC: ATC 01:35
PROVIDERS: Internal Medicine Hematology & Oncology
DX: D50.0 Iron deficiency anemia secondary to blood loss (chronic) (principal); K92.2 Gastrointestinal hemorrhage, unspecified; N18.32 Chronic kidney disease, stage 3b; E11.22 Type 2 diabetes mellitus with diabetic chronic kidney disease; Z87.891 Personal history of nicotine dependence; Z90.5 Acquired absence of kidney
CPT/HCPCS: 36415; 36430; 85025; 86850; 86900; 86901; 86923; J1642; J7040; P9016

== ENCOUNTER 2021-12-23 11:42 | Emergency (ER) | payer OTHER ==
[~2021-12-23] VITALS: Ht 180.3 cm; Wt 72.1 kg
[2021-12-23 12:21] LABS: BASOPHILS ABSOLUTE AUTO 0.02 K/mm3 (0.00-0.23); BASOPHILS PERCENT AUTO 0 % (0-2); EOSINOPHILS PERCENT AUTO 2 % (0-6); Hematocrit 21.4 % (37.0-53.0); Hemoglobin 6.5 g/dL (13.5-17.5); IMMATURE GRAN ABSOLUTE AUTO 0.02 K/mm3 (0.00-0.10); IMMATURE GRAN PERCENT AUTO 0 % (0-1); LYMPHOCYTES ABSOLUTE AUTO 0.42 K/mm3 (0.84-5.20); LYMPHOCYTES PERCENT AUTO 9 % (21-46); MONOCYTES ABSOLUTE AUTO 0.26 K/mm3 (0.16-1.47); MONOCYTES PERCENT AUTO 6 % (4-13); Mean Corpuscular HGB 29.7 pg (26.0-34.0); Mean Corpuscular HGB Conc 30.4 g/dL (31.5-36.5); Mean Corpuscular Volume 98 fL (80-100); Mean Platelet Volume 10.6 fL (9.1-12.4); NEUTROPHILS ABSOLUTE AUTO 3.91 K/mm3 (1.96-9.15); NEUTROPHILS PERCENT AUTO 83 % (41-73); Platelet Count 126 K/mm3 (150-400); RDW Coefficient Variation 21.5 % (11.7-14.2); RDW Standard Deviation 75.5 fL (35.1-46.3); Red Blood Cell Count 2.19 M/mm3 (4.30-5.90); White Blood Cell Count 4.73 K/mm3 (4.00-11.30)
[2021-12-23 12:34] LABS: Albumin, Blood 1.8 g/dL (3.4-5.0); Albumin/Globulin Ratio 0.6 (0.8-1.8); Bilirubin, Total 0.3 mg/dL (0.1-1.0); Bun/Creatinine Ratio 18.8 (12.0-20.0); Calcium, Blood 7.4 mg/dL (8.5-10.1); Creatinine, Blood 1.38 mg/dL (0.60-1.20); Globulin, Blood 2.9 g/dL (2.2-4.0); Potassium, Blood 4.1 mmol/L (3.5-5.5); Total Protein, Blood 4.7 g/dL (6.4-8.2)
== END 2021-12-23 20:26 | disposition home or self-care (01) ==
LOC: ER 11:42
PROVIDERS: Emergency Medicine
DX: D50.0 Iron deficiency anemia secondary to blood loss (chronic) (principal); R55 Syncope and collapse
CPT/HCPCS: 36415; 36430; 80053; 85025; 86850; 86900; 86901; 86923; 93005; 93010; 99284-25; J7030; P9016

== ENCOUNTER → 2021-12-24 | Outpatient (CLI) | payer OTHER ==
[2021-12-24 18:02] LABS: Albumin, Blood 2.2 g/dL (3.4-5.0); Anion Gap 7 mmol/L (6-16); Blood Urea Nitrogen 22 mg/dL (8-24); Bun/Creatinine Ratio 14.8 (12.0-20.0); CO2, Blood 22 mmol/L (21-32); Calcium, Blood 7.9 mg/dL (8.5-10.1); Chloride, Blood 114 mmol/L (98-108); Creatinine, Blood 1.49 mg/dL (0.60-1.20); Glomerular Filtration Rate 48 (60-); Glucose, Blood 119 mg/dL (70-99); Phosphorus, Blood 4.2 mg/dL (2.5-4.9); Potassium, Blood 4.4 mmol/L (3.5-5.5); Sodium, Blood 143 mmol/L (136-145)
== END | disposition home or self-care (01) ==
LOC: LAB SHORT 14:20
PROVIDERS: Internal Medicine Nephrology
DX: N18.30 Chronic kidney disease, stage 3 unspecified (principal); D63.1 Anemia in chronic kidney disease
CPT/HCPCS: 80069; 85018

== ENCOUNTER → 2021-12-30 | Outpatient (CLI) | payer OTHER ==
[2021-12-30 20:05] LABS: Percent Saturation 19.9 % (20.0-50.0)
== END | disposition home or self-care (01) ==
LOC: LAB SHORT 09:30
PROVIDERS: Internal Medicine Hematology & Oncology
DX: D50.9 Iron deficiency anemia, unspecified (principal)
CPT/HCPCS: 82728; 83540; 83550

== ENCOUNTER 2022-01-08 13:45 | Observation (INO) | payer OTHER ==
[~2022-01-08] VITALS: Ht 180.3 cm; Wt 73.0 kg
[~2022-01-08 13:45] MED LIST changes: -PANT20; +PANT20 PO
[2022-01-08 15:16] LABS: BASOPHILS ABSOLUTE AUTO 0.03 K/mm3 (0.00-0.23); BASOPHILS PERCENT AUTO 1 % (0-2); EOSINOPHILS ABSOLUTE AUTO 0.12 K/mm3 (0.00-0.68); EOSINOPHILS PERCENT AUTO 3 % (0-6); Hematocrit 28.3 % (37.0-53.0); Hemoglobin 8.6 g/dL (13.5-17.5); IMMATURE GRAN ABSOLUTE AUTO 0.01 K/mm3 (0.00-0.10); IMMATURE GRAN PERCENT AUTO 0 % (0-1); LYMPHOCYTES ABSOLUTE AUTO 0.38 K/mm3 (0.84-5.20); LYMPHOCYTES PERCENT AUTO 10 % (21-46); MONOCYTES ABSOLUTE AUTO 0.28 K/mm3 (0.16-1.47); MONOCYTES PERCENT AUTO 8 % (4-13); Mean Corpuscular HGB 29.4 pg (26.0-34.0); Mean Corpuscular HGB Conc 30.4 g/dL (31.5-36.5); Mean Corpuscular Volume 97 fL (80-100); Mean Platelet Volume 11.2 fL (9.1-12.4); NEUTROPHILS ABSOLUTE AUTO 2.91 K/mm3 (1.96-9.15); NEUTROPHILS PERCENT AUTO 78 % (41-73); Platelet Count 105 K/mm3 (150-400); RDW Coefficient Variation 21.9 % (11.7-14.2); RDW Standard Deviation 76.7 fL (35.1-46.3); Red Blood Cell Count 2.93 M/mm3 (4.30-5.90); White Blood Cell Count 3.73 K/mm3 (4.00-11.30)
[2022-01-08 15:49] LABS: Albumin, Blood 1.8 g/dL (3.4-5.0); Albumin/Globulin Ratio 0.7 (0.8-1.8); Bilirubin, Total 0.3 mg/dL (0.1-1.0); Calcium, Blood 7.8 mg/dL (8.5-10.1); Creatinine, Blood 1.57 mg/dL (0.60-1.20); Globulin, Blood 2.7 g/dL (2.2-4.0); Potassium, Blood 4.2 mmol/L (3.5-5.5); Total Protein, Blood 4.5 g/dL (6.4-8.2)
[2022-01-08 20:19] LABS: Hematocrit 28.2 % (37.0-53.0); Hemoglobin 8.6 g/dL (13.5-17.5)
--- NOTE | 2022-01-08 22:28 | NUR ---
PATIENT ADMIT PATIENT WAS TRANSFERED TO THIS UNIT FROM ER AT APPROX 2200. PT ADMITTED FOR GI BLEED REPORT RECIEVED FROM VERO RAWLS RN. PT AOX4, 1 P[place] [facility], PLEASANT AND COOPERATIVE. PT ORIENTED TO UNIT, CALL LIGHT WITHIN REACH.
--- NOTE | 2022-01-09 00:53 | NUR ---
BLOODY BM PT HAD A DARK BLACK BM WITH VISIBLE DARK RED BLOOD AROUND THE STOOL. PT STATED THAT THIS AMOUNT OF BLOOD IS NORMAL FOR HIM, AND IT'S NOWHERE NEAR THE AMOUNT OF BLOOD FROM HIS BM EARLIER TODAY.
[2022-01-09 02:22] LABS: BASOPHILS ABSOLUTE AUTO 0.03 K/mm3 (0.00-0.23); BASOPHILS PERCENT AUTO 1 % (0-2); EOSINOPHILS ABSOLUTE AUTO 0.12 K/mm3 (0.00-0.68); EOSINOPHILS PERCENT AUTO 4 % (0-6); Hematocrit 26.3 % (37.0-53.0); Hemoglobin 8.2 g/dL (13.5-17.5); IMMATURE GRAN ABSOLUTE AUTO 0.02 K/mm3 (0.00-0.10); IMMATURE GRAN PERCENT AUTO 1 % (0-1); LYMPHOCYTES ABSOLUTE AUTO 0.36 K/mm3 (0.84-5.20); LYMPHOCYTES PERCENT AUTO 11 % (21-46); MONOCYTES ABSOLUTE AUTO 0.29 K/mm3 (0.16-1.47); MONOCYTES PERCENT AUTO 9 % (4-13); Mean Corpuscular HGB Conc 31.2 g/dL (31.5-36.5); Mean Corpuscular Volume 96 fL (80-100); Mean Platelet Volume 10.8 fL (9.1-12.4); NEUTROPHILS PERCENT AUTO 76 % (41-73); Platelet Count 103 K/mm3 (150-400); RDW Coefficient Variation 21.8 % (11.7-14.2); RDW Standard Deviation 76.8 fL (35.1-46.3); Red Blood Cell Count 2.73 M/mm3 (4.30-5.90); White Blood Cell Count 3.42 K/mm3 (4.00-11.30)
[2022-01-09 02:51] LABS: Albumin, Blood 1.8 g/dL (3.4-5.0); Albumin/Globulin Ratio 0.7 (0.8-1.8); Bilirubin, Total 0.2 mg/dL (0.1-1.0); Bun/Creatinine Ratio 14.1 (12.0-20.0); Calcium, Blood 7.8 mg/dL (8.5-10.1); Creatinine, Blood 1.49 mg/dL (0.60-1.20); Globulin, Blood 2.7 g/dL (2.2-4.0); Potassium, Blood 3.8 mmol/L (3.5-5.5); Total Protein, Blood 4.5 g/dL (6.4-8.2)
--- NOTE | 2022-01-09 07:11 | NUR ---
SHIFT SUMMARY PT WAS TRANSFERRED TO THIS UNIT FROM THE ER AT APROX 2200 WITH A GI BLEED. PT HAS A HISTORY OF GI BLEEDS R/T CHEMOTHERAPY AND NORMALLY HAS BLOODY BOWEL MOVEMENTS, BUT HAD 2 VERY LARGE BLOODY STOOLS THIS MORNING AND CAME TO THE ER. IN OUR UNIT THE PATIENT HAD 1 CONTINENT BLOODY STOOL AND TWO INCONENENT BLOODY STOOLS. HIS HGB IS TRENDING DOWN AND THE DOCTOR SAID TO WATCH FOR SIGNS OF SYMPTOMATIC ANEMIA BECAUSE PT HAS HX OF CO R/T ANEMIA AND HYPOVOLEMIA. PT C/O OF CHRONIC LOWER BACK PAIN AND WAS GIVEN THE SAME DOSE OF OXYCODONE AT HOME WHICH HELPED. PT IS INDEPENDANT WITH 1 PERSON SBA, USES CALL LIGHT APPROPRIATLY, IS PLEASANT AND COOPERATIVE WITH CARE.
[2022-01-09 09:05] LABS: Hematocrit 26.2 % (37.0-53.0); Hemoglobin 7.9 g/dL (13.5-17.5)
--- NOTE | 2022-01-09 09:07 | NUR ---
DR LONG ROUNDING ON PATIENT NOW, AT BEDSIDE, PATIENT IN NO DISTRESS, CALL LIGHT WITH IN REACH
[2022-01-09 15:12] LABS: Hematocrit 25.4 % (37.0-53.0); Hemoglobin 8.1 g/dL (13.5-17.5)
[2022-01-09 16:47] LABS: Hematocrit 24.5 % (37.0-53.0); Hemoglobin 7.7 g/dL (13.5-17.5)
--- NOTE | 2022-01-09 18:18 | NUR ---
alert and oriented x3, black stools with clots, hgb 8.1 transfused 1 prbc, hgb then 7.7. Patient staying another night, having a second unit transfused. vss, dr velasquez, dr wilder, and dr ball rounded on patient today. hgb to be re-evaluated this am, abd active bt, nontender to palpation, and continent of stool, urotstomy for urine clear yellow. ls clear through out, sats 100% on ra, call light with in reach, makes needs known, wctm
--- NOTE | 2022-01-09 19:30 | NUR ---
RECEIVED BEDSIDE REPORT FROM DAY SHIFT RN. SECOND UNIT OF PRBC'S INFUSING AT 120 MLS/HR TO LAC IV WITHOUT DIFFICULTY. VSS. RESP E/U ON RA. NO COMPLAINTS. WILL CONTINUE TO PROVIDE CARE T/O SHIFT. CALL LT IN REACH.
--- NOTE | 2022-01-09 21:10 | NUR ---
BLOOD TRANSFUSION CONTINUES AT 120 MLS/HR. VSS. NO NEEDS AT THIS TIME. CALL LT IN REACH.
--- NOTE | 2022-01-09 21:45 | NUR ---
BLOOD TRANSFUSION COMPLETE. VSS. CALL LT IN REACH.
--- NOTE | 2022-01-09 23:59 | NUR ---
PT AWAKE AND WATCHING TV. NO NEEDS AT THIS TIME. CALL LT IN REACH.
--- NOTE | 2022-01-10 00:34 | NUR ---
PT RESTING QUIETLY WITH EYES CLOSED. CALL LT IN REACH.
--- NOTE | 2022-01-10 02:01 | NUR ---
PT RESTING QUIETLY. LIGHT TURNED OFF. CALL LT IN REACH.
--- NOTE | 2022-01-10 04:00 | NUR ---
PT RESTING QUIETLY. CALL LT IN REACH.
--- NOTE | 2022-01-10 04:32 | NUR ---
SHIFT SUMMARY: RECEIVED 2ND UNIT OF PRBC'S ON PROFESSIONAL APPLICATION DESIGNER WITHOUT DIFFICULTY. VS REMAINED STABLE T/O TRANSFUSION. ON RA. SR AT 75 WITH BBB ON TELE. MEDICATED ONCE FOR CHRONIC BACK PAIN WITH PO MED. NO ACUTE CHANGES. PT RESTED WELL. WILL CONTINUE TO PROVIDE CARE UNTIL SHIFT REPORT.
--- NOTE | 2022-01-10 05:42 | NUR ---
PT RESTING QUIETLY. CALL LT IN REACH
[2022-01-10 06:03] LABS: BASOPHILS ABSOLUTE AUTO 0.02 K/mm3 (0.00-0.23); BASOPHILS PERCENT AUTO 1 % (0-2); EOSINOPHILS ABSOLUTE AUTO 0.23 K/mm3 (0.00-0.68); EOSINOPHILS PERCENT AUTO 8 % (0-6); Hematocrit 29.3 % (37.0-53.0); Hemoglobin 9.4 g/dL (13.5-17.5); IMMATURE GRAN ABSOLUTE AUTO 0.02 K/mm3 (0.00-0.10); IMMATURE GRAN PERCENT AUTO 1 % (0-1); LYMPHOCYTES ABSOLUTE AUTO 0.35 K/mm3 (0.84-5.20); LYMPHOCYTES PERCENT AUTO 12 % (21-46); MONOCYTES ABSOLUTE AUTO 0.26 K/mm3 (0.16-1.47); MONOCYTES PERCENT AUTO 9 % (4-13); Mean Corpuscular HGB Conc 32.1 g/dL (31.5-36.5); Mean Corpuscular Volume 94 fL (80-100); Mean Platelet Volume 11.2 fL (9.1-12.4); NEUTROPHILS ABSOLUTE AUTO 2.15 K/mm3 (1.96-9.15); NEUTROPHILS PERCENT AUTO 71 % (41-73); Platelet Count 74 K/mm3 (150-400); RDW Coefficient Variation 19.9 % (11.7-14.2); RDW Standard Deviation 67.2 fL (35.1-46.3); Red Blood Cell Count 3.13 M/mm3 (4.30-5.90); White Blood Cell Count 3.03 K/mm3 (4.00-11.30)
[2022-01-10 06:36] LABS: Albumin, Blood 1.7 g/dL (3.4-5.0); Albumin/Globulin Ratio 0.7 (0.8-1.8); Bilirubin, Total 0.5 mg/dL (0.1-1.0); Calcium, Blood 7.9 mg/dL (8.5-10.1); Creatinine, Blood 1.25 mg/dL (0.60-1.20); Globulin, Blood 2.6 g/dL (2.2-4.0); Potassium, Blood 4.4 mmol/L (3.5-5.5); Total Protein, Blood 4.3 g/dL (6.4-8.2)
--- NOTE | 2022-01-10 07:09 | NUR ---
PT HAD SIX AND SEVEN BEAT RUN OF VTA, PT IS IN BED TALKING TO ON CELL PHONE. STATES HE'S DOING OKAY. PT ASYMPTOMATIC. CALL LT IN REACH.
--- NOTE | 2022-01-10 10:55 | NUR ---
PATIENT DISCAHRGED HOME VIA W/C, TO DRIVE HOME, BOTH PATIENT AND STATED UNDERSTANDING OF DISCHARGE INSTRUCTIONS, EDUCATIONS, MEDICATIONS, AND FOLLOW UP NEEDS
== END 2022-01-10 10:47 | disposition home or self-care (01) ==
LOC: ER 13:45 → MEDS 18:28 → ERHOLD 18:28 → MEDS 21:40
PROVIDERS: Student in an Organized Health Care Education/Training Program; ADMIT Internal Medicine
DX: K62.5 Hemorrhage of anus and rectum (principal); D62 Acute posthemorrhagic anemia; E11.22 Type 2 diabetes mellitus with diabetic chronic kidney disease; N18.30 Chronic kidney disease, stage 3 unspecified; I50.42 Chronic combined systolic (congestive) and diastolic (congestive) heart failure; G89.4 Chronic pain syndrome; E78.5 Hyperlipidemia, unspecified; I77.811 Abdominal aortic ectasia; E88.09 Other disorders of plasma-protein metabolism, not elsewhere classified; C67.9 Malignant neoplasm of bladder, unspecified; C79.51 Secondary malignant neoplasm of bone; C78.7 Secondary malignant neoplasm of liver and intrahepatic bile duct; C78.00 Secondary malignant neoplasm of unspecified lung; Z90.5 Acquired absence of kidney
CPT/HCPCS: 36415; 74174; 80053; 85014; 85018; 85025; 86850; 86900; 86901; 86923; A9270; J7050; J7120; P9016; Q9967

== ENCOUNTER 2022-01-21 08:58 | Emergency (ER) | payer OTHER ==
[~2022-01-21] VITALS: Ht 172.7 cm; Wt 65.8 kg
[2022-01-21 11:23] LABS: BASOPHILS ABSOLUTE AUTO 0.02 K/mm3 (0.00-0.23); BASOPHILS PERCENT AUTO 0 % (0-2); EOSINOPHILS ABSOLUTE AUTO 0.07 K/mm3 (0.00-0.68); EOSINOPHILS PERCENT AUTO 2 % (0-6); Hematocrit 19.9 % (37.0-53.0); Hemoglobin 6.2 g/dL (13.5-17.5); IMMATURE GRAN ABSOLUTE AUTO 0.02 K/mm3 (0.00-0.10); IMMATURE GRAN PERCENT AUTO 0 % (0-1); LYMPHOCYTES ABSOLUTE AUTO 0.37 K/mm3 (0.84-5.20); LYMPHOCYTES PERCENT AUTO 8 % (21-46); MONOCYTES ABSOLUTE AUTO 0.34 K/mm3 (0.16-1.47); MONOCYTES PERCENT AUTO 8 % (4-13); Mean Corpuscular HGB 30.5 pg (26.0-34.0); Mean Corpuscular HGB Conc 31.2 g/dL (31.5-36.5); Mean Corpuscular Volume 98 fL (80-100); Mean Platelet Volume 9.7 fL (9.1-12.4); NEUTROPHILS ABSOLUTE AUTO 3.65 K/mm3 (1.96-9.15); NEUTROPHILS PERCENT AUTO 82 % (41-73); Platelet Count 109 K/mm3 (150-400); RDW Coefficient Variation 17.4 % (11.7-14.2); RDW Standard Deviation 63.2 fL (35.1-46.3); Red Blood Cell Count 2.03 M/mm3 (4.30-5.90); White Blood Cell Count 4.47 K/mm3 (4.00-11.30)
[2022-01-21 11:47] LABS: Albumin, Blood 1.7 g/dL (3.4-5.0); Albumin/Globulin Ratio 0.6 (0.8-1.8); Bilirubin, Total 0.4 mg/dL (0.1-1.0); Calcium, Blood 7.7 mg/dL (8.5-10.1); Creatinine, Blood 1.67 mg/dL (0.60-1.20); Globulin, Blood 2.8 g/dL (2.2-4.0); Potassium, Blood 4.6 mmol/L (3.5-5.5); Total Protein, Blood 4.5 g/dL (6.4-8.2)
== END 2022-01-21 18:01 | disposition home or self-care (01) ==
LOC: ER 08:58
PROVIDERS: Emergency Medicine
DX: D50.0 Iron deficiency anemia secondary to blood loss (chronic) (principal); K92.2 Gastrointestinal hemorrhage, unspecified; E78.5 Hyperlipidemia, unspecified; N18.30 Chronic kidney disease, stage 3 unspecified; Z79.899 Other long term (current) drug therapy; Z93.6 Other artificial openings of urinary tract status
CPT/HCPCS: 36430; 80053; 85025; 86850; 86900; 86901; 86923; 93005; 93010; 99283-25; J1642; J7030; P9016

== ENCOUNTER → 2022-01-25 | Outpatient (CLI) | payer OTHER ==
[2022-01-25 17:58] LABS: Albumin/Globulin Ratio 0.7 (0.8-1.8); Bilirubin, Total 0.3 mg/dL (0.1-1.0); Calcium, Blood 7.8 mg/dL (8.5-10.1); Creatinine, Blood 1.72 mg/dL (0.60-1.20); Globulin, Blood 2.7 g/dL (2.2-4.0); Potassium, Blood 4.3 mmol/L (3.5-5.5); Total Protein, Blood 4.7 g/dL (6.4-8.2)
== END ==
LOC: LAB SHORT 13:12
PROVIDERS: Urology
DX: C67.3 Malignant neoplasm of anterior wall of bladder (principal); N13.30 Unspecified hydronephrosis
CPT/HCPCS: 80053

== ENCOUNTER 2022-02-04 16:07 | Emergency (ER) | payer OTHER, MEDICARE ==
[~2022-02-04] VITALS: Ht 180.3 cm; Wt 74.4 kg
[2022-02-04 16:56] LABS: BASOPHILS ABSOLUTE AUTO 0.04 K/mm3 (0.00-0.23); BASOPHILS PERCENT AUTO 1 % (0-2); EOSINOPHILS ABSOLUTE AUTO 0.17 K/mm3 (0.00-0.68); EOSINOPHILS PERCENT AUTO 3 % (0-6); Hematocrit 27.2 % (37.0-53.0); Hemoglobin 8.2 g/dL (13.5-17.5); IMMATURE GRAN ABSOLUTE AUTO 0.02 K/mm3 (0.00-0.10); IMMATURE GRAN PERCENT AUTO 0 % (0-1); LYMPHOCYTES ABSOLUTE AUTO 0.56 K/mm3 (0.84-5.20); LYMPHOCYTES PERCENT AUTO 10 % (21-46); MONOCYTES PERCENT AUTO 7 % (4-13); Mean Corpuscular HGB 27.6 pg (26.0-34.0); Mean Corpuscular HGB Conc 30.1 g/dL (31.5-36.5); Mean Corpuscular Volume 92 fL (80-100); Mean Platelet Volume 10.3 fL (9.1-12.4); NEUTROPHILS ABSOLUTE AUTO 4.33 K/mm3 (1.96-9.15); NEUTROPHILS PERCENT AUTO 79 % (41-73); Platelet Count 167 K/mm3 (150-400); RDW Coefficient Variation 17.8 % (11.7-14.2); RDW Standard Deviation 59.3 fL (35.1-46.3); Red Blood Cell Count 2.97 M/mm3 (4.30-5.90); White Blood Cell Count 5.52 K/mm3 (4.00-11.30)
[2022-02-04 17:11] LABS: Albumin, Blood 1.9 g/dL (3.4-5.0); Albumin/Globulin Ratio 0.5 (0.8-1.8); Bilirubin, Total 0.4 mg/dL (0.1-1.0); Bun/Creatinine Ratio 15.6 (12.0-20.0); Calcium, Blood 8.1 mg/dL (8.5-10.1); Creatinine, Blood 1.92 mg/dL (0.60-1.20); Globulin, Blood 3.5 g/dL (2.2-4.0); Potassium, Blood 4.8 mmol/L (3.5-5.5); Total Protein, Blood 5.4 g/dL (6.4-8.2)
[2022-02-04 20:52] LABS: Source, Urine Clean Catch
[2022-02-04 20:53] LABS: Appearance, Urine Cloudy (Clear); Bilirubin, Urine Neg (Neg); Blood, Urine 4+ (Neg); Glucose Qualitative, Urine Neg (Neg); Ketones, Urine Neg (Neg); Leukocyte Esterase, Urine 3+ (Neg); Nitrite, Urine Pos (Neg); Protein, Urine 2+ (Neg); Urobilinogen, Urine NORM (Normal)
[2022-02-04 21:07] LABS: Color, Urine Yellow (P-Yellow)
[2022-02-04 21:10] LABS: White Blood Cells, Urine TNTC /hpf (0-5)
[2022-02-04 21:11] LABS: Bacteria Many /hpf; Mucus Heavy (0-Heavy); Squamous Epithelial Cells Few /hpf (Few)
[2022-02-04 21:12] LABS: Amorphous Light (0-Heavy)
== END 2022-02-04 22:36 | disposition home or self-care (01) ==
LOC: ER 16:07
PROVIDERS: Physician Assistant
DX: N39.0 Urinary tract infection, site not specified (principal); Z79.899 Other long term (current) drug therapy; Z87.891 Personal history of nicotine dependence
CPT/HCPCS: 74176; 80053; 81001; 85025; 87086; A9270; J2270

== ENCOUNTER 2022-02-08 14:53 | Emergency (ER) | payer OTHER, MEDICARE ==
[~2022-02-08] VITALS: Ht 180.3 cm; Wt 74.4 kg
[~2022-02-08 14:53] MED LIST changes: -TRANEXAMIC ACI650 MG PO
[2022-02-08 16:24] LABS: BASOPHILS ABSOLUTE AUTO 0.02 K/mm3 (0.00-0.23); BASOPHILS PERCENT AUTO 1 % (0-2); EOSINOPHILS ABSOLUTE AUTO 0.08 K/mm3 (0.00-0.68); EOSINOPHILS PERCENT AUTO 2 % (0-6); Hematocrit 21.4 % (37.0-53.0); Hemoglobin 6.6 g/dL (13.5-17.5); IMMATURE GRAN ABSOLUTE AUTO 0.02 K/mm3 (0.00-0.10); IMMATURE GRAN PERCENT AUTO 1 % (0-1); LYMPHOCYTES ABSOLUTE AUTO 0.35 K/mm3 (0.84-5.20); LYMPHOCYTES PERCENT AUTO 8 % (21-46); MONOCYTES ABSOLUTE AUTO 0.29 K/mm3 (0.16-1.47); MONOCYTES PERCENT AUTO 7 % (4-13); Mean Corpuscular HGB 27.6 pg (26.0-34.0); Mean Corpuscular HGB Conc 30.8 g/dL (31.5-36.5); Mean Corpuscular Volume 90 fL (80-100); Mean Platelet Volume 11.2 fL (9.1-12.4); NEUTROPHILS ABSOLUTE AUTO 3.51 K/mm3 (1.96-9.15); NEUTROPHILS PERCENT AUTO 82 % (41-73); Platelet Count 144 K/mm3 (150-400); RDW Coefficient Variation 17.4 % (11.7-14.2); RDW Standard Deviation 57.4 fL (35.1-46.3); Red Blood Cell Count 2.39 M/mm3 (4.30-5.90); White Blood Cell Count 4.27 K/mm3 (4.00-11.30)
[2022-02-08 17:41] LABS: Albumin, Blood 1.8 g/dL (3.4-5.0); Albumin/Globulin Ratio 0.6 (0.8-1.8); Alk Phos 75 U/L (50-136); Anion Gap 5 mmol/L (6-16); Aspartate Aminotrans (AST/SGOT 14 U/L (12-37); Bilirubin, Total 0.2 mg/dL (0.1-1.0); Blood Urea Nitrogen 26 mg/dL (8-24); Bun/Creatinine Ratio 14.6 (12.0-20.0); CO2, Blood 22 mmol/L (21-32); Chloride, Blood 114 mmol/L (98-108); Creatinine, Blood 1.78 mg/dL (0.60-1.20); Glomerular Filtration Rate 39 (60-); Glucose, Blood 141 mg/dL (70-99); Potassium, Blood 4.6 mmol/L (3.5-5.5); Sodium, Blood 141 mmol/L (136-145); Total Protein, Blood 4.8 g/dL (6.4-8.2)
[2022-02-09] MEDS ORDERED: TRANEXAMIC ACI650 MG PO (14:02)
== END 2022-02-08 21:00 | disposition home or self-care (01) ==
LOC: ER 14:53
PROVIDERS: Emergency Medicine
DX: K92.2 Gastrointestinal hemorrhage, unspecified (principal); D64.9 Anemia, unspecified; I25.2 Old myocardial infarction; N18.30 Chronic kidney disease, stage 3 unspecified; Z88.8 Allergy status to other drugs, medicaments and biological substances; Z79.899 Other long term (current) drug therapy
CPT/HCPCS: 36430; 80053; 85025; 86850; 86900; 86901; 86923; 93005; 93010; 99284-25; J1642; J7030; P9016

== ENCOUNTER → 2022-02-08 | Outpatient (CLI) | payer MEDICARE, OTHER ==
[~2022-02-08] MED LIST changes: +TRANEXAMIC ACI650 MG PO
[2022-02-08 15:45] LABS: Albumin/Globulin Ratio 0.6 (0.8-1.8); Bilirubin, Total 0.3 mg/dL (0.1-1.0); Bun/Creatinine Ratio 12.4 (12.0-20.0); Calcium, Blood 8.1 mg/dL (8.5-10.1); Creatinine, Blood 1.93 mg/dL (0.60-1.20); Globulin, Blood 3.1 g/dL (2.2-4.0); Potassium, Blood 4.7 mmol/L (3.5-5.5); Total Protein, Blood 5.1 g/dL (6.4-8.2)
== END | disposition home or self-care (01) ==
LOC: LAB SHORT 11:53 → LAB 11:53
PROVIDERS: Internal Medicine Hematology & Oncology
DX: D50.9 Iron deficiency anemia, unspecified (principal)
CPT/HCPCS: 80053

== ENCOUNTER 2022-02-09 00:22 | Day surgery (SDC) | payer MEDICARE, OTHER ==
[2022-02-09] MEDS ORDERED: TRANEXAMIC ACI650 MG PO (14:02)
== END 2022-02-09 17:10 | disposition home or self-care (01) ==
LOC: ATC 00:22
DX: D50.9 Iron deficiency anemia, unspecified (principal)
CPT/HCPCS: 36430; 86850; 86900; 86901; 86923; J1642; J7040; P9016

== ENCOUNTER → 2022-02-15 | Outpatient (CLI) | payer OTHER ==
[~2022-02-15] MED LIST changes: +TRANEXAMIC ACI650 MG PO
[2022-02-15 19:49] LABS: Bun/Creatinine Ratio 13.4 (12.0-20.0); Calcium, Blood 7.9 mg/dL (8.5-10.1); Creatinine, Blood 1.72 mg/dL (0.60-1.20); Potassium, Blood 4.8 mmol/L (3.5-5.5)
== END | disposition home or self-care (01) ==
LOC: LAB SHORT 12:45 → LAB 12:45
PROVIDERS: Urology
DX: N13.30 Unspecified hydronephrosis (principal); R33.8 Other retention of urine
CPT/HCPCS: 80048

== ENCOUNTER → 2022-02-18 | Outpatient (CLI) | payer MEDICARE, OTHER ==
[2022-02-18 17:43] LABS: Appearance, Urine Cloudy (Clear); Bilirubin, Urine Neg (Neg); Blood, Urine 3+ (Neg); Color, Urine Yellow (P-Yellow); Glucose Qualitative, Urine Neg (Neg); Ketones, Urine Neg (Neg); Leukocyte Esterase, Urine 3+ (Neg); Nitrite, Urine Pos (Neg); Protein, Urine 4+ (Neg); Urobilinogen, Urine NORM (Normal)
[2022-02-18 18:40] LABS: White Blood Cells, Urine TNTC /hpf (0-5)
[2022-02-18 18:42] LABS: Amorphous Light (0-Heavy); Bacteria Many /hpf; Mucus Heavy (0-Heavy); Squamous Epithelial Cells Few /hpf (Few)
[2022-02-18 18:43] LABS: Granular Casts 0-2 /lpf (0)
== END | disposition home or self-care (01) ==
LOC: LAB 14:00 → LAB SHORT 14:00
PROVIDERS: Internal Medicine Nephrology
DX: N39.0 Urinary tract infection, site not specified (principal)
CPT/HCPCS: 81001; 87086

== ENCOUNTER → 2022-02-25 | Outpatient (CLI) | payer MEDICARE, OTHER | LOC: LAB SHORT 09:45 → LAB 09:45 | DX: N18.30 Chronic kidney disease, stage 3 unspecified (principal); D63.1 Anemia in chronic kidney disease | CPT/HCPCS: 85018 ==

== ENCOUNTER 2022-03-11 03:16 | Day surgery (SDC) | payer OTHER, MEDICARE | END 2022-03-11 23:06 | disposition home or self-care (01) | LOC: WOUND 03:16 | DX: K92.2 Gastrointestinal hemorrhage, unspecified (principal); K52.0 Gastroenteritis and colitis due to radiation; I25.2 Old myocardial infarction; N18.6 End stage renal disease; Z90.79 Acquired absence of other genital organ(s); Z92.3 Personal history of irradiation; Z85.46 Personal history of malignant neoplasm of prostate; Z87.891 Personal history of nicotine dependence | CPT/HCPCS: G0463 ==

== ENCOUNTER 2022-03-24 00:15 | Day surgery (SDC) | payer MEDICARE, OTHER | END 2022-03-24 17:02 | disposition home or self-care (01) | LOC: ATC 00:15 | DX: D50.9 Iron deficiency anemia, unspecified (principal); E78.00 Pure hypercholesterolemia, unspecified; E11.8 Type 2 diabetes mellitus with unspecified complications; Z87.891 Personal history of nicotine dependence; Z90.5 Acquired absence of kidney | CPT/HCPCS: 36415; 36430; 86850; 86900; 86901; 86923; J1642; J7040; P9016 ==

== ENCOUNTER 2022-04-06 00:43 | Day surgery (SDC) | payer OTHER, MEDICARE | END 2022-04-06 23:00 | disposition home or self-care (01) | LOC: HBO 00:43 | DX: L59.8 Other specified disorders of the skin and subcutaneous tissue related to radiation (principal); K92.2 Gastrointestinal hemorrhage, unspecified; N30.40 Irradiation cystitis without hematuria; K52.0 Gastroenteritis and colitis due to radiation | CPT/HCPCS: G0277 ==

== ENCOUNTER 2022-04-07 02:27 | Day surgery (SDC) | payer OTHER, MEDICARE | END 2022-04-07 23:06 | disposition home or self-care (01) | LOC: HBO 02:27 | DX: L59.8 Other specified disorders of the skin and subcutaneous tissue related to radiation (principal); N30.40 Irradiation cystitis without hematuria; K52.0 Gastroenteritis and colitis due to radiation; K92.2 Gastrointestinal hemorrhage, unspecified | CPT/HCPCS: G0277 ==

== ENCOUNTER 2022-04-08 03:33 | Day surgery (SDC) | payer MEDICARE, OTHER ==
[2022-04-07 16:38] LABS: Hematocrit 24.8 % (37.0-53.0); Hemoglobin 7.5 g/dL (13.5-17.5)
== END 2022-04-08 11:14 | disposition home or self-care (01) ==
LOC: ATC 03:33
PROVIDERS: Internal Medicine Hematology & Oncology
DX: D50.9 Iron deficiency anemia, unspecified (principal); Z87.891 Personal history of nicotine dependence
CPT/HCPCS: 36415; 36430; 85014; 85018; 86850; 86900; 86901; 86923; J1642; J7040; P9016

== ENCOUNTER 2022-04-08 03:41 | Day surgery (SDC) | payer OTHER, MEDICARE | END 2022-04-08 23:36 | disposition home or self-care (01) | LOC: HBO 03:41 | DX: L59.8 Other specified disorders of the skin and subcutaneous tissue related to radiation (principal); N30.40 Irradiation cystitis without hematuria; K52.0 Gastroenteritis and colitis due to radiation; K92.2 Gastrointestinal hemorrhage, unspecified | CPT/HCPCS: G0277 ==

== ENCOUNTER 2022-04-09 02:12 | Day surgery (SDC) | payer OTHER, MEDICARE | END 2022-04-09 23:12 | disposition home or self-care (01) | LOC: HBO 02:12 | DX: L59.8 Other specified disorders of the skin and subcutaneous tissue related to radiation (principal); N30.40 Irradiation cystitis without hematuria; K52.0 Gastroenteritis and colitis due to radiation; K92.2 Gastrointestinal hemorrhage, unspecified | CPT/HCPCS: G0277 ==

== ENCOUNTER 2022-04-13 02:18 | Day surgery (SDC) | payer OTHER, MEDICARE | END 2022-04-13 23:19 | disposition home or self-care (01) | LOC: HBO 02:18 | DX: L59.8 Other specified disorders of the skin and subcutaneous tissue related to radiation (principal); N30.40 Irradiation cystitis without hematuria; K52.0 Gastroenteritis and colitis due to radiation; K92.2 Gastrointestinal hemorrhage, unspecified | CPT/HCPCS: G0277 ==

== ENCOUNTER 2022-04-15 01:38 | Day surgery (SDC) | payer OTHER, MEDICARE | END 2022-04-15 22:39 | disposition home or self-care (01) | LOC: HBO 01:38 | DX: L59.8 Other specified disorders of the skin and subcutaneous tissue related to radiation (principal); N30.40 Irradiation cystitis without hematuria; K52.0 Gastroenteritis and colitis due to radiation; K92.2 Gastrointestinal hemorrhage, unspecified | CPT/HCPCS: G0277 ==

== ENCOUNTER 2022-04-16 00:41 | Day surgery (SDC) | payer OTHER, MEDICARE | END 2022-04-16 23:18 | disposition home or self-care (01) | LOC: HBO 00:41 | DX: K52.0 Gastroenteritis and colitis due to radiation (principal); N30.40 Irradiation cystitis without hematuria; L59.8 Other specified disorders of the skin and subcutaneous tissue related to radiation; K92.2 Gastrointestinal hemorrhage, unspecified | CPT/HCPCS: G0277 ==

== ENCOUNTER 2022-04-19 01:39 | Day surgery (SDC) | payer OTHER, MEDICARE | END 2022-04-19 23:09 | disposition home or self-care (01) | LOC: HBO 01:39 | DX: L59.8 Other specified disorders of the skin and subcutaneous tissue related to radiation (principal); N30.40 Irradiation cystitis without hematuria; K52.0 Gastroenteritis and colitis due to radiation; K92.2 Gastrointestinal hemorrhage, unspecified | CPT/HCPCS: G0277 ==

== ENCOUNTER 2022-04-20 02:56 | Day surgery (SDC) | payer OTHER, MEDICARE | END 2022-04-20 23:08 | disposition home or self-care (01) | LOC: HBO 02:56 | DX: L59.8 Other specified disorders of the skin and subcutaneous tissue related to radiation (principal); N30.40 Irradiation cystitis without hematuria; K52.0 Gastroenteritis and colitis due to radiation; Y84.2 Radiological procedure and radiotherapy as the cause of abnormal reaction of the patient, or of later complication, without mention of misadventure at the time of the procedure; K92.2 Gastrointestinal hemorrhage, unspecified | CPT/HCPCS: G0277 ==

== ENCOUNTER → 2022-04-20 | Outpatient (CLI) | payer OTHER, MEDICARE ==
[2022-04-20 18:26] LABS: Percent Saturation 11.3 % (20.0-50.0)
== END | disposition home or self-care (01) ==
LOC: LAB SHORT 12:30
PROVIDERS: Internal Medicine Hematology & Oncology
DX: D50.9 Iron deficiency anemia, unspecified (principal)
CPT/HCPCS: 82728; 83540; 83550

== ENCOUNTER 2022-04-21 01:48 | Day surgery (SDC) | payer OTHER, MEDICARE | END 2022-04-21 22:58 | disposition home or self-care (01) | LOC: HBO 01:48 | DX: L59.8 Other specified disorders of the skin and subcutaneous tissue related to radiation (principal); N30.40 Irradiation cystitis without hematuria; K52.0 Gastroenteritis and colitis due to radiation; K92.2 Gastrointestinal hemorrhage, unspecified | CPT/HCPCS: G0277 ==

== ENCOUNTER 2022-04-22 01:02 | Day surgery (SDC) | payer MEDICARE, OTHER ==
--- NOTE | 2022-04-22 14:31 | NUR ---
PT REPORTS BLOOD LOSS FROM GI TRACT THIS AM. DR. MALCOLM'S OFFICE CONTACTED TO SEE IF THEY WOULD LIKE AN H&H DRAWN PRIOR TO THE UNIT OF PRDC. LM AT DR. MALCOLM'S OFFICE. PURPLE POP DRAWN AND HELD WITH PORT ACCESS.
[2022-04-22 15:18] LABS: Hematocrit 22.9 % (37.0-53.0)
== END 2022-04-22 17:40 | disposition home or self-care (01) ==
LOC: ATC 01:02
PROVIDERS: Internal Medicine Hematology & Oncology
DX: D50.9 Iron deficiency anemia, unspecified (principal); K92.2 Gastrointestinal hemorrhage, unspecified; Z87.891 Personal history of nicotine dependence
CPT/HCPCS: 36415; 36430; 74019; 85014; 85018; 86850; 86900; 86901; 86922; 86923; J1642; J7040; P9016

== ENCOUNTER 2022-04-23 01:14 | Day surgery (SDC) | payer OTHER, MEDICARE | END 2022-04-23 23:17 | disposition home or self-care (01) | LOC: HBO 01:14 | DX: L59.8 Other specified disorders of the skin and subcutaneous tissue related to radiation (principal); N30.40 Irradiation cystitis without hematuria; K52.0 Gastroenteritis and colitis due to radiation; K92.2 Gastrointestinal hemorrhage, unspecified; D50.9 Iron deficiency anemia, unspecified; R10.9 Unspecified abdominal pain | CPT/HCPCS: G0277 ==

== ENCOUNTER 2022-04-26 01:19 | Day surgery (SDC) | payer OTHER, MEDICARE | END 2022-04-26 23:01 | disposition home or self-care (01) | LOC: HBO 01:19 | DX: L59.8 Other specified disorders of the skin and subcutaneous tissue related to radiation (principal); N30.40 Irradiation cystitis without hematuria; K52.0 Gastroenteritis and colitis due to radiation; K92.2 Gastrointestinal hemorrhage, unspecified | CPT/HCPCS: G0277 ==

== ENCOUNTER 2022-04-28 00:55 | Day surgery (SDC) | payer OTHER, MEDICARE | END 2022-04-29 00:04 | disposition home or self-care (01) | LOC: HBO 00:55 | DX: L59.8 Other specified disorders of the skin and subcutaneous tissue related to radiation (principal); N30.40 Irradiation cystitis without hematuria; K52.0 Gastroenteritis and colitis due to radiation; K92.2 Gastrointestinal hemorrhage, unspecified | CPT/HCPCS: G0277 ==

== ENCOUNTER 2022-04-29 01:13 | Day surgery (SDC) | payer OTHER, MEDICARE | END 2022-04-29 23:16 | disposition home or self-care (01) | LOC: HBO 01:13 | DX: L59.8 Other specified disorders of the skin and subcutaneous tissue related to radiation (principal); N30.40 Irradiation cystitis without hematuria; K52.0 Gastroenteritis and colitis due to radiation; K92.2 Gastrointestinal hemorrhage, unspecified | CPT/HCPCS: G0277 ==

== ENCOUNTER 2022-04-30 01:43 | Day surgery (SDC) | payer OTHER, MEDICARE | END 2022-05-01 23:37 | disposition home or self-care (01) | LOC: HBO 01:43 | DX: L59.8 Other specified disorders of the skin and subcutaneous tissue related to radiation (principal); N30.40 Irradiation cystitis without hematuria; K52.0 Gastroenteritis and colitis due to radiation; K92.2 Gastrointestinal hemorrhage, unspecified | CPT/HCPCS: G0277 ==

== ENCOUNTER 2022-05-06 01:33 | Day surgery (SDC) | payer MEDICARE, OTHER | END 2022-05-06 16:55 | disposition home or self-care (01) | LOC: ATC 01:33 | DX: D50.9 Iron deficiency anemia, unspecified (principal); K92.2 Gastrointestinal hemorrhage, unspecified | CPT/HCPCS: 36415; 36430; 86850; 86900; 86901; 86923; J1642; J7040; P9016 ==

== ENCOUNTER 2022-05-11 01:28 | Day surgery (SDC) | payer OTHER, MEDICARE | END 2022-05-11 22:49 | disposition home or self-care (01) | LOC: HBO 01:28 | DX: L59.8 Other specified disorders of the skin and subcutaneous tissue related to radiation (principal); N30.40 Irradiation cystitis without hematuria; K20.0 Eosinophilic esophagitis; K92.2 Gastrointestinal hemorrhage, unspecified | CPT/HCPCS: G0277 ==

== ENCOUNTER 2022-05-12 00:54 | Day surgery (SDC) | payer OTHER, MEDICARE | END 2022-05-12 23:16 | disposition home or self-care (01) | LOC: HBO 00:54 | DX: L59.8 Other specified disorders of the skin and subcutaneous tissue related to radiation (principal); N30.40 Irradiation cystitis without hematuria; K52.0 Gastroenteritis and colitis due to radiation; K92.2 Gastrointestinal hemorrhage, unspecified | CPT/HCPCS: G0277 ==

== ENCOUNTER 2022-05-12 00:58 | Day surgery (SDC) | payer OTHER, MEDICARE | END 2022-05-12 23:16 | disposition home or self-care (01) | LOC: WOUND 00:58 | DX: L59.8 Other specified disorders of the skin and subcutaneous tissue related to radiation (principal); N30.40 Irradiation cystitis without hematuria; K20.0 Eosinophilic esophagitis; K92.2 Gastrointestinal hemorrhage, unspecified | CPT/HCPCS: G0463 ==

== ENCOUNTER 2022-05-19 04:10 | Day surgery (SDC) | payer OTHER, MEDICARE | END 2022-05-19 23:11 | disposition home or self-care (01) | LOC: HBO 04:10 | DX: L59.8 Other specified disorders of the skin and subcutaneous tissue related to radiation (principal); N30.40 Irradiation cystitis without hematuria; K52.0 Gastroenteritis and colitis due to radiation; K92.2 Gastrointestinal hemorrhage, unspecified | CPT/HCPCS: G0277 ==

== ENCOUNTER 2022-05-24 03:07 | Day surgery (SDC) | payer OTHER, MEDICARE | END 2022-05-24 23:12 | disposition home or self-care (01) | LOC: HBO 03:07 | DX: L59.8 Other specified disorders of the skin and subcutaneous tissue related to radiation (principal); N30.40 Irradiation cystitis without hematuria; K52.0 Gastroenteritis and colitis due to radiation; K92.2 Gastrointestinal hemorrhage, unspecified | CPT/HCPCS: G0277 ==

== ENCOUNTER 2022-05-25 01:24 | Day surgery (SDC) | payer OTHER, MEDICARE | END 2022-05-25 22:50 | disposition home or self-care (01) | LOC: HBO 01:24 | DX: L59.8 Other specified disorders of the skin and subcutaneous tissue related to radiation (principal); N30.40 Irradiation cystitis without hematuria; K52.0 Gastroenteritis and colitis due to radiation; K92.2 Gastrointestinal hemorrhage, unspecified | CPT/HCPCS: G0277 ==

== ENCOUNTER 2022-05-26 05:30 | Day surgery (SDC) | payer OTHER, MEDICARE | END 2022-05-26 23:06 | disposition home or self-care (01) | LOC: HBO 05:30 | DX: L59.8 Other specified disorders of the skin and subcutaneous tissue related to radiation (principal); N30.40 Irradiation cystitis without hematuria; K52.0 Gastroenteritis and colitis due to radiation; K92.2 Gastrointestinal hemorrhage, unspecified | CPT/HCPCS: G0277 ==

== ENCOUNTER 2022-05-28 01:51 | Day surgery (SDC) | payer MEDICARE, OTHER | END 2022-05-28 17:39 | disposition home or self-care (01) | LOC: ATC 01:51 | DX: D50.9 Iron deficiency anemia, unspecified (principal); K92.2 Gastrointestinal hemorrhage, unspecified; Z87.891 Personal history of nicotine dependence | CPT/HCPCS: 86850; 86900; 86901; 86923; J1642; J7040; P9016 ==

== ENCOUNTER 2022-05-31 01:17 | Day surgery (SDC) | payer OTHER, MEDICARE | END 2022-05-31 23:03 | disposition home or self-care (01) | LOC: HBO 01:17 | DX: L59.8 Other specified disorders of the skin and subcutaneous tissue related to radiation (principal); N30.40 Irradiation cystitis without hematuria; K52.0 Gastroenteritis and colitis due to radiation; K92.2 Gastrointestinal hemorrhage, unspecified | CPT/HCPCS: G0277 ==

== ENCOUNTER 2022-06-01 04:44 | Day surgery (SDC) | payer OTHER, MEDICARE | END 2022-06-01 22:57 | disposition home or self-care (01) | LOC: HBO 04:44 | DX: L59.8 Other specified disorders of the skin and subcutaneous tissue related to radiation (principal); N30.40 Irradiation cystitis without hematuria; K52.0 Gastroenteritis and colitis due to radiation; K92.2 Gastrointestinal hemorrhage, unspecified | CPT/HCPCS: G0277 ==

== ENCOUNTER 2022-06-02 01:39 | Day surgery (SDC) | payer OTHER, MEDICARE | END 2022-06-02 22:57 | disposition home or self-care (01) | LOC: HBO 01:39 | DX: L59.8 Other specified disorders of the skin and subcutaneous tissue related to radiation (principal); N30.40 Irradiation cystitis without hematuria; K52.0 Gastroenteritis and colitis due to radiation; K92.2 Gastrointestinal hemorrhage, unspecified | CPT/HCPCS: G0277 ==

== ENCOUNTER 2022-06-03 02:57 | Day surgery (SDC) | payer OTHER, MEDICARE | END 2022-06-03 23:12 | disposition home or self-care (01) | LOC: HBO 02:57 | DX: L59.8 Other specified disorders of the skin and subcutaneous tissue related to radiation (principal); N30.40 Irradiation cystitis without hematuria; K52.0 Gastroenteritis and colitis due to radiation; K92.2 Gastrointestinal hemorrhage, unspecified | CPT/HCPCS: G0277 ==

== ENCOUNTER 2022-06-04 02:28 | Day surgery (SDC) | payer OTHER, MEDICARE | END 2022-06-04 22:53 | disposition home or self-care (01) | LOC: HBO 02:28 | DX: L59.8 Other specified disorders of the skin and subcutaneous tissue related to radiation (principal); N30.40 Irradiation cystitis without hematuria; K52.0 Gastroenteritis and colitis due to radiation; K92.2 Gastrointestinal hemorrhage, unspecified | CPT/HCPCS: G0277 ==

== ENCOUNTER 2022-06-08 00:15 | Day surgery (SDC) | payer OTHER, MEDICARE | END 2022-06-08 22:59 | disposition home or self-care (01) | LOC: HBO 00:15 | DX: L59.8 Other specified disorders of the skin and subcutaneous tissue related to radiation (principal); N30.40 Irradiation cystitis without hematuria; K52.0 Gastroenteritis and colitis due to radiation; K92.2 Gastrointestinal hemorrhage, unspecified | CPT/HCPCS: G0277 ==

== ENCOUNTER 2022-06-09 00:34 | Day surgery (SDC) | payer OTHER, MEDICARE | END 2022-06-09 23:39 | disposition home or self-care (01) | LOC: HBO 00:34 | DX: L59.8 Other specified disorders of the skin and subcutaneous tissue related to radiation (principal); N30.40 Irradiation cystitis without hematuria; K52.0 Gastroenteritis and colitis due to radiation; K92.2 Gastrointestinal hemorrhage, unspecified | CPT/HCPCS: G0277 ==

== ENCOUNTER 2022-06-10 03:40 | Day surgery (SDC) | payer OTHER, MEDICARE | END 2022-06-10 23:37 | disposition home or self-care (01) | LOC: HBO 03:40 | DX: L59.8 Other specified disorders of the skin and subcutaneous tissue related to radiation (principal); N30.40 Irradiation cystitis without hematuria; K52.0 Gastroenteritis and colitis due to radiation; K92.2 Gastrointestinal hemorrhage, unspecified | CPT/HCPCS: G0277 ==

== ENCOUNTER 2022-06-11 01:51 | Day surgery (SDC) | payer OTHER, MEDICARE | END 2022-06-11 22:54 | disposition home or self-care (01) | LOC: HBO 01:51 | DX: L59.8 Other specified disorders of the skin and subcutaneous tissue related to radiation (principal); N30.40 Irradiation cystitis without hematuria; K52.0 Gastroenteritis and colitis due to radiation; K92.2 Gastrointestinal hemorrhage, unspecified | CPT/HCPCS: G0277 ==

== ENCOUNTER 2022-06-14 00:22 | Day surgery (SDC) | payer OTHER, MEDICARE | END 2022-06-14 23:18 | disposition home or self-care (01) | LOC: WOUND 00:22 | DX: L59.8 Other specified disorders of the skin and subcutaneous tissue related to radiation (principal); N30.40 Irradiation cystitis without hematuria; K52.0 Gastroenteritis and colitis due to radiation; K92.2 Gastrointestinal hemorrhage, unspecified | CPT/HCPCS: G0463 ==

== ENCOUNTER → 2022-07-15 | Outpatient (CLI) | payer MEDICARE, OTHER ==
[2022-07-15 19:49] LABS: Albumin, Blood 3.5 g/dL (3.4-5.0); Anion Gap 7 mmol/L (6-16); Blood Urea Nitrogen 45 mg/dL (8-24); Bun/Creatinine Ratio 26.3 (12.0-20.0); CO2, Blood 21 mmol/L (21-32); Calcium, Blood 8.6 mg/dL (8.5-10.1); Chloride, Blood 112 mmol/L (98-108); Creatinine, Blood 1.71 mg/dL (0.60-1.20); Glomerular Filtration Rate 40 (60-); Glucose, Blood 179 mg/dL (70-99); Phosphorus, Blood 4.1 mg/dL (2.5-4.9); Potassium, Blood 4.2 mmol/L (3.5-5.5); Sodium, Blood 140 mmol/L (136-145)
== END | disposition home or self-care (01) ==
LOC: LAB SHORT 13:41 → LAB 13:41
PROVIDERS: Internal Medicine Nephrology
DX: N18.30 Chronic kidney disease, stage 3 unspecified (principal); D63.1 Anemia in chronic kidney disease
CPT/HCPCS: 80069

== ENCOUNTER 2022-07-16 00:37 | Day surgery (SDC) | payer MEDICARE, OTHER | END 2022-07-16 23:28 | disposition home or self-care (01) | LOC: ATC 00:37 | DX: D50.9 Iron deficiency anemia, unspecified (principal); K92.2 Gastrointestinal hemorrhage, unspecified; R42 Dizziness and giddiness; Z87.891 Personal history of nicotine dependence; Z79.899 Other long term (current) drug therapy | CPT/HCPCS: J1642; J7050 ==

== ENCOUNTER 2022-07-16 13:01 | Emergency (ER) | payer MEDICARE, OTHER ==
[~2022-07-16] VITALS: Ht 180.3 cm; Wt 70.8 kg
[2022-07-16 14:36] LABS: BASOPHILS ABSOLUTE AUTO 0.03 K/mm3 (0.00-0.23); BASOPHILS PERCENT AUTO 1 % (0-2); EOSINOPHILS ABSOLUTE AUTO 0.16 K/mm3 (0.00-0.68); EOSINOPHILS PERCENT AUTO 3 % (0-6); Hematocrit 21.7 % (37.0-53.0); Hemoglobin 6.8 g/dL (13.5-17.5); IMMATURE GRAN ABSOLUTE AUTO 0.01 K/mm3 (0.00-0.10); IMMATURE GRAN PERCENT AUTO 0 % (0-1); LYMPHOCYTES PERCENT AUTO 6 % (21-46); MONOCYTES ABSOLUTE AUTO 0.29 K/mm3 (0.16-1.47); MONOCYTES PERCENT AUTO 6 % (4-13); Mean Corpuscular HGB 29.6 pg (26.0-34.0); Mean Corpuscular HGB Conc 31.3 g/dL (31.5-36.5); Mean Corpuscular Volume 94 fL (80-100); Mean Platelet Volume 10.5 fL (9.1-12.4); NEUTROPHILS ABSOLUTE AUTO 4.03 K/mm3 (1.96-9.15); NEUTROPHILS PERCENT AUTO 84 % (41-73); Platelet Count 86 K/mm3 (150-400); RDW Coefficient Variation 14.6 % (11.7-14.2); RDW Standard Deviation 50.3 fL (35.1-46.3); White Blood Cell Count 4.82 K/mm3 (4.00-11.30)
[2022-07-16 14:40] LABS: Albumin, Blood 3.2 g/dL (3.4-5.0); Albumin/Globulin Ratio 0.9 (0.8-1.8); Bilirubin, Total 0.3 mg/dL (0.1-1.0); Bun/Creatinine Ratio 27.4 (12.0-20.0); Calcium, Blood 8.4 mg/dL (8.5-10.1); Creatinine, Blood 1.68 mg/dL (0.60-1.20); Globulin, Blood 3.4 g/dL (2.2-4.0); Potassium, Blood 4.6 mmol/L (3.5-5.5); Total Protein, Blood 6.6 g/dL (6.4-8.2)
== END 2022-07-16 20:11 | disposition home or self-care (01) ==
LOC: ER 13:01
PROVIDERS: Emergency Medicine
DX: K92.2 Gastrointestinal hemorrhage, unspecified (principal); D64.9 Anemia, unspecified; C67.9 Malignant neoplasm of bladder, unspecified; C78.7 Secondary malignant neoplasm of liver and intrahepatic bile duct; C78.00 Secondary malignant neoplasm of unspecified lung; C79.51 Secondary malignant neoplasm of bone; N18.30 Chronic kidney disease, stage 3 unspecified; E78.5 Hyperlipidemia, unspecified; Z88.1 Allergy status to other antibiotic agents; Z79.899 Other long term (current) drug therapy
CPT/HCPCS: 36430; 80053; 85025; 86850; 86900; 86901; 86923; 99284-25; J7030; P9016

== ENCOUNTER → 2022-07-20 | Outpatient (CLI) | payer MEDICARE, OTHER ==
[2022-07-20 22:18] LABS: Prostate Specific Antigen <0.010 ng/mL (0.000-4.000)
== END | disposition home or self-care (01) ==
LOC: LAB SHORT 14:16 → LAB 14:16
PROVIDERS: Internal Medicine Hematology & Oncology
DX: Z12.5 Encounter for screening for malignant neoplasm of prostate (principal)
CPT/HCPCS: G0103

== ENCOUNTER → 2022-08-26 | Outpatient (CLI) | payer MEDICARE, OTHER ==
[2022-08-26 19:25] LABS: Percent Saturation 7.5 % (20.0-50.0)
== END | disposition home or self-care (01) ==
LOC: LAB 16:59 → LAB SHORT 16:59
PROVIDERS: Internal Medicine Hematology & Oncology
DX: D50.9 Iron deficiency anemia, unspecified (principal)
CPT/HCPCS: 82728; 83540; 83550

== ENCOUNTER 2022-09-10 01:37 | Day surgery (SDC) | payer MEDICARE, OTHER ==
[2022-09-10 13:09] VITALS: BP 128/63
[2022-09-10] MEDS ORDERED: MIDO5 PO (13:14)
[2022-09-10 13:26] VITALS: BP 102/60
[2022-09-10 14:28] VITALS: BP 108/69
[2022-09-10 14:51] VITALS: BP 118/72
[2022-09-10 15:14] VITALS: BP 125/81
[2022-09-10 16:19] VITALS: BP 127/69
== END 2022-09-10 16:42 | disposition home or self-care (01) ==
LOC: ATC 01:37
DX: D50.9 Iron deficiency anemia, unspecified (principal); K92.2 Gastrointestinal hemorrhage, unspecified; I10 Essential (primary) hypertension; E11.9 Type 2 diabetes mellitus without complications; D63.8 Anemia in other chronic diseases classified elsewhere; Z87.891 Personal history of nicotine dependence
CPT/HCPCS: 36415; 36430; 86850; 86900; 86901; 86923; J1642; J7050; P9016

== ENCOUNTER → 2022-09-30 | Outpatient (CLI) | payer MEDICARE, OTHER ==
[~2022-09-30] MED LIST changes: +MIDO5 PO
[2022-09-30 18:21] LABS: Percent Saturation 23.8 % (20.0-50.0)
== END | disposition home or self-care (01) ==
LOC: LAB SHORT 17:06 → LAB 17:06
PROVIDERS: Internal Medicine Hematology & Oncology
DX: D50.9 Iron deficiency anemia, unspecified (principal)
CPT/HCPCS: 82728; 83540; 83550

== ENCOUNTER → 2022-10-21 | Outpatient (CLI) | payer MEDICARE, OTHER ==
[2022-10-21 19:34] LABS: Albumin, Blood 3.7 g/dL (3.4-5.0); Anion Gap 4 mmol/L (6-16); Blood Urea Nitrogen 31 mg/dL (8-24); Bun/Creatinine Ratio 21.1 (12.0-20.0); CO2, Blood 25 mmol/L (21-32); Calcium, Blood 8.4 mg/dL (8.5-10.1); Chloride, Blood 116 mmol/L (98-108); Creatinine, Blood 1.47 mg/dL (0.60-1.20); Glomerular Filtration Rate 48 (60-); Glucose, Blood 118 mg/dL (70-99); Phosphorus, Blood 3.2 mg/dL (2.5-4.9); Sodium, Blood 145 mmol/L (136-145)
== END | disposition home or self-care (01) ==
LOC: LAB SHORT 09:54 → LAB 09:54
PROVIDERS: Internal Medicine Nephrology
DX: N18.30 Chronic kidney disease, stage 3 unspecified (principal); D63.1 Anemia in chronic kidney disease
CPT/HCPCS: 80069; 85018

== ENCOUNTER 2022-12-02 12:14 | Emergency (ER) | payer OTHER ==
[~2022-12-02] VITALS: Ht 180.3 cm; Wt 70.8 kg
[2022-12-02 13:14] LABS: BASOPHILS ABSOLUTE AUTO 0.05 K/mm3 (0.00-0.23); BASOPHILS PERCENT AUTO 1 % (0-2); EOSINOPHILS ABSOLUTE AUTO 0.18 K/mm3 (0.00-0.68); EOSINOPHILS PERCENT AUTO 3 % (0-6); Hematocrit 25.7 % (37.0-53.0); IMMATURE GRAN ABSOLUTE AUTO 0.02 K/mm3 (0.00-0.10); IMMATURE GRAN PERCENT AUTO 0 % (0-1); LYMPHOCYTES ABSOLUTE AUTO 0.55 K/mm3 (0.84-5.20); LYMPHOCYTES PERCENT AUTO 9 % (21-46); MONOCYTES ABSOLUTE AUTO 0.39 K/mm3 (0.16-1.47); MONOCYTES PERCENT AUTO 6 % (4-13); Mean Corpuscular HGB 30.4 pg (26.0-34.0); Mean Corpuscular HGB Conc 31.1 g/dL (31.5-36.5); Mean Corpuscular Volume 98 fL (80-100); Mean Platelet Volume 9.9 fL (9.1-12.4); NEUTROPHILS PERCENT AUTO 81 % (41-73); Platelet Count 154 K/mm3 (150-400); RDW Coefficient Variation 16.1 % (11.7-14.2); RDW Standard Deviation 58.3 fL (35.1-46.3); Red Blood Cell Count 2.63 M/mm3 (4.30-5.90); White Blood Cell Count 6.09 K/mm3 (4.00-11.30)
[2022-12-02 13:39] LABS: Albumin, Blood 3.7 g/dL (3.4-5.0); Bilirubin, Total 0.3 mg/dL (0.1-1.0); Bun/Creatinine Ratio 27.4 (12.0-20.0); Calcium, Blood 8.7 mg/dL (8.5-10.1); Creatinine, Blood 1.9 mg/dL (0.60-1.20); Globulin, Blood 3.7 g/dL (2.2-4.0); Magnesium, Blood 1.7 mg/dL (1.6-2.4); Potassium, Blood 4.8 mmol/L (3.5-5.5); Total Protein, Blood 7.4 g/dL (6.4-8.2)
[2022-12-02] MEDS ORDERED: DROXIDOPA200 MG PO (15:04)
[2022-12-02] MEDS ORDERED: MIDO5 PO (15:05)
[2022-12-02] MEDS ORDERED: LYSTEDA650 MG PO (15:08)
[2022-12-02 15:52] VITALS: BP 104/70
== END 2022-12-02 15:50 | disposition home or self-care (01) ==
LOC: ER 12:14
PROVIDERS: Physician Assistant
DX: D64.9 Anemia, unspecified (principal); K92.2 Gastrointestinal hemorrhage, unspecified; N18.30 Chronic kidney disease, stage 3 unspecified; E78.5 Hyperlipidemia, unspecified; Z88.1 Allergy status to other antibiotic agents; Z85.51 Personal history of malignant neoplasm of bladder; Z85.46 Personal history of malignant neoplasm of prostate; Z79.899 Other long term (current) drug therapy
CPT/HCPCS: 80053; 83735; 85025; 93005; 93010; 99284-25

== ENCOUNTER 2022-12-08 11:04 | Emergency (ER) | payer OTHER ==
[~2022-12-08] VITALS: Ht 180.3 cm; Wt 69.8 kg
[~2022-12-08 11:04] MED LIST changes: +DROXIDOPA200 MG PO; +LYSTEDA650 MG PO
[2022-12-08 11:23] LABS: BASOPHILS ABSOLUTE AUTO 0.02 K/mm3 (0.00-0.23); BASOPHILS PERCENT AUTO 0 % (0-2); EOSINOPHILS ABSOLUTE AUTO 0.17 K/mm3 (0.00-0.68); EOSINOPHILS PERCENT AUTO 4 % (0-6); Hematocrit 27.3 % (37.0-53.0); Hemoglobin 8.5 g/dL (13.5-17.5); IMMATURE GRAN ABSOLUTE AUTO 0.02 K/mm3 (0.00-0.10); IMMATURE GRAN PERCENT AUTO 0 % (0-1); LYMPHOCYTES ABSOLUTE AUTO 0.44 K/mm3 (0.84-5.20); LYMPHOCYTES PERCENT AUTO 9 % (21-46); MONOCYTES ABSOLUTE AUTO 0.34 K/mm3 (0.16-1.47); MONOCYTES PERCENT AUTO 7 % (4-13); Mean Corpuscular HGB 28.3 pg (26.0-34.0); Mean Corpuscular HGB Conc 31.1 g/dL (31.5-36.5); Mean Platelet Volume 10.2 fL (9.1-12.4); NEUTROPHILS ABSOLUTE AUTO 3.75 K/mm3 (1.96-9.15); NEUTROPHILS PERCENT AUTO 79 % (41-73); Platelet Count 120 K/mm3 (150-400); RDW Coefficient Variation 18.4 % (11.7-14.2); RDW Standard Deviation 61.9 fL (35.1-46.3); White Blood Cell Count 4.74 K/mm3 (4.00-11.30)
[2022-12-08 11:32] LABS: Bun/Creatinine Ratio 29.8 (12.0-20.0); Calcium, Blood 9.1 mg/dL (8.5-10.1); Creatinine, Blood 1.68 mg/dL (0.60-1.20); Potassium, Blood 4.1 mmol/L (3.5-5.5)
[2022-12-08 11:34] LABS: Mean Corpuscular Volume 91 fL (80-100)
[2022-12-08 12:30] VITALS: BP 112/55
== END 2022-12-08 12:58 | disposition home or self-care (01) ==
LOC: ER 11:04
PROVIDERS: Emergency Medicine
DX: D64.9 Anemia, unspecified (principal); N18.30 Chronic kidney disease, stage 3 unspecified; I95.89 Other hypotension; E78.5 Hyperlipidemia, unspecified; Z85.51 Personal history of malignant neoplasm of bladder; Z88.1 Allergy status to other antibiotic agents; Z79.899 Other long term (current) drug therapy
CPT/HCPCS: 80048; 85025; 86850; 86900; 86901

== ENCOUNTER 2022-12-09 01:41 | Day surgery (SDC) | payer MEDICARE, OTHER ==
[2022-12-09 14:02] VITALS: BP 128/41
[2022-12-09 14:26] VITALS: BP 128/67
[2022-12-09 15:40] VITALS: BP 132/75
== END 2022-12-09 15:48 | disposition home or self-care (01) ==
LOC: ATC 01:41
DX: K92.2 Gastrointestinal hemorrhage, unspecified (principal); D50.9 Iron deficiency anemia, unspecified
CPT/HCPCS: 36415; 36430; 86850; 86900; 86901; 86923; J1642; J7050; P9016

== ENCOUNTER 2022-12-27 12:58 | Emergency (ER) | payer MEDICARE, OTHER ==
[~2022-12-27] VITALS: Ht 180.3 cm; Wt 69.8 kg
[2022-12-27 13:43] LABS: BASOPHILS ABSOLUTE AUTO 0.03 K/mm3 (0.00-0.23); BASOPHILS PERCENT AUTO 1 % (0-2); EOSINOPHILS ABSOLUTE AUTO 0.19 K/mm3 (0.00-0.68); EOSINOPHILS PERCENT AUTO 4 % (0-6); Hematocrit 26.7 % (37.0-53.0); Hemoglobin 7.9 g/dL (13.5-17.5); IMMATURE GRAN ABSOLUTE AUTO 0.02 K/mm3 (0.00-0.10); IMMATURE GRAN PERCENT AUTO 0 % (0-1); LYMPHOCYTES ABSOLUTE AUTO 0.42 K/mm3 (0.84-5.20); LYMPHOCYTES PERCENT AUTO 8 % (21-46); MONOCYTES ABSOLUTE AUTO 0.38 K/mm3 (0.16-1.47); MONOCYTES PERCENT AUTO 7 % (4-13); Mean Corpuscular HGB 26.3 pg (26.0-34.0); Mean Corpuscular HGB Conc 29.6 g/dL (31.5-36.5); Mean Corpuscular Volume 89 fL (80-100); Mean Platelet Volume 11.3 fL (9.1-12.4); NEUTROPHILS ABSOLUTE AUTO 4.17 K/mm3 (1.96-9.15); NEUTROPHILS PERCENT AUTO 80 % (41-73); Platelet Count 136 K/mm3 (150-400); RDW Coefficient Variation 15.8 % (11.7-14.2); RDW Standard Deviation 51.6 fL (35.1-46.3); White Blood Cell Count 5.21 K/mm3 (4.00-11.30)
[2022-12-27 14:05] LABS: Albumin, Blood 3.1 g/dL (3.4-5.0); Albumin/Globulin Ratio 0.9 (0.8-1.8); Bilirubin, Total 0.3 mg/dL (0.1-1.0); Bun/Creatinine Ratio 29.2 (12.0-20.0); Calcium, Blood 8.4 mg/dL (8.5-10.1); Creatinine, Blood 1.85 mg/dL (0.60-1.20); Globulin, Blood 3.6 g/dL (2.2-4.0); Potassium, Blood 4.6 mmol/L (3.5-5.5); Total Protein, Blood 6.7 g/dL (6.4-8.2)
[2022-12-27 18:00] VITALS: BP 129/72
== END 2022-12-27 18:21 | disposition home or self-care (01) ==
LOC: ER 12:58
PROVIDERS: Emergency Medicine
DX: K92.2 Gastrointestinal hemorrhage, unspecified (principal); Z88.8 Allergy status to other drugs, medicaments and biological substances; Z79.899 Other long term (current) drug therapy; I25.2 Old myocardial infarction; N18.30 Chronic kidney disease, stage 3 unspecified
CPT/HCPCS: 80053; 85025; 86850; 86900; 86901; 93005; 93010; 99285-25

== ENCOUNTER 2022-12-30 10:27 | Emergency (ER) | payer MEDICARE, OTHER ==
[~2022-12-30] VITALS: Ht 180.3 cm; Wt 69.8 kg
[2022-12-30 11:15] VITALS: BP 119/69
[2022-12-30 11:17] LABS: BASOPHILS ABSOLUTE AUTO 0.05 K/mm3 (0.00-0.23); BASOPHILS PERCENT AUTO 1 % (0-2); EOSINOPHILS ABSOLUTE AUTO 0.17 K/mm3 (0.00-0.68); EOSINOPHILS PERCENT AUTO 2 % (0-6); Hematocrit 25.2 % (37.0-53.0); Hemoglobin 7.6 g/dL (13.5-17.5); IMMATURE GRAN ABSOLUTE AUTO 0.03 K/mm3 (0.00-0.10); IMMATURE GRAN PERCENT AUTO 0 % (0-1); LYMPHOCYTES ABSOLUTE AUTO 0.46 K/mm3 (0.84-5.20); LYMPHOCYTES PERCENT AUTO 6 % (21-46); MONOCYTES ABSOLUTE AUTO 0.47 K/mm3 (0.16-1.47); MONOCYTES PERCENT AUTO 6 % (4-13); Mean Corpuscular HGB 26.2 pg (26.0-34.0); Mean Corpuscular HGB Conc 30.2 g/dL (31.5-36.5); Mean Corpuscular Volume 87 fL (80-100); Mean Platelet Volume 11.6 fL (9.1-12.4); NEUTROPHILS ABSOLUTE AUTO 6.63 K/mm3 (1.96-9.15); NEUTROPHILS PERCENT AUTO 85 % (41-73); Platelet Count 151 K/mm3 (150-400); RDW Coefficient Variation 15.7 % (11.7-14.2); RDW Standard Deviation 50.1 fL (35.1-46.3); White Blood Cell Count 7.81 K/mm3 (4.00-11.30)
[2022-12-30 11:35] LABS: Albumin, Blood 3.2 g/dL (3.4-5.0); Albumin/Globulin Ratio 0.9 (0.8-1.8); Bilirubin, Total 0.3 mg/dL (0.1-1.0); Bun/Creatinine Ratio 30.6 (12.0-20.0); Calcium, Blood 8.5 mg/dL (8.5-10.1); Creatinine, Blood 1.7 mg/dL (0.60-1.20); Globulin, Blood 3.6 g/dL (2.2-4.0); Potassium, Blood 4.8 mmol/L (3.5-5.5); Total Protein, Blood 6.8 g/dL (6.4-8.2)
[2022-12-30 11:42] LABS: BAND PERCENT MAN 3 % (0-8); BASOPHILS PERCENT MAN 0 % (0-2); EOSINOPHILS ABSOLUTE MAN 0.15 K/mm3 (0.00-0.68); EOSINOPHILS PERCENT MAN 2 % (0-6); LYMPHOCYTES ABSOLUTE MAN 0.23 K/mm3 (0.84-5.20); LYMPHOCYTES PERCENT MAN 3 % (21-46); MONOCYTES ABSOLUTE MAN 0.23 K/mm3 (0.16-1.47); MONOCYTES PERCENT MAN 3 % (4-13); NEUTROPHILS ABSOLUTE MAN 7.18 K/mm3 (1.96-9.15); SEG NEUTROPHILS PERCENT MAN 89 % (41-73); TOTAL CELLS COUNTED 100
== END 2022-12-30 12:54 | disposition home or self-care (01) ==
LOC: ER 10:27
PROVIDERS: Emergency Medicine
DX: K59.00 Constipation, unspecified (principal); D64.9 Anemia, unspecified; K92.2 Gastrointestinal hemorrhage, unspecified; E78.5 Hyperlipidemia, unspecified; N18.30 Chronic kidney disease, stage 3 unspecified; Z85.51 Personal history of malignant neoplasm of bladder; Z88.1 Allergy status to other antibiotic agents; Z79.899 Other long term (current) drug therapy
CPT/HCPCS: 74177; 80053; 85025; 99284-25; Q9967

== ENCOUNTER 2022-12-30 13:26 | Day surgery (SDC) | payer MEDICARE, OTHER ==
[2022-12-30 15:21] VITALS: BP 75/57
--- NOTE | 2022-12-30 15:22 | NUR ---
PT RECLINING BACK, HYPOTENSIVE, WITHOUT NO S/S OF HYPOTENSION
[2022-12-30 16:36] VITALS: BP 92/79
== END 2022-12-30 16:41 | disposition home or self-care (01) ==
LOC: ATC 13:26
DX: D50.0 Iron deficiency anemia secondary to blood loss (chronic) (principal); D68.9 Coagulation defect, unspecified; K92.2 Gastrointestinal hemorrhage, unspecified
CPT/HCPCS: 36430; 86850; 86900; 86901; 86923; J1642; J7050; P9016

== ENCOUNTER 2023-01-21 09:25 | Day surgery (SDC) | payer MEDICARE, OTHER ==
[2023-01-20 18:03] LABS: BASOPHILS ABSOLUTE AUTO 0.03 K/mm3 (0.00-0.23); BASOPHILS PERCENT AUTO 1 % (0-2); EOSINOPHILS ABSOLUTE AUTO 0.17 K/mm3 (0.00-0.68); EOSINOPHILS PERCENT AUTO 3 % (0-6); Hematocrit 25.6 % (37.0-53.0); Hemoglobin 7.5 g/dL (13.5-17.5); IMMATURE GRAN ABSOLUTE AUTO 0.01 K/mm3 (0.00-0.10); IMMATURE GRAN PERCENT AUTO 0 % (0-1); LYMPHOCYTES ABSOLUTE AUTO 0.55 K/mm3 (0.84-5.20); LYMPHOCYTES PERCENT AUTO 9 % (21-46); MONOCYTES ABSOLUTE AUTO 0.45 K/mm3 (0.16-1.47); MONOCYTES PERCENT AUTO 8 % (4-13); Mean Corpuscular HGB 24.8 pg (26.0-34.0); Mean Corpuscular HGB Conc 29.3 g/dL (31.5-36.5); Mean Corpuscular Volume 85 fL (80-100); Mean Platelet Volume 11.7 fL (9.1-12.4); NEUTROPHILS ABSOLUTE AUTO 4.72 K/mm3 (1.96-9.15); NEUTROPHILS PERCENT AUTO 80 % (41-73); Platelet Count 157 K/mm3 (150-400); RDW Coefficient Variation 15.5 % (11.7-14.2); RDW Standard Deviation 47.4 fL (35.1-46.3); Red Blood Cell Count 3.03 M/mm3 (4.30-5.90); White Blood Cell Count 5.93 K/mm3 (4.00-11.30)
[2023-01-20 18:35] LABS: Albumin, Blood 3.8 g/dL (3.4-5.0); Anion Gap 7 mmol/L (6-16); Blood Urea Nitrogen 44 mg/dL (8-24); Bun/Creatinine Ratio 24.6 (12.0-20.0); CO2, Blood 21 mmol/L (21-32); Calcium, Blood 9.4 mg/dL (8.5-10.1); Chloride, Blood 113 mmol/L (98-108); Creatinine, Blood 1.79 mg/dL (0.60-1.20); Glomerular Filtration Rate 38 (60-); Glucose, Blood 167 mg/dL (70-99); Potassium, Blood 4.6 mmol/L (3.5-5.5); Sodium, Blood 141 mmol/L (136-145)
[2023-01-21 15:53] VITALS: BP 108/56
[2023-01-21] MEDS ORDERED: FLUDROCORTISON0.1 M1 PO (16:07)
[2023-01-21 16:19] VITALS: BP 111/43
[2023-01-21 17:18] VITALS: BP 117/47
[2023-01-21] MEDS ORDERED: NORTHERA100 MG PO (17:21)
[2023-01-21 17:38] VITALS: BP 127/64
== END 2023-01-21 17:48 | disposition home or self-care (01) ==
LOC: EDSTATUS 09:25 → ATC 09:25
PROVIDERS: Internal Medicine Hematology & Oncology; Internal Medicine Nephrology
DX: K92.2 Gastrointestinal hemorrhage, unspecified (principal); D50.0 Iron deficiency anemia secondary to blood loss (chronic); N18.30 Chronic kidney disease, stage 3 unspecified; D63.1 Anemia in chronic kidney disease; E83.42 Hypomagnesemia; E78.00 Pure hypercholesterolemia, unspecified; I95.9 Hypotension, unspecified; E11.9 Type 2 diabetes mellitus without complications; Z87.891 Personal history of nicotine dependence
CPT/HCPCS: 36415; 36430; 80069; 85018; 85025; 86850; 86900; 86901; 86923; J1642; J7050; P9016

== ENCOUNTER 2023-02-04 11:38 | Day surgery (SDC) | payer MEDICARE, OTHER ==
[2023-02-03 18:49] LABS: BASOPHILS ABSOLUTE AUTO 0.05 K/mm3 (0.00-0.23); BASOPHILS PERCENT AUTO 1 % (0-2); EOSINOPHILS PERCENT AUTO 4 % (0-6); Hemoglobin 7.3 g/dL (13.5-17.5); IMMATURE GRAN ABSOLUTE AUTO 0.01 K/mm3 (0.00-0.10); IMMATURE GRAN PERCENT AUTO 0 % (0-1); LYMPHOCYTES ABSOLUTE AUTO 0.53 K/mm3 (0.84-5.20); LYMPHOCYTES PERCENT AUTO 10 % (21-46); MONOCYTES ABSOLUTE AUTO 0.43 K/mm3 (0.16-1.47); MONOCYTES PERCENT AUTO 8 % (4-13); Mean Corpuscular HGB 24.4 pg (26.0-34.0); Mean Corpuscular HGB Conc 29.2 g/dL (31.5-36.5); Mean Corpuscular Volume 84 fL (80-100); Mean Platelet Volume 11.5 fL (9.1-12.4); NEUTROPHILS ABSOLUTE AUTO 3.96 K/mm3 (1.96-9.15); NEUTROPHILS PERCENT AUTO 76 % (41-73); Platelet Count 145 K/mm3 (150-400); RDW Coefficient Variation 15.9 % (11.7-14.2); RDW Standard Deviation 48.8 fL (35.1-46.3); Red Blood Cell Count 2.99 M/mm3 (4.30-5.90); White Blood Cell Count 5.18 K/mm3 (4.00-11.30)
[2023-02-03 20:09] LABS: Albumin, Blood 3.5 g/dL (3.4-5.0); Anion Gap 2 mmol/L (6-16); Blood Urea Nitrogen 40 mg/dL (8-24); Bun/Creatinine Ratio 18.3 (12.0-20.0); CO2, Blood 26 mmol/L (21-32); Calcium, Blood 8.6 mg/dL (8.5-10.1); Chloride, Blood 113 mmol/L (98-108); Creatinine, Blood 2.18 mg/dL (0.60-1.20); Ferritin, Serum 12 ng/mL (26-388); Glomerular Filtration Rate 30 (60-); Glucose, Blood 202 mg/dL (70-99); Iron Serum 27 ug/dL (65-175); Phosphorus, Blood 3.9 mg/dL (2.5-4.9); Potassium, Blood 4.6 mmol/L (3.5-5.5); Sodium, Blood 141 mmol/L (136-145); Total Iron Binding Capacity 388 ug/dL (250-450)
[~2023-02-04 11:38] MED LIST changes: +FLUDROCORTISON0.1 M1 PO
[2023-02-04 13:20] VITALS: BP 110/68
[2023-02-04 13:41] VITALS: BP 113/72
[2023-02-04 14:43] VITALS: BP 115/70
[2023-02-04 15:10] VITALS: BP 123/65
[2023-02-04 16:32] VITALS: BP 114/63
== END 2023-02-04 16:32 | disposition home or self-care (01) ==
LOC: ATC 11:38
PROVIDERS: Internal Medicine Hematology & Oncology; Internal Medicine Nephrology
DX: D50.0 Iron deficiency anemia secondary to blood loss (chronic) (principal); N18.30 Chronic kidney disease, stage 3 unspecified; K92.2 Gastrointestinal hemorrhage, unspecified; Z88.0 Allergy status to penicillin
CPT/HCPCS: 36415; 36430; 80069; 82728; 83540; 83550; 85018; 85025; 86850; 86900; 86901; 86923; J1642; J7050; P9016

== ENCOUNTER → 2023-08-15 | Outpatient (CLI) | payer MEDICARE, OTHER ==
[2023-08-17 12:06] LABS: Stool Occult Bld Immuno 1 Positive (NEGATIVE)
== END | disposition home or self-care (01) ==
LOC: LAB SHORT 14:24 → LAB 14:24 → LAB FUT 08-14 12:05
PROVIDERS: Internal Medicine Nephrology
DX: N18.30 Chronic kidney disease, stage 3 unspecified (principal); D75.1 Secondary polycythemia; N25.81 Secondary hyperparathyroidism of renal origin; E55.9 Vitamin D deficiency, unspecified; E29.1 Testicular hypofunction; R94.5 Abnormal results of liver function studies; R94.6 Abnormal results of thyroid function studies; R76.9 Abnormal immunological finding in serum, unspecified
CPT/HCPCS: 82274

== ENCOUNTER → 2023-10-06 | Outpatient (CLI) | payer MEDICARE, OTHER ==
[2023-10-06 19:11] LABS: U Amphetamine Screen Not Detected; U Barbituate Screen Not Detected; U Benzodiazapine Screen DETECTED; U Buprenorphine Screen Not Detected; U Cannabinoids Screen Not Detected; U Cocaine Screen Not Detected; U Methadone Screen Not Detected; U Methamphetamine Screen Not Detected; U Opiates Screen Not Detected; U Oxycodone Screen DETECTED; U Phencyclidine Screen Not Detected
== END ==
LOC: LAB SHORT 17:27 → LAB EV 17:27
PROVIDERS: Internal Medicine Hematology & Oncology
DX: C67.9 Malignant neoplasm of bladder, unspecified (principal); Z79.899 Other long term (current) drug therapy

== ENCOUNTER 2024-08-02 02:07 | Emergency (ER) | payer MEDICARE ==
[~2024-08-02] VITALS: Ht 180.3 cm; Wt 73.5 kg
[2024-08-02 02:21] LABS: Source, Urine Clean Catch
[2024-08-02 02:40] LABS: Appearance, Urine Turbid (Clear); Bilirubin, Urine Neg (Neg); Blood, Urine 4+ (Neg); Color, Urine Yellow (P-Yellow); Glucose Qualitative, Urine Neg (Neg); Ketones, Urine Neg (Neg); Leukocyte Esterase, Urine 3+ (Neg); Nitrite, Urine Neg (Neg); Protein, Urine 3+ (Neg); Urobilinogen, Urine NORM (Normal)
[2024-08-02 02:49] LABS: Bacteria Many /hpf; Squamous Epithelial Cells Few /hpf (Few); White Blood Cells, Urine TNTC /hpf (0-5)
[2024-08-02] MEDS ORDERED: Acetaminophen 500 MG Tab PO ONE (03:00)
[2024-08-02 03:16] LABS: BASOPHILS ABSOLUTE AUTO 0.02 K/mm3 (0.00-0.23); BASOPHILS PERCENT AUTO 0 % (0-2); EOSINOPHILS ABSOLUTE AUTO 0.04 K/mm3 (0.00-0.68); EOSINOPHILS PERCENT AUTO 1 % (0-6); Hemoglobin 10.3 g/dL (13.5-17.5); IMMATURE GRAN ABSOLUTE AUTO 0.03 K/mm3 (0.00-0.10); IMMATURE GRAN PERCENT AUTO 0 % (0-1); LYMPHOCYTES ABSOLUTE AUTO 0.24 K/mm3 (0.84-5.20); LYMPHOCYTES PERCENT AUTO 3 % (21-46); MONOCYTES ABSOLUTE AUTO 0.45 K/mm3 (0.16-1.47); MONOCYTES PERCENT AUTO 6 % (4-13); Mean Corpuscular HGB 29.1 pg (26.0-34.0); Mean Corpuscular HGB Conc 32.2 g/dL (31.5-36.5); Mean Corpuscular Volume 90 fL (80-100); Mean Platelet Volume 9.6 fL (9.1-12.4); NEUTROPHILS PERCENT AUTO 89 % (41-73); Platelet Count 127 K/mm3 (150-400); RDW Coefficient Variation 15.4 % (11.7-14.2); Red Blood Cell Count 3.54 M/mm3 (4.30-5.90); White Blood Cell Count 7.18 K/mm3 (4.00-11.30)
[2024-08-02] MEDS ORDERED: Ciprofloxacin 400MG/D5 200ML 200 ML IV ONE (03:30)
[2024-08-02 03:42] LABS: Thyroid Stimulating Hormone 0.832 uIU/mL (0.360-4.800)
[2024-08-02 03:43] LABS: Albumin, Blood 2.7 g/dL (3.4-5.0); Albumin/Globulin Ratio 0.6 (0.8-1.8); Bilirubin, Total 0.4 mg/dL (0.1-1.0); Bun/Creatinine Ratio 16.5 (12.0-20.0); Calcium, Blood 7.9 mg/dL (8.5-10.1); Creatinine, Blood 1.88 mg/dL (0.60-1.20); Globulin, Blood 4.5 g/dL (2.2-4.0); Potassium, Blood 4.4 mmol/L (3.5-5.5); Total Protein, Blood 7.2 g/dL (6.4-8.2)
[2024-08-02] MEDS ORDERED: NS 1,000 ML IV SCH (04:50)
[2024-08-02] MEDS ORDERED: ACET500 PO (05:06)
[2024-08-02] MEDS ORDERED: CIPR500 PO (05:06)
[2024-08-02 05:53] VITALS: BP 96/80
== END 2024-08-02 05:53 | disposition home or self-care (01) ==
LOC: ER 02:07
PROVIDERS: Emergency Medicine
DX: N39.0 Urinary tract infection, site not specified (principal); R50.9 Fever, unspecified; Z79.899 Other long term (current) drug therapy; Z88.1 Allergy status to other antibiotic agents
CPT/HCPCS: 36415; 80053; 81001; 83605; 84443; 85025; 87077; 87086; 87186; 93005; 93010; 96365; 99284-25; A9270; J0744; J7030

== ENCOUNTER 2025-01-12 00:51 | Day surgery (SDC) | payer MEDICARE, OTHER ==
[2025-01-10 13:30] LABS: BASOPHILS ABSOLUTE AUTO 0.04 K/mm3 (0.00-0.23); BASOPHILS PERCENT AUTO 1 % (0-2); EOSINOPHILS ABSOLUTE AUTO 0.26 K/mm3 (0.00-0.68); EOSINOPHILS PERCENT AUTO 5 % (0-6); Hematocrit 24.6 % (37.0-53.0); Hemoglobin 7.5 g/dL (13.5-17.5); IMMATURE GRAN ABSOLUTE AUTO 0.02 K/mm3 (0.00-0.10); IMMATURE GRAN PERCENT AUTO 0 % (0-1); LYMPHOCYTES ABSOLUTE AUTO 0.65 K/mm3 (0.84-5.20); LYMPHOCYTES PERCENT AUTO 13 % (21-46); MONOCYTES ABSOLUTE AUTO 0.29 K/mm3 (0.16-1.47); MONOCYTES PERCENT AUTO 6 % (4-13); Mean Corpuscular HGB Conc 30.5 g/dL (31.5-36.5); Mean Corpuscular Volume 100 fL (80-100); NEUTROPHILS ABSOLUTE AUTO 3.73 K/mm3 (1.96-9.15); NEUTROPHILS PERCENT AUTO 75 % (41-73); NRBC ABSOLUTE 0.00 K/mm3 (0.00-0.02); NRBC Auto 0.0 /100 WBC (0.0-0.2); Platelet Count 113 K/mm3 (150-400); RDW Coefficient Variation 16.8 % (11.7-14.2); RDW Standard Deviation 61.8 fL (35.1-46.3)
[~2025-01-12 00:51] MED LIST changes: +ACET500 PO; +CIPR500 PO
[2025-01-12] MEDS ORDERED: NS 250 ML IV SCH (06:40)
== END 2025-01-12 23:00 | disposition home or self-care (01) ==
LOC: ATC 00:51 → EDSTATUS 08:30 → ATC 08:30
PROVIDERS: Internal Medicine Nephrology
DX: I12.9 Hypertensive chronic kidney disease with stage 1 through stage 4 chronic kidney disease, or unspecified chronic kidney disease (principal); N18.32 Chronic kidney disease, stage 3b; D63.1 Anemia in chronic kidney disease; R60.9 Edema, unspecified; N25.81 Secondary hyperparathyroidism of renal origin; D50.9 Iron deficiency anemia, unspecified; E78.00 Pure hypercholesterolemia, unspecified; E55.9 Vitamin D deficiency, unspecified; Z79.899 Other long term (current) drug therapy; Z88.8 Allergy status to other drugs, medicaments and biological substances; Z79.2 Long term (current) use of antibiotics; R55 Syncope and collapse
CPT/HCPCS: 36415; 36430; 80053; 84484; 85025; 86850; 86900; 86901; 86923; 93005; 93010; 99285-25; J7030; P9016

== ENCOUNTER 2025-01-12 08:53 | Emergency (ER) | payer MEDICARE, OTHER ==
[~2025-01-12] VITALS: Ht 180.3 cm; Wt 73.0 kg
[2025-01-12 09:28] LABS: BASOPHILS ABSOLUTE AUTO 0.03 K/mm3 (0.00-0.23); BASOPHILS PERCENT AUTO 1 % (0-2); EOSINOPHILS ABSOLUTE AUTO 0.20 K/mm3 (0.00-0.68); EOSINOPHILS PERCENT AUTO 5 % (0-6); Hematocrit 21.6 % (37.0-53.0); Hemoglobin 6.6 g/dL (13.5-17.5); IMMATURE GRAN ABSOLUTE AUTO 0.03 K/mm3 (0.00-0.10); IMMATURE GRAN PERCENT AUTO 1 % (0-1); LYMPHOCYTES ABSOLUTE AUTO 0.49 K/mm3 (0.84-5.20); LYMPHOCYTES PERCENT AUTO 11 % (21-46); MONOCYTES ABSOLUTE AUTO 0.28 K/mm3 (0.16-1.47); MONOCYTES PERCENT AUTO 7 % (4-13); Mean Corpuscular HGB Conc 30.6 g/dL (31.5-36.5); Mean Corpuscular Volume 100 fL (80-100); NEUTROPHILS ABSOLUTE AUTO 3.28 K/mm3 (1.96-9.15); NEUTROPHILS PERCENT AUTO 76 % (41-73); NRBC ABSOLUTE 0.00 K/mm3 (0.00-0.02); NRBC Auto 0.0 /100 WBC (0.0-0.2); Platelet Count 99 K/mm3 (150-400); RDW Coefficient Variation 16.7 % (11.7-14.2); RDW Standard Deviation 60.7 fL (35.1-46.3)
[2025-01-12 09:52] LABS: Alanine Aminotransfer (ALT/SGP 12.0 U/L (12-78); Albumin, Blood 3.1 g/dL (3.4-5.0); Albumin/Globulin Ratio 1.0 (0.8-1.8); Anion Gap 11.0 mmol/L (3-11); Aspartate Aminotrans (AST/SGOT 12.0 U/L (12-37); Bilirubin, Total 0.3 mg/dL (0.1-1.0); Blood Urea Nitrogen 32.0 mg/dL (8-24); CO2, Blood 20.0 mmol/L (21-32); Calcium, Blood 7.6 mg/dL (8.5-10.1); Chloride, Blood 115.0 mmol/L (98-108); Creatinine, Blood 1.8 mg/dL (0.60-1.20); Globulin, Blood 3.0 g/dL (2.2-4.0); Glucose, Blood 155.0 mg/dL (70-99); Potassium, Blood 4.2 mmol/L (3.5-5.5); Sodium, Blood 142.0 mmol/L (136-145); Total Protein, Blood 6.1 g/dL (6.4-8.2)
[2025-01-12] MEDS ORDERED: NS 1,000 ML IV SCH (10:35)
[2025-01-12 17:04] VITALS: BP 119/62
== END 2025-01-12 17:17 | disposition home or self-care (01) ==
LOC: ER 08:53
PROVIDERS: Emergency Medicine
DX: N18.30 Chronic kidney disease, stage 3 unspecified (principal); D63.1 Anemia in chronic kidney disease; R55 Syncope and collapse; Z79.2 Long term (current) use of antibiotics; Z79.899 Other long term (current) drug therapy; Z88.8 Allergy status to other drugs, medicaments and biological substances
CPT/HCPCS: 36430; 80053; 84484; 85025; 86850; 86900; 86901; 86923; 93005; 93010; 99285-25; J7030; P9016

== ENCOUNTER 2025-01-25 00:33 | Day surgery (SDC) | payer MEDICARE, OTHER ==
[2025-01-25] MEDS ORDERED: NS 250 ML IV SCH (07:00)
[2025-01-25 07:48] VITALS: BP 113/54
[2025-01-25 08:13] VITALS: BP 113/67
[2025-01-25 09:29] VITALS: BP 113/56
[2025-01-25 10:27] VITALS: BP 125/78
[2025-01-25 10:42] VITALS: BP 122/53
[2025-01-25 11:48] VITALS: BP 121/86
== END 2025-01-25 11:55 | disposition home or self-care (01) ==
LOC: ATC 00:33 → EDSTATUS 07:30 → ATC 11:55
DX: K92.2 Gastrointestinal hemorrhage, unspecified (principal); I12.9 Hypertensive chronic kidney disease with stage 1 through stage 4 chronic kidney disease, or unspecified chronic kidney disease; N18.32 Chronic kidney disease, stage 3b; D63.1 Anemia in chronic kidney disease; N25.81 Secondary hyperparathyroidism of renal origin; E86.9 Volume depletion, unspecified; D50.9 Iron deficiency anemia, unspecified; E78.00 Pure hypercholesterolemia, unspecified; E55.9 Vitamin D deficiency, unspecified; Z87.891 Personal history of nicotine dependence; Z79.899 Other long term (current) drug therapy; Z88.0 Allergy status to penicillin
CPT/HCPCS: 36415; 36430; 86850; 86900; 86901; 86923; J7050; P9016

== ENCOUNTER 2025-02-20 11:51 | Emergency (ER) | payer MEDICARE ==
[~2025-02-20] VITALS: Ht 175.3 cm; Wt 59.0 kg
[2025-02-20 12:47] LABS: BASOPHILS ABSOLUTE AUTO 0.02 K/mm3 (0.00-0.23); BASOPHILS PERCENT AUTO 1 % (0-2); EOSINOPHILS ABSOLUTE AUTO 0.15 K/mm3 (0.00-0.68); EOSINOPHILS PERCENT AUTO 4 % (0-6); Hematocrit 18.1 % (37.0-53.0); IMMATURE GRAN ABSOLUTE AUTO 0.01 K/mm3 (0.00-0.10); IMMATURE GRAN PERCENT AUTO 0 % (0-1); LYMPHOCYTES ABSOLUTE AUTO 0.49 K/mm3 (0.84-5.20); LYMPHOCYTES PERCENT AUTO 13 % (21-46); MONOCYTES ABSOLUTE AUTO 0.24 K/mm3 (0.16-1.47); MONOCYTES PERCENT AUTO 6 % (4-13); Mean Corpuscular HGB Conc 30.9 g/dL (31.5-36.5); Mean Corpuscular Volume 100 fL (80-100); NEUTROPHILS ABSOLUTE AUTO 2.84 K/mm3 (1.96-9.15); NEUTROPHILS PERCENT AUTO 76 % (41-73); NRBC ABSOLUTE 0.00 K/mm3 (0.00-0.02); NRBC Auto 0.0 /100 WBC (0.0-0.2); Platelet Count 86 K/mm3 (150-400); RDW Coefficient Variation 16.3 % (11.7-14.2); RDW Standard Deviation 57.2 fL (35.1-46.3)
[2025-02-20 12:50] LABS: Hemoglobin 5.6 g/dL (13.5-17.5)
[2025-02-20 13:15] LABS: Alanine Aminotransfer (ALT/SGP 16.0 U/L (12-78); Albumin, Blood 2.9 g/dL (3.4-5.0); Albumin/Globulin Ratio 1.2 (0.8-1.8); Anion Gap 9.0 mmol/L (3-11); Aspartate Aminotrans (AST/SGOT 12.0 U/L (12-37); Bilirubin, Total 0.2 mg/dL (0.1-1.0); Blood Urea Nitrogen 28.0 mg/dL (8-24); CO2, Blood 20.0 mmol/L (21-32); Calcium, Blood 8.4 mg/dL (8.5-10.1); Chloride, Blood 117.0 mmol/L (98-108); Creatinine, Blood 1.66 mg/dL (0.60-1.20); Globulin, Blood 2.5 g/dL (2.2-4.0); Glucose, Blood 176.0 mg/dL (70-99); Potassium, Blood 4.0 mmol/L (3.5-5.5); Sodium, Blood 142.0 mmol/L (136-145); Total Protein, Blood 5.4 g/dL (6.4-8.2)
[2025-02-20] MEDS ORDERED: NS 1,000 ML IV SCH (14:10)
[2025-02-20 18:30] VITALS: BP 128/73
== END 2025-02-20 18:57 | disposition home or self-care (01) ==
LOC: ER 11:51
PROVIDERS: Emergency Medicine
DX: D50.0 Iron deficiency anemia secondary to blood loss (chronic) (principal); R55 Syncope and collapse; Z79.899 Other long term (current) drug therapy; Z88.5 Allergy status to narcotic agent
CPT/HCPCS: 36430; 80053; 84484; 85025; 86850; 86900; 86901; 86923; 99284-25; J1642; J7030; P9016

== ENCOUNTER 2025-03-12 11:55 | Emergency (ER) | payer MEDICARE ==
[~2025-03-12] VITALS: Ht 180.3 cm; Wt 73.9 kg
[2025-03-12] MEDS ORDERED: IRON18 M1 PO (12:09)
[2025-03-12 12:47] LABS: BASOPHILS ABSOLUTE AUTO 0.02 K/mm3 (0.00-0.23); BASOPHILS PERCENT AUTO 1 % (0-2); EOSINOPHILS ABSOLUTE AUTO 0.12 K/mm3 (0.00-0.68); EOSINOPHILS PERCENT AUTO 4 % (0-6); IMMATURE GRAN ABSOLUTE AUTO 0.01 K/mm3 (0.00-0.10); IMMATURE GRAN PERCENT AUTO 0 % (0-1); LYMPHOCYTES ABSOLUTE AUTO 0.28 K/mm3 (0.84-5.20); LYMPHOCYTES PERCENT AUTO 8 % (21-46); MONOCYTES ABSOLUTE AUTO 0.22 K/mm3 (0.16-1.47); MONOCYTES PERCENT AUTO 7 % (4-13); Mean Corpuscular HGB Conc 29.9 g/dL (31.5-36.5); Mean Corpuscular Volume 102 fL (80-100); NEUTROPHILS ABSOLUTE AUTO 2.68 K/mm3 (1.96-9.15); NEUTROPHILS PERCENT AUTO 81 % (41-73); NRBC ABSOLUTE 0.00 K/mm3 (0.00-0.02); NRBC Auto 0.0 /100 WBC (0.0-0.2); Platelet Count 77 K/mm3 (150-400); RDW Coefficient Variation 17.7 % (11.7-14.2); RDW Standard Deviation 64.3 fL (35.1-46.3)
[2025-03-12 13:05] LABS: Hematocrit 17.4 % (37.0-53.0); Hemoglobin 5.2 g/dL (13.5-17.5)
[2025-03-12 13:29] LABS: Alanine Aminotransfer (ALT/SGP 16.0 U/L (12-78); Albumin, Blood 2.8 g/dL (3.4-5.0); Albumin/Globulin Ratio 1.1 (0.8-1.8); Anion Gap 10.0 mmol/L (3-11); Aspartate Aminotrans (AST/SGOT 12.0 U/L (12-37); Bilirubin, Total 0.2 mg/dL (0.1-1.0); Blood Urea Nitrogen 28.0 mg/dL (8-24); CO2, Blood 21.0 mmol/L (21-32); Calcium, Blood 8.2 mg/dL (8.5-10.1); Chloride, Blood 115.0 mmol/L (98-108); Creatinine, Blood 1.81 mg/dL (0.60-1.20); Globulin, Blood 2.6 g/dL (2.2-4.0); Glucose, Blood 237.0 mg/dL (70-99); Potassium, Blood 4.1 mmol/L (3.5-5.5); Sodium, Blood 142.0 mmol/L (136-145); Total Protein, Blood 5.4 g/dL (6.4-8.2)
[2025-03-12] MEDS ORDERED: NS 1,000 ML IV SCH (14:15)
[2025-03-12 18:20] VITALS: BP 103/77
== END 2025-03-12 18:35 | disposition home or self-care (01) ==
LOC: ER 11:55
PROVIDERS: Emergency Medicine
DX: D50.0 Iron deficiency anemia secondary to blood loss (chronic) (principal); K92.2 Gastrointestinal hemorrhage, unspecified; R55 Syncope and collapse; I25.2 Old myocardial infarction; N18.30 Chronic kidney disease, stage 3 unspecified; E78.5 Hyperlipidemia, unspecified; Z90.5 Acquired absence of kidney; Z88.1 Allergy status to other antibiotic agents; Z79.899 Other long term (current) drug therapy
CPT/HCPCS: 36430; 80053; 85025; 86850; 86900; 86901; 86923; 93005; 93010; 99285-25; J7030; P9016

== ENCOUNTER 2025-04-03 21:48 | Emergency (ER) | payer OTHER ==
[~2025-04-03] VITALS: Ht 180.3 cm; Wt 66.2 kg
[~2025-04-03 21:48] MED LIST changes: +IRON18 M1 PO
[2025-04-03 22:35] LABS: BASOPHILS ABSOLUTE AUTO 0.05 K/mm3 (0.00-0.23); BASOPHILS PERCENT AUTO 1 % (0-2); EOSINOPHILS ABSOLUTE AUTO 0.29 K/mm3 (0.00-0.68); EOSINOPHILS PERCENT AUTO 4 % (0-6); Hematocrit 21.4 % (37.0-53.0); Hemoglobin 6.4 g/dL (13.5-17.5); IMMATURE GRAN ABSOLUTE AUTO 0.03 K/mm3 (0.00-0.10); IMMATURE GRAN PERCENT AUTO 0 % (0-1); LYMPHOCYTES ABSOLUTE AUTO 0.99 K/mm3 (0.84-5.20); LYMPHOCYTES PERCENT AUTO 12 % (21-46); MONOCYTES ABSOLUTE AUTO 0.47 K/mm3 (0.16-1.47); MONOCYTES PERCENT AUTO 6 % (4-13); Mean Corpuscular HGB Conc 29.9 g/dL (31.5-36.5); Mean Corpuscular Volume 100 fL (80-100); NEUTROPHILS ABSOLUTE AUTO 6.16 K/mm3 (1.96-9.15); NEUTROPHILS PERCENT AUTO 77 % (41-73); NRBC ABSOLUTE 0.00 K/mm3 (0.00-0.02); NRBC Auto 0.0 /100 WBC (0.0-0.2); Platelet Count 147 K/mm3 (150-400); RDW Coefficient Variation 17.0 % (11.7-14.2); RDW Standard Deviation 62.2 fL (35.1-46.3)
[2025-04-03 22:49] LABS: Alanine Aminotransfer (ALT/SGP 19.0 U/L (12-78); Albumin, Blood 3.1 g/dL (3.4-5.0); Albumin/Globulin Ratio 1.0 (0.8-1.8); Anion Gap 11.0 mmol/L (3-11); Aspartate Aminotrans (AST/SGOT 20.0 U/L (12-37); Bilirubin, Total 0.2 mg/dL (0.1-1.0); Blood Urea Nitrogen 33.0 mg/dL (8-24); CO2, Blood 20.0 mmol/L (21-32); Calcium, Blood 8.0 mg/dL (8.5-10.1); Chloride, Blood 113.0 mmol/L (98-108); Creatinine, Blood 1.76 mg/dL (0.60-1.20); Globulin, Blood 3.1 g/dL (2.2-4.0); Glucose, Blood 158.0 mg/dL (70-99); Potassium, Blood 4.5 mmol/L (3.5-5.5); Sodium, Blood 139.0 mmol/L (136-145); Total Protein, Blood 6.2 g/dL (6.4-8.2)
[2025-04-04] MEDS ORDERED: NS 1,000 ML IV ONE (00:27)
[2025-04-04] MEDS ORDERED: NS 1,000 ML IV SCH (00:40)
[2025-04-04 05:15] VITALS: BP 119/65
== END 2025-04-04 05:39 ==
LOC: ER 21:48
PROVIDERS: Student in an Organized Health Care Education/Training Program
DX: K62.5 Hemorrhage of anus and rectum (principal); D64.9 Anemia, unspecified; Z79.899 Other long term (current) drug therapy; Z88.5 Allergy status to narcotic agent
CPT/HCPCS: 36430; 71046; 80053; 84484; 85025; 86850; 86900; 86901; 86923; 93005; 93010; 99285-25; J7030; P9016

== ENCOUNTER 2025-04-05 22:17 | Inpatient (IN) | payer OTHER ==
[~2025-04-05] VITALS: Ht 180.3 cm; Wt 73.6 kg
[2025-04-05 22:46] LABS: BASOPHILS ABSOLUTE AUTO 0.02 K/mm3 (0.00-0.23); BASOPHILS PERCENT AUTO 1 % (0-2); EOSINOPHILS ABSOLUTE AUTO 0.17 K/mm3 (0.00-0.68); EOSINOPHILS PERCENT AUTO 4 % (0-6); Hematocrit 24.7 % (37.0-53.0); Hemoglobin 7.6 g/dL (13.5-17.5); IMMATURE GRAN ABSOLUTE AUTO 0.01 K/mm3 (0.00-0.10); IMMATURE GRAN PERCENT AUTO 0 % (0-1); LYMPHOCYTES ABSOLUTE AUTO 0.51 K/mm3 (0.84-5.20); LYMPHOCYTES PERCENT AUTO 12 % (21-46); MONOCYTES ABSOLUTE AUTO 0.32 K/mm3 (0.16-1.47); MONOCYTES PERCENT AUTO 8 % (4-13); Mean Corpuscular HGB Conc 30.8 g/dL (31.5-36.5); NEUTROPHILS ABSOLUTE AUTO 3.20 K/mm3 (1.96-9.15); NEUTROPHILS PERCENT AUTO 76 % (41-73); NRBC ABSOLUTE 0.00 K/mm3 (0.00-0.02); NRBC Auto 0.0 /100 WBC (0.0-0.2); Platelet Count 78 K/mm3 (150-400); RDW Coefficient Variation 19.3 % (11.7-14.2); RDW Standard Deviation 64.9 fL (35.1-46.3)
[2025-04-05 22:51] LABS: Mean Corpuscular Volume 92 fL (80-100)
[2025-04-05] MEDS ORDERED: Pantoprazole Sodium 40 MG Injection IV ONE (23:00)
[2025-04-05 23:04] LABS: Alanine Aminotransfer (ALT/SGP 16.0 U/L (12-78); Albumin, Blood 2.9 g/dL (3.4-5.0); Albumin/Globulin Ratio 1.1 (0.8-1.8); Anion Gap 8.0 mmol/L (3-11); Aspartate Aminotrans (AST/SGOT 12.0 U/L (12-37); Bilirubin, Total 0.3 mg/dL (0.1-1.0); Blood Urea Nitrogen 23.0 mg/dL (8-24); CO2, Blood 23.0 mmol/L (21-32); Calcium, Blood 7.8 mg/dL (8.5-10.1); Chloride, Blood 115.0 mmol/L (98-108); Creatinine, Blood 1.54 mg/dL (0.60-1.20); Globulin, Blood 2.7 g/dL (2.2-4.0); Glucose, Blood 153.0 mg/dL (70-99); Potassium, Blood 4.1 mmol/L (3.5-5.5); Sodium, Blood 142.0 mmol/L (136-145); Total Protein, Blood 5.6 g/dL (6.4-8.2)
[2025-04-06] VITALS (13 sets, daily range): BP systolic 105–148; BP diastolic 67–119
[2025-04-06] MEDS ORDERED: FLU VACC TS2025(65UP)/MF59C/PF 45 MCG/0.5 ML SYRINGE IM SCH (00:45)
[2025-04-06] MEDS ORDERED: NS 1,000 ML IV ONE (01:00)
--- NOTE | 2025-04-06 03:33 | NUR ---
SHIFT SUMMARY/ADMISSION TO THE MEDICAL FLOOR AT 0250. PT BROUGHT ALL HIS BELONINGS WITH HIM. CURRENTLY RECEIVING 1ST UNIT OF TOTAL OF 2 UNITS OF PRBC'S. VSS. ON TELE. EDUCATED COMPUTER LABORATORY TECHNICIAN LIGHT AND FALL PRECAUTIONS. 1-PERSON SBA ASSIST, WEAK LE'S. BED AT THE LOWEST POSITION, CALL LIGHT WITHIN REACH. PT IS A/OX 4, ABLE TO MAKE HIS NEEDS KNOWN AND COOPERATIVE WITH CARE. CHARGE NURSE INDRA COMPLETED THE ADMISSION ASSESSMENT AND MED RECONCILIATION.
[2025-04-06] MEDS ORDERED: NS 500 ML IV SCH (04:25)
--- NOTE | 2025-04-06 05:34 | NUR ---
PER TELEPHONE ORDER FROM ON-CALL HOSPITALIST GREYSON : CANCEL/DISCONTINUE [facility] ACTIVE ORDER. ENTERED TO [employer].
[2025-04-06] MEDS ORDERED: Pantoprazole Sodium 40 MG Injection IV SCH (06:00)
[2025-04-06 08:51] LABS: BASOPHILS ABSOLUTE AUTO 0.02 K/mm3 (0.00-0.23); BASOPHILS PERCENT AUTO 0 % (0-2); EOSINOPHILS ABSOLUTE AUTO 0.27 K/mm3 (0.00-0.68); EOSINOPHILS PERCENT AUTO 5 % (0-6); Hematocrit 32.0 % (37.0-53.0); Hemoglobin 10.1 g/dL (13.5-17.5); IMMATURE GRAN ABSOLUTE AUTO 0.02 K/mm3 (0.00-0.10); IMMATURE GRAN PERCENT AUTO 0 % (0-1); LYMPHOCYTES ABSOLUTE AUTO 0.56 K/mm3 (0.84-5.20); LYMPHOCYTES PERCENT AUTO 11 % (21-46); MONOCYTES ABSOLUTE AUTO 0.37 K/mm3 (0.16-1.47); MONOCYTES PERCENT AUTO 7 % (4-13); Mean Corpuscular HGB Conc 31.6 g/dL (31.5-36.5); Mean Corpuscular Volume 91 fL (80-100); NEUTROPHILS ABSOLUTE AUTO 3.92 K/mm3 (1.96-9.15); NEUTROPHILS PERCENT AUTO 76 % (41-73); NRBC ABSOLUTE 0.00 K/mm3 (0.00-0.02); NRBC Auto 0.0 /100 WBC (0.0-0.2); Platelet Count 73 K/mm3 (150-400); RDW Coefficient Variation 18.3 % (11.7-14.2); RDW Standard Deviation 59.6 fL (35.1-46.3)
[2025-04-06 09:09] LABS: Alanine Aminotransfer (ALT/SGP 15.0 U/L (12-78); Albumin, Blood 2.8 g/dL (3.4-5.0); Albumin/Globulin Ratio 1.0 (0.8-1.8); Anion Gap 10.0 mmol/L (3-11); Aspartate Aminotrans (AST/SGOT 15.0 U/L (12-37); Bilirubin, Total 0.7 mg/dL (0.1-1.0); Blood Urea Nitrogen 21.0 mg/dL (8-24); CO2, Blood 19.0 mmol/L (21-32); Calcium, Blood 7.7 mg/dL (8.5-10.1); Chloride, Blood 115.0 mmol/L (98-108); Creatinine, Blood 1.49 mg/dL (0.60-1.20); Globulin, Blood 2.9 g/dL (2.2-4.0); Glucose, Blood 150.0 mg/dL (70-99); Magnesium, Blood 1.8 mg/dL (1.6-2.4); Phosphorus, Blood 3.6 mg/dL (2.5-4.9); Potassium, Blood 4.0 mmol/L (3.5-5.5); Sodium, Blood 140.0 mmol/L (136-145); Total Protein, Blood 5.7 g/dL (6.4-8.2)
[2025-04-06 10:42] LABS: Hematocrit 29.7 % (37.0-53.0); Hemoglobin 9.6 g/dL (13.5-17.5)
--- NOTE | 2025-04-06 13:02 | NUR ---
CONTACTED DR CHAND REGARDING H&H RESULTS WELL PATIENT HAVING LARGE RED BOWEL MOVEMENT. ORDERS RECEIVED TO CONTINUE TO MONITOR LABS PREVIOUSLY ORDERED. NO CHANGES TO PATIENT AT THIS TIME.
[2025-04-06 14:10] LABS: Hematocrit 31.4 % (37.0-53.0); Hemoglobin 10.0 g/dL (13.5-17.5)
[2025-04-06] MEDS ORDERED: OxyCODONE HCL 1 MG/ML 5MLUDC PO PRN (18:30)
--- NOTE | 2025-04-06 18:45 | NUR ---
SHIFT SUMMARY PATIENT ALERT AND ORIENTED X4. PATIENT MAKE NEEDS KNOWN. PATIENT RECEIVED 2 UNITS OF BLOOD. VITAL SIGNS STABLE. PATIENT SELF REPOSITIONED. BED LOCKED AND IN LOWEST POSITION, CALL LIGHT WITHIN REACH.
[2025-04-06] MEDS ORDERED: TRANEXAMIC ACID 650 MG TABLET PO SCH (21:00)
[2025-04-06 22:58] LABS: Hematocrit 31.1 % (37.0-53.0); Hemoglobin 9.9 g/dL (13.5-17.5)
[2025-04-07 03:22] VITALS: BP 133/73
--- NOTE | 2025-04-07 04:02 | NUR ---
Shift Summary: AOx3-4 with intermittent forgetfulness, speech clear & is able to make all needs known. He denies any acute pain/discomfort. All his VS WNL, ambulates steadily to bathroom; continent of (B) B&B. No reports of any BM this tour, no rectal or any type of bloody discharge. Pt. is in good spirits, stable & resting comfortably with call suazo in reach at this time.
[2025-04-07 06:07] LABS: BASOPHILS ABSOLUTE AUTO 0.03 K/mm3 (0.00-0.23); BASOPHILS PERCENT AUTO 1 % (0-2); EOSINOPHILS ABSOLUTE AUTO 0.29 K/mm3 (0.00-0.68); EOSINOPHILS PERCENT AUTO 6 % (0-6); Hematocrit 31.4 % (37.0-53.0); Hemoglobin 10.0 g/dL (13.5-17.5); IMMATURE GRAN ABSOLUTE AUTO 0.02 K/mm3 (0.00-0.10); IMMATURE GRAN PERCENT AUTO 0 % (0-1); LYMPHOCYTES ABSOLUTE AUTO 0.58 K/mm3 (0.84-5.20); LYMPHOCYTES PERCENT AUTO 13 % (21-46); MONOCYTES ABSOLUTE AUTO 0.42 K/mm3 (0.16-1.47); MONOCYTES PERCENT AUTO 9 % (4-13); Mean Corpuscular HGB Conc 31.8 g/dL (31.5-36.5); Mean Corpuscular Volume 90 fL (80-100); NEUTROPHILS ABSOLUTE AUTO 3.31 K/mm3 (1.96-9.15); NEUTROPHILS PERCENT AUTO 71 % (41-73); NRBC ABSOLUTE 0.00 K/mm3 (0.00-0.02); NRBC Auto 0.0 /100 WBC (0.0-0.2); Platelet Count 77 K/mm3 (150-400); RDW Coefficient Variation 18.6 % (11.7-14.2); RDW Standard Deviation 60.2 fL (35.1-46.3)
[2025-04-07 06:41] LABS: Alanine Aminotransfer (ALT/SGP 15.0 U/L (12-78); Albumin, Blood 2.8 g/dL (3.4-5.0); Albumin/Globulin Ratio 1.0 (0.8-1.8); Anion Gap 10.0 mmol/L (3-11); Aspartate Aminotrans (AST/SGOT 12.0 U/L (12-37); Bilirubin, Total 0.7 mg/dL (0.1-1.0); Blood Urea Nitrogen 17.0 mg/dL (8-24); CO2, Blood 22.0 mmol/L (21-32); Calcium, Blood 8.2 mg/dL (8.5-10.1); Chloride, Blood 116.0 mmol/L (98-108); Creatinine, Blood 1.66 mg/dL (0.60-1.20); Globulin, Blood 2.8 g/dL (2.2-4.0); Glucose, Blood 121.0 mg/dL (70-99); Magnesium, Blood 1.8 mg/dL (1.6-2.4); Potassium, Blood 4.5 mmol/L (3.5-5.5); Sodium, Blood 143.0 mmol/L (136-145); Total Protein, Blood 5.6 g/dL (6.4-8.2)
[2025-04-07 07:16] VITALS: BP 126/84
--- NOTE | 2025-04-07 13:07 | NUR ---
DISCHARGE NOTE PATIENT AND GIVEN DISCHARGE INSTRUCTION, DISCUSSED PLAN AND MEDICATIONS. BOTH IV'S REMOVED PRIOR TO DISCHARGE. PATIENT AND DENIED ANY CONCERNS OR QUESTIONS. PATIENT WAS WHEELED OUT BY MEDICAL STAFF TO PERSONAL VEHICLE.
== END 2025-04-07 12:55 | disposition home or self-care (01) | DRG 377 ==
LOC: ER 22:17 → MEDS 22:18
PROVIDERS: Student in an Organized Health Care Education/Training Program; ADMIT Student in an Organized Health Care Education/Training Program
PROC: 30233N1 Transfusion of Nonautologous Red Blood Cells into Peripheral Vein, Percutaneous Approach (ICD-10-PCS; principal; 2025-04-06)
DX: K92.1 Melena (principal); I50.23 Acute on chronic systolic (congestive) heart failure; K52.0 Gastroenteritis and colitis due to radiation; C78.00 Secondary malignant neoplasm of unspecified lung; C79.9 Secondary malignant neoplasm of unspecified site; D62 Acute posthemorrhagic anemia; C78.7 Secondary malignant neoplasm of liver and intrahepatic bile duct; C79.51 Secondary malignant neoplasm of bone; N18.31 Chronic kidney disease, stage 3a; C67.9 Malignant neoplasm of bladder, unspecified; D64.9 Anemia, unspecified; I35.0 Nonrheumatic aortic (valve) stenosis; E78.5 Hyperlipidemia, unspecified; G89.29 Other chronic pain; M54.9 Dorsalgia, unspecified; Z79.890 Hormone replacement therapy; Z90.79 Acquired absence of other genital organ(s); I25.2 Old myocardial infarction; Z90.5 Acquired absence of kidney; Z90.49 Acquired absence of other specified parts of digestive tract; Z88.1 Allergy status to other antibiotic agents; Z79.899 Other long term (current) drug therapy
CPT/HCPCS: 36415; 36430; 80053; 83735; 83880; 84100; 84484; 85014; 85018; 85025; 86850; 86900; 86901; 86923; 93005; 93010; 96365; 96366; 96376; 99285-25; A9270; G0378; J2470; J7030; P9016

== ENCOUNTER 2025-04-25 12:03 | Emergency (ER) | payer OTHER ==
[~2025-04-25] VITALS: Ht 180.3 cm; Wt 72.6 kg
[2025-04-25 12:30] LABS: BASOPHILS ABSOLUTE AUTO 0.03 K/mm3 (0.00-0.23); BASOPHILS PERCENT AUTO 1 % (0-2); EOSINOPHILS ABSOLUTE AUTO 0.29 K/mm3 (0.00-0.68); EOSINOPHILS PERCENT AUTO 5 % (0-6); Hematocrit 18.7 % (37.0-53.0); IMMATURE GRAN ABSOLUTE AUTO 0.02 K/mm3 (0.00-0.10); IMMATURE GRAN PERCENT AUTO 0 % (0-1); LYMPHOCYTES ABSOLUTE AUTO 0.61 K/mm3 (0.84-5.20); LYMPHOCYTES PERCENT AUTO 10 % (21-46); MONOCYTES ABSOLUTE AUTO 0.43 K/mm3 (0.16-1.47); MONOCYTES PERCENT AUTO 7 % (4-13); Mean Corpuscular HGB Conc 31.0 g/dL (31.5-36.5); Mean Corpuscular Volume 96 fL (80-100); NEUTROPHILS ABSOLUTE AUTO 4.79 K/mm3 (1.96-9.15); NEUTROPHILS PERCENT AUTO 78 % (41-73); NRBC ABSOLUTE 0.00 K/mm3 (0.00-0.02); NRBC Auto 0.0 /100 WBC (0.0-0.2); Platelet Count 106 K/mm3 (150-400); RDW Coefficient Variation 18.4 % (11.7-14.2); RDW Standard Deviation 62.4 fL (35.1-46.3)
[2025-04-25 12:33] LABS: Hemoglobin 5.8 g/dL (13.5-17.5)
[2025-04-25] MEDS ORDERED: NS 1,000 ML IV SCH (12:35)
[2025-04-25 12:53] LABS: Anion Gap 12.0 mmol/L (3-11); Blood Urea Nitrogen 29.0 mg/dL (8-24); CO2, Blood 21.0 mmol/L (21-32); Calcium, Blood 8.0 mg/dL (8.5-10.1); Chloride, Blood 115.0 mmol/L (98-108); Creatinine, Blood 1.77 mg/dL (0.60-1.20); Glucose, Blood 142.0 mg/dL (70-99); Potassium, Blood 3.8 mmol/L (3.5-5.5); Sodium, Blood 144.0 mmol/L (136-145)
[2025-04-25 13:13] LABS: IMMATURE RETIC FRACTION 27.6 % (2.3-16.0); RETIC HGB EQUIVALENT 27.6 pg (28.20-36.60); RETICULOCYTE COUNT PERCENT 4.17 % (0.50-2.50)
[2025-04-25 19:50] VITALS: BP 133/87
[2025-04-25 19:56] LABS: Hematocrit 23.7 % (37.0-53.0); Hemoglobin 7.5 g/dL (13.5-17.5)
== END 2025-04-25 20:00 | disposition home or self-care (01) ==
LOC: ER 12:03
PROVIDERS: Emergency Medicine; Student in an Organized Health Care Education/Training Program
DX: R55 Syncope and collapse (principal); D64.9 Anemia, unspecified; K92.2 Gastrointestinal hemorrhage, unspecified
CPT/HCPCS: 36430; 80048; 85014; 85018; 85025; 85045; 86850; 86900; 86901; 86923; 93005; 93010; 99284-25; J7030; P9016